=== PATIENT | female | born 1955 | race Caucasian/White ===

== ENCOUNTER 2016-10-02 10:56 | Inpatient (IN) | payer OTHER ==
[2016-10-02] VITALS (11 sets, daily range): BP systolic 113–137; BP diastolic 56–78; PULSE 88–113; RESP 15–30; O2SAT 92–98
[~2016-10-02] VITALS: Ht 171.4 cm; Wt 48.9 kg
[~2016-10-02 10:56] MED LIST: ALBU8.5H4 IH; BETA1TAB19 PO; BUPR75TA5 PO; FLUT12AE8 IH; METH750T3 PO; MULT-621 PO; TIOT18CA3 IH; [UNRECOGNIZED DRUG - CODE] PO
--- NOTE | 2016-10-02 11:02 | ED.REPORT ---
HPI-Dyspnea / Wheezing Date of Service Oct 02, 2016 ED Provider: Dr. Akshat Webb D.O. A 61 year old female with a history of COPD presents to the ED via EMS with shortness of breath onset 0100 this morning. She is on her fourth day of 60mg Prednisone with no improvement and has been using her rescue inhaler and albuterol nebulizer today with no relief. EMS found the patient with a BP of 134 /79 and O2 sats of 81% on room air. She was given DuoNeb treatment en route and her O2 sats mercedes to 98%. The patient denies chest pain, hematemesis, or hemoptysis. She has no history of PE or other blood clot. The patient denies recent medication change. Nursing Notes Stated Complaint: COPD ASTHMA EXACERBATION Chief Complaint: Respiratory Distress Nursing Notes Reviewed: Yes Allergies: Coded Allergies: Penicillins (Verified Allergy, Intermediate, HIVES, 10/02/16) codeine (Verified Adverse Reaction, Intermediate, NAUSEA, 10/02/16) Scheduled Fluticasone Propionate (Flovent HFA 110 mcg) 12 Gm Aer.w.adap 2 PUFFS IH BID Formoterol Fumarate (Perforomist) 20 Mcg/2 Ml Vial.neb 20 MCG IH BID Multivitamin (Once Daily) 1 Each Tablet 1 EACH PO DAILY Pantoprazole (Pantoprazole DR) 40 Mg Tablet.dr 40 MG PO DAILY Prednisone (PredniSONE) 20 Mg Tablet 60 MG PO daily then taper Tiotropium [place] (Spiriva) 18 Mcg Cap.w.dev 18 MCG IH DAILY Vit A/Vit C/Vit E/Zinc/Copper (Preservision Areds Tablet) 1 Each Tablet 1 EACH PO BID Scheduled PRN Albuterol Neb Soln (Albuterol Neb Soln) 2.5 Mg/3 Ml Vial.neb 2.5 MG INHALATION QID PRN PRN For Shortness of Breath Albuterol Sulfate (Ventolin HFA Inhaler) 200 Puff/18 Gm Inhaler 2 PUFFS INH q4- 6 hours PRN PRN For Shortness of Breath Methocarbamol (Methocarbamol) 750 Mg Tablet 750 MG PO HS PRN PRN For Spasm Tramadol (Tramadol) 50 Mg Tablet 50 MG PO q6 hours PRN PRN For Pain Trazodone (Trazodone) 50 Mg Tablet 50-100 MG PO HS PRN PRN For Sleep General Time Seen by MD: 11:02 Chief Complaint Shortness of breath Hx Obtained From: Patient Arrived By: Ambulance Onset Occurred: Just prior to arrival Symptom Duration: Since onset Location: : None Severity: Current: No pain currently Severity: Maximum: No pain Associated with: Denies: Chest pain, Fever Context Related History: Reports: COPD, Denies: Pulmonary embolism Recent Healthcare: No recent doctor visit Similar Sx Previous: Yes Past Medical History Past Medical History COPD Past Surgical History Colonoscopy Smoking History Former Smoker Ambulatory Status Independent Review of Systems Constitutional: Denies: Fever Respiratory: Reports: Shortness of breath, Denies: Hemoptysis Cardiovascular: Denies: Chest pain Complete sys rev & neg: except as marked. GI: Denies: Hematemesis, Vomiting Physical Exam Initial Vital Signs Vital Signs (First) Date Time Temp Pulse Resp B/P Pulse Ox O2 Delivery O2 Flow Rate FiO2 10/02/16 11:02 36.8 99 15 119/57 98 Nasal Cannula 2 Initial VS: Reviewed Head / Eyes: Atraumatic, Normocephalic ENT: Conjunctiva normal, No scleral icterus Extremities: Vascular intact, Neuro intact, No swelling Skin: Warm, Dry, No cyanosis Neurologic: Alert, Oriented, Nonfocal Psychiatric: Mood/affect normal, Behavior normal, Normal thought content General/Constitutional: Awake, Alert Distress / Hydration: Positive: Distress moderate Neck: Supple, Full range of motion Respiratory / Chest: Breath sounds = bilat Resp Distress / Stridor: Positive: Resp distress moderate Diminished Breath Sounds: Positive: Decreased bilateral Pursed lip breathing Cardiovascular: Heart rate NL, Regular rhythm, Heart sounds NL Interpretation & Diagnostics Lab Results Interpretation Result Diagram: 10/02/16 1100 10/02/16 1100 Test 10/02/16 11:00 10/02/16 12:05 White Blood Count 13.1th/mm3 (3.8-10.1) Red Blood Count 4.85mil/mm3 (3.90-5.20) Hemoglobin 14.8g/dL (12.0-15.6) Hematocrit 44.5% (35.0-46.0) Mean Corpuscular Volume 91.8fL (81-100) Mean Corpuscular Hemoglobin 30.5pg (27.0-35.0) Mean Corpuscular Hemoglobin Concent 33.3% (32.0-37.0) Red Cell Distribution Width 13.5% (12.3-15.4) Platelet Count 227bil/L (150-400) Neutrophils (%) (Auto) 82.8% (40-74) Lymphocytes (%) (Auto) 9.3% (14-46) Monocytes (%) (Auto) 2.8% (4-12) Eosinophils (%) (Auto) 4.4% (0-5) Basophils (%) (Auto) 0.5% (0-3) Prothrombin Time 10.0sec (8.1-12.5) Prothromb Time International Ratio 0.94ratio D-Dimer < 0.5mg/L (<0.50) Sodium Level 142mEq/L (134-144) Potassium Level 3.4mEq/L (3.5-5.2) Chloride Level 100mEq/L (97-108) Carbon Dioxide Level 28mmol/L (18-29) Blood Urea Nitrogen 20mg/dL (8-27) Creatinine 0.59mg/dL (0.57-1.00) Estimat Glomerular Filtration Rate 147mL/min (>59) Glucose Level 137mg/dL (60-99) Calcium Level 9.0mg/dL (8.5-10.1) Magnesium Level 2.0mg/dL (1.6-2.6) Total Bilirubin 0.6mg/dL (0.0-1.2) Aspartate Amino Transf (AST/SGOT) 19U/L (0-50) Alanine Aminotransferase (ALT/SGPT) 25U/L (0-32) Alkaline Phosphatase 105U/L (25-165) Troponin T < 0.010ug/L (0.0-0.011) Pro-B-Type Natriuretic Peptide 72.21pg/mL (0-287) Total Protein 6.9g/dL (6.4-8.4) Albumin 4.4g/dL (3.4-5.0) Procalcitonin 0.04ng/mL (0.00-0.08) Hold Glass Top Tube Received (Received) ECG Interpretation ECG Interpretation: Sinus rhythm rate [address] segments Time: 11:42 Interpreted by: ED physician X-Ray Chest Interpretation Chest Xray Interpretation: IMPRESSION: No acute cardiopulmonary abnormality. Dictated by: Jake Youngblood M.D. on 10/02/2016 at 12:24 View: Portable, 1 view Interpretation / Wet Read by: Interpret - Radiologist Re-Eval/Medical Decision Re-Evaluation/Progress #1: Time of Eval: 12:36 Patient Status: Condition improved Re-Evaluation/Progress Note: Patient is moving air better. She is grossly anxious. Her O2 sats are 89-91% on room air. Discussed with patient x-ray and lab results, diagnosis, and plan for admit. Patient agrees with plan for care and all questions were addressed. Re-Evaluation/Progress #2: Time of Eval: 15:02 Patient Status: Condition improved Re-Evaluation/Progress Note: Patient rechecked. 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 I, Dr. Webb, personally performed the history, physical exam, and medical decision-making; I reviewed and confirmed the accuracy of the information in the transcribed note. Signed by: Nyla Sherman, 10/02/2016, 16:20 copies to: Mason Velasco MD, Todd P DO Oct 02, 2016 11:02 LUZ MARINA LU Oct 02, 2016 11:08
[2016-10-02] MEDS ORDERED: 0.9% Sodium Chloride 1,000 ML IV ONE (11:04)
[2016-10-02] MEDS ORDERED: cefTRIAXone Inj 2,000 MG in Dextrose 5% Minibag Plus 50 ML IV ONE (11:10)
[2016-10-02] MEDS ORDERED: Albuterol 2.5 mg/3 mL Inhalation Solution NEB ONE ×2 (11:10→15:00)
[2016-10-02] MEDS ORDERED: MethylprednisoLONE Sodium Succinate 62.5 mg/mL 2 mL Inj IVPUSH ONE (11:10)
[2016-10-02] MEDS ORDERED: Albuterol-Ipratropium 3 mL Inhalation Solution NEB ONE ×2 (11:10→20:30)
[2016-10-02 11:27] LABS: BASOPHILS % (AUTO) 0.5 % (0-3); EOSINOPHILS % (AUTO) 4.4 % (0-5); MONOCYTES % (AUTO) 2.8 % (4-12); Mean Corpuscular Hemoglobin 30.5 pg (27.0-35.0); Mean Corpuscular Volume 91.8 fL (81-100); NEUTROPHILS % (AUTO) 82.8 % (40-74); Platelet Count 227 bil/L (150-400)
[2016-10-02 11:41] LABS: INR 0.94 ratio
[2016-10-02] MEDS ORDERED: TRAZ-118 PO (11:50)
[2016-10-02] MEDS ORDERED: PRE20 PO (11:50)
[2016-10-02] MEDS ORDERED: TRAM50TA2 PO (11:50)
[2016-10-02] MEDS ORDERED: MULT-666 PO ×2 (11:50→14:26)
[2016-10-02] MEDS ORDERED: ALBU2.5V4 INHALATION (11:50)
[2016-10-02 12:15] LABS: TROPONIN T < 0.010 ug/L (0.0-0.011)
--- NOTE | 2016-10-02 12:27 | DRSVH ---
PROCEDURE: X-RAY CHEST ONE VIEW, PORTABLE ([id number]) INDICATIONS: dyspnea TECHNIQUE: One view of the chest was acquired. COMPARISON: 08/27/2016 FINDINGS: Surgical changes and devices: None. Lungs and pleura: No pleural effusions or pneumothorax. Lungs are clear. Density over the right low er lung field laterally on last exam is not seen. Mediastinum: Mediastinal contours appear normal. Heart size is normal. Bones and chest wall: No suspicious bony lesions. Overlying soft tissues appear unremarkable. IMPRESSION: No acute cardiopulmonary abnormality. Dictated by: Jake Youngblood M.D. on 10/02/2016 at 12:24 Approved by: Jake Youngblood M.D. on 10/02/2016 at 12:25
[2016-10-02] MEDS ORDERED: FORM20VI2 IH (14:24)
[2016-10-02] MEDS ORDERED: PANT40TA3 PO (14:24)
[2016-10-02] MEDS ORDERED: ALBU18HF INH (14:24)
[2016-10-02] MEDS ORDERED: TRAZ-115 PO (14:24)
[2016-10-02] MEDS ORDERED: Azithromycin Inj 500 MG in Dextrose 5% w/Vial Mate 250 ML IV ONE (15:00)
[2016-10-02] MEDS ORDERED: Alum-Mag Hydrox-Simeth 30 mL Suspension PO PRN (15:05)
[2016-10-02] MEDS ORDERED: Ondansetron 2 mg/mL 2 mL Inj IVPUSH PRN (15:05)
[2016-10-02] MEDS: Azithromycin Inj 500 MG in Dextrose 5% w/Vial Mate 250 ML IV SCH (16:01)
[2016-10-02] MEDS ORDERED: 0.9% Sodium Chloride 1,000 ML ONE (16:23)
[2016-10-02] MEDS ORDERED: Albuterol 2.5 mg/3 mL Inhalation Solution NEB PRN (16:30)
[2016-10-02 16:52] LABS: APPEARANCE,URINE CLEAR (CLEAR,HAZY); COLOR,URINE STRAW (YELLOW)
[2016-10-02 16:53] LABS: OCCULT BLOOD,URINE TRACE (NEGATIVE); UROBILINOGEN,URINE NORMAL (NORMAL)
--- NOTE | 2016-10-02 17:09 | NUR ---
Arrival to [facility] Pt arrived to room 2030 from ED around 1620. Visibly dyspneic, w/ RR 30. Vitals stable on 2L oxygen. Admission questions completed without difficulty. Viral and MRSA nasal swabs sent to lab, as well as urine sample. Plan of care discussed w/ pt, who is agreeable. Care ongoing.
--- NOTE | 2016-10-02 17:35 | PCM.HPMED ---
Subjective Date of Service Oct 02, 2016 Primary Provider: Admitting Physician: Harpreet Rivas MD Primary Care Physician: Mason Velasco MD Attending Physician: Harpreet Rivas MD Admit Status: From the Emergency Department, Admit to Yellow Team Chief Complaint: Shortness of breath History of Present Illness: Ms. Lily Astudillo is a pleasant 61 year old woman with history of COPD with centrilobular emphysema and asthma on chronic oxygen therapy, that presented to [facility] with shortness of breath. She was admitted for evaluation and treatment of acute on chronic respiratory failure due to suspected COPD exacerbation. Patient shares that she has been feeling extremely short of breath over the course greater than one year, notable decompensation January 2016. She states current symptoms have been persisting for recent weeks, but she could not breathe at all day of admission, and that is what prompted her visit to the ED. She also endorses recent fever, decreased appetite, fatigue, chills. Currently ongoing. She shares that she was looking forward to meeting with a science specialist to discuss her symptoms, as she is extremely fatigued and worried about her respiratory health. She states she is compliant with her medication regimen, and compliant with outpatient follow up. Quit smoking July 2016, and has remained smoke-free. Denies any other substance use or EtOH intake. Wears oxygen around the clock, with 1L at rest, 2L with activity. No recent travel; resided in [place] x35 years, reports negative testing for Valley Fever while living in [facility] for 5 years. The patient reports residing in locations with black mold and asbestos for estimated 1.5-2 years approx 20 years ago. 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 Currently receiving prednisone 60mg, on fourth day of dosing of a 5 day schedule with taper of 60mg x5d, 40mg x5d, 20mg x5d, then 10mg x5d. Recently seen by PCP 09/19/2016 with complaints of low grade fever, increased cough with increased production, increased dyspnea, and increased wheeze, that have been present at that time for over a week. She received prednisone burst with taper in August, and levofloxacin 750mg daily x5 days from 09/12 - 09/16. In the ED, found to have sats 81% on room air. Provided multiple DuoNeb treatments, ceftriaxone 2g IV, azithromycin 500mg IV, 1L NS. CXR did not reveal any acute abnormality, but was suspicious for hyperinflated lungs. Labs yielded : D-dimer < 0.05, PCT 0.04, WBC 13.1. She was transferred to [facility] in stable condition, with O2 sats > 95% on 2L in room at rest. Review of Systems: General: Patient is feels wiped out and is very very tired. Patient has lost approximately 20 pounds over the last year. And she is always been thin to begin with HEENT: Patient has no headache, patient has no diplopia, patient has no changes in vision. Patient has no problems with their ears, nose or throat. Patient has no known dental problems. Patient has no pharyngitis or history of thrush. Neck: Patient has no stiffness in the neck. She does complain of chronic neck pain. Patient has no lymphadenopathy. Patient has no other problems with their neck. Pulmonary: Patient has had shortness of breath for a year at a minimum and it continues to worsen. She feels better on steroids and then feels horrible off of steroids. Increasing shortness of breath. Patient has no pleurisy. Patient has had a slight feeling of pressure or chest pain in the left side of her chest today. Patient has a history of severe COPD. she used to smoke [employer] lights for years(45 pack years) and quit July 26 when she was admitted to the [facility]. Cardiovascular: Patient has some mild chest pain which she describes as a dull pain in the left side of her chest. Patient has no history of heart murmur. Patient has no palpitations. Patient has no history of myocardial infarction. Patient has no history of coronary artery disease. Vision has never had a stress treadmill test or any cardiac workup. Gastrointestinal: Patient has no history of hepatitis A, B or C. Patient has no history of peptic ulcer disease. Patient has a history of gastroesophageal reflux disease. Patient has no history of nausea, vomiting, or diarrhea. Patient has no history of hematemesis, hematochezia, or melena. Patient has no history of colitis. Renal: Patient has a history of kidney stones. Genitourinary: Patient has no history of dysuria, frequency, or incontinence. Patient has no previous history of genitourinary problems. Musculoskeletal: Patient has no history of muscular skeletal problems. Neurologic: Patient has no history of stroke, no history of seizure, no history of TIA. Psychiatric: Patient has no history of psychiatric problems. The remainder of the entire review of systems was reviewed with patient and is as mentioned above otherwise negative. Allergies Coded Allergies: Penicillins (Verified Allergy, Intermediate, HIVES, 10/02/16) codeine (Verified Adverse Reaction, Intermediate, NAUSEA, 10/02/16) Home Medications Per [facility] PCP note dated as below: Lily Astudillo [id number] 1955 09/19/2016 03:20 PM 08/24 Medications (Added or Continued this visit) Start Date Medication Directions Stop Date 08/06/2016 albuterol sulfate 2.5 mg/3 mL (0.083 %) solution for nebulization inhale 3 milliliter by nebulization route 4 times every day 08/05/2017 06/15/2016 Flovent HFA 110 mcg/actuation aerosol inhaler inhale 2 puff by inhalation route 2 times every day 06/18/2016 methocarbamol 750 mg tablet take 1 tablet in pm as needed 10/13/2014 multivitamin tablet take 1 tablet by oral route every day with food 08/06/2016 pantoprazole 40 mg tablet,delayed release take 1 tablet by oral route every day 08/05/2017 09/12/2016 Perforomist 20 mcg/2 mL solution for nebulization inhale 2 milliliter by inhalation route 2 times every day via nebulizer in the morning and evening 09/11/2017 08/27/2016 prednisone 20 mg tablet take 3 tabs in AM w food every day for 5 days , then 2 for 5 days, then 1 for 5 days 02/22/2017 PreserVision AREDS 1 daily 09/12/2016 Spiriva with HandiHaler 18 mcg and inhalation capsules inhale 1 capsule by inhalation route every day 10/31/2016 09/01/2016 tramadol 50 mg tablet take 1 tablet (50MG) by oral route every 6 hours as needed 09/12/2016 trazodone 50 mg tablet take 1-2 tablet by oral route at bedtime as needed 09/11/2017 06/18/2016 VENTOLIN HFA 90 MCG INHALER inhale 2 puffs by mouth every 4 to 6 hours if needed PMH COPD with centrilobular emphysema and asthma Seasonal allergies Endometriosis Nephrolithiasis Right rotator cuff tear Cervical spondylosis Chronic cervical and low back pain GERD Insomnia Left renal cyst Adenomatous colonic polyps Surgical History Colonoscopy PAULINE/BSO Family History Father: CAD; at age 49y Mother: Colon CA and Alzheimer's Sister: DM2 Brother: EtOH use disorder with encephalopathy Brother from alcohol use A second brother in the [facility] A third brother is healthy living in [place], [place] Social History Hx Alcohol Use: No Hx Substance Use: Yes (patient smokes marijuana and is given her an appetite since she was hospitalized July 26) Smoking Status: Former Smoker (patient quit 07/26/2016.) Living Arrangement: with Family Additional Information Patient lived in [facility] for 5 years and at that time was thought to have had valley fever and was tested for it but the serologic test was negative. Patient lived in [place] for her over 15 years. Patient is lived in [place], [place] for the last 11 years. Patient used to teach preschool and special education. Exam Vital Signs Vital Sign - Last Date Time Temp Pulse Resp B/P Pulse Ox O2 Delivery O2 Flow Rate FiO2 10/02/16 15:24 110 18 137/70 95 Nasal Cannula 2 10/02/16 11:02 36.8 Exam General: Moderate distress noted with anxiety; thin; pleasant and cooperative, AAOx3 HEENT: Atraumatic, external ears without defect; sclera anicteric; mucus membranes moist; NC in place Cardiac: Faint tones secondary to overlying wheeze; no audible murmur Respiratory: Diffuse wheeze bilateral all vasquez; mild coarse sounds appreciated bilateral bases Abdomen: Soft, nontender, nondistended Extremities: No edema MSK: 4/4 extremities 5/5 strength; able to transition without assistance Skin: Warm and dry Pulses: Radial equal and bilateral; dorsalis pedis equal and bilateral Neuro: CNII-XII grossly intact; speech without slur, facial expressions symmetric Psych: Appropriate mood, affect, and responses to questioning; good insight and judgment Lab and Diagnostics Result Diagram: 10/02/16 1100 10/02/16 1100 Assessment & Plan Ms. Lily Astudillo is a pleasant 61 year old woman with history of COPD with centrilobular emphysema and asthma on chronic oxygen therapy, that presented to [facility] with shortness of breath. She was admitted for evaluation and treatment of acute on chronic respiratory failure due to suspected COPD exacerbation. - Hospital day 1 Acute on chronic respiratory failure, present on admission. Ongoing - Home O2 reported as 1-2L, continuous - Suspected to be secondary to URI, or COPD exacerbation - Treat underlying cause(s) - Blood cultures - Abx: Rocephin + azithromycin, start date 10/02 + probiotics - Echo on order - Resp viral PCR - MRSA screen - Quantiferon, coccidio studies - Sputum culture x3: AFB + DNA amp - Trend troponin - Initial PCT 0.04 - CXR in am Acute exacerbation COPD with centrilobular emphysema, present on admission. Ongoing - Outpatient pulomnology: Dr. Kirby, OV scheduled 10/29/2016 - PFTs completed 08/27/2016: - Pre-bronchodilators FVC actual 2.88, pred 3.60; FEV1 actual 1.31, pred 2.77 ; FEV1/FVC % actual 45, pred 77 - Post-bronchodilators FVC actual 3.08 85% pred; FEV1 1.26 45% pred; FEV/FVC actual 41, 53% pred - CT chest wo contrast 08/2016: Severe centrilobular emphysema; nodules seen on XR 08/27/2016, not visualized; bilateral apical scarring - On outpatient steroids: Prednisone 60mg daily, day 4 of regimen - Consideration of pulmonary consult if no improvement within next 24 hours - Duonebs q4h - Accunebs q2h prn - Increase in steroids: Methylprednisone 60mg IV q8h Leukocytosis, likely acute, present on admission. Ongoing - Likely secondary to recent steroid use as outpatient and continued use inpatient - Continue to monitor Anxiety, acute, present on admission. Under therapy - Secondary to inability to breathe - Ativan 0.5mg IV q4h prn for anxiety Chronic pain. Presumed stable - Due to cervical spondylosis and chronic neck pain - Methocarbamol 750mg po qhs prn pain - Tramadol 50mg po q6h prn pain Insomnia, chronic. Presumed stable - Home Rx; Trazodone 50-100mg hs prn insomnia - Continued home Rx GERD, chronic. Presumed stable - Pantoprazole 40mg daily before meals - Continued - DVT: Lovenox 40mg SQ daily - GI: PPI - Diet: Heart healthy - PRN bowel/fever/pain/antiemetic - Code: FULL CODE - Time spent: Approximately 60 minutes spent on patient case; greater than 50% spent on coordination of care and counseling Patient status: Due to severity of symptoms, risk of adverse events, and likelihood of disease course, anticipated LOS > 2 midnights; admitted as inpatient status. Anticipated needs will evolve as we gather more information on her case. RT will play integral role in the improvement Pain Evaluation: Adequate Pain Control GI Prophylaxis: Proton Pump Inhibitor VTE Prophylaxis: Sub-Q Enoxaparin Resuscitation Status: CPR: Attempt Resuscitation Attending Statement Patient seen and examined. Chart reviewed and case discussed at length with Dr. Lilliana Gilbert. I agree with the above note. Ally Gilbert DO Oct 02, 2016 16:30 Harpreet Rivas MD Oct 02, 2016 19:02
[2016-10-02] MEDS ORDERED: Albuterol-Ipratropium 3 mL Inhalation Solution NEB SCH (21:00)
[2016-10-02] MEDS: MethylprednisoLONE Sodium Succinate 62.5 mg/mL 2 mL Inj IVPUSH SCH (21:06)
[2016-10-03] VITALS (12 sets, daily range): BP systolic 90–124; BP diastolic 58–73; PULSE 85–104; RESP 20–22; O2SAT 91–98
[2016-10-03] MEDS: Albuterol-Ipratropium 3 mL Inhalation Solution NEB SCH ×7 (00:30→23:56)
[2016-10-03 03:49] LABS: BASOPHILS % (AUTO) 0 % (0-3); EOSINOPHILS % (AUTO) 0 % (0-5); MONOCYTES % (AUTO) 1.7 % (4-12); Mean Corpuscular Hemoglobin 29.8 pg (27.0-35.0); Mean Corpuscular Volume 91.3 fL (81-100); Platelet Count 204 bil/L (150-400)
[2016-10-03] MEDS: MethylprednisoLONE Sodium Succinate 62.5 mg/mL 2 mL Inj IVPUSH SCH ×3 (04:22→21:20)
[2016-10-03 04:30] LABS: Magnesium 2.2 mg/dL (1.6-2.6); Phosphorus 3.6 mg/dL (2.5-4.9)
--- NOTE | 2016-10-03 05:36 | NUR ---
Respiratory: Sp02 monitored via [employer] overnight, Sp02 remains 90s on 1-2 L NC. Pt does become extremely PÉREZ, pursed lip breathing and accessory muscle use noted with even minimal activity. Rest encouraged. Pt continues to have harsh, dry barking cough with minimal sputum production. Post neb tx pt had long coughing fit where she appeared very uncomfortable and was havening extreme air hunger. Scheduled Solumedrol given at this time in addition to PRN IV ativian. Pt currently resting comfortably- care ongoing.
[2016-10-03] MEDS: Pantoprazole 40 mg ER24 Tablet PO SCH (06:36)
[2016-10-03] MEDS: cefTRIAXone Inj 2,000 MG in Dextrose 5% Minibag Plus 50 ML IV SCH (09:10)
[2016-10-03] MEDS ORDERED: 0.9% Sodium Chloride 250 ML ONE (09:13)
--- NOTE | 2016-10-03 10:46 | DRSVH ---
PROCEDURE: X-RAY CHEST, TWO VIEWS ([id number]) INDICATIONS: Hypoxia TECHNIQUE: 2 views of the chest were acquired. COMPARISON: [facility], CR, XR CHEST 2VW, 08/27/2016, 10:31. [facility], CR, XR CHEST 1VW (PORTABLE), 10/02/2016, 12:00. [facility], CT, CT CHEST WO CON, 09/03/2016, 15:20. FINDINGS: Surgical changes and devices: None. Lungs and pleura: No pleural effusions or pneumothorax. Lungs are clear. Lung volumes are increase d with flattening of the hemidiaphragms consistent with COPD. Mediastinum: Mediastinal contours are normal. Heart size is normal. Bones and chest wall: No suspicious bony abnormalities. Soft tissues appear unremarkable. IMPRESSION: No acute cardiopulmonary disease. COPD. Dictated by: Stan Camarena A Interpreted: Frida Asif MD on 10/03/2016 at 10:44 Transcribed by: DIAN on 10/03/2016 at 10:45 Approved by: Frida Asif M.D. on 10/03/2016 at 12:40
[2016-10-03] MEDS ORDERED: FLUCONAZOLE IV SCH (11:45)
[2016-10-03] MEDS: Fluconazole Inj 400 MG in IV Premix 1 EACH IV SCH (13:40)
--- NOTE | 2016-10-03 16:26 | DRSVH ---
[facility] [address] [place] [address] Echocardiogram Report Name: SHANNON ROBERSON JStudy Date: 10/03/2016 Height: 67 in Hospital Exam Location: [facility] Weight: 116 lb Gender: Female BSA: 1.6 m2 : 1955 Age: 61 yrs BP: 90/58 mmHg Reason For Study: HYPOXIA Ordering Physician: HOSPITALIST WOOHPerformed By: Avery Judd Referring Physician: Dayo RODRIGUEZ Interpretation Summary 1. Normal left ventricular size, wall thickness and systolic function with an estimated EF of 60-65% 2. Grossly normal right ventricular size with normal systolic function. 3. No evidence for valvular pathology Procedure: A two-dimensional transthoracic echocardiogram with color flow and Doppler was performed. The study quality was technically adequate. There is no prior echocardiogram noted for this patient. The patient was in normal sinus rhythm during the exam. Left Ventricle: The left ventricle is normal in size. There is normal left ventricular wall thickness. The ejection fraction is estimated to be 60-65%. There are no focal wall motion abnormalities. Right Ventricle: Grossly normal size. The right ventricular systolic function is normal. Atria: Both atria are normal in size. No color doppler evidence for an ASD. Mitral Valve: The mitral valve is normal in structure and function. There is no mitral regurgitation noted. Aortic Valve: The aortic valve is trileaflet. The aortic valve opens well. No aortic regurgitation is present. Tricuspid Valve: The tricuspid valve is normal in structure and function. No tricuspid regurgitation. Pulmonary artery pressures cannot be estimated because of the lack of a measurable TR jet velocity. Pulmonic Valve: The pulmonic valve is not well visualized. Great Vessels: The aortic root is normal size. The dimensions of the ascending aorta are normal. The pulmonary artery is normal size. The IVC is of normal diameter and collapses greater than 50% with a sniff. This suggests a low right atrial pressure of 3 mm Hg. Pericardium/ Pleura There is no pericardial effusion. There is no pleural effusion. MMode/2D Measurements & Calculations LVIDd: 4.3 cm RA long axis Ao root diam LVIDs: 2.7 cm LA A2 area: 17.3 cm FS: 36.9 % LA A4 area: 15.4 cm RA area asc Aorta EPSS: 0.00 cm LA length (vol): 5.4 cm Diam: 2.8 cm IVSd: 0.62 cm LA vol: 41.9 ml : 13.3 cm LVPWd: 0.80 cm LA vol index RA vol: 31.3 ml RA : 19.5 mm2 IVC diam: 1.9 cm LV blanco. diameter/BSA LV sys. diameter/BSA (cm/m^2): 2.7 (cm/m^2): 1.7 Doppler Measurements & Calculations Ao V2 max MV E max chele MV E/A: 0.86 PA V2 max: 91.4 cm/sec : 134.4 cm/sec : 74.9 cm/sec Med Peak E' Chele PA mean P.1 mmHg Ao max PG MV A max chele PA Accel Time: 0.11 sec : 7.2 mmHg : 87.2 cm/sec E/E' med: 9.8 Ao mean PG Lat Peak E' Chele : 4.1 mmHg E/E' lat: 6.8 E/e' average: 8.3 Pulm A Revs Dur MV A dur: 0.12 sec MV dec time Ao V2 mean PA V2 mean Pulm A Revs Dur - MV A : 0.18 sec : 96.8 cm/sec : 70.3 cm/sec Dur: -0.02 msec Ao V2 VTI PA pr(Accel) : 26.3 cm : 31.6 mmHg Reading Physician:04:26 PM
[2016-10-03] MEDS: Azithromycin Inj 500 MG in Dextrose 5% w/Vial Mate 250 ML IV SCH (17:57)
--- NOTE | 2016-10-03 18:40 | PCM.PNMED ---
Subjective Date of Service Oct 03, 2016 Subjective Overnight: Reports of continued anxiety and SOB Today: Anxiety and SOB continued. Reports continued, frequent coughing with sputum production. Coughing fit witnessed during Dr. Gilbert's examination and my independent examination. Patient admits to, and appears, anxious. She attributes her anxiety to her inability to breathe. She continues to express that she just wants to feel better, and wants to be able to breathe comfortably. Denied any overnight fevers. Tolerating po intake well. Had not worked with PT at time of initial evaluation. Exam Vital Signs Vital Sign - Last Date Time Temp Pulse Resp B/P Pulse Ox O2 Delivery O2 Flow Rate FiO2 10/03/16 13:12 104 22 91 Nasal Cannula 2.00 10/03/16 12:34 36.9 103/71 Intake and Output 10/02/16 10/02/16 10/03/16 Cumulative From/Thru 15:00 23:00 07:00 10/02/16 11:02 - 10/03/16 04:11 Intake Total 1000 ml 100 ml 200 ml 1300 ml Output Total 200 ml 600 ml 800 ml Balance 1000 ml -100 ml -400 ml 500 ml Intake Oral 100 ml 200 ml 300 ml IV Total 1000 ml 1000 ml Output Urine Total 200 ml 600 ml 800 ml Exam General: Moderate distress noted with anxiety, coughing spell, and associated SOB; thin; pleasant and cooperative, AAOx3 HEENT: Atraumatic, external ears without defect; sclera anicteric; mucus membranes moist; NC in place Cardiac: Tachycardic at time of examination, rate approx 90; Faint tones secondary to overlying wheeze; no audible murmur Respiratory: Diffuse wheeze bilateral all vasquez; mild coarse sounds appreciated bilateral bases; air movement appreciated bilaterally all vasquez Abdomen: Soft, nontender, nondistended Extremities: No edema MSK: 4/4 extremities 5/5 strength; able to transition without assistance Skin: Warm and dry Neuro: CNII-XII grossly intact; speech without slur, facial expressions symmetric Psych: Appropriate mood, affect, and responses to questioning; good insight and judgment; moderately anxious at time of examination secondary to breathing difficulties Lab and Diagnostics Result Diagram: 10/03/16 0230 10/03/16 0230 Microbiology Blood cultures are negative so far The respiratory viral PCR DNA panel is negative Cardiac Echo Impressions Interpretation Summary 1. Normal left ventricular size, wall thickness and systolic function with an estimated EF of 60-65% 2. Grossly normal right ventricular size with normal systolic function. 3. No evidence for valvular pathology Assessment & Plan Ms. Lily Astudillo is a pleasant 61 year old woman with history of COPD with centrilobular emphysema and asthma on chronic oxygen therapy, that presented to [facility] with shortness of breath. She was admitted for evaluation and treatment of acute on chronic respiratory failure due to suspected COPD exacerbation. - Hospital day 2 Acute on chronic respiratory failure, present on admission. Ongoing - Home O2 reported as 1-2L, continuous - Suspected to be secondary to URI, or COPD exacerbation - Treat underlying cause(s) - Blood cultures: No growth to date - Echo 10/03: EF 60-65, normal LV thickness, size, and function; no evidence valvular pathology; normal RV size and function - Resp viral PCR: Negative - MRSA screen: Pending - Troponin: negative x3 - Initial PCT 0.04; repeat 0.04: Negative - CXR in am - Abx: Rocephin + azithromycin, start date 10/02 + probiotics - Quantiferon, coccidio studies: Pending - Sputum culture x3: AFB + DNA amp: Sent Acute exacerbation COPD with centrilobular emphysema, present on admission. Ongoing - Outpatient pulomnology: ALLY Roa scheduled 10/29/2016 - PFTs completed 08/27/2016: - Pre-bronchodilators FVC actual 2.88, pred 3.60; FEV1 actual 1.31, pred 2.77 ; FEV1/FVC % actual 45, pred 77 - Post-bronchodilators FVC actual 3.08 85% pred; FEV1 1.26 45% pred; FEV/FVC actual 41, 53% pred - CT chest wo contrast 08/2016: Severe centrilobular emphysema; nodules seen on XR 08/27/2016, not visualized; bilateral apical scarring - On outpatient steroids: Prednisone 60mg daily, day 4 of regimen - Consideration of pulmonary consult if no improvement within next 24 hours, and pending lab results - Duonebs q4h - Accunebs q2h prn - Increase in steroids: Methylprednisone 60mg IV q8h, day 2 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 Under therapy and evaluation - History of [place] residence, [place] - Symptoms often alleviate with steroids, return quickly when steroid courses completed - Coccidio antibodies pending; often falsely negative - Will empirically treat: Fluconazole therapy initiated 10/03 - 200mg IV qhs + 400mg IV qam for now (we will likely change to 600 mg IV daily) Leukocytosis, likely acute, present on admission. Ongoing - Likely secondary to recent steroid use as outpatient and continued use inpatient - Continue to monitor Anxiety, acute, present on admission. Under therapy - Secondary to inability to breathe; further exacerbates SOB - Ativan 0.5mg IV q4h prn for anxiety Chronic pain. Presumed stable - Due to cervical spondylosis and chronic neck pain - Methocarbamol 750mg po qhs prn pain - Tramadol 50mg po q6h prn pain Insomnia, chronic. Presumed stable - Home Rx; Trazodone 50-100mg hs prn insomnia - Continued home Rx GERD, chronic. Presumed stable - Pantoprazole 40mg daily before meals - Continued - DVT: Lovenox 40mg SQ daily - GI: PPI - Diet: Heart healthy - PRN bowel/fever/pain/antiemetic - Code: FULL CODE - Time spent: Approximately 45 minutes spent on patient case; greater than 50% spent on coordination of care and counseling Dispo: Likely to remain > 2 days at this time. Will need continued work up and treatment for significant SOB. PT to evaluate O2 sats with mobility, and assess her stability. Will determine needs as hospitalization progresses. Pain Evaluation: Adequate Pain Control GI Prophylaxis: Proton Pump Inhibitor VTE Prophylaxis: Sub-Q Enoxaparin Resuscitation Status: CPR: Attempt Resuscitation Attending Statement Patient seen and examined. Case discussed with patient and her sister Kristen at length at bedside case discussed with Dr. Lilliana Gilbert at length. Chart reviewed. I agree with the above note. Ally Gilbert DO Oct 03, 2016 16:09 Harpreet Rivas MD Oct 03, 2016 20:11
--- NOTE | 2016-10-03 19:24 | NUR ---
Respiratory: Pt c/o SOB. Non productive persistent cough, worse in morning. Pt extremely dyspnic with any activity. Continues to have unproductive harsh dry cough. Pt uses pursed lip breathing and has accessory muscle use. SPO2 dips to mid 80s during coughing fit and patient becomes very uncomfortable. States that she has had this cough for the last year and half and has developed 4 abdominal hernias due to her coughing episodes. PRN ativan given for anxiety and seems to provide some relief from coughing episodes. Diet Pt had significant weight lose over past year from her COPD. She has recently been able to gain some weight back through a high protein/high caloric diet. She is very conscientious about maintaining her weight and tries to eat as much of her meals as she is able.
[2016-10-03] MEDS ORDERED: Fluconazole Inj 200 MG in IV Premix 1 EACH IV SCH (20:30)
[2016-10-04] VITALS (12 sets, daily range): BP systolic 122–156; BP diastolic 68–80; PULSE 81–111; RESP 18–26; O2SAT 91–99
[2016-10-04] MEDS: Albuterol-Ipratropium 3 mL Inhalation Solution NEB SCH ×5 (04:00→21:23)
[2016-10-04] MEDS: MethylprednisoLONE Sodium Succinate 62.5 mg/mL 2 mL Inj IVPUSH SCH ×3 (05:19→20:44)
[2016-10-04 05:32] LABS: BASOPHILS % (AUTO) 0 % (0-3); EOSINOPHILS % (AUTO) 0 % (0-5); MONOCYTES % (AUTO) 1.3 % (4-12); Mean Corpuscular Hemoglobin 30.5 pg (27.0-35.0); Mean Corpuscular Volume 91.7 fL (81-100); NEUTROPHILS % (AUTO) 93.5 % (40-74); Platelet Count 183 bil/L (150-400)
[2016-10-04 05:54] LABS: Magnesium 2.2 mg/dL (1.6-2.6); Phosphorus 3.9 mg/dL (2.5-4.9)
--- NOTE | 2016-10-04 06:43 | NUR ---
Anxiety/Cough/ \Anxiety requiring ativan IV .5 Mg x2 , NS @ TKO, O2 per NC @ 2 L . Using call light appropriately. Tele A-Fib 80's
[2016-10-04] MEDS: Pantoprazole 40 mg ER24 Tablet PO SCH (07:25)
[2016-10-04] MEDS: cefTRIAXone Inj 2,000 MG in Dextrose 5% Minibag Plus 50 ML IV SCH (10:35)
[2016-10-04] MEDS: Fluconazole Inj 400 MG in IV Premix 1 EACH IV SCH (10:35)
--- NOTE | 2016-10-04 10:44 | NUR ---
Evaluation completed. Please go to "Notes" then click on "Assessments and Notes" (bottom left corner of screen). Then select appropriate discipline tab on top of screen.
[2016-10-04] MEDS ORDERED: Fluconazole Inj 200 MG in IV Premix 1 EACH IV ONE (13:45)
--- NOTE | 2016-10-04 13:54 | PCM.PNMED ---
Subjective Date of Service Oct 04, 2016 Subjective Overnight: Reports of anxiety and continued SOB. Today: States she does not feel improved- continues to have SOB, anxiety, non- productive cough, inability to take full/deep breaths, and c/o headache. Tolerating po intake well, but reports decreased appetite. Patient also states that she feels weaker than yesterday. Exam Vital Signs Vital Sign - Last Date Time Temp Pulse Resp B/P Pulse Ox O2 Delivery O2 Flow Rate FiO2 10/04/16 12:44 111 24 94 Nasal Cannula 3.00 10/04/16 12:15 36.9 127/68 Intake and Output 10/03/16 10/03/16 10/04/16 Cumulative From/Thru 15:00 23:00 07:00 10/02/16 11:02 - 10/04/16 06:38 Intake Total 332 ml 763 ml 200 ml 2595 ml Output Total 400 ml 1200 ml Balance 332 ml 363 ml 200 ml 1395 ml Intake Oral 640 ml 200 ml 1140 ml IV Total 332 ml 123 ml 1455 ml Output Urine Total 400 ml 1200 ml # Voids 3 3 Exam General: Moderate distress noted with anxiety, coughing spell witnessed, and associated SOB; thin; pleasant and cooperative, AAOx3 HEENT: Atraumatic, external ears without defect; sclera anicteric; mucus membranes moist; NC in place Cardiac: Tachycardic at time of examination, rate approx 90; Faint tones secondary to overlying wheeze; no audible murmur Respiratory: Diffuse wheeze bilateral all vasquez improved today slightly over yesterday; mild coarse sounds appreciated bilateral bases; air movement appreciated bilaterally all vasquez, R > L Abdomen: Soft, nontender, nondistended Extremities: No edema MSK: 4/4 extremities 5/5 strength; able to transition without assistance Skin: Warm and dry Neuro: CNII-XII grossly intact; speech without slur, facial expressions symmetric Psych: Appropriate mood, affect, and responses to questioning; good insight and judgment; moderately anxious at time of examination secondary to breathing difficulties and coughing episode Lab and Diagnostics Result Diagram: 10/04/1651910/04/16519 Microbiology Blood cultures are negative so far The respiratory viral PCR DNA panel is negative X-Rays, CTs and MRIs PROCEDURE: X-RAY CHEST, TWO VIEWS ([id number]) INDICATIONS: Hypoxia TECHNIQUE: 2 views of the chest were acquired. COMPARISON: [facility], CR, XR CHEST 2VW, 08/27/2016, 10:31. [facility], CR, XR CHEST 1VW (PORTABLE), 10/02/2016, 12:00. [facility], CT, CT CHEST WO CON, 09/03/2016, 15:20. FINDINGS: Surgical changes and devices: None. Lungs and pleura: No pleural effusions or pneumothorax. Lungs are clear. Lung volumes are increased with flattening of the hemidiaphragms consistent with COPD. Mediastinum: Mediastinal contours are normal. Heart size is normal. Bones and chest wall: No suspicious bony abnormalities. Soft tissues appear unremarkable. IMPRESSION: No acute cardiopulmonary disease. COPD. Dictated by: Stan Camarena RRA Interpreted: Frida Asif MD on 10/03/2016 at 10:44 Transcribed by: DIAN on 10/03/2016 at 10:45 Approved by: Frida Asif M.D. on 10/03/2016 at 12:40 Cardiac Echo Impressions Interpretation Summary 1. Normal left ventricular size, wall thickness and systolic function with an estimated EF of 60-65% 2. Grossly normal right ventricular size with normal systolic function. 3. No evidence for valvular pathology Assessment & Plan Ms. Lily Astudillo is a pleasant 61 year old woman with history of COPD with centrilobular emphysema and asthma on chronic oxygen therapy, that presented to [facility] with shortness of breath. She was admitted for evaluation and treatment of acute on chronic respiratory failure due to suspected COPD exacerbation. - Hospital day 3 Acute on chronic respiratory failure, present on admission. Ongoing - Home O2 reported as 1-2L, continuous - Suspected to be secondary to URI, or COPD exacerbation - Treat underlying cause(s) - Blood cultures: No growth to date - Echo 10/03: EF 60-65, normal LV thickness, size, and function; no evidence valvular pathology; normal RV size and function - Resp viral PCR: Negative - MRSA screen: Negative - Troponin: negative x3 - Initial PCT 0.04; repeat 0.04: Negative - CXR in am - Abx: Rocephin + azithromycin, start date 10/02 + probiotics - Quantiferon, coccidio studies: Pending - Sputum culture x3: AFB + DNA amp: Sent Acute exacerbation COPD with centrilobular emphysema, present on admission. Ongoing - Outpatient pulomnology: Dr. Kirby, OV scheduled 10/29/2016 - PFTs completed 08/27/2016: - Pre-bronchodilators FVC actual 2.88, pred 3.60; FEV1 actual 1.31, pred 2.77 ; FEV1/FVC % actual 45, pred 77 - Post-bronchodilators FVC actual 3.08 85% pred; FEV1 1.26 45% pred; FEV/FVC actual 41, 53% pred - CT chest wo contrast 08/2016: Severe centrilobular emphysema; nodules seen on XR 08/27/2016, not visualized; bilateral apical scarring - On outpatient steroids: Prednisone 60mg daily, day 4 of regimen day of admission - Consideration of pulmonary consult if no improvement within next 24 hours, and pending lab results - Duonebs q4h - Accunebs q2h prn - Increase in steroids: Methylprednisone 60mg IV q8h, day 3 - Initiate taper 10/05: Solu-Medrol 60mg every 12 hours 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 However, it is suspected that patient required coccidiomycosis and [place], [place] when she lived there for 5 years prior to moving to [place] 11 years ago. Under therapy and evaluation - History of [place] residence, [place] and [place], [place] - Symptoms often alleviate with steroids, return quickly when steroid courses completed - Coccidio antibodies pending; often falsely negative - Will empirically treat: Fluconazole therapy initiated 10/03 - 600mg IV daily - Consider ID consultation 10/05 Leukocytosis, likely acute, present on admission. Ongoing - Likely secondary to recent steroid use as outpatient and continued use inpatient - Continue to monitor Anxiety, acute, present on admission. Under therapy - Secondary to inability to breathe; further exacerbates SOB - Ativan 0.5mg IV q4h prn for anxiety Chronic pain. Presumed stable - Due to cervical spondylosis and chronic neck pain - Methocarbamol 750mg po qhs prn pain - Tramadol 50mg po q6h prn pain Insomnia, chronic. Presumed stable - Home Rx; Trazodone 50-100mg hs prn insomnia - Continued home Rx GERD, chronic. Presumed stable - Pantoprazole 40mg daily before meals - Continued - DVT: Lovenox 40mg SQ daily - GI: PPI - Diet: Heart healthy - PRN bowel/fever/pain/antiemetic - Code: FULL CODE - Time spent: Approximately 45 minutes spent on patient case; greater than 50% spent on coordination of care and counseling Dispo: Likely to remain > 2 days at this time. Will need continued work up and treatment for significant SOB. PT to evaluate O2 sats with mobility, and assess her stability. Will determine needs as hospitalization progresses. Pain Evaluation: Adequate Pain Control GI Prophylaxis: Proton Pump Inhibitor VTE Prophylaxis: Sub-Q Enoxaparin Resuscitation Status: CPR: Attempt Resuscitation Attending Statement Patient seen and examined. Chart reviewed and case discussed with Dr. Lilliana Gilbert at length. I agree with the above note. Ally Gilbert DO Oct 04, 2016 13:54 Harpreet Rivas MD Oct 04, 2016 19:27
[2016-10-04] MEDS ORDERED: 0.9% Sodium Chloride 250 ML ONE (17:55)
[2016-10-04] MEDS: Azithromycin Inj 500 MG in Dextrose 5% w/Vial Mate 250 ML IV SCH (18:00)
--- NOTE | 2016-10-04 19:16 | NUR ---
Oxygenation/Fatigue Patient alert and oriented x3 throughout shift, reported intermittent KAPADIA/neck pain, administered 0.5mg Ativan x2, Tylenol x1 and Ultram x1, patient reported relief. Continuous SPO2 on and shows 96-98% on 3LNC. Patient up to the BR SBA/1PA (patient reports dizziness and RN notes unsteady gait when first standing) -- SPO2 drops to 90% and RR increase from 20 at baseline to 26-28. Patient fatigues very easily, stating multiple times throughout shift "I just feel so exhausted". No reports of n/v/d/c or abdominal pain, decreased PO intake, all other vital signs within normal limits.
[2016-10-05] VITALS (12 sets, daily range): BP systolic 128–158; BP diastolic 63–88; PULSE 70–107; RESP 18–28; O2SAT 92–98
[2016-10-05] MEDS: Albuterol-Ipratropium 3 mL Inhalation Solution NEB SCH ×6 (00:18→20:05)
--- NOTE | 2016-10-05 04:05 | NUR ---
Patient requested that if she is sleeping not to be woken up for a neb treatment
[2016-10-05 04:33] LABS: BASOPHILS % (AUTO) 0 % (0-3); EOSINOPHILS % (AUTO) 0 % (0-5); MONOCYTES % (AUTO) 1.4 % (4-12); Mean Corpuscular Hemoglobin 29.8 pg (27.0-35.0); Mean Corpuscular Volume 91.5 fL (81-100); NEUTROPHILS % (AUTO) 94.4 % (40-74); Platelet Count 214 bil/L (150-400)
[2016-10-05 05:01] LABS: Magnesium 2.2 mg/dL (1.6-2.6)
[2016-10-05] MEDS: Pantoprazole 40 mg ER24 Tablet PO SCH (06:00)
[2016-10-05] MEDS: MethylprednisoLONE Sodium Succinate 62.5 mg/mL 2 mL Inj IVPUSH SCH ×3 (06:00→20:50)
--- NOTE | 2016-10-05 07:09 | NUR ---
Anxiety At 0430 this am, pt c/o sudden increase in SOB, coughing, and breathing "tight" as well as anxiety. Medicated with PRN anxiety and Tessalon. Neb administered per RT. pt anxiety much reduced, continues to rest in bed.
[2016-10-05] MEDS ORDERED: 0.9% Sodium Chloride 250 ML ONE (09:36)
[2016-10-05] MEDS: cefTRIAXone Inj 2,000 MG in Dextrose 5% Minibag Plus 50 ML IV SCH (09:48)
[2016-10-05] MEDS: Fluconazole Inj 400 MG in IV Premix 1 EACH IV SCH (09:51)
--- NOTE | 2016-10-05 10:22 | NUR ---
Social Work: Screen D: Per EMR review, pt is a 61 year old female admitted for respiratory distress to acute exac. of COPD. Pt is [employer] insurance with no supplement. PCP is Mason Velasco MD. NOK is Kristen Knapp. Advanced directives not completed but information provided. Readmit score is moderate, 3/8. Pt lives in [place] with family. Pt has been working with PT and is anticipated to be able to discharge home. Pt has been CGA with ambulation; pt ambulated 15 with [facility]. HOME ORGANIZER spoke with Mejia with [facility] for RN and PT. Access provided. A: Pt who is from home with family. P: Anticipate pt discharge home via POV with [facility] for RN, PT, once medically stable. ELINOR Romo
[2016-10-05] MEDS ORDERED: Fluconazole Inj 200 MG in IV Premix 1 EACH IV SCH (10:30)
[2016-10-05] MEDS: Azithromycin Inj 500 MG in Dextrose 5% w/Vial Mate 250 ML IV SCH (18:22)
--- NOTE | 2016-10-05 19:25 | NUR ---
Anxiety/Respiratory Patient alert and oriented x3, pleasant and cooperative. No reports of n/v/d/c or abdominal pain, no chest pain/pressure/discomfort. Tele SR/Tach 90s-low 100s. Patient had one episode with RT where RR increased significantly from baseline, patient became very anxious. Neb treatment and 0.5mg IV Ativan administered, patient reported "I feel much more comfortable now". Patient continuous to spend majority of time in tripod position with labored breathing, SPO2 on 3L NC ranges from low-high 90s depending on coughing/ambulation to BR.
--- NOTE | 2016-10-05 20:54 | PCM.PNMED ---
Subjective Date of Service Oct 05, 2016 Subjective Overnight: Reports of SOB, coughing, anxiety. Today: Appears improved, but states that she does not feel improved. Continues to state SOB, anxiety, chest tightness, and difficulty breathing. Family present at bedside. All questions, and concerns, addressed. Exam Vital Signs Vital Sign - Last Date Time Temp Pulse Resp B/P Pulse Ox O2 Delivery O2 Flow Rate FiO2 10/05/16 12:02 36.8 97 18 148/80 94 Nasal Cannula 3.00 Intake and Output 10/04/16 10/04/16 10/05/16 Cumulative From/Thru 14:59 22:59 06:59 10/02/16 11:02 - 10/05/16 06:56 Intake Total 427 ml 1232 ml 1200 ml 5454 ml Output Total 1000 ml 125 ml 2325 ml Balance 427 ml 232 ml 1075 ml 3129 ml Intake Oral 880 ml 725 ml 2745 ml IV Total 427 ml 352 ml 475 ml 2709 ml Output Urine Total 1000 ml 125 ml 2325 ml # Voids 2 5 # Bowel Movements 2 2 Exam General: Moderate distress noted with anxiety, coughing spell witnessed, and associated SOB; thin; pleasant and cooperative, AAOx3; anxious appearing HEENT: Atraumatic, external ears without defect; sclera anicteric; mucus membranes moist; NC in place; > 96% sats on 2L Cardiac: Tachycardic at time of examination, rate approx 90-100; no murmur appreciated Respiratory: Diffuse wheeze bilateral all vasquez improved today slightly over yesterday with air movement noted all vasquez; mild coarse sounds appreciated bilateral bases Abdomen: Soft, nontender, nondistended Extremities: No edema MSK: 4/4 extremities 5/5 strength; able to transition without assistance Skin: Warm and dry Neuro: CNII-XII grossly intact; speech without slur, facial expressions symmetric Psych: Appropriate mood, affect, and responses to questioning; good insight and judgment; moderately anxious at time of examination secondary to breathing difficulties and coughing episode Lab and Diagnostics Result Diagram: 10/05/1642610/05/16426 Microbiology Blood cultures are negative so far The respiratory viral PCR DNA panel is negative X-Rays, CTs and MRIs PROCEDURE: X-RAY CHEST, TWO VIEWS ([id number]) INDICATIONS: Hypoxia TECHNIQUE: 2 views of the chest were acquired. COMPARISON: [facility], CR, XR CHEST 2VW, 08/27/2016, 10:31. [facility], CR, XR CHEST 1VW (PORTABLE), 10/02/2016, 12:00. [facility], CT, CT CHEST WO CON, 09/03/2016, 15:20. FINDINGS: Surgical changes and devices: None. Lungs and pleura: No pleural effusions or pneumothorax. Lungs are clear. Lung volumes are increased with flattening of the hemidiaphragms consistent with COPD. Mediastinum: Mediastinal contours are normal. Heart size is normal. Bones and chest wall: No suspicious bony abnormalities. Soft tissues appear unremarkable. IMPRESSION: No acute cardiopulmonary disease. COPD. Dictated by: Stan ZARATE Interpreted: Frida Asif MD on 10/03/2016 at 10:44 Transcribed by: DIAN on 10/03/2016 at 10:45 Approved by: Frida Asif M.D. on 10/03/2016 at 12:40 Cardiac Echo Impressions Interpretation Summary 1. Normal left ventricular size, wall thickness and systolic function with an estimated EF of 60-65% 2. Grossly normal right ventricular size with normal systolic function. 3. No evidence for valvular pathology Assessment & Plan Ms. Lily Astudillo is a pleasant 61 year old woman with history of COPD with centrilobular emphysema and asthma on chronic oxygen therapy, that presented to [facility] with shortness of breath. She was admitted for evaluation and treatment of acute on chronic respiratory failure due to suspected COPD exacerbation. - Hospital day 4 Acute on chronic respiratory failure, present on admission. Ongoing - Home O2 reported as 1-2L, continuous - Suspected to be secondary to URI, or COPD exacerbation, or ongoing undiagnosed [place] Fever - Treat underlying cause(s) - Blood cultures: No growth to date - Echo 10/03: EF 60-65, normal LV thickness, size, and function; no evidence valvular pathology; normal RV size and function - Resp viral PCR: Negative - MRSA screen: Negative - Troponin: negative x3 - Initial PCT 0.04; repeat 0.04: Negative - Abx: Rocephin + azithromycin, start date 10/02 + probiotics - Quantiferon, coccidio studies: Pending - Sputum culture x3: AFB + DNA amp: Sent Acute exacerbation COPD with centrilobular emphysema, present on admission. Ongoing - Outpatient pulmonology: Dr. Kirby, [place] scheduled 10/29/2016 - PFTs completed 08/27/2016: - Pre-bronchodilators FVC actual 2.88, pred 3.60; FEV1 actual 1.31, pred 2.77 ; FEV1/FVC % actual 45, pred 77 - Post-bronchodilators FVC actual 3.08 85% pred; FEV1 1.26 45% pred; FEV/FVC actual 41, 53% pred - CT chest wo contrast 08/2016: Severe centrilobular emphysema; nodules seen on XR 08/27/2016, not visualized; bilateral apical scarring - On outpatient steroids: Prednisone 60mg daily, day 4 of regimen day of admission - Pulmonology consult placed 10/05 - Duonebs q4h - Accunebs q2h prn - Increase in steroids: Methylprednisone 60mg IV q8h, day 4 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 However, it is suspected that [facility] [place], [place] when she lived there for 5 years prior to moving to [place] 11 years ago. Under therapy and evaluation - History of [place] residence, [place] and [place], [place] - Symptoms often alleviate with steroids, return quickly when steroid courses completed - Coccidio antibodies pending; often falsely negative - Will empirically treat: Fluconazole therapy initiated 10/03 - 600mg IV daily; transition to po when appropriate - ID consultation 10/05. Spoke with Dr. Greenfield he likely will see patient this weekend. Leukocytosis, likely acute, present on admission. Ongoing - Likely secondary to recent steroid use as outpatient and continued use inpatient - Continue to monitor Anxiety, acute, present on admission. Under therapy - Secondary to inability to breathe; further exacerbates SOB - Ativan 0.5mg IV q4h prn for anxiety Chronic pain. Presumed stable - Due to cervical spondylosis and chronic neck pain - Methocarbamol 750mg po qhs prn pain - Tramadol 50mg po q6h prn pain Insomnia, chronic. Presumed stable - Home Rx; Trazodone 50-100mg hs prn insomnia - Continued home Rx GERD, chronic. Presumed stable - Pantoprazole 40mg daily before meals - Continued - DVT: Lovenox 40mg SQ daily - GI: PPI - Diet: Heart healthy - PRN bowel/fever/pain/antiemetic - Code: FULL CODE - Time spent: Approximately 60 minutes spent on patient case; greater than 50% spent on coordination of care and counseling Dispo: Likely to remain > 2 days at this time. Will need continued work up and treatment for significant SOB. PT to evaluate O2 sats with mobility, and assess her stability. Will determine needs as hospitalization progresses, including antibiotic/antimicrobial needs for DC. Pain Evaluation: Adequate Pain Control GI Prophylaxis: Proton Pump Inhibitor VTE Prophylaxis: Sub-Q Enoxaparin Resuscitation Status: CPR: Attempt Resuscitation Attending Statement Patient seen and examined with Dr. Lilliana Gilbert. Chart reviewed and case discussed at length with Dr. Lilliana Gilbert. I agree with the above note. Ally Gilbert DO Oct 05, 2016 16:48 Harpreet Rivas MD Oct 05, 2016 20:54
[2016-10-06] VITALS (15 sets, daily range): BP systolic 117–141; BP diastolic 70–90; PULSE 70–95; RESP 14–22; O2SAT 94–99
[2016-10-06] MEDS: Albuterol-Ipratropium 3 mL Inhalation Solution NEB SCH ×7 (00:57→21:50)
[2016-10-06 04:05] LABS: BASOPHILS % (AUTO) 0.1 % (0-3); EOSINOPHILS % (AUTO) 0 % (0-5); MONOCYTES % (AUTO) 2.4 % (4-12); Mean Corpuscular Hemoglobin 30.2 pg (27.0-35.0); NEUTROPHILS % (AUTO) 91.4 % (40-74); Platelet Count 173 bil/L (150-400)
[2016-10-06 04:39] LABS: Magnesium 2.2 mg/dL (1.6-2.6)
[2016-10-06] MEDS: MethylprednisoLONE Sodium Succinate 62.5 mg/mL 2 mL Inj IVPUSH SCH ×3 (05:19→21:39)
[2016-10-06] MEDS: Benzocaine-Menthol Lozenge 2/Pkg PO PRN ×2 (05:39→21:39)
--- NOTE | 2016-10-06 05:56 | NUR ---
Anxiety/Respiratory Patient anxious at beginning of shift; frequent putting on of call light to report feeling short of breath. Patient denies chest pain, but states that she has significant shortness of breath. SpO2 97% on 2L by nasal cannula, pulse rate in the 80s. Administered PRN ativan per orders with noticeable improvement in the patient's condition. Continue to monitor.
[2016-10-06] MEDS: cefTRIAXone Inj 2,000 MG in Dextrose 5% Minibag Plus 50 ML IV SCH (09:53)
[2016-10-06] MEDS: Fluconazole Inj 400 MG in IV Premix 1 EACH IV SCH (09:54)
[2016-10-06] MEDS: Pantoprazole 40 mg ER24 Tablet PO SCH (09:54)
[2016-10-06] MEDS ORDERED: 0.9% Sodium Chloride 250 ML ONE (11:08)
--- NOTE | 2016-10-06 11:58 | PCM.PNMED ---
Subjective Date of Service Oct 06, 2016 Subjective - Pt seen and examined this morning. States that she is doing much better. c/o mild shortness of breath and cough - No acute events over night. Exam Vital Signs Vital Sign - Last Date Time Temp Pulse Resp B/P Pulse Ox O2 Delivery O2 Flow Rate FiO2 10/06/16 10:16 93 22 97 Nasal Cannula 3.00 10/06/16 10:12 36.5 134/81 Intake and Output 10/05/16 10/05/16 10/06/16 Cumulative From/Thru 15:00 23:00 07:00 10/02/16 11:02 - 10/06/16 06:23 Intake Total 318 ml 860 ml 6632 ml Output Total 1200 ml 1875 ml 5400 ml Balance -882 ml -1015 ml 1232 ml Intake Oral 318 ml 600 ml 3663 ml IV Total 260 ml 2969 ml Output Urine Total 1200 ml 1875 ml 5400 ml # Voids 5 10 # Bowel Movements 1 3 Exam General: Moderate distress noted with anxiety, coughing spell witnessed, and associated SOB; thin; pleasant and cooperative, AAOx3; anxious appearing HEENT: Atraumatic, external ears without defect; sclera anicteric; mucus membranes moist; NC in place; > 96% sats on 2L Cardiac: Tachycardic at time of examination, rate approx 90-100; no murmur appreciated Respiratory: Diffuse wheeze bilateral all vasquez improved today slightly over yesterday with air movement noted all vasquez; mild coarse sounds appreciated bilateral bases Abdomen: Soft, nontender, nondistended Extremities: No edema MSK: 4/4 extremities 5/5 strength; able to transition without assistance Skin: Warm and dry Neuro: CNII-XII grossly intact; speech without slur, facial expressions symmetric Psych: Appropriate mood, affect, and responses to questioning; good insight and judgment; moderately anxious at time of examination secondary to breathing difficulties and coughing episode IVs and Medications Medications Reviewed: Medications were reviewed in detail Lab and Diagnostics Result Diagram: 10/06/16 0350 10/06/16 0350 Microbiology Blood cultures are negative so far The respiratory viral PCR DNA panel is negative X-Rays, CTs and MRIs PROCEDURE: X-RAY CHEST, TWO VIEWS ([id number]) INDICATIONS: Hypoxia TECHNIQUE: 2 views of the chest were acquired. COMPARISON: [facility], CR, XR CHEST 2VW, 08/27/2016, 10:31. [facility], CR, XR CHEST 1VW (PORTABLE), 10/02/2016, 12:00. [facility], CT, CT CHEST WO CON, 09/03/2016, 15:20. FINDINGS: Surgical changes and devices: None. Lungs and pleura: No pleural effusions or pneumothorax. Lungs are clear. Lung volumes are increased with flattening of the hemidiaphragms consistent with COPD. Mediastinum: Mediastinal contours are normal. Heart size is normal. Bones and chest wall: No suspicious bony abnormalities. Soft tissues appear unremarkable. IMPRESSION: No acute cardiopulmonary disease. COPD. Dictated by: Stan Camarena RRA Interpreted: Frida Asif MD on 10/03/2016 at 10:44 Transcribed by: DIAN on 10/03/2016 at 10:45 Approved by: Frida Asif M.D. on 10/03/2016 at 12:40 Cardiac Echo Impressions Interpretation Summary 1. Normal left ventricular size, wall thickness and systolic function with an estimated EF of 60-65% 2. Grossly normal right ventricular size with normal systolic function. 3. No evidence for valvular pathology Assessment & Plan 61 year old woman with history of COPD with centrilobular emphysema and asthma on chronic oxygen therapy, that presented to ED with shortness of breath. She was admitted for evaluation and treatment of acute on chronic respiratory failure due to suspected COPD exacerbation. - Hospital day 4 Acute on chronic respiratory failure, present on admission. Ongoing - Home O2 reported as 1-2L, continuous - Suspected to be secondary to URI, or COPD exacerbation, or ongoing undiagnosed [place] Fever - Treat underlying cause(s) - Blood cultures: No growth to date - Echo 10/03: EF 60-65, normal LV thickness, size, and function; no evidence valvular pathology; normal RV size and function - Resp viral PCR: Negative - MRSA screen: Negative - Troponin: negative x3 - Initial PCT 0.04; repeat 0.04: Negative - Abx: Rocephin + azithromycin, start date 10/02 + probiotics - Quantiferon, coccidio studies: Pending - AFB pending Acute exacerbation COPD with centrilobular emphysema, present on admission. Ongoing - Outpatient pulmonology: Dr. Parimi, OV scheduled 10/29/2016 - PFTs completed 08/27/2016: - Pre-bronchodilators FVC actual 2.88, pred 3.60; FEV1 actual 1.31, pred 2.77; FEV1/FVC % actual 45, pred 77 - Post-bronchodilators FVC actual 3.08 85% pred; FEV1 1.26 45% pred; FEV/FVC actual 41, 53% pred - CT chest wo contrast 08/2016: Severe centrilobular emphysema; nodules seen on XR 08/27/2016, not visualized; bilateral apical scarring - On outpatient steroids: Prednisone 60mg daily, day 4 of regimen day of admission - Pulmonology consult placed 10/05 - Duonebs q4h - Accunebs q2h prn - Increase in steroids: Methylprednisone 60mg IV q8h, day 4 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 However, it is suspected that patient required coccidiomycosis when she lived in [place], [place] for 5 years prior to moving to [place] 11 years ago. Under therapy and evaluation - History of [place] residence, [place] and [place], [place] - Symptoms often alleviate with steroids, return quickly when steroid courses completed - Coccidio antibodies pending; often falsely negative - on empiric antifugal treatment: Fluconazole therapy initiated 10/03 - 600mg IV daily; transition to po when appropriate - ID consulted 10/05. Dr Greenfield will see patient today Leukocytosis, likely acute, present on admission. Ongoing -- WBC trending down 11.1 <-- 16.4 - Likely secondary to recent steroid use as outpatient and continued use inpatient - Continue to monitor Anxiety, acute, present on admission. Under therapy - Secondary to inability to breathe; further exacerbates SOB - Ativan 0.5mg IV q4h prn for anxiety Chronic pain. Presumed stable - Due to cervical spondylosis and chronic neck pain - Methocarbamol 750mg po qhs prn pain - Tramadol 50mg po q6h prn pain Insomnia, chronic. Presumed stable - Home Rx; Trazodone 50-100mg hs prn insomnia - Continued home Rx GERD, chronic. Presumed stable - Pantoprazole 40mg daily before meals - Continued - DVT: Lovenox 40mg SQ daily - GI: PPI - Diet: Heart healthy - PRN bowel/fever/pain/antiemetic - Code: FULL CODE Dispo: Likely to remain > 2 days at this time. Will need continued work up and treatment for significant SOB. PT to evaluate O2 sats with mobility, and assess her stability. Will determine needs as hospitalization progresses, including antibiotic/antimicrobial needs for DC. GI Prophylaxis: Proton Pump Inhibitor VTE Prophylaxis: Sub-Q Enoxaparin Resuscitation Status: CPR: Attempt Resuscitation Fran Pemberton MD Oct 06, 2016 11:58
--- NOTE | 2016-10-06 13:28 | CONS ---
[address] [address] CONSULTATION REPORT PATIENT: SHANNON ROBERSON : 1955 MR#: [id number] ADMIT: 10/02/2016 JOB ID: [id number] DATE OF SERVICE: 10/06/2016 INFECTIOUS DISEASE CONSULTATION: I thank Dr. Rivas for this timely consult. REASON FOR CONSULTATION: Severe COPD with possible underlying mycobacterial or fungal infection. HISTORY OF PRESENT ILLNESS: The patient is a 61-year-old woman who reports that she was diagnosed with COPD about two years ago. She stopped smoking just in July 2016. Her respiratory status has steadily worsened over the last couple of years and she reports that in July she was admitted briefly to the hospital in [place] and started on continual home oxygen which she has been using since that time. Despite having aggressive care including steroids, empiric antibiotics, and the home oxygen, her symptoms have been getting worse and worse. She states that even a few months ago she could go to a grocery store or other large department store and walk around fairly well and get her chores done. 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 She reports that the up until recently she was having a cough which was usually productive, but in recent days it has become nonproductive. She has also had a few episodes of fevers scattered over the past 12 months or so, but not consistent fevers, and no sweats or chills. She notes that she has been losing weight quite steadily in association with her increasing shortness of breath. She also notes that the prednisone she has been receiving with frequency over the past year for her COPD worsening has been associated with the development of headaches, but she did not have them prior. The patient states she has had no unusual exposures recently. She lived in [facility] for many years and moved up here about 11 years ago. She has been back to the [facility] in the [place] area since then to visit kids and grandkids but she has not been back to [place] or the [place] for over a decade. She has not traveled outside the [place] significantly, though in the past she has lived in the [facility] area as well as the [place] in [place]. At the time she was admitted to this facility with increasing shortness of breath on October 02 she was on a prednisone taper and had also recently just completed a course of levofloxacin which had been started in late August based on a history of a fever spike. When she presented here on the , she was found to be desaturating down to 81% on room air and she was started on azithromycin and ceftriaxone. Since her admission she has been comprehensively evaluated by my colleague, Dr. Rivas, who is a hospitalist and also an Infectious Disease board certified physician. He was concerned that this may be some late manifestation of chronic coccidioidomycosis or that she could have underlying mycobacterial disease and he has embarked on an evaluation and presumptive treatment for coccidioidomycosis. I am asked to step in as Dr. Rivas has now left and to provide an Infectious Disease specialty opinion. PAST MEDICAL HISTORY: 1. COPD. 2. Nephrolithiasis. 3. Chronic neck and back pain. 4. GERD. 5. Status post PAULINE/BSO. 6. History of endometritis. SOCIAL HISTORY: The patient is a nonsmoker of tobacco. She does occasionally smoke marijuana to try and improve her appetite and weight. She did quit smoking on July 26, 2016, after lifelong smoking prior to that. She does not drink alcohol or use opiates. FAMILY HISTORY: She lives with her mother, who has Alzheimer's in it. She has a sibling with diabetes and a strong family history of alcoholism. One of her brothers from alcohol abuse. One another brother was killed in the [employer] massacre in [facility] 20 years or so ago. There is no family history of TB and that includes parents and siblings. REVIEW OF SYSTEMS: Was done. The patient notes she has headaches and these correlate strongly with prednisone use. She notes diminished vision and she has been told she has both macular degeneration and cataracts. She can still read. No sore throat or trouble swallowing. No swollen lymph nodes in the neck, groin, or anywhere else. She is always short of breath as mentioned in the history of present illness and that is the reason for admission basically. Her cough was productive off and on over the past year, but the last 10 days has been dry. She has occasional bilateral pleuritic chest pain with deep inspiration. She has had issues with nausea, and rarely with vomiting, and these seem to be related sometimes at least to medications. Not currently an issue. No diarrhea. No urgency, frequency, or dysuria. She has noticed weight loss and decreased muscle strength diffusely as part of this illness over the past year or more with the worsening COPD. She denies any complaints of neuropathy. Denies swollen joints and has no skin rash. She explicitly states "I do not have edema." Remainder review of systems negative. PHYSICAL EXAMINATION: Reveals an afebrile woman temperature 36.5, pulse 90, respiratory rate 22, blood pressure 134/81. She is saturating well but on 3 L nasal prongs. She is alert, oriented, conversant and very pleasant, but appropriately concerned about her declining respiratory situation. Head: Without trauma. She does have a bit of temporal wasting, and note that her BMI is only 17.5, so she is dangerously thin. Eyes: Without conjunctivitis or scleral icterus. Nose normal. Oral cavity: No thrush or hairy leukoplakia. No pharyngitis. Her neck is supple. No cervical adenopathy, no supraclavicular adenopathy, but wasting can clearly be seen in her supraclavicular fossae bilaterally. Lungs notable for really poor breath sounds bilaterally. There is hardly any air moving and what is heard is largely wheezes. I do not hear any crackles. Cardiac tones a bit distant, regular rate and rhythm, without murmur. The patient's abdomen is thin, soft, and nontender, without organomegaly. No suprapubic fullness. No Rivera catheter. No swelling of any joints. No inguinal adenopathy is noted. Her legs are somewhat wasted, but she has excellent 5/5 strength. She has surprisingly normal pulses in her feet and normal capillary refill. There is no evidence for peripheral neuropathy. She is neurologically intact, but with surprisingly good motor tone despite her wasting. No skin rash. LABORATORIES: Include white count which has bounced between 11,000 and 16,000 and is currently 11,000. There is a persistent neutrophil predominance consistent with her steroid use. When she first came in she had 4% eosinophils; that has declined to zero with steroids as expected. Her creatinine is 0.54. LFTs are normal. A procalcitonin was done twice and it was less than 0.5. D-dimer negative. Urinalysis: No white cells. QuantiFERON Gold and coccidioidomycosis antibodies are pending. A sputum AFB is pending. A regular routine sputum culture is negative, MRSA screen negative, respiratory viral PCR panel negative, and blood cultures negative. IMAGING: Includes chest x-ray showing no acute abnormality. These x-rays do show flattened diaphragms consistent with COPD. IMPRESSION: This is an unfortunate case of a very pleasant and still young 61-year-old woman with what sounds to be rapidly progressive chronic obstructive pulmonary disease. She reports a tremendous deterioration over the last 1-2 years and this worsening respiratory situation is continuing unabated. She was finally able to quit smoking about two months ago and this has so far, of course, not led to any major improvements. Whether or not she has any infection is unclear to me. At this point we have a woman who is consistently afebrile and whose laboratory work and radiographs do not suggest infection. I agree with Dr. Rivas that there is a chance she could still have coccidioidomycosis, though I think it is unlikely after 10 years out of the area, but occasionally coccidioidomycosis can present late in a very immunosuppressed host. It is also possible that she has some underlying mycobacterial disease, though I would find TB very unlikely. Mycobacterium avium or some similar pathogen could perhaps cause some of her deterioration. Routine ordinary bacterial pathogens would seem to be almost ruled out in this case. We have negative procalcitonins, she just completed negative chest x-rays, and she just completed a course of antibiotics prior to admission. Dr. Rivas has placed the patient on fluconazole 600 mg a day with the intention of giving her a therapeutic trial of fluconazole while we await her coccidioidomycosis antibody titers. This seems reasonable though I think if we do not see much improvement in a couple weeks, and especially if her titers come back negative, I would conclude that she almost certainly does not have coccidioidomycosis. RECOMMENDATIONS: 1. The azithromycin and ceftriaxone continue through the weekend, but I would definitely stop them on the , as I do not think there is any real chance that she has a bacterial process. We may wish to continue the azithromycin on a thrice weekly basis in terms of helping with chronic obstructive pulmonary disease issues, but not primarily for antibacterial properties. 2. The trial of fluconazole can continue to use should continue at this point, and 600 mg a day is a reasonable dose for a short-term trial. This could be switched to oral at any time as fluconazole is very well absorbed. 3. We await the results of the sputum sent for AFB. It will be helpful if two additional samples could be obtained and I will order those. 1. We await the QuantiFERON Gold, which I think will be of great help in ruling out tuberculosis and in getting the patient out of isolation. 2. Pulmonary consult would probably be useful in this case. 3. CT scan of the chest without contrast might actually also be of value in this case to help to exclude subtle pulmonary infiltrate and get a better look at the interstitium of the lungs. Thank you very much for involving me in this complex and unfortunate case.
--- NOTE | 2016-10-06 16:46 | DRSVH ---
PROCEDURE: CT CHEST WITHOUT CONTRAST ([id number]) INDICATIONS: worsening sob TECHNIQUE: Noncontrast 5 mm thick sections acquired from the pulmonary apices to the posterior costophrenic angl es. 7 mm thick coronal and sagittal MIP reformats were then acquired. For radiation dose reduction, the following was used: automated exposure control, adjustment of mA and/or kV according to patient size. COMPARISON: [facility], CT, CT CHEST WO CON, 09/03/2016, 15:20. FINDINGS: Image quality: Excellent. Lungs and pleura: No acute air space opacities. No pleural effusions or pneumothorax. Central and peripheral airways are patent and normal in caliber. There is a persistent appearance of scarring wi thin the apices bilaterally, right. On left. Minimal early changes of COPD/emphysematous change are n oted. Mediastinum: Heart size is normal. No pericardial effusion. No mediastinal adenopathy by size crit eria. Thoracic aorta and central pulmonary arteries are normal in size. Esophagus is normal in nayeli johny. No hiatal hernia. Bones and chest wall: No suspicious bony lesions. No vertebral body compression fractures. No axil julieta or supraclavicular adenopathy by size criteria. Thyroid gland is unremarkable. Abdomen: Renal calcifications are present. Visualized upper abdominal solid organs and bowel loops a ppear normal in the absence of contrast. IMPRESSION: 1. No acute pulmonary changes. No effusions or consolidations. 2. Minimal early COPD/emphysematous changes. Dictated by: Sharon Almanza M.D. on 10/06/2016 at 16:35 Approved by: Sharon Almanza M.D. on 10/06/2016 at 16:38
--- NOTE | 2016-10-06 17:34 | ABG ---
DateTimeAnalyzed 17:28:00 -_ pH ____7.428 - 7.350 7.450 pCO2 ___51.7__ -mmHg 35.0 45.0 pO2 260 -mmHg 69.0 116 HCO3- ___33.5__ -mmol/L 22.0 26.0 ABE ____8.0__ -mmol/L -2.0 2.0 tHb ___13.4__ -g/dL O2Hb ___97.9__ -% COHb ____0.6__ -% MetHb ____1.1__ -% sO2 ___99.6__ -% FIO2 ___21.0__ -% Drawn By BTL - Date/Time Notified____ 17:34:00 -_ Liter_Flow ____3.0__ -L/min Oxygen Device 1 __CANNULA - Notified By AS - Notified Whom ___Dr. Osei Kendregan -_ B 742 -mmHg tO2 ___19.0__ -Vol% Ap test N/A -
[2016-10-06] MEDS: Azithromycin Inj 500 MG in Dextrose 5% w/Vial Mate 250 ML IV SCH (18:17)
--- NOTE | 2016-10-06 18:43 | NUR ---
Anxiety pt c/o SOB with Anxiety, SpO2 high 90s, requesting Ativan. 0.5mg Ativan given twice today. Pt stating feeling better with reassessment.
--- NOTE | 2016-10-06 19:03 | CONS ---
[address] [address] CONSULTATION REPORT PATIENT: SHANNON ROBERSON : 1955 MR#: [id number] ADMIT: 10/02/2016 JOB ID: [id number] DATE OF SERVICE: 10/06/2016 REASON FOR CONSULTATION: COPD. REQUESTING PHYSICIAN: Harpreet Rivas MD HISTORY OF PRESENT ILLNESS: The patient is a 61-year-old female who suffers from rather severe COPD/asthma. She states that she had no particular pulmonary problems as a child. [place] there was not a problem with the hay when she fed the horses. However, in her 20s she did live in a house with black mold in half and some difficulty at that time. Intermittent problems until one year and nine months ago when she developed increasing shortness of breath. Ultimately diagnosed as having a lung infection; that was treated, but never really resolved. Since then she has had about five or six episodes of pneumonia, none of which required hospitalization or intubation. During the last year and a half she noted episodes of slowly increasing shortness of breath. I believe she was hospitalized once during that time. Took various medications including albuterol nebulizer, Flovent 44 two puffs twice a day. Has been on a number of courses of prednisone, once prior to July 26, but then four or five since July 26. She recalls July 26, 2016, specifically, as she had increasing shortness of breath and was hospitalized from July 26 to July 28. Since that time she basically has been at bed rest. Was discharged but told to rest in bed. She has had four episodes or five episodes of steroids and then, because of increasing shortness of breath, was hospitalized four days ago. The patient has severe shortness of breath. Can maybe walk 15 feet on a reasonable day. On a good day can walk maybe 25-30 feet, but never further than that. No cough or sputum production. She does say from July 26 through about the next four to six weeks she dropped her weight from 126 to about 101. In the last few weeks she has started to gain weight back to about 116. She states that she lost weight because of the loss of appetite. Denies dyspnea with eating. FAMILY HISTORY: Patient states she has a sister who suffers from COPD. She is a nonsmoker. EXPOSURE HISTORY: No known exposure to TB. ANIMALS: Two cats. No birds. TRAVEL HISTORY: No recent travel. GEOGRAPHIC HISTORY: The patient was raised, I cannot recall but think it was in [place], and moved to the [facility] off [address]. Subsequently moved to [place], [place], where she lived for about 16 years. About 13 years ago she moved to the [facility], where she has remained since. 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 SOCIAL HISTORY: The patient does not engage in any hobbies which expose her to dust, fumes, or solvents. 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 SMOKING HISTORY: The patient smoked 1-1/2 packs a day from age 14 to age 60, a span of 46 years. REVIEW OF SYSTEMS: Some headache. No particular difficulty swallowing. Does have heartburn and in fact is on anti-reflux medications. No known cardiac problems. Up until recently her appetite has been good and weight was stable. Had the 25-pound weight loss with recovery of about 15 pounds in the last few weeks, with the entire weight loss/weight gain episode beginning about 10 months ago. No known GI or problems. No swelling. No palpable lymph nodes. No red nodules on her shins. PHYSICAL EXAMINATION: Temperature 36.6. Pulse 93. Respiratory rate 18 to 22. Blood pressure 141/86, O2 sat on 3 L is 96%. General appearance: Well-developed thin female sitting upright in bed wearing supplemental oxygen using pursed lip breathing technique. Eyes: Conjunctivae are pink and moist. Nose and throat could not be well visualized. Chest: Somewhat hyper-resonant to percussion. Moderately decreased breath sounds. There were bilateral pulmonary adventitial sounds scattered throughout both lung vasquez. Wheeze-like quality but no true wheezes. A few inspiratory crackles. No use of accessory muscles at rest. Heart: Regular rhythm. Heart tones normal. Abdomen: Soft. Nondistended. Nontender. Liver and spleen not palpable. No masses palpable. Bowel tones present. Extremities: No clubbing or cyanosis. No pretibial edema. Skin: No rashes. IMAGING: Chest x-ray shows lungs are clear. Lung volumes are increased, with flattening of the hemidiaphragms. Echocardiogram shows good left ventricular size and function, with ejection fraction of 60% to 65%. Grossly normal right ventricular size and function. LABORATORY DATA: Shows a white count of 11,100 with 91 polymorphonuclears, 5 lymphocytes, 2 monocytes. Hemoglobin 13. Platelet count 173,000, slight decrease. Sodium 140, potassium 4.2, chloride 99, CO2 is 35, BUN 18, creatinine 0.54. Calcium 9 with albumin of 3. Total protein 5.4. Magnesium normal at 2.2. Total bilirubin, alkaline phosphatase, and transaminases are normal. Troponin-T is undetectable. Sputum for AFB smear pending. ASSESSMENT: 1. Chronic obstructive pulmonary disease. The patient states she had recent PFTs maybe a month or so ago. In addition has had CT scans in the past. We will retrieve those. Will need arterial blood gases to see not only does she have hypoxemia but whether she has hypercarbia. The echocardiogram does not suggest pulmonary hypertension. Weight loss is somewhat disconcerting. She is a smoker, in the age group that cancer starts raising its ugly head. Currently using a nebulizer. Also on methylprednisolone 60 mg three times a day. Hopefully we can decrease that to some extent. Would like the blood gases to help us with our decision making. She states she was on some inhaler that sounds like it took the place of Spiriva but had two ingredients. Not quite sure what inhaler she is talking about given the plethora of pulmonary inhalers that have hit the market of recent vintage. Will see what we might figure out. Unfortunately insurance would not pay for same but I think it would be best to try and one of the long-acting muscarinics and then add to the regimen from there, trying to keep steroids at a minimum. 2. TB being ruled out. 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 Will need to keep a close eye on infectious complications. I do agree with ID consultation down the road. Thrice weekly azithromycin may help decrease the number of exacerbations. 3. Weakness. The patient has been at bed rest for the past two and half months. Whether she was indeed told to go on bed rest, or whether that is what she heard, is unclear. However, we now have a patient with severe COPD with severe deconditioning for which it would be difficult to reestablish muscle strength and endurance. May need to employ the pulmonary rehab program with assistance there. PLAN: 1. Obtain old CT scan and pulmonary function tests. 2. Arterial blood gases on current oxygen supply. 3. Review medications, trying to optimize her medication delivery. 4. Seek to minimize the steroids. Thank you so much, Dr. Rivas, for asking me to see this most delightful and engaging, though unfortunate, individual.
[2016-10-07] VITALS (14 sets, daily range): BP systolic 121–149; BP diastolic 55–92; PULSE 76–100; RESP 14–20; O2SAT 92–98
[2016-10-07] MEDS ORDERED: 0.9% Sodium Chloride 250 ML ONE (01:03)
[2016-10-07] MEDS: Albuterol-Ipratropium 3 mL Inhalation Solution NEB SCH ×5 (01:25→21:34)
[2016-10-07 05:37] LABS: BASOPHILS % (AUTO) 0.2 % (0-3); EOSINOPHILS % (AUTO) 0 % (0-5); MONOCYTES % (AUTO) 3.9 % (4-12); Mean Corpuscular Volume 89.9 fL (81-100); NEUTROPHILS % (AUTO) 88.7 % (40-74); Platelet Count 194 bil/L (150-400)
[2016-10-07] MEDS: Pantoprazole 40 mg ER24 Tablet PO SCH (05:45)
[2016-10-07] MEDS: MethylprednisoLONE Sodium Succinate 62.5 mg/mL 2 mL Inj IVPUSH SCH ×3 (05:45→21:14)
--- NOTE | 2016-10-07 05:53 | NUR ---
Anxiety/Respiratory Patient reports anxiety related to her difficulty of breathing, worse after her steroid dosing. PRN ativan given with good effect. Patient continues to maintain an SpO2 of 95-99% on 3L by nasal cannula. Continue to monitor.
[2016-10-07 06:04] LABS: Magnesium 2.4 mg/dL (1.6-2.6)
[2016-10-07] MEDS: cefTRIAXone Inj 2,000 MG in Dextrose 5% Minibag Plus 50 ML IV SCH (07:27)
--- NOTE | 2016-10-07 11:14 | PCM.PNMED ---
Subjective Date of Service Oct 07, 2016 Subjective - Pt seen and examined this morning. In mild respiratory distress. c/o shortness of breath. - Denies chest pain - No acute events over night. Exam Vital Signs Vital Sign - Last Date Time Temp Pulse Resp B/P Pulse Ox O2 Delivery O2 Flow Rate FiO2 10/07/16 10:06 93 10/07/16 09:39 18 98 Nasal Cannula 3.00 10/07/16 07:33 36.8 149/92 Intake and Output 10/06/16 10/06/16 10/07/16 Cumulative From/Thru 15:00 23:00 07:00 10/02/16 11:02 - 10/07/16 06:09 Intake Total 242 ml 556 ml 471 ml 7901 ml Output Total 900 ml 1150 ml 7450 ml Balance 242 ml -344 ml -679 ml 451 ml Intake Oral 556 ml 100 ml 4319 ml IV Total 242 ml 371 ml 3582 ml Output Urine Total 900 ml 1150 ml 7450 ml # Voids 10 # Bowel Movements 3 Exam General: Moderate distress noted with anxiety, coughing spell witnessed, and associated SOB; thin; pleasant and cooperative, AAOx3; anxious appearing HEENT: Atraumatic, external ears without defect; sclera anicteric; mucus membranes moist; NC in place; > 96% sats on 2L Cardiac: Tachycardic at time of examination, rate approx 90-100; no murmur appreciated Respiratory: Diffuse wheeze bilateral all vasquez improved today slightly over yesterday with air movement noted all vasquez; mild coarse sounds appreciated bilateral bases Abdomen: Soft, nontender, nondistended Extremities: No edema MSK: 4/4 extremities 5/5 strength; able to transition without assistance Skin: Warm and dry Neuro: CNII-XII grossly intact; speech without slur, facial expressions symmetric Psych: Appropriate mood, affect, and responses to questioning; good insight and judgment; moderately anxious at time of examination secondary to breathing difficulties and coughing episode Lab and Diagnostics Result Diagram: 10/07/1652410/07/16524 Microbiology Blood cultures are negative so far The respiratory viral PCR DNA panel is negative X-Rays, CTs and MRIs PROCEDURE: X-RAY CHEST, TWO VIEWS ([id number]) INDICATIONS: Hypoxia TECHNIQUE: 2 views of the chest were acquired. COMPARISON: [facility], CR, XR CHEST 2VW, 08/27/2016, 10:31. [facility], CR, XR CHEST 1VW (PORTABLE), 10/02/2016, 12:00. [facility], CT, CT CHEST WO CON, 09/03/2016, 15:20. FINDINGS: Surgical changes and devices: None. Lungs and pleura: No pleural effusions or pneumothorax. Lungs are clear. Lung volumes are increased with flattening of the hemidiaphragms consistent with COPD. Mediastinum: Mediastinal contours are normal. Heart size is normal. Bones and chest wall: No suspicious bony abnormalities. Soft tissues appear unremarkable. IMPRESSION: No acute cardiopulmonary disease. COPD. Dictated by: Stan Camarena RRA Interpreted: Frida Asif MD on 10/03/2016 at 10:44 Transcribed by: DIAN on 10/03/2016 at 10:45 Approved by: Frida Asif M.D. on 10/03/2016 at 12:40 Cardiac Echo Impressions Interpretation Summary 1. Normal left ventricular size, wall thickness and systolic function with an estimated EF of 60-65% 2. Grossly normal right ventricular size with normal systolic function. 3. No evidence for valvular pathology Assessment & Plan 61 year old woman with history of COPD with centrilobular emphysema and asthma on chronic oxygen therapy, that presented to ED with shortness of breath. She was admitted for evaluation and treatment of acute on chronic respiratory failure due to suspected COPD exacerbation. - Hospital day 4 Acute on chronic respiratory failure, present on admission. Ongoing - Home O2 reported as 1-2L, continuous - Suspected to be secondary to URI, or COPD exacerbation, or ongoing undiagnosed Valley Fever - Blood cultures: No growth to date - Echo 10/03: EF 60-65, normal LV thickness, size, and function; no evidence valvular pathology; normal RV size and function - Resp viral PCR: Negative - MRSA screen: Negative - Troponin: negative x3 - Initial PCT 0.04; repeat 0.04: Negative - Abx: Rocephin + azithromycin, start date 10/02 + probiotics. Continue to 10/08 - Quantiferon, coccidio studies: Pending - Acute exacerbation COPD with centrilobular emphysema, present on admission. Ongoing - Outpatient pulmonology: Dr. Kirby, OV scheduled 10/29/2016 - PFTs completed 08/27/2016: - Pre-bronchodilators FVC actual 2.88, pred 3.60; FEV1 actual 1.31, pred 2.77; FEV1/FVC % actual 45, pred 77 - Post-bronchodilators FVC actual 3.08 85% pred; FEV1 1.26 45% pred; FEV/FVC actual 41, 53% pred - CT chest 10/06: 1. No acute pulmonary changes. No effusions or consolidations. Minimal early COPD/emphysematous changes. - Pulmonology consult apprecaited. - Duonebs q4h - Accunebs q2h prn - Increase in steroids: Methylprednisone 60mg IV q8h, day 5. Will consider changing to oral from tomorrow. 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 However, it is suspected that patient required coccidiomycosis when she lived in [place], [place] for 5 years prior to moving to [place] 11 years ago. Under therapy and evaluation - History of [place] residence, [place] and [place], [place] - Symptoms often alleviate with steroids, return quickly when steroid courses completed - Coccidio antibodies pending; often falsely negative - on empiric antifugal treatment: Fluconazole therapy initiated 10/03 - on PO fluconazole 600 mg daily changed from IV - ID consult appreciate. Leukocytosis, likely acute, present on admission. Ongoing - WBC slightly up today. Likely due to IV steroids. - Likely secondary to recent steroid use as outpatient and continued use inpatient - Continue to monitor Anxiety, acute, present on admission. Under therapy - Secondary to inability to breathe; further exacerbates SOB - Ativan 0.5mg IV q4h prn for anxiety Chronic pain. Presumed stable - Due to cervical spondylosis and chronic neck pain - Methocarbamol 750mg po qhs prn pain - Tramadol 50mg po q6h prn pain Insomnia, chronic. Presumed stable - Home Rx; Trazodone 50-100mg hs prn insomnia - Continued home Rx GERD, chronic. Presumed stable - Pantoprazole 40mg daily before meals - Continued - DVT: Lovenox 40mg SQ daily - GI: PPI - Diet: Heart healthy - PRN bowel/fever/pain/antiemetic - Code: FULL CODE Dispo: Likely to remain > 2 days at this time. GI Prophylaxis: Proton Pump Inhibitor VTE Prophylaxis: Sub-Q Enoxaparin Resuscitation Status: CPR: Attempt Resuscitation Fran Pemberton MD Oct 07, 2016 11:14
[2016-10-07] MEDS: Azithromycin Inj 500 MG in Dextrose 5% w/Vial Mate 250 ML IV SCH (16:51)
--- NOTE | 2016-10-07 18:17 | NUR ---
Anxiety/Sputum pt asking to have Ativan before neb treatment. Will report to oncoming RN to coordinate with RT. Pt asked if able to cough up sputum for lab specimen. However pt stating not able to cough anything up. 2 cups left on pt bed side table, pt made aware. Pt stating "will do if anything comes up". Ongoing care.
--- NOTE | 2016-10-07 20:44 | PROG NOTE ---
[address] [address] PROGRESS NOTE PATIENT: SHANNON ROBERSON : 1955 MR#: [id number] ADMIT: 10/02/2016 JOB ID: [id number] DATE: 10/07/2016 PROBLEM: Dyspnea, COPD. SUBJECTIVE: Breathing is not much better. She indicates that the lorazepam is the only thing that particularly helps. Nebulizer may help a little bit. Steroids as usual are helping a little, but not significantly so. Just get her out of severe dyspnea, mitigating her dyspnea, but not significantly resolving it. Minimal cough. Essentially no phlegm. OBJECTIVE: Temperature 36.6. Pulse 80 to mid 90s. Respiratory rate 16 to 20. Blood pressure 144/90. O2 sat on 3 L is 92%. I and O shows 1.6 L liters in, 2.7 L out. General appearance: Sitting upright in bed using nebulizer. Feeling maybe a little bit better, but also just received lorazepam. Overall respiratory status is probably the same. Chest: Moderately diminished breath sounds. Diffuse wheezes throughout both lung vasquez, maybe a little worse on the left than on the right. A few scattered crackles. No use of accessory muscles at rest. Heart: Regular rhythm. Heart tones normal. Abdomen is soft. Extremities: No pretibial edema. LABORATORY DATA: Shows a white count of 12,000 with 88 polymorphonuclears, 5 lymphs, 3 monocytes. Hemoglobin stable at 13.9. Platelet count 194,000. Sodium 142, potassium 4.5, chloride 97, CO2 is 35, increasing from 28 three days previously, BUN stable at 19, creatinine stable at 0.52, calcium 9.5 and albumin of 3.9. Magnesium 2.4. Total bilirubin 0.2. Transaminases are normal, as is the alkaline phosphatase. Alpha-1 antitrypsin, IgE and Aspergillus antibodies are all pending. Was able to access her out prior CT scans and pulmonary function tests, but having difficulty with the computer, can no longer find them. I am sure it is my fault. By my recollection she has moderate emphysematous changes on CT scan. Pulmonary function tests show moderate airways obstruction without evidence for immediate response to inhaled bronchodilators. Mild to moderate degree of air trapping present. Severely reduced diffusing capacity. She seems to do better on steroids. She has been off on steroids six times in the last month and a half. I think what we should do is give her high-dose steroids and seek objective evidence of response. She may merely be having euphoria effect from the steroids and using lorazepam as well. Concern would be about side effects, but I think if we restrict these to 3-5 days we should have some idea whether she response to steroids while we are looking for alternative diagnoses. Her blood gases are quite good with ABGs yesterday on 3 L showing a pO2 of 260, pCO2 of 51, and a pH of 7.42. Bicarb was 33. Carboxyhemoglobin was only 0.6. Hemoglobin 1.1. Will evaluate the pulmonary response to oxygen as it seems somewhat inordinate implying a very high FiO2 supplied by 3 L of oxygen and maybe beyond what one might conceive. Awaiting studies for ABPA or maybe some of the allergic bronchopulmonary fungoses. Donya is reported to do this. I would wonder about coccidioidomycosis since the Infectious Disease Department is aggressively entertaining this idea. It may be that treatment of fungi may be more important than steroids at this point. PLAN: 1. Solu-Medrol IV push 125 mg q.6 h. 2. Change nebulizer to q.4 h. while awake and p.r.n. at night. 3. Will need to discuss with ID the end game with regard to isolation and collection of sputum. Nurses tell me they are having a difficult time collecting sputum.
[2016-10-08] VITALS (12 sets, daily range): BP systolic 122–147; BP diastolic 77–89; PULSE 64–100; RESP 16–22; O2SAT 88–100
[2016-10-08 03:33] LABS: BASOPHILS % (AUTO) 0.1 % (0-3); EOSINOPHILS % (AUTO) 0 % (0-5); MONOCYTES % (AUTO) 2.4 % (4-12); Mean Corpuscular Hemoglobin 29.8 pg (27.0-35.0); Mean Corpuscular Volume 90.2 fL (81-100); NEUTROPHILS % (AUTO) 90.3 % (40-74); Platelet Count 185 bil/L (150-400)
[2016-10-08] MEDS: MethylprednisoLONE Sodium Succinate 62.5 mg/mL 2 mL Inj IVPUSH SCH (03:42)
--- NOTE | 2016-10-08 05:33 | NUR ---
Anxiety/Respiratory/Sputum Sample Patient continues to have anxiety associated with her nebulizer treatments and steroid doses. Ativan dosing coordinated with RT and steroid doses to minimize patient discomfort. Patient's SpO2 consistently 96-99% on 3L O2 via nasal cannula. Patient appears to be asleep for most of the shift. Sputum sample collected and sent to lab. Continue to monitor.
[2016-10-08] MEDS: Pantoprazole 40 mg ER24 Tablet PO SCH (06:14)
[2016-10-08] MEDS: Albuterol-Ipratropium 3 mL Inhalation Solution NEB SCH ×4 (07:49→20:30)
[2016-10-08] MEDS ORDERED: MethylprednisoLONE Sodium Succinate 62.5 mg/mL 2 mL Inj IVPUSH SCH ×2 (08:30→17:30)
[2016-10-08] MEDS: cefTRIAXone Inj 2,000 MG in Dextrose 5% Minibag Plus 50 ML IV SCH (09:29)
--- NOTE | 2016-10-08 11:30 | NUR ---
Pt off isolation Per Dr Greenfield order, pt's negative for TB and to take pt off isolation.
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
--- NOTE | 2016-10-08 18:59 | PCM.PNMED ---
Subjective Date of Service Oct 08, 2016 Subjective 61-year-old woman with history of home oxygen dependent COPD presents with acute on chronic respiratory failure. Functional status is improving. Dyspnea is improving. She remains very weak limited exertional tolerance. Exam Vital Signs Vital Sign - Last Date Time Temp Pulse Resp B/P Pulse Ox O2 Delivery O2 Flow Rate FiO2 10/08/16 16:24 36.3 84 122/84 98 Nasal Cannula 2.00 10/08/16 16:22 16 Intake and Output 10/07/16 10/07/16 10/08/16 Cumulative From/Thru 15:00 23:00 07:00 10/02/16 11:02 - 10/08/16 06:31 Intake Total 1115 ml 250 ml 9266 ml Output Total 950 ml 600 ml 9000 ml Balance 165 ml -350 ml 266 ml Intake Oral 720 ml 200 ml 5239 ml IV Total 395 ml 50 ml 4027 ml Output Urine Total 950 ml 600 ml 9000 ml # Voids 2 12 # Bowel Movements 3 Exam General: Chronically ill-appearing no acute distress HEENT: sclerae anicteric, oral mucosa moist Neck: no JVD Chest: Mild wheeze, no focal rales or dullness. Cardiac: S1S2, no murmur Abdomen: BS normal, non-tender Extremities: No edema Neuro: A&O, cranial nerves symmetric, motor strength 4/5, coordination normal IVs and Medications Medications Reviewed: Medications were reviewed in detail Lab and Diagnostics Result Diagram: 10/08/16 0320 10/08/16 0320 Microbiology Blood cultures are negative so far The respiratory viral PCR DNA panel is negative X-Rays, CTs and MRIs PROCEDURE: X-RAY CHEST, TWO VIEWS ([id number]) INDICATIONS: Hypoxia TECHNIQUE: 2 views of the chest were acquired. COMPARISON: [facility], CR, XR CHEST 2VW, 08/27/2016, 10:31. [facility], CR, XR CHEST 1VW (PORTABLE), 10/02/2016, 12:00. [facility], CT, CT CHEST WO CON, 09/03/2016, 15:20. FINDINGS: Surgical changes and devices: None. Lungs and pleura: No pleural effusions or pneumothorax. Lungs are clear. Lung volumes are increased with flattening of the hemidiaphragms consistent with COPD. Mediastinum: Mediastinal contours are normal. Heart size is normal. Bones and chest wall: No suspicious bony abnormalities. Soft tissues appear unremarkable. IMPRESSION: No acute cardiopulmonary disease. COPD. Dictated by: Satn Camarena RRA Interpreted: Frida Asif MD on 10/03/2016 at 10:44 Transcribed by: DIAN on 10/03/2016 at 10:45 Approved by: Frida Asif M.D. on 10/03/2016 at 12:40 Cardiac Echo Impressions Interpretation Summary 1. Normal left ventricular size, wall thickness and systolic function with an estimated EF of 60-65% 2. Grossly normal right ventricular size with normal systolic function. 3. No evidence for valvular pathology Assessment & Plan 61 year old woman with history of COPD with centrilobular emphysema and asthma on chronic oxygen therapy, that presented to ED with shortness of breath. She was admitted for evaluation and treatment of acute on chronic respiratory failure due to suspected COPD exacerbation, with concerns for chronic atypical infection either fungal or atypical mycobacteria. # Acute on chronic respiratory failure, present on admission. Ongoing. Home O2 reported as 1-2L, continuous. Echo 10/03: EF 60-65, normal LV thickness, size, and function; no evidence valvular pathology; normal RV size and function. Troponin: negative x3. Suspected to be secondary to URI, or COPD exacerbation, or ongoing undiagnosed MAC or Valley Fever - Blood cultures: No growth to date - Resp viral PCR: Negative - MRSA screen: Negative - Initial PCT 0.04; repeat 0.04: Negative - Abx: Rocephin + azithromycin, start date 10/02 + probiotics. Continue to 10/08 - Quantiferon essentially negative, - coccidio antibody studies: Pending # Acute exacerbation COPD with centrilobular emphysema, present on admission. Ongoing - Outpatient pulmonology: Dr. Kirby, ALLY scheduled 10/29/2016 - PFTs completed 08/27/2016: - Pre-bronchodilators FVC actual 2.88, pred 3.60; FEV1 actual 1.31, pred 2.77; FEV1/FVC % actual 45, pred 77 - Post-bronchodilators FVC actual 3.08 85% pred; FEV1 1.26 45% pred; FEV/FVC actual 41, 53% pred - CT chest 10/06: 1. No acute pulmonary changes. No effusions or consolidations. Minimal early COPD/emphysematous changes. - Pulmonology consult apprecaited. - Duonebs q4h - Accunebs q2h prn - Discontinue methylprednisone 60mg IV q8h, completed six-day course. 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 However, it is suspected that patient required coccidiomycosis when she lived in [place], [place] for 5 years prior to moving to [place] 11 years ago. Under therapy and evaluation - on empiric antifugal treatment: Fluconazole therapy initiated 10/03 - on PO fluconazole 600 mg daily changed from IV - ID consult to advise. # Anxiety, acute, present on admission. Under therapy - Secondary to inability to breathe; further exacerbates SOB - Ativan 0.5mg IV q4h prn for anxiety # Chronic pain. Presumed stable - Due to cervical spondylosis and chronic neck pain - Methocarbamol 750mg po qhs prn pain - Tramadol 50mg po q6h prn pain # Insomnia, chronic. Presumed stable - Home Rx; Trazodone 50-100mg hs prn insomnia - Continued home Rx # GERD, chronic. Presumed stable - Pantoprazole 40mg daily before meals - Continued - DVT: Lovenox 40mg SQ daily - GI: PPI - Diet: Heart healthy - PRN bowel/fever/pain/antiemetic - Code: FULL CODE Dispo: Likely to remain > 2 days at this time. GI Prophylaxis: Proton Pump Inhibitor VTE Prophylaxis: Sub-Q Enoxaparin Resuscitation Status: CPR: Attempt Resuscitation Time spent 30 minutes Дмитрий Funk MD Oct 08, 2016 18:59
[2016-10-08] MEDS ORDERED: Ipratropium 0.02% 0.5 mg/2.5 mL Inhalation Solution NEB ONE (20:16)
--- NOTE | 2016-10-08 21:12 | PROG NOTE ---
[address] [address] PROGRESS NOTE PATIENT: SHANNON ROBERSON : 1955 MR#: [id number] ADMIT: 10/02/2016 JOB ID: [id number] DATE: 10/08/2016 PROBLEM: 1. Dyspnea. 2. COPD. SUBJECTIVE: The patient felt better with the high-dose steroids. States her breathing improves somewhat though she still did require Ativan. However, she slept fairly well last night and woke up rather refreshed. Continues to cough up some thick phlegm. Acapella does seem to help somewhat. Appetite continues to be poor. Today, she does admit that she gets a bit short of breath eating and curtails her oral intake because of the shortness of breath, as well as the loss of appetite. OBJECTIVE: Temperature 36.4. Pulse 89-100, respiratory rate 16-20, blood pressure 147/89. O2 sat on 2 L is 92%. I and O shows 1.5 L in, 2.1 L out. General appearance: Thin, chronically ill-appearing, mildly dyspneic female sitting in a chair at the bedside. Eyes: Conjunctivae are pink. Chest: Markedly decreased breath sounds. There are diffuse inspiratory and expiratory wheezes throughout both lung vasquez, more in the bases and maybe more on the left than the right. Maybe slight use of the accessory muscles. Using pursed lip breathing. Heart: Regular rhythm. Heart tones normal. Abdomen: Soft. Extremities: No pretibial edema. LABORATORY DATA: Shows a white count of 11,500, with 90 polymorphonuclears, 5 lymphocytes, 2 monocytes. Hemoglobin stable at 13.4. Platelet count stable at 185,000. Sodium 142, potassium 4, chloride 98, CO2 35, BUN stable at 19, creatinine stable at 0.57. Calcium 8.9. ASSESSMENT: Chronic obstructive pulmonary disease/dyspnea. Clinically did better with the higher dose of steroids. Will continue the high-dose steroids after discussing the situation with our infectious disease colleagues. She is in the midst of a workup for possible underlying infection, be it Coccidioides, mycobacteria of the atypical variety, or tubercular mycobacteria. Studies are pending. She has finally got a third sample in, and samples #2 and 3 are pending at this time. I think she will do better with the steroids rather than increasing inhalers. Not quite sure what we are dealing with, but I am not convinced this is pure emphysema. Still awaiting for serologies to come back. Other possibilities would include end-stage sarcoid, vanishing lung syndrome, bronchiolitis. PLAN: 1. Await serology. 2. Continue Solu-Medrol 125 mg IV push q.6 h. 3. Spirometry, possibly even complete pulmonary function tests in the next few days to ascertain objective response to inhaled steroids.
[2016-10-09] VITALS (12 sets, daily range): BP systolic 127–161; BP diastolic 73–89; PULSE 64–110; RESP 16–20; O2SAT 92–100
--- NOTE | 2016-10-09 04:33 | NUR ---
anxiety/sats Pt c/o feeling anxious. Given 0.5 mg Ativan IV, turned on fan in room, and was able to sleep much of the night after that. States it was effective. Sats have been in mid-90's on 2 liters nasal cannula. Currently, pt is on room air with sats at 93%. Tele has been sinus rhythm/sinus tach with rate around 100-110's. Rate decreased to 70's while asleep.
[2016-10-09] MEDS: Albuterol-Ipratropium 3 mL Inhalation Solution NEB SCH ×5 (05:54→19:45)
[2016-10-09 06:10] LABS: Alpha-1-Antitrypsin, Serum 128 mg/dL (90-200)
[2016-10-09] MEDS: Pantoprazole 40 mg ER24 Tablet PO SCH (06:17)
[2016-10-09] MEDS ORDERED: predniSONE 20 mg Tablet PO SCH (08:30)
--- NOTE | 2016-10-09 10:21 | PROG NOTE ---
[address] [address] PROGRESS NOTE PATIENT: SHANNON ROBERSON : 1955 MR#: [id number] ADMIT: 10/02/2016 JOB ID: [id number] DATE: 10/09/2016 INFECTIOUS DISEASE FOLLOW UP NOTE: REASON FOR FOLLOWUP: Progressive shortness of breath with possibility of coccidioidomycosis or mycobacterial infection. INTERVAL HISTORY: The patient states her breathing seems to be slightly better overnight but she still becomes extremely short of breath just getting out of bed and using a bedside commode or trying to speak in full sentences. She reports she has had low-grade temperatures though these are not reflected in the chart at all. She denies any chills or sweats. She still has a cough which is almost nonproductive though she has been producing scant amounts of whitish sputum for her AFB stains, cultures and nucleic acid implication test. She has no GI symptoms. No skin rash. PHYSICAL EXAMINATION: Reveals a woman who is consistently afebrile. Temperature 36.4, pulse 91, respiratory rate 18, blood pressure 127/73. She saturates well on 2 L but is obviously short of breath even attempting to speak. Examination of the mental status reveals her to be clear. Lungs with decreased breath sounds and scattered rhonchi throughout both lung vasquez though perhaps slightly better than yesterday. Cardiac tones regular rate and rhythm without murmur. Abdomen benign. No skin rash. LABORATORIES: Include a white count 11,500, 90% segs but she is on steroids, creatinine 0.57. LFTs are normal. Alpha 1 antitrypsin has come back at 128 which is right in the middle of normal. IgE is 57 which is also in the middle of normal. Boston C antibody still pending. Aspergillus antibodies pending. QuantiFERON Gold indeterminate. Our first sputum for AFB is back and AFB smear is negative and the TB PCR negative. A second sample is pending. Prior sputum cultures have yielded normal geovanna. MRSA screen is negative and a blood culture is negative. The chest CT was previously discussed. IMPRESSION: This is a patient whose CT and history would suggest relatively mild COPD but he was completely incapacitated over the past several months with a rapidly progressive shortness of breath which is dramatically worse with dyspnea. Dr. Rivas has been concerned about the possibility of an occult coccidioidomycosis process and we are waiting the serology for Boston C even as we treat her with relatively high-dose oral fluconazole. There has also been concern about mycobacterial infection. TB would seem to be extraordinarily unlikely and we now have back the nucleic acid amplification for TB which is negative. 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 RECOMMENDATIONS: 1. I agree with continuing the steroids. 2. Will continue with the high-dose fluconazole while we await the Boston C antibody. 3. The third sputum AFB has been sent this morning and we await that result as well as the other AFB cultures. 4. Will continue with azithromycin Saturday, Saturday, Saturday as part of her COPD therapy. 5. I wonder if the patient does not improve if she should undergo a lung biopsy. I will see this patient again on , October 11.
--- NOTE | 2016-10-09 12:00 | NUR ---
PT UNABLE TO DO PFT TO HAD SOB WITH ANXIETY Addendum: 10/09/16 at 1910 by URSZULA SUN RCP PT UNABLE TO DO PFT DUE TO SOB AND ANXIETY INSTRUCTED PT TO PURSE LIP BREATH PATIENT GIVEN ATIVAN
--- NOTE | 2016-10-09 13:29 | PCM.PNMED ---
Subjective Date of Service Oct 09, 2016 Subjective 61-year-old woman with history of home oxygen dependent COPD presents with acute on chronic respiratory failure. Functional status is improving. Dyspnea is improving. She remains very weak limited exertional tolerance. Exam Vital Signs Vital Sign - Last Date Time Temp Pulse Resp B/P Pulse Ox O2 Delivery O2 Flow Rate FiO2 10/09/16 12:30 64 10/09/16 11:54 37.2 18 131/81 96 Nasal Cannula 2.00 Intake and Output 10/08/16 10/08/16 10/09/16 Cumulative From/Thru 15:00 23:00 07:00 10/02/16 11:02 - 10/09/16 05:50 Intake Total 1400 ml 200 ml 92253 ml Output Total 1700 ml 800 ml 25241 ml Balance -300 ml -600 ml -634 ml Intake Oral 1400 ml 200 ml 6839 ml IV Total 4027 ml Output Urine Total 1700 ml 800 ml 39219 ml # Voids 12 # Bowel Movements 3 Exam General: Thin woman, tachypnea and coughing occasionally HEENT: sclerae anicteric, oral mucosa moist Neck: no JVD Chest: Mild diffuse wheeze, markedly reduced breath sounds, no focal rales or dullness. Cardiac: S1S2, no murmur Abdomen: BS normal, scaphoid, non-tender Extremities: No edema Neuro: A&O, moderate emotional distress, cranial nerves symmetric, motor strength 4/5, coordination normal IVs and Medications Medications Reviewed: Medications were reviewed in detail Lab and Diagnostics IgE normal 57 on 10/07 Antitrypsin normal 128 Result Diagram: 10/08/16 0320 10/08/16 0320 Microbiology Blood cultures are negative The respiratory viral PCR DNA panel is negative Aspergillus and Coccidioides serology pending from 10/02, 10/07 X-Rays, CTs and MRIs PROCEDURE: X-RAY CHEST, TWO VIEWS ([id number]) INDICATIONS: Hypoxia TECHNIQUE: 2 views of the chest were acquired. COMPARISON: [facility], CR, XR CHEST 2VW, 08/27/2016, 10:31. [facility], CR, XR CHEST 1VW (PORTABLE), 10/02/2016, 12:00. [facility], CT, CT CHEST WO CON, 09/03/2016, 15:20. FINDINGS: Surgical changes and devices: None. Lungs and pleura: No pleural effusions or pneumothorax. Lungs are clear. Lung volumes are increased with flattening of the hemidiaphragms consistent with COPD. Mediastinum: Mediastinal contours are normal. Heart size is normal. Bones and chest wall: No suspicious bony abnormalities. Soft tissues appear unremarkable. IMPRESSION: No acute cardiopulmonary disease. COPD. Dictated by: Stan Camarena RRA Interpreted: Frida Asif MD on 10/03/2016 at 10:44 Transcribed by: DIAN on 10/03/2016 at 10:45 Approved by: Frida Asif M.D. on 10/03/2016 at 12:40 Cardiac Echo Impressions Interpretation Summary 1. Normal left ventricular size, wall thickness and systolic function with an estimated EF of 60-65% 2. Grossly normal right ventricular size with normal systolic function. 3. No evidence for valvular pathology Assessment & Plan 61 year old woman with history of COPD with centrilobular emphysema and asthma on chronic oxygen therapy, that presented to ED with shortness of breath. She was admitted for evaluation and treatment of acute on chronic respiratory failure due to suspected COPD exacerbation, with concerns for chronic atypical infection either fungal or atypical mycobacteria. # Acute on chronic respiratory failure, present on admission. Ongoing. Home O2 reported as 1-2L, continuous. Echo 10/03: EF 60-65, normal LV thickness, size, and function; no evidence valvular pathology; normal RV size and function. Troponin: negative x3. Suspected to be secondary to URI, or COPD exacerbation, or ongoing undiagnosed MAC or Valley Fever. Blood cultures for viral PCR negative - Initial PCT 0.04; repeat 0.04: Negative - Abx: Rocephin + azithromycin, start date 10/02 + probiotics. Discontinued on 10/08 - Quantiferon essentially negative, - coccidio, Aspergillus antibody studies: Pending # Acute exacerbation COPD with centrilobular emphysema, present on admission. Ongoing. Numerous prednisone courses over the past year. Current episode is more prednisone refractory than previous. Outpatient pulmonology: ALLY Roa scheduled 10/29/2016. PFTs completed 08/27/2016: Pre-bronchodilators FVC actual 2.88, pred 3.60; FEV1 actual 1.31, pred 2.77; FEV1/FVC % actual 45, pred 77. Post-bronchodilators FVC actual 3.08 85% pred; FEV1 1.26 45% pred; FEV/FVC actual 41, 53% pred. CT chest 10/06: 1. No acute pulmonary changes. No effusions or consolidations. Minimal early COPD/emphysematous changes. - Pulmonology consult following - Duonebs q4h - Accunebs q2h prn -Continue methylprednisone 60mg IV q8h, initiated on 10/02, increased to 125 mg every 6 on 10/07. 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 However, it is suspected that patient required coccidiomycosis when she lived in [place], [place] for 5 years prior to moving to [place] 11 years ago. Under therapy and evaluation - on empiric antifugal treatment: Fluconazole therapy initiated 10/03 - on PO fluconazole 600 mg daily changed from IV - ID consult to advise. # Anxiety, acute, present on admission. 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 Patient reports significantly worse over the past few days. - Physical therapy, encourage activity, sitting in chair is better than bad # Chronic pain. Presumed stable - Due to cervical spondylosis and chronic neck pain - Methocarbamol 750mg po qhs prn pain - Tramadol 50mg po q6h prn pain # Insomnia, chronic. Presumed stable - Home Rx; Trazodone 50-100mg hs prn insomnia - Continued home Rx # GERD, chronic. Presumed stable - Pantoprazole 40mg daily before meals - Continued - DVT: Lovenox 40mg SQ daily - GI: PPI - Diet: Heart healthy - PRN bowel/fever/pain/antiemetic - Code: FULL CODE Dispo: Likely to remain > 2 days at this time. GI Prophylaxis: Proton Pump Inhibitor VTE Prophylaxis: Sub-Q Enoxaparin Resuscitation Status: CPR: Attempt Resuscitation Time spent 35 minutes Дмитрий Funk MD Oct 09, 2016 13:29
[2016-10-09] MEDS: LORazepam 1 mg Tablet PO PRN ×2 (13:41→20:27)
--- NOTE | 2016-10-09 14:39 | NUR ---
took over patient care at 2pm
[2016-10-09] MEDS: MethylprednisoLONE Sodium Succinate 62.5 mg/mL 2 mL Inj IVPUSH SCH ×2 (16:30→20:37)
--- NOTE | 2016-10-09 16:44 | NUR ---
Social Work Note: Readiness for Discharge Data& Assessment: Per MD pt is getting closer to being medically ready for discharge. SW met with pt at bedside to confirm discharge plan and assess for any unmet needs. Pt confirmed plan to discharge home with hannah CURIEL PT and RN when medically ready via POV. Pt denies any other needs at this time. SW to continue to follow if any needs arise. Plan: Anticipated discharge home via POV with hannah CURIEL PT and RN. Pt denies any other needs at this time. SW to continue to follow if any needs arise. ELINOR Musa
--- NOTE | 2016-10-09 20:40 | NUR ---
Solu-Medrol: P: Pt refused dose of Solu-Medrol at 1630 secondary to not being able to take a dose of Ativan at that time. I: Earlier dose skipped. Solu-Medrol dose given at this time. Pt does not wish to be awoken during the middle of the night for next dose. Will resume next dose as scheduled at 0830. E: Pt stable. Will cont. to monitor.
--- NOTE | 2016-10-09 20:45 | NUR ---
Ned Mendes post Discharge This AM got report that pt right arm was jerking uncontrollably and happen again around 0730 AM. MD made aware, new orders for labs. Pt potassium 3.1, replaced per Potassium Replacement Protocol. In afternoon Orders to discharge pt. Discharge instructions given to pt and pt's daughter. Both verbalized understanding. Tele and PICC discontinued previously. Went out of room to get wheelchair to wheel pt out, when pt's daughter called stating "my mom's arm is twitching again. Asked TARGET WORKER to check vitals and made aware, new orders for STAT Potassium, Calcium and Magnesium. While putting in the order pt pushed call light stating "it's happening again". Pt's right arm jerking uncontrollably, Pt made aware that will put order in to check Electrolytes. Pt verbalized understanding. Went out of room to order labs, daughter ran out of the room and called for help stating help, my mom is having a stroke. When checked on pt, pt's arms where contracted to her chest and eyes were rolled back. paint process engineer made aware and MD contacted by Jayjay ULLOA. Pt still had a pulse when checked however stopped breathing. Ned mendes called, 2 IV's started, pt intubated due to respiratory distress, PT hypertensive, BG 120. Pt transferred to CCU. Report given to oncoming CCU ARTEMIO. Addendum: 10/09/16 at 2047 by KAYLIN PETERSON RN wrong pt
[2016-10-10] VITALS (10 sets, daily range): BP systolic 127–157; BP diastolic 74–83; PULSE 64–94; RESP 14–16; O2SAT 92–96
--- NOTE | 2016-10-10 04:57 | NUR ---
Temperature: P: CHILD AND YOUTH PROGRAM ASSISTANT obtained a temperature of 38.4 I: Pt denied feeling feverish. Temperature repeated a couple of times. Temperature of 36.5 degree celsius noted. E: Will cont. to monitor. Addendum: 10/10/16 at 0506 by MALAIKA ENGLAND RN Amended: Links added.
[2016-10-10] MEDS: Pantoprazole 40 mg ER24 Tablet PO SCH (06:31)
[2016-10-10] MEDS: MethylprednisoLONE Sodium Succinate 62.5 mg/mL 2 mL Inj IVPUSH SCH ×2 (08:46→16:34)
[2016-10-10] MEDS: LORazepam 1 mg Tablet PO PRN ×3 (08:46→23:17)
[2016-10-10] MEDS: Albuterol-Ipratropium 3 mL Inhalation Solution NEB SCH ×4 (09:47→20:03)
[2016-10-10] MEDS: Polyethylene Glycol (PEG) 17 Gm Powder PO PRN (14:14)
--- NOTE | 2016-10-10 16:18 | PCM.PNMED ---
Subjective Date of Service Oct 10, 2016 Subjective 61-year-old woman with history of home oxygen dependent COPD presents with acute on chronic respiratory failure. She reports mild-moderate improvement in breathing. She is ambulating in the room with assistance. She remains very weak limited exertional tolerance. Exam Vital Signs Vital Sign - Last Date Time Temp Pulse Resp B/P Pulse Ox O2 Delivery O2 Flow Rate FiO2 10/10/16 16:03 37.2 77 16 152/83 95 Nasal Cannula 1.00 Intake and Output 10/09/16 10/09/16 10/10/16 Cumulative From/Thru 15:00 23:00 07:00 10/02/16 11:02 - 10/10/16 05:50 Intake Total 600 ml 50 ml 86050 ml Output Total 1250 ml 500 ml 35320 ml Balance -650 ml -450 ml -1734 ml Intake Oral 600 ml 50 ml 7489 ml IV Total 4027 ml Output Urine Total 1250 ml 500 ml 40319 ml # Voids 12 # Bowel Movements 3 Exam General: Thin woman, tachypnea and coughing occasionally HEENT: sclerae anicteric, oral mucosa moist Neck: no JVD Chest: Mild diffuse wheeze, mildly reduced breath sounds, good air movement, no focal rales or dullness. Cardiac: S1S2, no murmur Abdomen: BS normal, scaphoid, non-tender Extremities: No edema Neuro: A&O, cranial nerves symmetric, motor strength 4/5, coordination normal IVs and Medications Medications Reviewed: Medications were reviewed in detail Lab and Diagnostics Result Diagram: 10/08/16 0320 10/08/16 0320 Microbiology Blood cultures are negative The respiratory viral PCR DNA panel is negative Aspergillus and Coccidioides serology pending from 10/02, 10/07 X-Rays, CTs and MRIs PROCEDURE: X-RAY CHEST, TWO VIEWS ([id number]) INDICATIONS: Hypoxia TECHNIQUE: 2 views of the chest were acquired. COMPARISON: [facility], CR, XR CHEST 2VW, 08/27/2016, 10:31. [facility], CR, XR CHEST 1VW (PORTABLE), 10/02/2016, 12:00. [facility], CT, CT CHEST WO CON, 09/03/2016, 15:20. FINDINGS: Surgical changes and devices: None. Lungs and pleura: No pleural effusions or pneumothorax. Lungs are clear. Lung volumes are increased with flattening of the hemidiaphragms consistent with COPD. Mediastinum: Mediastinal contours are normal. Heart size is normal. Bones and chest wall: No suspicious bony abnormalities. Soft tissues appear unremarkable. IMPRESSION: No acute cardiopulmonary disease. COPD. Dictated by: Stan Camarena RRA Interpreted: Frida Asif MD on 10/03/2016 at 10:44 Transcribed by: DIAN on 10/03/2016 at 10:45 Approved by: Frida Asif M.D. on 10/03/2016 at 12:40 Cardiac Echo Impressions Interpretation Summary 1. Normal left ventricular size, wall thickness and systolic function with an estimated EF of 60-65% 2. Grossly normal right ventricular size with normal systolic function. 3. No evidence for valvular pathology Assessment & Plan 61 year old woman with history of COPD with centrilobular emphysema and asthma on chronic oxygen therapy, that presented to ED with shortness of breath. She was admitted for evaluation and treatment of acute on chronic respiratory failure due to suspected COPD exacerbation, with concerns for chronic atypical infection either fungal or atypical mycobacteria. # Acute on chronic respiratory failure, present on admission. Ongoing. Home O2 reported as 1-2L, continuous. Echo 10/03: EF 60-65, normal LV thickness, size, and function; no evidence valvular pathology; normal RV size and function. Troponin: negative x3. Suspected to be secondary to URI, or COPD exacerbation, or ongoing undiagnosed MAC or Valley Fever. Blood cultures for viral PCR negative. Initial PCT 0.04; repeat 0.04. Rocephin + azithromycin, start date + probiotics. Discontinued on 10/08. Quantiferon essentially negative, - coccidio, Aspergillus antibody studies: Pending # Acute exacerbation COPD with centrilobular emphysema, present on admission. Ongoing. Numerous prednisone courses over the past year. Current episode is more prednisone refractory than previous. Outpatient pulmonology: ALLY Roa scheduled 10/29/2016. PFTs completed 08/27/2016: Pre-bronchodilators FVC actual 2.88, pred 3.60; FEV1 actual 1.31, pred 2.77; FEV1/FVC % actual 45, pred 77. Post-bronchodilators FVC actual 3.08 85% pred; FEV1 1.26 45% pred; FEV/FVC actual 41, 53% pred. CT chest 10/06: 1. No acute pulmonary changes. No effusions or consolidations. Minimal early COPD/emphysematous changes. - Pulmonology consult following - Duonebs q4h - Accunebs q2h prn -Continue methylprednisone 60mg IV q8h, initiated on 10/02, increased to 125 mg every 6 on 10/07. 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 However, it is suspected that patient required coccidiomycosis when she lived in [place], [place] for 5 years prior to moving to [place] 11 years ago. Under therapy and evaluation. - on empiric antifugal treatment: Fluconazole therapy initiated 10/03; awaiting fungal serology. - on PO fluconazole 600 mg daily changed from IV - ID consult to advise on duration. # Anxiety, acute, present on admission. 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 Patient reports significantly worse over the past few days. - Physical therapy, encourage activity, sitting in chair is better than bad # Chronic pain. Presumed stable - Due to cervical spondylosis and chronic neck pain - Methocarbamol 750mg po qhs prn pain - Tramadol 50mg po q6h prn pain # Insomnia, chronic. Presumed stable - Home Rx; Trazodone 50-100mg hs prn insomnia - Continued home Rx # GERD, chronic. Presumed stable - Pantoprazole 40mg daily before meals - Continued - DVT: Lovenox 40mg SQ daily - GI: PPI - Diet: Heart healthy - PRN bowel/fever/pain/antiemetic - Code: FULL CODE Dispo: Likely to remain > 2 days at this time. Pain Evaluation: Adequate Pain Control GI Prophylaxis: Proton Pump Inhibitor VTE Prophylaxis: Sub-Q Enoxaparin Resuscitation Status: CPR: Attempt Resuscitation Time spent 35 minutes Дмитрий Funk MD Oct 10, 2016 16:18
--- NOTE | 2016-10-10 19:22 | NUR ---
Respiration/Bowel Movement Pt. is on 2L NC humidified oxygen, Pt. needs oxygen increased to 3L NC if she is to ambulate in the room, Pt. states feeling fatigued quicker than usual. Pt. states feeling "jittery" when taking methylprednisolone IV and req. to be given ativan at the same time to help with the "jitteriness". MD in the room stated to give ativan PRN 1hr prior to giving methylprednisolone. Pt. has been on BR except for when PT came and worked with her, see PT notes. Pt. states not having a BM since 10/03/16. NOC shift gave stool softener and I gave mirlax powder at ~1415 and PT. still has had no BM on shift.
[2016-10-11] MEDS: MethylprednisoLONE Sodium Succinate 62.5 mg/mL 2 mL Inj IVPUSH SCH ×3 (00:45→16:26)
[2016-10-11 04:20] LABS: BASOPHILS % (AUTO) 0.1 % (0-3); EOSINOPHILS % (AUTO) 0 % (0-5); MONOCYTES % (AUTO) 2.2 % (4-12); Mean Corpuscular Hemoglobin 29.9 pg (27.0-35.0); Mean Corpuscular Volume 89.1 fL (81-100); NEUTROPHILS % (AUTO) 91.5 % (40-74); Platelet Count 215 bil/L (150-400)
--- NOTE | 2016-10-11 04:50 | NUR ---
Tele/Anxiety/ Not on Telemetry, 1 L O2 per NC , resting peacefully after ativan, . relates that steroids cause her to feel uneasy , atu Addendum: 10/11/16 at 0520 by ADELA SHAW RN Previous entry truncated due to errant branch-stroke. Ativan relieves discomfort caused by Solumedrol . Pt sleeping most of the night
[2016-10-11 05:04] LABS: Magnesium 2.4 mg/dL (1.6-2.6); Phosphorus 4.2 mg/dL (2.5-4.9)
[2016-10-11] MEDS: Pantoprazole 40 mg ER24 Tablet PO SCH (06:19)
[2016-10-11 08:30] VITALS: PULSE 82; RESP 18; O2SAT 94
[2016-10-11] MEDS: Arformoterol 15 mCg/2 mL Inhalation Solution NEB SCH ×3 (08:30→21:34)
[2016-10-11] MEDS: Albuterol-Ipratropium 3 mL Inhalation Solution NEB SCH ×4 (08:38→21:34)
[2016-10-11 08:40] VITALS: BP 150/89; PULSE 76; PULSE 82; RESP 16; RESP 18; O2SAT 94; O2SAT 98
[2016-10-11] MEDS: LORazepam 1 mg Tablet PO PRN ×3 (08:48→21:57)
--- NOTE | 2016-10-11 09:00 | PROG NOTE ---
[address] [address] PROGRESS NOTE PATIENT: SHANNON ROBERSON : 1955 MR#: [id number] ADMIT: 10/02/2016 JOB ID: [id number] DATE: 10/11/2016 DATE: 10/11/2016 INFECTIOUS DISEASE FOLLOW UP NOTE: REASON FOR FOLLOWUP: Possible coccidioidomycosis in a patient with severe COPD. INTERVAL HISTORY: Overnight, the patient tells me she has been improving considerably. She is getting around the room more and more with less and less shortness of breath. She has no productive cough whatsoever. Also no fevers, chills, sweats, nausea, vomiting or diarrhea. PHYSICAL EXAMINATION: Reveals an afebrile, comfortable woman sitting up in bed with nasal oxygen flowing. She appears less short of breath than she has on prior days. Temperature is 36.3, she has been afebrile throughout this week long hospital stay. Pulse 69, respiratory rate 16, blood pressure 139/74. She is saturating 94% on 1 L. Examination of the mental status reveals it to be clear. Oral cavity without thrush. Lungs clear to auscultation with poor air flow diffusely but no rales or rhonchi are heard. Cardiac tones without murmur. Abdomen benign. No skin rash. LABORATORIES: Include a white count of 18,000 with 90% segs but she has been on quite high dose steroids for several days. Creatinine stable 0.58. LFTs normal except for a slight bump in the ALT to 38. Two procalcitonin levels were basically 0. ANCA studies are pending as are Aspergillus antibodies. QuantiFERON gold was indeterminate. Three sputum AFBs are negative and a single sputum for nucleic acid amplification for TB is negative. The MRSA screen was negative. Boston C antibodies are still pending and I spoke to the head of the micro lab about this. The Boston C antibodies were drawn nine days ago and he says there is a nationwide shortage of reagents. Therefore, we have no idea when that test will be available. IMAGING: Was done today. I have reviewed the x-ray and compared it to prior films and I see no focal infiltrates but continued changes consistent with emphysema. IMPRESSION: This patient has severe COPD on the basis of decades of smoking, which ended in July when her COPD really became evident. Her course has been one of a fairly rapidly downhill progression and this has led to concerns about a superinfection with mycobacteria or fungi. The patient has been placed on fluconazole. She comes from the [facility] which is a hot bed of coccidiomycosis, but she has not been there in over a decade. So this is an unlikely diagnosis. Mycobacterial infections are also unlikely but we do have three sputums pending. I suspect that what is going on here is just a worsening COPD rather than an infection, but this will take some time to prove. RECOMMENDATIONS: 1. I agree with continuing steroids as they seem to be making the patient better. 2. I would continue with fluconazole 400-600 mg a day orally until such time as the coccidiomycosis antibody comes back. If that antibody test is negative, I would stop the fluconazole. 3. We await the three sputum AFB cultures which will not take a total of six weeks to complete. 4. I would continue with azithromycin Saturday, Saturday and Saturday just as part of her COPD therapy. 5. I will be out of town the next 10 days. I can be reached by E-mail if needed, though there may be some delay in my responding due to different time zones and the of international E-mail communication. 6. ID will go ahead and sign off at this time as I am going to be gone for the next 10 days or so.
--- NOTE | 2016-10-11 09:13 | DRSVH ---
PROCEDURE: X-RAY CHEST ONE VIEW, PORTABLE ([id number]) INDICATIONS: dyspnea, COPD TECHNIQUE: One view of the chest was acquired. COMPARISON: [facility], CR, XR CHEST 2VW, 10/03/2016, 8:21. [facility], CT, CT CHEST WO CON, 10/06/2016, 16:21. [facility], CR, XR CHEST 1VW (PORTABLE), 10/02/2016, 1 2:00. FINDINGS: Surgical changes and devices: None. Lungs and pleura: No pleural effusions or pneumothorax. Lungs are clear. Lung volumes are increase d with flattening of the hemidiaphragms suggesting COPD. Mediastinum: Mediastinal contours appear normal. Heart size is normal. Bones and chest wall: No suspicious bony lesions. Overlying soft tissues appear unremarkable. IMPRESSION: Lung volumes are increased suggesting COPD, correlate with pulmonary functions test. No acute cardiopulmonary process identified. Dictated by: Stan ZARATE Interpreted: Sharon Almanza MD on 10/11/2016 at 9:12 Transcribed by: JUSTINE on 10/11/2016 at 9:13 Approved by: Sharon Almanza M.D. on 10/11/2016 at 16:54
[2016-10-11] MEDS: Polyethylene Glycol (PEG) 17 Gm Powder PO PRN (09:55)
[2016-10-11 12:35] VITALS: PULSE 94; RESP 18; O2SAT 96
[2016-10-11] MEDS ORDERED: Glucose 40% Oral Gel 15 Gm Tube PO PRN (12:50)
--- NOTE | 2016-10-11 14:30 | PCM.PNMED ---
Subjective Date of Service Oct 11, 2016 Subjective 61-year-old woman with history of home oxygen dependent COPD, and concern for undiagnosed chronic interstitial lung disease, presents with acute on chronic respiratory failure. She reports moderate improvement in breathing. She is conversing more comfortably at greater length. She is ambulating in the room with assistance. She fell over from the commode reaching for her cell phone today. Neck is stiff but no evidence of fracture. She remains very weak. Exam Vital Signs Vital Sign - Last Date Time Temp Pulse Resp B/P Pulse Ox O2 Delivery O2 Flow Rate FiO2 10/11/16 12:35 94 18 96 Nasal Cannula 1.00 10/11/16 08:40 36.9 150/89 Intake and Output 10/10/16 10/10/16 10/11/16 Cumulative From/Thru 14:59 22:59 06:59 10/02/16 11:02 - 10/11/16 06:17 Intake Total 600 ml 200 ml 89270 ml Output Total 1200 ml 300 ml 43565 ml Balance -600 ml -100 ml -2434 ml Intake Oral 600 ml 200 ml 8289 ml IV Total 4027 ml Output Urine Total 1200 ml 300 ml 41293 ml # Voids 12 # Bowel Movements 3 Exam General: Thin woman, tachypnea and coughing occasionally HEENT: sclerae anicteric, oral mucosa moist Neck: no JVD, limited mainly range of motion to the right, no focal palpation tenderness of C-spine Chest: Minimal wheeze, reduced breath sounds, good air movement, no focal rales or dullness. Cardiac: S1S2, no murmur Abdomen: BS normal, scaphoid, non-tender Extremities: No edema Neuro: A&O, cranial nerves symmetric, motor strength 4/5, coordination normal IVs and Medications Medications Reviewed: Medications were reviewed in detail Lab and Diagnostics Result Diagram: 10/11/16 0410 10/11/16 041 Microbiology Blood cultures are negative The respiratory viral PCR DNA panel is negative Aspergillus and Coccidioides serology pending from 10/02, 10/07 X-Rays, CTs and MRIs PROCEDURE: X-RAY CHEST, TWO VIEWS ([id number]) INDICATIONS: Hypoxia TECHNIQUE: 2 views of the chest were acquired. COMPARISON: [facility], CR, XR CHEST 2VW, 08/27/2016, 10:31. [facility], CR, XR CHEST 1VW (PORTABLE), 10/02/2016, 12:00. [facility], CT, CT CHEST WO CON, 09/03/2016, 15:20. FINDINGS: Surgical changes and devices: None. Lungs and pleura: No pleural effusions or pneumothorax. Lungs are clear. Lung volumes are increased with flattening of the hemidiaphragms consistent with COPD. Mediastinum: Mediastinal contours are normal. Heart size is normal. Bones and chest wall: No suspicious bony abnormalities. Soft tissues appear unremarkable. IMPRESSION: No acute cardiopulmonary disease. COPD. Dictated by: Stan Camarena RRA Interpreted: Frida Asif MD on 10/03/2016 at 10:44 Transcribed by: DIAN on 10/03/2016 at 10:45 Approved by: Frida Asif M.D. on 10/03/2016 at 12:40 Cardiac Echo Impressions Interpretation Summary 1. Normal left ventricular size, wall thickness and systolic function with an estimated EF of 60-65% 2. Grossly normal right ventricular size with normal systolic function. 3. No evidence for valvular pathology Assessment & Plan 61 year old woman with history of COPD with centrilobular emphysema and asthma on chronic oxygen therapy, that presented to ED with shortness of breath. She was admitted for evaluation and treatment of acute on chronic respiratory failure due to suspected COPD exacerbation, with concerns for chronic atypical infection either fungal or atypical mycobacteria. # Acute on chronic respiratory failure, present on admission. Ongoing. Home O2 reported as 1-2L, continuous. Echo 10/03: EF 60-65, normal LV thickness, size, and function; no evidence valvular pathology; normal RV size and function. Troponin: negative x3. Suspected to be secondary to URI, or COPD exacerbation, or ongoing undiagnosed MAC or Valley Fever. Blood cultures for viral PCR negative. Initial PCT 0.04; repeat 0.04. Rocephin + azithromycin, start date + probiotics. Discontinued on 10/08. Quantiferon essentially negative, positive controls nonreactive. Sputum smears are pending. Resolved hypoxemia, Continued severe exertional dyspnea - Supportive oxygen as needed # Acute exacerbation COPD with centrilobular emphysema, present on admission. Ongoing. Numerous prednisone courses over the past year. Current episode is more prednisone refractory than previous. Outpatient pulmonology: Dr. Kirby, OV scheduled 10/29/2016. PFTs completed 08/27/2016: Pre-bronchodilators FVC actual 2.88, pred 3.60; FEV1 actual 1.31, pred 2.77; FEV1/FVC % actual 45, pred 77. Post-bronchodilators FVC actual 3.08 85% pred; FEV1 1.26 45% pred; FEV/FVC actual 41, 53% pred. CT chest 10/06: 1. No acute pulmonary changes. No effusions or consolidations. Minimal early COPD/emphysematous changes. - Duonebs q4h - Accunebs q2h prn - Continue methylprednisone 60mg IV q8h, initiated on 10/02. 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 However, it is suspected that patient required coccidiomycosis when she lived in [place], [place] for 5 years prior to moving to [place] 11 years ago. Under therapy and evaluation. - coccidio, Aspergillus antibody studies: Pending - Plan to discontinue fluconazole if fungal antibody serology is negative # Anxiety, acute, present on admission. 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 Patient reports significantly worse over the past few days. - Physical therapy, encourage activity, sitting in chair is better than bed # Chronic pain. Presumed stable - Due to cervical spondylosis and chronic neck pain - Methocarbamol 750mg po qhs prn pain - Tramadol 50mg po q6h prn pain # Insomnia, chronic. Presumed stable - Home Rx; Trazodone 50-100mg hs prn insomnia - Continued home Rx # GERD, chronic. Presumed stable - Pantoprazole 40mg daily before meals - Continued - DVT: Lovenox 40mg SQ daily - GI: PPI - Diet: Heart healthy - PRN bowel/fever/pain/antiemetic - Code: FULL CODE Dispo: Likely to discharge home in 1-2 days pending further interventions by pulmonary strategic consultant. Likely to be very weak at time of discharge. Currently living temporarily in a trailer home. May benefit from social work assessment of housing options and home health care assistance. GI Prophylaxis: Proton Pump Inhibitor VTE Prophylaxis: Sub-Q Enoxaparin VTE Mechanical Devices: Intermittant Pneumatic CD Resuscitation Status: CPR: Attempt Resuscitation Time spent 30 minutes Дмитрий Funk MD Oct 11, 2016 14:30
--- NOTE | 2016-10-11 15:23 | NUR ---
NUTRITION ASSESSMENT Assess: Pt is a 61 yo female admitted w/ acute on chronic respiratory failure. Per notes, pt reports moderate increase in breathing ability but is still weak. Pt continues on supplemental O2, and requires O2 at baseline for COPD. Per notes from pulmonology, pt reports decreased appetite d/t shortness of breath while eating. Pt stated experiencing recent wt loss, and has been trying to gain wt. Her goal is to weigh 125-130 lbs. She is eating five meals a day at home, and drinking three Ensure drinks. Pt requested vanilla Ensure on all trays, and was willing to try Magic Cups to try to increase calorie and protein intake while in the hospital. PMHx: COPD w/ centrilobular emphysema and asthma, seasonal allergies, endometriosis, nephrolithiasis, right rotator cuff tear, cervical spondylosis, chronic cervical and low back pain, GERD, insomnia, adenomatous colonic polyps, colonoscopy LABS: CO2 32, Gluc 228, ALT 38, TSH 0.347 MEDICATIONS: Ativan, Senna, Miralax DIET: Heart Healthy PO 50-100% GI symptoms/stool: Last BM recorded 10/06. Pt receiving Miralax and stool softener. SKIN: Ming 22 - no other skin issues noted. ANTHROPOMETRICS: Current Wt: 48.8 kg BMI: 16.6 kg/m2 Admit Wt: 52.5 kg (BMI 17.9 kg/m2) IBW: 62.5 kg Recent Admit Wt per pt (Jul 2016): 45.9 kg Recent wt changes: Wt gain of approximately 7 kg since prior admission ESTIMATED NEEDS: COPD Calories: 1193-7637 kcal/day (30-35 kcal/kg Admit Wt) Protein: 65-80 g/day (1.2-1.5 g/kg Admit Wt) NUTRITION DIAGNOSIS: 1) Increased nutrient needs related to difficulty breathing as evidenced by COPD diagnosis and desire to gain weight. INTERVENTION: 1) Will add vanilla Ensure and Magic Cups TID per pt request. MONITOR/EVALUATE: PO intake, GI, wt, labs, medications, nutrition status, POC. Will continue to monitor per low nutritional risk guidelines. Addendum: 10/11/16 at [address] Student documentation reviewed and I agree with the above assessment. Arleth Fair, MS, ANTHONYN, CD Addendum: 10/12/16 at [address] Pt with new DM diagnosis. Supplement of Ensure changed to Glucerna to help control pt's BG levels. Pt agreeable to supplement change.
--- NOTE | 2016-10-11 16:04 | PROG NOTE ---
[address] [address] PROGRESS NOTE PATIENT: SHANNON ROBERSON : 1955 MR#: [id number] ADMIT: 10/02/2016 JOB ID: [id number] DATE: 10/11/2016 PULMONARY FOLLOW UP NOTE: PROBLEMS: 1. COPD. 2. Severe dyspnea. SUBJECTIVE: Maybe doing a little better. Still with some cough. The phlegm is relatively clear. Tolerating the steroids a little bit better. Thinks her breathing is better and she was able to walk four times around her room resting between two sessions of four a piece. Did sort of slide off her commode retrieving her phone which was on the floor. Apparently reached over while she was on the commode to grab the phone on the floor and had to get off the commode, then getting back on the commode seemed to slip. OBJECTIVE: Temperature 36.9, pulse 76, respiratory rate 16, blood pressure 150/89, O2 sat on 1 L is 96%. General appearance: Appears a bit more comfortable. Somewhat more animated. Sitting upright in bed eating lunch. Chest has fair breath sounds. Somewhat of a bronchial quality to them. No wheeze. No pulmonary adventitial sounds. No use of accessory muscles. Heart: Regular rhythm. Heart tones normal. Abdomen is soft. Bowel tones present. ASSESSMENT: Chronic obstructive pulmonary disease not particularly severe by spirometric studies, but clinically quite severe. Will continue the high-dose steroids attaining spirometry in the morning and see where we are, whether we made a subjective improvement or whether we made an objective improvement in her ventilatory status. Tolerating meds fairly well. Says they may seem to help. PLAN: 1. Continue current regimen of medications. 2. Spirometry in a.m.
[2016-10-11 16:30] VITALS: BP 143/77; PULSE 92; RESP 16; O2SAT 96
[2016-10-11 16:40] VITALS: PULSE 95; RESP 18; O2SAT 96
[2016-10-11] MEDS: Insulin LISPRO 300 Unit/3 mL Inj SUBQ SCH ×2 (18:15→20:18)
[2016-10-11 19:51] VITALS: BP 141/83; PULSE 95; RESP 22; O2SAT 95
--- NOTE | 2016-10-11 20:17 | NUR ---
Fall Pt. had a fall at about 1030 this morning. Pt. states she got on all fours because she saw her cell phone under her bed and decided to grab it. Pt. states when she had her phone she was backing up on all fours trying to stand up and was using the bed for leverage as well as the right hand side of the commode. Pt. states that is when the commode fell over and she landed on her bottom. Pt. states no pain or soreness as well as denying hitting her head. was made aware as well as charge nurse. Pt. through out shift denied any pain and was encouraged to use call light when needing to use the bathroom, Pt. stated she understood and would comply.
[2016-10-11] MEDS ORDERED: Insulin GLARgine 100 Unit/mL Syringe SUBQ SCH (21:00)
--- NOTE | 2016-10-11 22:19 | NUR ---
Anxiety Pt anxious dyspnic. Pt encouraged to take deep breaths through his nose. Pt given PRN 1mg Ativan PO. Continue to monitor, pt states she has no other concerns.
[2016-10-12] VITALS (9 sets, daily range): BP systolic 130–160; BP diastolic 76–86; PULSE 64–96; RESP 12–18; O2SAT 96–99
[2016-10-12] MEDS: MethylprednisoLONE Sodium Succinate 62.5 mg/mL 2 mL Inj IVPUSH SCH ×3 (01:18→17:03)
[2016-10-12 03:56] LABS: BASOPHILS % (AUTO) 0.1 % (0-3); EOSINOPHILS % (AUTO) 0 % (0-5); MONOCYTES % (AUTO) 1.9 % (4-12); Mean Corpuscular Volume 89.9 fL (81-100); NEUTROPHILS % (AUTO) 94.1 % (40-74); Platelet Count 192 bil/L (150-400)
[2016-10-12] MEDS: Pantoprazole 40 mg ER24 Tablet PO SCH (06:39)
[2016-10-12] MEDS: LORazepam 1 mg Tablet PO PRN ×2 (07:36→17:03)
[2016-10-12] MEDS: Albuterol-Ipratropium 3 mL Inhalation Solution NEB SCH ×4 (07:46→21:06)
[2016-10-12] MEDS: Insulin LISPRO 300 Unit/3 mL Inj SUBQ SCH ×4 (08:47→22:01)
[2016-10-12] MEDS: Arformoterol 15 mCg/2 mL Inhalation Solution NEB SCH ×2 (11:57→21:06)
--- NOTE | 2016-10-12 15:53 | PCM.PNMED ---
Subjective Date of Service Oct 12, 2016 Subjective 61-year-old woman with history of home oxygen dependent COPD, and concern for undiagnosed chronic interstitial lung disease, presents with acute on chronic respiratory failure. After several days of reported improvement, she states she is no better today. She feels increasingly weak. She is ambulating in her room without assistance. She is moderately distressed by her disability. Neck ache from her fall yesterday is now largely resolved. Exam Vital Signs Vital Sign - Last Date Time Temp Pulse Resp B/P Pulse Ox O2 Delivery O2 Flow Rate FiO2 10/12/16 13:30 Nasal Cannula 2.00 10/12/16 12:00 96 18 10/12/16 07:48 96 10/12/16 07:30 36.6 142/86 Intake and Output 10/11/16 10/11/16 10/12/16 Cumulative From/Thru 15:00 23:00 07:00 10/02/16 11:02 - 10/12/16 06:15 Intake Total 1150 ml 300 ml 44904 ml Output Total 1300 ml 450 ml 34504 ml Balance -150 ml -150 ml -2734 ml Intake Oral 1150 ml 300 ml 9739 ml IV Total 4027 ml Output Urine Total 1300 ml 450 ml 99852 ml # Voids 2 14 # Bowel Movements 1 4 Exam General: Thin woman, coughing frequently HEENT: sclerae anicteric, oral mucosa moist Neck: no JVD, supple, slightly reduced range of motion to the right Chest: No wheeze, mildly labored breathing, reduced breath sounds, reasonably good air movement, no focal rales or dullness. Cardiac: S1S2, no murmur Abdomen: BS normal, scaphoid, non-tender Extremities: No edema Neuro: A&O, cranial nerves symmetric, motor strength 4/5, coordination normal IVs and Medications Medications Reviewed: Medications were reviewed in detail Lab and Diagnostics Result Diagram: 10/12/16 03310/12/16 033 Microbiology Blood cultures are negative The respiratory viral PCR DNA panel is negative Aspergillus and Coccidioides serology pending from 10/02, 10/07 X-Rays, CTs and MRIs PROCEDURE: X-RAY CHEST, TWO VIEWS ([id number]) INDICATIONS: Hypoxia TECHNIQUE: 2 views of the chest were acquired. COMPARISON: [facility], CR, XR CHEST 2VW, 08/27/2016, 10:31. [facility], CR, XR CHEST 1VW (PORTABLE), 10/02/2016, 12:00. [facility], CT, CT CHEST WO CON, 09/03/2016, 15:20. FINDINGS: Surgical changes and devices: None. Lungs and pleura: No pleural effusions or pneumothorax. Lungs are clear. Lung volumes are increased with flattening of the hemidiaphragms consistent with COPD. Mediastinum: Mediastinal contours are normal. Heart size is normal. Bones and chest wall: No suspicious bony abnormalities. Soft tissues appear unremarkable. IMPRESSION: No acute cardiopulmonary disease. COPD. Dictated by: Stan Camarena RRA Interpreted: Frida Asif MD on 10/03/2016 at 10:44 Transcribed by: DIAN on 10/03/2016 at 10:45 Approved by: Frida Asif M.D. on 10/03/2016 at 12:40 Cardiac Echo Impressions Interpretation Summary 1. Normal left ventricular size, wall thickness and systolic function with an estimated EF of 60-65% 2. Grossly normal right ventricular size with normal systolic function. 3. No evidence for valvular pathology Assessment & Plan 61 year old woman with history of COPD with centrilobular emphysema and asthma on chronic oxygen therapy, that presented to ED with shortness of breath. She was admitted for evaluation and treatment of acute on chronic respiratory failure due to suspected COPD exacerbation, with concerns for chronic atypical infection either fungal or atypical mycobacteria. # Acute on chronic respiratory failure, present on admission. Ongoing. Home O2 reported as 1-2L, continuous. Echo 10/03: EF 60-65, normal LV thickness, size, and function; no evidence valvular pathology; normal RV size and function. Troponin: negative x3. Suspected to be secondary to URI, or COPD exacerbation, or ongoing undiagnosed MAC or Valley Fever. Blood cultures for viral PCR negative. Initial PCT 0.04; repeat 0.04. Rocephin + azithromycin, start date , Discontinued on 10/08. Quantiferon essentially negative, positive controls nonreactive. Sputum smears are pending. Resolved hypoxemia, Continued severe exertional dyspnea - Supportive oxygen as needed # Acute exacerbation COPD with centrilobular emphysema, present on admission. Ongoing. Numerous prednisone courses over the past year. Current episode is more prednisone refractory than previous. Outpatient pulmonology: PFTs completed 08/27/2016: Pre-bronchodilators FVC actual 2.88, pred 3.60; FEV1 actual 1.31, pred 2.77; FEV1/FVC % actual 45, pred 77. Post-bronchodilators FVC actual 3.08 85% pred; FEV1 1.26 45% pred; FEV/FVC actual 41, 53% pred. CT chest 10/06: 1. No acute pulmonary changes. No effusions or consolidations. Current bedside spirometry suggests FEV1 closer to 19%. - Duonebs q4h - Accunebs q2h prn - Continue methylprednisone 125mg IV q8h, initiated on 10/02. 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 However, it is suspected that patient required coccidiomycosis when she lived in [place], [place] for 5 years prior to moving to [place] 11 years ago. Under therapy and evaluation. - coccidio, Aspergillus antibody studies: Pending - Plan to discontinue fluconazole if fungal antibody serology is negative # Anxiety, acute, present on admission. Ongoing. 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 Patient reports significantly worse over the past few days. 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 Persistent uncontrolled hyperglycemia, initially thought to be related to Solu-Medrol. Hemoglobin A1c however is elevated indicating chronic hyperglycemia prior to admission. This is a new diagnosis of diabetes, which I explained to the patient. - 4 times a day capillary blood glucose - Glucose control goals: Random less than 180, fasting less than 140, none less than 70 - Insulin as needed, divided 50-50 long-acting and nutritional/correctional - Diabetes education Chronic, stable and/or resolving problems: # Chronic pain. Presumed stable - Due to cervical spondylosis and chronic neck pain - Methocarbamol 750mg po qhs prn pain - Tramadol 50mg po q6h prn pain # Insomnia, chronic. Presumed stable - Home Rx; Trazodone 50-100mg hs prn insomnia - Continued home Rx # GERD, chronic. Presumed stable - Pantoprazole 40mg daily before meals - Continued - DVT: Lovenox 40mg SQ daily - GI: PPI - Diet: Heart healthy - PRN bowel/fever/pain/antiemetic - Code: FULL CODE Dispo: Likely to discharge home in 1-2 days pending further interventions by pulmonary hematology oncology consultant. Likely to be very weak at time of discharge. Currently living temporarily in a trailer home. May benefit from social work assessment of housing options and home health care assistance. GI Prophylaxis: Proton Pump Inhibitor VTE Prophylaxis: Sub-Q Enoxaparin VTE Mechanical Devices: Intermittant Pneumatic CD Resuscitation Status: CPR: Attempt Resuscitation Time spent 35 minutes, including review of data with hematology oncology consultant and counseling patient regarding diagnosis. Дмитрий Funk MD Oct 12, 2016 15:53
--- NOTE | 2016-10-12 16:49 | PROG NOTE ---
[address] [address] PROGRESS NOTE PATIENT: SHANNON ROBERSON : 1955 MR#: [id number] ADMIT: 10/02/2016 JOB ID: [id number] DATE: 10/12/2016 PULMONARY PROGRESS NOTE: The patient is a 61-year-old woman with almost 50 pack-year smoking history, here for acute on chronic hypoxic respiratory failure and COPD exacerbation. INTERVAL HISTORY: She says she feels better on the steroids but is concerned about side effects from the steroids including high blood sugars. She has cough, with some sputum production, wheezing, shortness of breath but denies fevers, chills, chest pain. REVIEW OF SYSTEMS: As above. PHYSICAL EXAMINATION: Vital signs reviewed. Temperature 36.9, pulse 89. BP 139/80. Sats 99% on 1 L nasal cannula. Respiratory rate of 18. General: Thin woman sitting up in bed, appears slightly anxious. Chest clear but poor air movement bilaterally. I do not hear any wheezing or crackles. LABORATORIES: Reviewed. WBC is up to 24 from 18 previously and otherwise chemistries are normal except for serum bicarb of 32. Her arterial blood gas, last checked on October 06, shows pH of 7.42, pCO2 of 51, pO2 of 216, bicarb of 33. Chest x-ray from October 11 reviewed and shows increased lung volumes suggesting hyperinflation. Chest CT from October 06 reviewed and shows emphysema but no other abnormalities. ASSESSMENT AND RECOMMENDATIONS: 1. Acute on chronic hypoxic respiratory failure. 2. Chronic obstructive pulmonary disease exacerbation. 3. Recent 50 pack-year tobacco use. This is a 61-year-old woman with a 50 pack-year smoking history. Just quit smoking in July 2016. She presented to the hospital with respiratory symptoms at that time and was started on a nebulizer, inhalers, and home oxygen, but despite that has been doing poorly. She is currently on very high-dose corticosteroids and I think we can certainly cut down to half or less of the current dose of 125 q.8. I actually think we can go down to 60 q.12 or even 40 q.12 at this point and then go to prednisone 60 mg p.o. daily and plan on tapering her off in about 7-10 days. I would also recommend a course of azithromycin if she has not already had that--starting with 500 mg p.o. daily and then 250 mg daily. For outpatient inhaler therapy, I would recommend a long-acting beta agonist, inhaled corticosteroid, and long-acting anticholinergic combination. Please make sure that if she has a long-acting anticholinergic that she only uses albuterol nebulizer and not ipratropium as well. The patient has chronic respiratory failure and hypercapnia due to chronic obstructive pulmonary disease. Her pulmonary function tests were done on August 27, 2016, and show FVC 80% and FEV 1 47%, without significant change in bronchodilator. Her residual volume is 146% consistent with air trapping. Total lung capacity 119% and diffusing capacity 34% which is severe reduction. I am going to prescribe a Trilogy ventilator for nocturnal as well as daytime p.r.n. use. BiPAP would be insufficient due to the severity of her condition. She has chronic respiratory failure due to chronic obstructive pulmonary disease as described above. Please contact me for any additional questions or concerns regarding this patient. She needs outpatient follow up in Pulmonology.
--- NOTE | 2016-10-12 17:24 | NUR ---
Social Work: Continued Discharge Planning D: Pt discussed in am rounds. Pt is not medically stable for discharge at this time. Pt continues to work with PT with recommendations for home with HH. [facility]. PT notes suggest pt is a high fall risk and they are not recommending pt discharge home alone. VULCAN CREWMEMBER met with pt at bedside to review discharge plan. Pt states that she lives at home with her mother who has advanced stage Alzheimers. The pt is the caregiver for her mother and assists her with meal prep, medications, chores, dressing and bathing. Pt's mother is being cared for by pt's sister, Kristen, at this time. Pt expresses anxiety about discharge home to resume her caregiving role. VULCAN CREWMEMBER inquired if she or her mother had the ability to pay privately for caregivers. They do not have this ability. VULCAN CREWMEMBER inquired if the pt's sister can stay with her for a period of time while she transitions back home and is less of a fall risk. She is unsure if her sister would be able to do this but provided verbal consent for VULCAN CREWMEMBER to speak with her to discuss discharge plan and safety concerns further. Pt states she has a walker available for personal use at home. Pt is agreeable to adding a bath aid and VULCAN CREWMEMBER to her HH services. t/c to pt's sister, Kristen Knapp, . VULCAN CREWMEMBER left message requesting return phone call. A: Pt who previously lived at home with her mother. P: Anticipate pt to discharge home with [facility] for RN, PT, OT, SHOWER ATTENDANT and VULCAN CREWMEMBER. VULCAN CREWMEMBER to continue to follow and assist with safe discharge planning. ELINOR Romo
--- NOTE | 2016-10-12 17:33 | NUR ---
Newly Diagnoses Diabetes Pt. today was told by that she is a diabetic. At this time Pt. states the solu medrol was the "one that caused my diabetes". Pt. does not show any type of emotion towards this new news. Pt. at this time does not c/o any pain or CP. Pt. states feeling SOB with exertion but at rest not so much.
[2016-10-12] MEDS: Insulin GLARgine 100 Unit/mL Syringe SUBQ SCH (21:59)
[2016-10-13] VITALS (7 sets, daily range): BP systolic 131–145; BP diastolic 78–86; PULSE 74–88; RESP 16–20; O2SAT 95–99
[2016-10-13] MEDS: MethylprednisoLONE Sodium Succinate 62.5 mg/mL 2 mL Inj IVPUSH SCH (00:51)
--- NOTE | 2016-10-13 07:18 | NUR ---
Activity/Insulin Pt was steady on feet when getting OOB to [facility]. Pt used call light appropriately when needing to get OOB and pt does have a estelita underneath her and is aware of this. Pt had HS BG of 276 and was given 2 Units of Lispro and 20 Units of Lantus. Pt was given verbal education on each type of insulin and how it mimics the pancreas. Pt informed me that she has a hard time with needles and has passed out in the past from giving a dog a shot at the vet's office. Pt was asked if there is someone at home that could give the insulin to her and she said that she lived at home. Pt may request information on alternative medications to help her control her BGs.
[2016-10-13] MEDS: Arformoterol 15 mCg/2 mL Inhalation Solution NEB SCH ×2 (08:28→20:27)
[2016-10-13] MEDS: Albuterol-Ipratropium 3 mL Inhalation Solution NEB SCH ×4 (08:28→20:24)
[2016-10-13] MEDS: Pantoprazole 40 mg ER24 Tablet PO SCH (08:48)
[2016-10-13] MEDS: Insulin LISPRO 300 Unit/3 mL Inj SUBQ SCH ×4 (09:01→20:43)
[2016-10-13] MEDS: predniSONE 20 mg Tablet PO SCH ×2 (10:42→20:41)
[2016-10-13 15:07] LABS: Angiotensin-Converting Enzyme 24 U/L (14-82)
--- NOTE | 2016-10-13 16:41 | NUR ---
Social Work: Readiness for Discharge D: Pt discussed in am rounds. Pt is not medically stable at this time. Pt expected to be here through the weekend. Pt continues to work with PT with recommendation for home with and additional support. WEAVER HAND met with pt and pt's sister at bedside today to discuss plan for pt at discharge. Pt expresses anxiety about discharge home and family is curious about SNF. WEAVER HAND reviewed medical criteria for SNF stay and informed them that she does not qualify. They state they understand pt's needs are more retirement. Pt states she has a friend who is willing to have her stay with her to provide additional help and supervision. While it is not her ideal situation she understands the barriers to SNF. Pt states she does not have financial ability to pay for caregivers in the home. Pt and sister provided with [employer] information. WEAVER HAND spoke with Boris Up at [facility] to notify that pt would like to add a bath aid and WEAVER HAND to pt's services. WEAVER HAND received t/c from Alize at [facility] requesting Pulmonology note from 10/12 be faxed to [facility]. WEAVER HAND faxed document to [phone]. A: Pt who will benefit from home health for continued strengthening. P: Anticipate pt to discharge home with [facility] for RN, PT, RING SORTER, WEAVER HAND and trilogy through [facility]; WEAVER HAND to continue to follow. Carmen Shaw MSW
--- NOTE | 2016-10-13 18:04 | NUR ---
Dizziness with Blurred vision at 1600hrs today patient noted a headache described as sharp behind right eye, shortly after it started patient had a sudden onset of blurry vision in the right eye. denies N/V. no other neuro deficits noted. A&Ox3, answering all questions appropriately. patient just finished with a stressful conversation with social work, finding out she didn't qualify for SNF at discharge. patient stated that she's had similar headaches in past, but hasn't had the blurred vision with it. Dr Funk notified. He will come and assess patient. continue to monitor.
--- NOTE | 2016-10-13 18:31 | PCM.PNMED ---
Subjective Date of Service Oct 13, 2016 Subjective 61-year-old woman with history of home oxygen dependent COPD, and concern for undiagnosed chronic interstitial lung disease, presents with acute on chronic respiratory failure. Breathing better today. He is to feel extremely weak. She is ambulating in her room without assistance. She is moderately distressed by her disability, hopelessness issues. Her headache this afternoon. Right-sided head pain associated with right visual blurring. She gives a history of intermittent similar episodes in the past. Usually responsive to tramadol plus methocarbamol. Exam Vital Signs Vital Sign - Last Date Time Temp Pulse Resp B/P Pulse Ox O2 Delivery O2 Flow Rate FiO2 10/13/16 16:18 87 18 145/78 96 Nasal Cannula 3.00 10/13/16 11:36 36.7 Intake and Output 10/12/16 10/12/16 10/13/16 Cumulative From/Thru 15:00 23:00 07:00 10/02/16 11:02 - 10/13/16 05:12 Intake Total 840 ml 200 ml 22707 ml Output Total 450 ml 90479 ml Balance 840 ml -250 ml -2144 ml Intake Oral 840 ml 200 ml 54238 ml IV Total 4027 ml Output Urine Total 450 ml 16209 ml # Voids 3 1 18 # Bowel Movements 2 0 6 Exam General: Thin woman, coughing frequently HEENT: Slightly increased right side conjunctival tearing, sclerae anicteric, oral mucosa moist Neck: no JVD, supple, slightly reduced range of motion to the right Chest: No wheeze, mildly labored breathing, reduced breath sounds, reasonably good air movement, no focal rales or dullness. Cardiac: S1S2, no murmur Abdomen: BS normal, scaphoid, non-tender Extremities: No edema Neuro: A&O, cranial nerves symmetric, visual vasquez intact to confrontation, funduscopic normal Reflexes 3+ bilaterally upper and lower motor strength 4+/5, coordination normal IVs and Medications Medications Reviewed: Medications were reviewed in detail Lab and Diagnostics Result Diagram: 10/12/1633010/12/16330 Microbiology Blood cultures are negative The respiratory viral PCR DNA panel is negative Aspergillus and Coccidioides serology pending from 10/02, 10/07 X-Rays, CTs and MRIs PROCEDURE: X-RAY CHEST, TWO VIEWS ([id number]) INDICATIONS: Hypoxia TECHNIQUE: 2 views of the chest were acquired. COMPARISON: [facility], CR, XR CHEST 2VW, 08/27/2016, 10:31. [facility], CR, XR CHEST 1VW (PORTABLE), 10/02/2016, 12:00. [facility], CT, CT CHEST WO CON, 09/03/2016, 15:20. FINDINGS: Surgical changes and devices: None. Lungs and pleura: No pleural effusions or pneumothorax. Lungs are clear. Lung volumes are increased with flattening of the hemidiaphragms consistent with COPD. Mediastinum: Mediastinal contours are normal. Heart size is normal. Bones and chest wall: No suspicious bony abnormalities. Soft tissues appear unremarkable. IMPRESSION: No acute cardiopulmonary disease. COPD. Dictated by: Stna Camarena RRA Interpreted: Frida Asif MD on 10/03/2016 at 10:44 Transcribed by: DIAN on 10/03/2016 at 10:45 Approved by: Frida Asif M.D. on 10/03/2016 at 12:40 Cardiac Echo Impressions Interpretation Summary 1. Normal left ventricular size, wall thickness and systolic function with an estimated EF of 60-65% 2. Grossly normal right ventricular size with normal systolic function. 3. No evidence for valvular pathology Assessment & Plan 61 year old woman with history of COPD with centrilobular emphysema and asthma on chronic oxygen therapy, that presented to ED with shortness of breath. She was admitted for evaluation and treatment of acute on chronic respiratory failure due to suspected COPD exacerbation, with concerns for chronic atypical infection either fungal or atypical mycobacteria. # Acute on chronic respiratory failure, present on admission. Ongoing. Home O2 reported as 1-2L, continuous. Echo 10/03: EF 60-65, normal LV thickness, size, and function; no evidence valvular pathology; normal RV size and function. Troponin: negative x3. Suspected to be secondary to URI, or COPD exacerbation, or ongoing undiagnosed MAC or Valley Fever. Blood cultures for viral PCR negative. Initial PCT 0.04; repeat 0.04. Rocephin + azithromycin, start date , Discontinued on 10/08. Quantiferon essentially negative, positive controls nonreactive. Sputum smears are pending. Resolved hypoxemia, Continued severe exertional dyspnea - Supportive oxygen as needed # Acute exacerbation COPD with centrilobular emphysema, present on admission. Ongoing. Numerous prednisone courses over the past year. Current episode is more prednisone refractory than previous. Outpatient pulmonology: PFTs completed 08/27/2016: Pre-bronchodilators FVC actual 2.88, pred 3.60; FEV1 actual 1.31, pred 2.77; FEV1/FVC % actual 45, pred 77. Post-bronchodilators FVC actual 3.08 85% pred; FEV1 1.26 45% pred; FEV/FVC actual 41, 53% pred. CT chest 10/06: 1. No acute pulmonary changes. No effusions or consolidations. Current bedside spirometry suggests FEV1 closer to 19%. - Duonebs q4h - Accunebs q2h prn - Discontinued methylprednisone 125mg IV q8h, initiated on 10/02. - Prednisone 40 twice a day; will reduce to daily dosing - And discharge on 10 day taper # Headache with right visual symptoms. Neurologic exam normal. 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 However, it is suspected that patient required coccidiomycosis when she lived in [place], [place] for 5 years prior to moving to [place] 11 years ago. Under therapy and evaluation. - coccidio, Aspergillus antibody studies: Pending - Discontinue fluconazole if fungal antibody serology is negative # Anxiety, acute, present on admission. Ongoing. 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 Patient reports significantly worse over the past few days. 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 Persistent uncontrolled hyperglycemia, initially thought to be related to Solu-Medrol. Hemoglobin A1c however is elevated indicating chronic hyperglycemia prior to admission. This is a new diagnosis of diabetes, which I explained to the patient. - 4 times a day capillary blood glucose - Glucose control goals: Random less than 180, fasting less than 140, none less than 70 - Insulin as needed - Diabetes education Chronic, stable and/or resolving problems: # Chronic pain. Presumed stable - Due to cervical spondylosis and chronic neck pain - Methocarbamol 750mg po qhs prn pain - Tramadol 50mg po q6h prn pain # Insomnia, chronic. Presumed stable - Home Rx; Trazodone 50-100mg hs prn insomnia - Continued home Rx # GERD, chronic. Presumed stable - Pantoprazole 40mg daily before meals - Continued - DVT: Lovenox 40mg SQ daily - GI: PPI - Diet: Heart healthy - PRN bowel/fever/pain/antiemetic - Code: FULL CODE Dispo: Likely to discharge home in 1-2 days pending further interventions by pulmonary child welfare consultant. Likely to be very weak at time of discharge. Currently living temporarily in a trailer home. May benefit from social work assessment of housing options and home health care assistance. GI Prophylaxis: Proton Pump Inhibitor VTE Prophylaxis: Sub-Q Enoxaparin VTE Mechanical Devices: Intermittant Pneumatic CD Resuscitation Status: CPR: Attempt Resuscitation Time spent 35 minutes Дмитрий Funk MD Oct 13, 2016 18:31
[2016-10-13] MEDS: Insulin GLARgine 100 Unit/mL Syringe SUBQ SCH (20:42)
[2016-10-14] VITALS (7 sets, daily range): BP systolic 122–145; BP diastolic 71–80; PULSE 67–91; RESP 15–20; O2SAT 98–100
--- NOTE | 2016-10-14 06:04 | NUR ---
Pain Pt did continue to have head pain 03/28. Pt has a previous medical history of migraines. Pt was given 50mg Ultram and 10mg Flexeril with HS medications and that seemed to help pt with pain and get to sleep.
[2016-10-14] MEDS: Arformoterol 15 mCg/2 mL Inhalation Solution NEB SCH ×2 (08:15→21:07)
[2016-10-14] MEDS: Albuterol-Ipratropium 3 mL Inhalation Solution NEB SCH ×4 (08:15→21:00)
[2016-10-14] MEDS: Pantoprazole 40 mg ER24 Tablet PO SCH (09:05)
[2016-10-14] MEDS: Insulin LISPRO 300 Unit/3 mL Inj SUBQ SCH ×4 (09:06→22:00)
[2016-10-14] MEDS: predniSONE 20 mg Tablet PO SCH (09:07)
--- NOTE | 2016-10-14 17:31 | NUR ---
Fatigue Patient c/o feeling "worn out" today. She has refused to walk with nursing staff, despite multiple offers and education on the importance of building up her strength. Will continue to offer walks and reinforce teaching.
--- NOTE | 2016-10-14 17:57 | PCM.PNMED ---
Subjective Date of Service Oct 14, 2016 Subjective 61-year-old woman with history of home oxygen dependent COPD presents with acute on chronic respiratory failure. Breathing better today. Still feels weak but is ambulating in her room without assistance. She is moderately distressed by her new diagnosis of diabetes, general weakness, homelessness issues. He recognizes that she is improved a lot and is probably ready to go home soon. Exam Vital Signs Vital Sign - Last Date Time Temp Pulse Resp B/P Pulse Ox O2 Delivery O2 Flow Rate FiO2 10/14/16 15:50 36.9 91 15 122/71 100 Nasal Cannula 3.00 Intake and Output 10/13/16 10/13/16 10/14/16 Cumulative From/Thru 15:00 23:00 07:00 10/02/16 11:02 - 10/14/16 05:51 Intake Total 1520 ml 400 ml 99599 ml Output Total 1300 ml 14218 ml Balance 220 ml 400 ml -1524 ml Intake Oral 1520 ml 400 ml 60829 ml IV Total 4027 ml Output Urine Total 1300 ml 49659 ml # Voids 1 19 # Bowel Movements 1 7 Exam General: Thin woman, coughing only occasionally HEENT: sclerae anicteric, oral mucosa moist Neck: no JVD, supple, Chest: No wheeze, mildly labored breathing, reduced breath sounds, reasonably good air movement, no focal rales or dullness. Cardiac: S1S2, no murmur Abdomen: BS normal, scaphoid, non-tender Extremities: No edema Neuro: Alert and oriented, cranial nerves intact, motor and coordination normal IVs and Medications Medications Reviewed: Medications were reviewed in detail Lab and Diagnostics Result Diagram: 10/12/16 03310/12/16 033 Microbiology Blood cultures are negative The respiratory viral PCR DNA panel is negative Aspergillus and Coccidioides serology pending from 10/02, 10/07 X-Rays, CTs and MRIs PROCEDURE: X-RAY CHEST, TWO VIEWS ([id number]) INDICATIONS: Hypoxia TECHNIQUE: 2 views of the chest were acquired. COMPARISON: [facility], CR, XR CHEST 2VW, 08/27/2016, 10:31. [facility], CR, XR CHEST 1VW (PORTABLE), 10/02/2016, 12:00. [facility], CT, CT CHEST WO CON, 09/03/2016, 15:20. FINDINGS: Surgical changes and devices: None. Lungs and pleura: No pleural effusions or pneumothorax. Lungs are clear. Lung volumes are increased with flattening of the hemidiaphragms consistent with COPD. Mediastinum: Mediastinal contours are normal. Heart size is normal. Bones and chest wall: No suspicious bony abnormalities. Soft tissues appear unremarkable. IMPRESSION: No acute cardiopulmonary disease. COPD. Dictated by: Stan Camarena RRA Interpreted: Frida Asif MD on 10/03/2016 at 10:44 Transcribed by: DIAN on 10/03/2016 at 10:45 Approved by: Frida Asif M.D. on 10/03/2016 at 12:40 Cardiac Echo Impressions Interpretation Summary 1. Normal left ventricular size, wall thickness and systolic function with an estimated EF of 60-65% 2. Grossly normal right ventricular size with normal systolic function. 3. No evidence for valvular pathology Assessment & Plan 61 year old woman with history of COPD with centrilobular emphysema and asthma on chronic oxygen therapy, that presented to ED with shortness of breath. She was admitted for evaluation and treatment of acute on chronic respiratory failure due to suspected COPD exacerbation, with concerns for chronic atypical infection either fungal or atypical mycobacteria. Acute and/or high-risk problems: # Acute on chronic respiratory failure, present on admission. Ongoing. Home O2 reported as 1-2L, continuous. Echo 10/03: EF 60-65, normal LV thickness, size, and function; no evidence valvular pathology; normal RV size and function. Troponin: negative x3. Suspected to be secondary to URI, or COPD exacerbation, or less likely undiagnosed MAC or Valley Fever. Blood cultures for viral PCR negative. Initial PCT 0.04; repeat 0.04. Rocephin + azithromycin, start date , Discontinued on 10/08. Quantiferon essentially negative, positive controls nonreactive. Sputum smears are pending. Continued severe exertional dyspnea - Plan to continue home O2 - Dr. Kirby has ordered Trilogy unit; and will follow patient after discharge # Acute exacerbation COPD with centrilobular emphysema, present on admission. Ongoing. Numerous prednisone courses over the past year. Current episode is more prednisone refractory than previous. Outpatient pulmonology: PFTs completed 08/27/2016: Pre-bronchodilators FVC actual 2.88, pred 3.60; FEV1 actual 1.31, pred 2.77; FEV1/FVC % actual 45, pred 77. Post-bronchodilators FVC actual 3.08 85% pred; FEV1 1.26 45% pred; FEV/FVC actual 41, 53% pred. CT chest 10/06: 1. No acute pulmonary changes. No effusions or consolidations. Current bedside spirometry suggests FEV1 closer to 19%. - Duonebs q4h - Accunebs q2h prn - Discontinued methylprednisone 125mg IV q8h, initiated on 10/02. - Reduced from prednisone 60 mg twice a day to 60 mg daily on 10/15; plan further 10 day taper after discharge # Type II diabetes mellitus, acute. New diagnosis based on hemoglobin A1c 6.6% . Subsequently worsened by her current corticoid therapy. Currently on basal bolus multidose insulin therapy as inpatient. - Diabetes education; the patient is cachectic and needs robust caloric intake, but preferably not high glycemic index - Suggest to discharge on metformin 500 mg twice a day 1 week then increase by 500 mg every week until target dose of 1000 mg twice a day - Suggest to discharge on glimepiride 2 mg every morning, which will provide acute glucose control during metformin titration and glucocorticoid pulse, possibly to be discontinued later - I advised patient to check blood sugar twice a day before meals every day, and at bedtime when possible. - She does not seem ready for insulin therapy, and this should not be needed at this point of new diagnosis with very mild hemoglobin A1c elevation - Recommend follow-up with her PCP Dr. Rod duran for diabetic management Chronic, stable and/or resolving problems: # Headache with right visual symptoms. Neurologic exam normal. 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 However, it is suspected that patient required coccidiomycosis when she lived in [place], [place] for 5 years prior to moving to [place] 11 years ago. Under therapy and evaluation. - coccidio, Aspergillus antibody studies: Pending - Discontinue fluconazole if fungal antibody serology is negative # Anxiety, acute, present on admission. Ongoing. 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 Patient reports significantly worse over the past few days. - Physical therapy, encourage activity, sitting in chair is better than bed Chronic, stable and/or resolving problems: # Chronic pain. Presumed stable - Due to cervical spondylosis and chronic neck pain - Methocarbamol 750mg po qhs prn pain - Tramadol 50mg po q6h prn pain # Insomnia, chronic. Presumed stable - Home Rx; Trazodone 50-100mg hs prn insomnia - Continued home Rx # GERD, chronic. Presumed stable - Pantoprazole 40mg daily before meals - Continued - DVT: Lovenox 40mg SQ daily - GI: PPI - Diet: Heart healthy - PRN bowel/fever/pain/antiemetic - Code: FULL CODE Dispo: Likely to discharge home in 1-2 days pending further interventions by pulmonary family consultant. GI Prophylaxis: Proton Pump Inhibitor VTE Prophylaxis: Sub-Q Enoxaparin VTE Mechanical Devices: Intermittant Pneumatic CD Resuscitation Status: CPR: Attempt Resuscitation Time spent 35 minutes Дмитрий Funk MD Oct 14, 2016 17:57
[2016-10-14] MEDS ORDERED: PRED-508 PO (18:07)
[2016-10-14] MEDS ORDERED: METF500T PO (18:07)
[2016-10-14] MEDS ORDERED: GLIM2TAB PO (18:07)
[2016-10-14] MEDS: Insulin GLARgine 100 Unit/mL Syringe SUBQ SCH (20:39)
[2016-10-15] VITALS (10 sets, daily range): BP systolic 106–124; BP diastolic 64–79; PULSE 73–87; RESP 12–20; O2SAT 93–98
--- NOTE | 2016-10-15 06:50 | NUR ---
Respiratory Talked to pt about baseline home O2 usage and pt said that she uses 1L at rest and 2L with activity. Pt has currently been on 3L NC while here at the hospital with SpO2 100%. Pt was titrated down throughout the night to her baseline home O2 setting while at rest of 1L NC. Pt SpO2 is now 96-99% on 1L NC while sleeping.
[2016-10-15] MEDS: Insulin LISPRO 300 Unit/3 mL Inj SUBQ SCH ×4 (08:00→22:00)
[2016-10-15] MEDS: Pantoprazole 40 mg ER24 Tablet PO SCH (08:46)
[2016-10-15] MEDS: predniSONE 20 mg Tablet PO SCH (08:47)
[2016-10-15] MEDS: Albuterol-Ipratropium 3 mL Inhalation Solution NEB SCH ×4 (09:28→21:44)
[2016-10-15] MEDS: Arformoterol 15 mCg/2 mL Inhalation Solution NEB SCH ×2 (09:29→21:44)
[2016-10-15 09:38] LABS: BASOPHILS % (AUTO) 0.2 % (0-3); EOSINOPHILS % (AUTO) 0.6 % (0-5); Mean Corpuscular Volume 90.7 fL (81-100); Platelet Count 181 bil/L (150-400)
--- NOTE | 2016-10-15 11:49 | PCM.DIMED ---
Discharge Instructions Date of Service Oct 15, 2016 Dates of Hospitalization Oct 02, 2016 at 15:30 Discharge Diagnosis Discharge Diagnosis Acute on chronic respiratory failure 2/2 Acute exacerbation COPD with centrilobular emphysema Type II diabetes mellitus, acute anxiety chronic pain insomnia gerd Medication Instructions You have been prescribed diabetic medications: Metformin to be taken twice daily, with goal of uptitration of your dose after f/u wiht your primary care doctor. Also, you are now taking glimepiride 2mg every morning to control your blood sugars. Please make sure to check your blood sugars, keep a log and bring to your PCP Dr. Velasco Please continue on your steroid regimen - taper of prednisone. Take this in the morning with food. You will have a 10 day prednisone taper at discharge, 60mg x 5d, 40mg x 5 d, 20mg x 5 d, 10mg x 5d - always have food in stomach and take in AM. This steroid regimen can elevated your blood sugars temporarily while taking it Diet Heart Healthy, Diabetic Activity Home Health Phyical Therapy Call your provider Fever or Chills, Shortness of breath, Chest pain, Weakness (unilateral) Patient Instructions please follow up with your PCP Dr. Velasco within one week as well as with your new Pulmnology doctor - Dr. Kirby who will be making recommendations regarding your trilogy unit Follow-up Provider: Mason Velasco MD Follow-up with PCP in: 1 week Provider: Barbara Kirby MD Follow-up in: 1 week Ignacio Smith DO Oct 15, 2016 11:44
[2016-10-15] MEDS ORDERED: DIF100A PO (11:56)
--- NOTE | 2016-10-15 12:01 | PCM.DC.MED ---
Discharge Summary Date of Service Oct 15, 2016 Dates of Hospitalization Date of Hospital Admission Oct 02, 2016 at 15:30 Date of Discharge: Oct 15, 2016 Providers: Admitting Physician: Harpreet Rivas MD Primary Care Physician: Mason Velasco MD Attending Physician: Harpreet Rivas MD Diagnosis at Time of Discharge Diagnosis at Time of Discharge Acute on chronic respiratory failure 2/2 Acute exacerbation COPD with centrilobular emphysema Possible coccidiomycosis infection, chronicity unknown Type II diabetes mellitus, acute - new dx anxiety chronic pain insomnia gerd Consultations Dr. Kirby of Pulmonology Dr. Greenfield of Infectious Disease Procedures XRay, CTs & MRIs PROCEDURE: X-RAY CHEST, TWO VIEWS ([id number]) INDICATIONS: Hypoxia TECHNIQUE: 2 views of the chest were acquired. COMPARISON: [facility], CR, XR CHEST 2VW, 08/27/2016, 10:31. [facility], CR, XR CHEST 1VW (PORTABLE), 10/02/2016, 12:00. [facility], CT, CT CHEST WO CON, 09/03/2016, 15:20. FINDINGS: Surgical changes and devices: None. Lungs and pleura: No pleural effusions or pneumothorax. Lungs are clear. Lung volumes are increased with flattening of the hemidiaphragms consistent with COPD. Mediastinum: Mediastinal contours are normal. Heart size is normal. Bones and chest wall: No suspicious bony abnormalities. Soft tissues appear unremarkable. IMPRESSION: No acute cardiopulmonary disease. COPD. Dictated by: Stan Camarena RRA Interpreted: Frida Asif MD on 10/03/2016 at 10:44 Transcribed by: DIAN on 10/03/2016 at 10:45 Approved by: Frida Asif M.D. on 10/03/2016 at 12:40 Cardiac Echo Impression Interpretation Summary 1. Normal left ventricular size, wall thickness and systolic function with an estimated EF of 60-65% 2. Grossly normal right ventricular size with normal systolic function. 3. No evidence for valvular pathology Brief History Ms. Lily Astudillo is a pleasant 61 year old woman with history of COPD with centrilobular emphysema and asthma on chronic oxygen therapy, that presented to [facility] with shortness of breath. She was admitted for evaluation and treatment of acute on chronic respiratory failure due to suspected COPD exacerbation. Patient shares that she has been feeling extremely short of breath over the course greater than one year, notable decompensation January 2016. She states current symptoms have been persisting for recent weeks, but she could not breathe at all day of admission, and that is what prompted her visit to the ED. She also endorses recent fever, decreased appetite, fatigue, chills. Currently ongoing. She shares that she was looking forward to meeting with a mechanical technical service specialist to discuss her symptoms, as she is extremely fatigued and worried about her respiratory health. She states she is compliant with her medication regimen, and compliant with outpatient follow up. Quit smoking July 2016, and has remained smoke-free. Denies any other substance use or EtOH intake. Wears oxygen around the clock, with 1L at rest, 2L with activity. No recent travel; resided in [place] x35 years, reports negative testing for Valley Fever while living in [facility] for 5 years. The patient reports residing in locations with black mold and asbestos for estimated 1.5-2 years approx 20 years ago. No shipyard exposure, no travel to [place] or [facility], no known TB exposures. Currently receiving prednisone 60mg, on fourth day of dosing of a 5 day schedule with taper of 60mg x5d, 40mg x5d, 20mg x5d, then 10mg x5d. Recently seen by PCP 09/19/2016 with complaints of low grade fever, increased cough with increased production, increased dyspnea, and increased wheeze, that have been present at that time for over a week. She received prednisone burst with taper in August, and levofloxacin 750mg daily x5 days from 09/12 - 09/16. In the ED, found to have sats 81% on room air. Provided multiple DuoNeb treatments, ceftriaxone 2g IV, azithromycin 500mg IV, 1L NS. CXR did not reveal any acute abnormality, but was suspicious for hyperinflated lungs. Labs yielded : D-dimer < 0.05, PCT 0.04, WBC 13.1. She was transferred to [facility] in stable condition, with O2 sats > 95% on 2L in room at rest. Hospital Course 61 year old woman with history of COPD with centrilobular emphysema and asthma on chronic oxygen therapy, that presented to ED with shortness of breath. She was admitted for evaluation and treatment of acute on chronic respiratory failure due to suspected COPD exacerbation, with concerns for chronic atypical infection either fungal or atypical mycobacteria - now discharged to continue fluconazole in addition - until full coccidiomycosis/fungal panel negative Acute and/or high-risk problems: # Acute on chronic respiratory failure, present on admission. Ongoing. Home O2 reported as 1-2L, continuous. Echo 10/03: EF 60-65, normal LV thickness, size, and function; no evidence valvular pathology; normal RV size and function. Troponin: negative x3. Suspected to be secondary to URI, or COPD exacerbation, or less likely undiagnosed MAC or Valley Fever. Blood cultures for viral PCR negative. Initial PCT 0.04; repeat 0.04. Rocephin + azithromycin, start date , Discontinued on 10/08. Quantiferon essentially negative, positive controls nonreactive. Sputum smears are pending. - Plan to continue home O2, discharged with fluconazole as noted below - Dr. Kirby has ordered Trilogy unit; and will follow patient after discharge # Acute exacerbation COPD with centrilobular emphysema, present on admission. Ongoing. Numerous prednisone courses over the past year. Current episode is more prednisone refractory than previous. Outpatient pulmonology: PFTs completed 08/27/2016: Pre-bronchodilators FVC actual 2.88, pred 3.60; FEV1 actual 1.31, pred 2.77; FEV1/FVC % actual 45, pred 77. Post-bronchodilators FVC actual 3.08 85% pred; FEV1 1.26 45% pred; FEV/FVC actual 41, 53% pred. CT chest 10/06: 1. No acute pulmonary changes. No effusions or consolidations. Current bedside spirometry suggests FEV1 closer to 19%. - Duonebs q4h - Accunebs q2h prn - Discontinued methylprednisone 125mg IV q8h, initiated on 10/02. - Reduced from prednisone 60 mg twice a day to 60 mg daily on 10/15; plan further 10 day taper after discharge today # Type II diabetes mellitus, acute. New diagnosis based on hemoglobin A1c 6.6% . Subsequently worsened by her current corticoid therapy. Currently on basal bolus multidose insulin therapy as inpatient. - Diabetes education; the patient is cachectic and needs robust caloric intake, but preferably not high glycemic index - discharge on metformin 500 mg twice a day 1 week then increase by 500 mg every week until target dose of 1000 mg twice a day - discharge on glimepiride 2 mg every morning, which will provide acute glucose control during metformin titration and glucocorticoid pulse, possibly to be discontinued later - I advised patient to check blood sugar twice a day before meals every day, and at bedtime when possible. - She does not seem ready for insulin therapy, and this should not be needed at this point of new diagnosis with very mild hemoglobin A1c elevation - Recommend follow-up with her PCP Dr. Velasco soon for diabetic management within 1 wk Chronic, stable and/or resolving problems: # Headache with right visual symptoms. Neurologic exam normal. 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 However, it is suspected that patient required coccidiomycosis when she lived in [place], [place] for 5 years prior to moving to [place] 11 years ago. Under therapy and evaluation. - coccidio, Aspergillus antibody studies: Pending - Discontinue fluconazole if fungal antibody serology is negative - cont upon DC on 10/15 - f/u by PCP # Anxiety, acute, present on admission. Ongoing. 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 Patient reports significantly worse over the past few days. - Physical therapy, encourage activity, sitting in chair is better than bed Chronic, stable and/or resolving problems: # Chronic pain. Presumed stable - Due to cervical spondylosis and chronic neck pain - Methocarbamol 750mg po qhs prn pain - Tramadol 50mg po q6h prn pain # Insomnia, chronic. Presumed stable - Home Rx; Trazodone 50-100mg hs prn insomnia - Continued home Rx # GERD, chronic. Presumed stable - Pantoprazole 40mg daily before meals - Continued - DVT: Lovenox 40mg SQ daily - GI: PPI - Diet: Heart healthy - PRN bowel/fever/pain/antiemetic - Code: FULL CODE Dispo: Likely to discharge home today with Trilogy unit, steroids, new DM meds and fluconazole Exam Vital Signs (Last) Date Time Temp Pulse Resp B/P Pulse Ox O2 Delivery O2 Flow Rate FiO2 10/15/16 09:34 73 18 98 Nasal Cannula 1.00 10/15/16 08:30 36.4 117/75 Exam General: Thin woman, nad on NC 1L HEENT: sclerae anicteric, oral mucosa moist Neck: no JVD, supple, Chest: No wheeze, mildly labored breathing, reduced breath sounds, reasonably good air movement, no focal rales or dullness. Cardiac: S1S2, no murmur Abdomen: BS normal, scaphoid, non-tender Extremities: No edema Neuro: Alert and oriented, cranial nerves intact, motor and coordination normal Test 10/02/16 11:00 10/02/16 12:05 10/02/16 16:30 10/02/16 18:00 Prothrombin Time 10.0sec (8.1-12.5) Prothromb Time International Ratio 0.94ratio D-Dimer < 0.5mg/L (<0.50) Pro-B-Type Natriuretic Peptide 72.21pg/mL (0-287) Hold Glass Top Tube Received (Received) Urine Color Straw (YELLOW) Urine Appearance Clear (CLEAR,HAZY) Urine pH 5.0 (5.0-8.0) Urine Specific [place] 1.025 (1.003-1.035) Urine Protein Negativemg/dL (NEG,TRACE) Urine Glucose (UA) 1000mg/dL (NEGATIVE) Urine Ketones Negativemg/dL (NEGATIVE) Urine Occult Blood Trace (NEGATIVE) Urine Nitrite Negative (NEGATIVE) Urine Bilirubin Negative (NEGATIVE) Urine Urobilinogen Normalmg/dL (NORMAL) Urine Leukocyte Esterase Negative (NEGATIVE) Urine RBC 0-2/hpf (0-2) Urine WBC 0-5/hpf (0-5) Urine Epithelial Cells None/hpf (NONE-MOD) Urine Crystals None seen (NONE SEEN) Urine Bacteria Few/hpf (NONE-FEW) Urine Hyaline Casts None/lpf (NONE) Urine Granular Casts None seen (NONE SEEN) Urine Waxy Casts None seen (NONE SEEN) Urine Red Blood Cell Casts None seen (NONE SEEN) Urine White Blood Cell Casts None seen (NONE SEEN) Urine Mucus None seen (None Seen) Urine Trichomonas None seen (NONE SEEN) Urine Yeast None (NONE SEEN) Urinalysis Comment None Urine Culture Reflexed Not indicated TB Test (QFT) Gold In Tube Indeterminate (Negative) TB Test (QFT) Incubation Comment (.) TB Test (QFT) Mitogen 0.06IU/mL (.) TB Test (QFT) Antigen 0.02IU/mL (.) TB Test (QFT) Antigen Minus Nil 0.00IU/mL (.) TB Test (QFT) TB - Nil 0.02IU/mL (.) TB Test (QFT) Positive Criteria Comment (.) TB Test (QFT) Interpretation Comment (.) Test 10/03/16 08:40 10/07/16 05:25 10/11/16 04:10 10/13/16 04:48 Troponin T < 0.010ug/L (0.0-0.011) Ptegp-7-[id number] 128mg/dL (90-200) Immunoglobulin E 57IU/mL (0-100) Aspergillus fumigatus Antibody Negative (Neg:<1:1) Hemoglobin A1c 6.6% (4.8-5.6) Phosphorus Level 4.2mg/dL (2.5-4.9) Magnesium Level 2.4mg/dL (1.6-2.6) Total Bilirubin 0.3mg/dL (0.0-1.2) Aspartate Amino Transf (AST/SGOT) 15U/L (0-50) Alanine Aminotransferase (ALT/SGPT) 38U/L (0-32) Alkaline Phosphatase 95U/L (25-165) Total Protein 5.3g/dL (6.4-8.4) Albumin 3.6g/dL (3.4-5.0) Angiotensin Converting Enzyme 24U/L (14-82) Thyroid Stimulating Hormone (TSH) 0.347uIU/mL (0.450-4.500) Rheumatoid Factor 8.3IU/mL (0.0-13.9) Procalcitonin 0.04ng/mL (0.00-0.08) Test 10/15/16 09:34 White Blood Count 19.2th/mm3 (3.8-10.1) Red Blood Count 4.97mil/mm3 (3.90-5.20) Hemoglobin 14.9g/dL (12.0-15.6) Hematocrit 45.1% (35.0-46.0) Mean Corpuscular Volume 90.7fL (81-100) Mean Corpuscular Hemoglobin 30.0pg (27.0-35.0) Mean Corpuscular Hemoglobin Concent 33.0% (32.0-37.0) Red Cell Distribution Width 13.4% (12.3-15.4) Platelet Count 181bil/L (150-400) Neutrophils (%) (Auto) 80.0% (40-74) Lymphocytes (%) (Auto) 12.6% (14-46) Monocytes (%) (Auto) 4.0% (4-12) Eosinophils (%) (Auto) 0.6% (0-5) Basophils (%) (Auto) 0.2% (0-3) Sodium Level 137mEq/L (134-144) Potassium Level 4.3mEq/L (3.5-5.2) Chloride Level 99mEq/L (97-108) Carbon Dioxide Level 27mmol/L (18-29) Blood Urea Nitrogen 20mg/dL (8-27) Creatinine 0.49mg/dL (0.57-1.00) Estimat Glomerular Filtration Rate 183mL/min (>59) Glucose Level 128mg/dL (60-99) Calcium Level 8.7mg/dL (8.5-10.1) Microbiology Results Blood cultures are negative The respiratory viral PCR DNA panel is negative Aspergillus and Coccidioides serology pending from 10/02, 10/07 Discharge Medications Discharge Medications Fluticasone Propionate (Flovent HFA 110 mcg) 12 Gm Aer.w.adap 2 PUFFS IH BID ( Reported) Formoterol Fumarate (Perforomist) 20 Mcg/2 Ml Vial.neb 20 MCG IH BID (Reported) Glimepiride (Amaryl) 2 Mg Tablet 2 MG PO DAILYAC Prescribed by: JOHN PRABHAKAR MD Metformin (Glucophage) 500 Mg Tablet 500 MG PO BIDWM Increase by one pill every 5-7 days until target dose of 2 pills twice per day with meals. Prescribed by: JONH PRABHAKAR MD Multivitamin (Once Daily) 1 Each Tablet 1 EACH PO DAILY (Reported) Pantoprazole DR (Pantoprazole DR) 40 Mg Tablet.dr 40 MG PO DAILY (Reported) Prednisone (Deltasone) 20 Mg Tablet 60 MG PO DAILY 3 pills per day 3 days, then 2 pills per day 3 days, then 1 pill per day 4 days, then stop Prescribed by: JOHN PRABHAKAR MD Tiotropium [place] (Spiriva) 18 Mcg Cap.w.dev 18 MCG IH DAILY (Reported) Vit A/Vit C/Vit E/Zinc/Copper (Preservision Areds Tablet) 1 Each Tablet 1 EACH PO BID (Reported) As needed Albuterol Neb Soln (Albuterol Neb Soln) 2.5 Mg/3 Ml Vial.neb 2.5 MG INHALATION QID PRN PRN For Shortness of Breath (Reported) Albuterol Sulfate (Ventolin HFA Inhaler) 200 Puff/18 Gm Inhaler 2 PUFFS INH q4- 6 hours PRN PRN For Shortness of Breath (Reported) Methocarbamol (Methocarbamol) 750 Mg Tablet 750 MG PO HS PRN PRN For Spasm ( Reported) Tramadol (Tramadol) 50 Mg Tablet 50 MG PO q6 hours PRN PRN For Pain (Reported) Trazodone (Trazodone) 50 Mg Tablet 50-100 MG PO HS PRN PRN For Sleep (Reported) Additional med instructions You have been prescribed diabetic medications: Metformin to be taken twice daily, with goal of uptitration of your dose after f/u wiht your primary care doctor. Also, you are now taking glimepiride 2mg every morning to control your blood sugars. Please make sure to check your blood sugars, keep a log and bring to your PCP Dr. Velasco Please continue on your steroid regimen - taper of prednisone. Take this in the morning with food. You will have a 10 day prednisone taper at discharge, 60mg x 5d, 40mg x 5 d, 20mg x 5 d, 10mg x 5d - always have food in stomach and take in AM. This steroid regimen can elevated your blood sugars temporarily while taking it Followup Plan Discharge Diet: Heart Healthy, Diabetic Discharge Activity: Home Health Phyical Therapy Patient Instructions please follow up with your PCP Dr. Velasco within one week as well as with your new Pulmnology doctor - Dr. Kirby who will be making recommendations regarding your trilogy unit Follow-up Provider: Mason Velasco MD Follow-up with PCP in: 1 week Provider: Barbara Kirby MD Follow-up in: 1 week Time spent 45 minutes spent with eval and mgmt including counseling and education - >50% spent face to face copies to: Mason Velasco MD; Barbara Kirby MD, David DO Oct 15, 2016 12:01
[2016-10-15 15:07] LABS: Antiproteinase 3 (PR-3) Abs <3.5 U/mL (0.0-3.5); Perinuclear (P-ANCA) <1:20 titer (Neg:<1:20)
--- NOTE | 2016-10-15 15:28 | NUR ---
Social Work Note: Readiness for Discharge Data& Assessment: Per pt is getting closer to being medically ready for discharge. SW confirmed with [facility] that they have sent an expedited request for authorization to pt's insurance for Trilogy Machine. Pt discharge plan remains home with hannah CURIEL PT, RN, DIRECTOR OF SCIENCE and SW. No other discharge needs identified at this time. SW to continue to follow if any needs arise. Plan: Per pt is getting closer to being medically ready for discharge home with hannah CURIEL RN, PT, DIRECTOR OF SCIENCE and SW. Pt will be discharging with Trilogy machine through [facility] pending insurance authorization. No other discharge needs identified at this time. SW to continue to follow if any needs arise. ELINOR Musa
--- NOTE | 2016-10-15 18:28 | NUR ---
Anxiety/Teaching Pt anxious about pending discharge r/t new diabetes diagnosis and new trilogy machine that is awaiting authorization. Pt given teaching on checking one's blood sugar throughout shift and Pt able to give return demonstration with lancet prior to dinner. visual educator entering Pt's room prior to shift change and made aware of Pt's continued need for education. Pt reported feeling slightly less anxious about discharge after brief education sessions.
[2016-10-15] MEDS: Insulin GLARgine 100 Unit/mL Syringe SUBQ SCH (21:00)
--- NOTE | 2016-10-15 22:00 | NUR ---
HYPOGLYCEMIA/DIABETIC TEACHING Pt bedside BG was 74. Pt indicated she was feeling slightly clammy but wasn't sure if it was because she had several blankets on her. Pt also indicated she was not sure what the signs/symptoms of low blood sugar were. Advised pt she may feel shaky or clammy. Pt was given orange juice to increase BG. Bed low/locked, call light within reach. Addendum: 10/15/16 at 2309 by MIKAEL ELLER 2230 Repeat BG after orange juice was 102. Pt requested peanut butter and jelly sandwich. Primary RN was initially notified of low BG (74). Per primary RN, insulin held due to hypoglycemia. Advised pt to use call light for needs. Bed low/locked, call light within reach.
[2016-10-16 04:52] VITALS: BP 127/80; PULSE 77; RESP 16; O2SAT 99
[2016-10-16] MEDS: Insulin LISPRO 300 Unit/3 mL Inj SUBQ SCH ×2 (08:00→11:44)
[2016-10-16 08:15] VITALS: BP 105/65; PULSE 69; RESP 16; O2SAT 96
[2016-10-16] MEDS: predniSONE 20 mg Tablet PO SCH (08:26)
[2016-10-16] MEDS: Pantoprazole 40 mg ER24 Tablet PO SCH (08:26)
[2016-10-16] MEDS: Albuterol-Ipratropium 3 mL Inhalation Solution NEB SCH ×2 (09:24→12:30)
[2016-10-16] MEDS: Arformoterol 15 mCg/2 mL Inhalation Solution NEB SCH (09:24)
[2016-10-16 09:25] VITALS: PULSE 75; RESP 20; O2SAT 98
[2016-10-16 12:41] VITALS: BP 101/67; PULSE 86; RESP 18; O2SAT 93
[2016-10-16] MEDS ORDERED: FLUC200T5 PO (15:23)
--- NOTE | 2016-10-16 16:05 | NUR ---
Hypoglycemia/Discharge Pt's blood sugar 77 this am prior to breakfast, MD notified, PO diabetic medications withheld, subsequent blood sugars 179 and then 139 prior to lunch. Pt ordered to discharge after [facility] met with Pt at bedside and verbalized that they would be meeting Pt at home after discharge today to set her up with her trilogy machine. Pt gave two successful demonstrations of checking her own blood sugar with her new glucometer today, Pt given additional discharge information on checking blood sugars. Pt given discharge educational materials on new prescriptions. Pt's IV access D/C'd and intact. Pt instructed to continue with prednisone taper, instructions listed on prescription and in discharge instructions. Pt not discharging on PO diabetic medications per MD, Pt instructed to continue to check blood sugars Qam and keep a log for f/u appointment with PCP. Pt instructed to f/u with PCP and new staff appraiser, appointments made with Dr. Kirby 10/29/16 at [address] Velasco 10/22/16 at 1010, phone numbers supplied. Pt and family at bedside verbalized understanding of all discharge instructions. All belongings accompanied Pt at time of discharge. Addendum: 10/16/16 at 1624 by SUSHILA JOLLEY RN Pt discharged at ~1610.
--- NOTE | 2016-10-16 16:22 | NUR ---
Social Work Note: Discharge Data& Assessment: Per pt is medically improved and ready to discharge home via POV with hannah CURIEL PT and RN for blood sugar checks and vitals. GONZÁLEZ met with pt at bedside to confirm discharge plan and assess for any unmet needs. Pt confirmed plan to return home with hannah CURIEL. SW confirmed with [facility] that authorization for her trilogy machine has been obtained and they will meet pt at home tonight to set the equipment up. GONZÁLEZ spoke with Mejia with [facility] who was notified of pt discharge. Pt denies any other needs. No other discharge needs identified. Plan: Per pt is medically improved and ready to discharge home via POV with hannah CURIEL PT and RN for blood sugar checks and vitals. [facility] for Trilogy and [facility] notified of pt discharge. Pt denies any other needs. No other discharge needs identified. ELINOR Musa
[2016-10-17 07:11] LABS: Thermoactinomyces candidus Ab Negative (Negative)
== END 2016-10-16 16:20 | disposition home health service (06) | DRG 189 ==
LOC: SED 10:56 → PCC 15:30
PROVIDERS: ADMIT Internal Medicine Infectious Disease; ATTEND Internal Medicine Infectious Disease
PROC: 4A033R1 Measurement of Arterial Saturation, Peripheral, Percutaneous Approach (ICD-10-PCS; principal; 2016-10-06)
DX: J96.21 Acute and chronic respiratory failure with hypoxia (principal); G72.0 Drug-induced myopathy; Z99.81 Dependence on supplemental oxygen; J44.1 Chronic obstructive pulmonary disease with (acute) exacerbation; B38.2 Pulmonary coccidioidomycosis, unspecified; E11.65 Type 2 diabetes mellitus with hyperglycemia; J45.909 Unspecified asthma, uncomplicated; J43.2 Centrilobular emphysema; D72.829 Elevated white blood cell count, unspecified; F41.9 Anxiety disorder, unspecified; G89.29 Other chronic pain; F51.04 Psychophysiologic insomnia; K21.9 Gastro-esophageal reflux disease without esophagitis; Z87.891 Personal history of nicotine dependence; T38.0X5A Adverse effect of glucocorticoids and synthetic analogues, initial encounter; J96.12 Chronic respiratory failure with hypercapnia

== ENCOUNTER 2017-04-18 19:35 | Inpatient (IN) | payer OTHER ==
[~2017-04-18] VITALS: Ht 167.6 cm; Wt 47.0 kg
[2017-04-18] VITALS (9 sets, daily range): BP systolic 78–113; BP diastolic 53–76; PULSE 80–91; RESP 14–20; O2SAT 92–100
[~2017-04-18 19:35] MED LIST changes: +ALBU18HF INH; +ALBU2.5V4 INHALATION; -ALBU8.5H4 IH; +Albuterol 2.5 mg/3 mL Inhalation Solution NEB ONE; +Albuterol-Ipratropium 3 mL Inhalation Solution NEB ONE; -BUPR75TA5 PO; +FLUC200T5 PO; +FORM20VI2 IH; -MULT-621 PO; +MULT-666 PO; +PANT40TA3 PO; +PRED-508 PO; +TRAM50TA2 PO; +TRAZ-115 PO; -[UNRECOGNIZED DRUG - CODE] PO
[2017-04-18] MEDS ORDERED: fentaNYL-PF 50 mCg/mL 2 mL Inj IVPUSH ONE ×3 (19:40→20:45)
[2017-04-18] MEDS ORDERED: Propofol 10,000 mCg/mL 100 mL Inj ONE (19:41)
[2017-04-18] MEDS ORDERED: fentaNYL-PF 50 mCg/mL 2 mL Inj ONE (19:45)
--- NOTE | 2017-04-18 19:54 | ABG ---
DateTimeAnalyzed 19:48:00 -_ pH ____7.247 - 7.350 7.450 pCO2 ___55.3__ -mmHg 35.0 45.0 pO2 ___63.9__ -mmHg 69.0 116 HCO3- ___23.2__ -mmol/L 22.0 26.0 ABE ___-4.2__ -mmol/L -2.0 2.0 tHb ___13.2__ -g/dL 12.0 18.0 O2Hb ___85.4__ -% COHb ____1.7__ -% 0.0 1.5 MetHb ____0.9__ -% 0.4 1.5 sO2 ___87.7__ -% FIO2 __100.0__ -% PEEP ____8.0__ -cmH2O Set_RR ___15.0__ -b/min Vt __450.0__ -L Drawn By MK - Date/Time Notified____ 19:54:00 -_ Oxygen Device 1 VENTILATOR - Notified By MD - Notified Whom DR ANDELIN - B 761 -mmHg tO2 ___15.9__ -Vol% Ap test N/A -
[2017-04-18 19:57] LABS: BASOPHILS % (AUTO) 0.4 % (0-3); EOSINOPHILS % (AUTO) 0.5 % (0-5); Mean Corpuscular Hemoglobin 29.6 pg (27.0-35.0); Mean Corpuscular Volume 90.1 fL (81-100); NEUTROPHILS % (AUTO) 74.1 % (40-74); Platelet Count 261 bil/L (150-400)
[2017-04-18] MEDS ORDERED: 0.9% Sodium Chloride 1,000 ML IV ONE ×2 (20:03→21:39)
--- NOTE | 2017-04-18 20:03 | ED.REPORT ---
HPI-Dyspnea / Wheezing Date of Service Apr 18, 2017 ED Provider: Dr. Martinez The pt is a 61 y/o female with a hx of COPD with centrilobular emphysema and asthma on chronic oxygen therapy who presents to the ED via EMS due to sudden onset of shortness of breath, just prior to arrival. As per the EMS, the pt was initially alert and oriented. She kept repeating that she was going to pass out. The pt then became unresponsive and had to be intubated en route. The EMS could not appreciate lung sounds on the left side. Her BP was 130 en route. The pt was admitted to the hospital 6 months ago for severe COPD exacerbation. Her chest X-ray during the admission did not reveal any acute abnormality, but was suspicious for hyperinflated lungs. However, during the hospitalization, her course had been concerning due to a fairly rapidly downhill progression. She was also treated for valley fever. She was discharged 2 weeks later with Trilogy ventilatory prn use due to chronic respiratory failure. She was discharged 2 weeks later She had been feeling okay until today's episode. Nursing Notes Stated Complaint: RESPIRATORY FAILURE Nursing Notes Reviewed: Yes Allergies: Coded Allergies: Penicillins (Verified Allergy, Intermediate, HIVES, 10/02/16) codeine (Verified Adverse Reaction, Intermediate, NAUSEA, 10/02/16) Scheduled Biotin (Biotin) 5 Mg Tablet 5 MG PO QAM Calcium Carbonate/Vitamin D3 (Calcium 600 + Vit D3 400 Tab) 600 Mg-400 Tablet 1 EACH PO QAM Fexofenadine (Fexofenadine) 180 Mg Tablet 180 MG PO QAM Formoterol Fumarate (Perforomist) 20 Mcg/2 Ml Vial.neb 20 MCG IH BID Metformin (Glucophage) 1,000 Mg Tablet 1,000 MG PO BIDWM Montelukast (Montelukast) 10 Mg Tablet 10 MG ORAL HS Multivitamin (Once Daily) 1 Each Tablet 1 EACH PO DAILY Pantoprazole DR (Pantoprazole DR) 40 Mg Tablet.dr 40 MG PO QAM Tiotropium Ericson (Spiriva) 18 Mcg Cap.w.dev 18 MCG IH DAILY Venlafaxine (Venlafaxine) 75 Mg Tablet 75 MG PO TIDWM Vit C/Hellen AC/Lut/Copper/Znox (Preservision Lutein Softgel) 1 Each Capsule 1 CAPSULE PO DAILY Scheduled PRN Albuterol Neb Soln (Albuterol Neb Soln) 2.5 Mg/3 Ml Vial.neb 2.5 MG INHALATION Q6H PRN PRN For Shortness of Breath Albuterol Sulfate (Ventolin HFA Inhaler) 200 Puff/18 Gm Inhaler 2 PUFFS INH Q4H PRN PRN For Shortness of Breath Levalbuterol Tartrate (Levalbuterol Tartrate Hfa) 45 Mcg/Actuation Hfa.aer.ad 2 PUFFS INHALATION Q4H PRN PRN For Shortness of Breath Methocarbamol (Methocarbamol) 750 Mg Tablet 750 MG PO HS PRN PRN For Spasm Tramadol (Tramadol) 50 Mg Tablet 50 MG PO q6 hours PRN PRN For Pain Trazodone (Trazodone) 50 Mg Tablet 50-100 MG PO HS PRN PRN For Sleep Miscellaneous Medications Methylprednisolone (MethylprednisoLONE Dose Luke) 4 Mg Tab.ds.pk TAKE TID X 1 DAY, THEN BID X 1 DAY, THEN ONCE DAILY X 1 DAY General Time Seen by MD: 19:30 Chief Complaint Shortness of breath Hx Obtained From: EMS Arrived By: Ambulance Sudden in Onset?: Yes Onset Occurred: Just prior to arrival Symptom Duration: Since onset Recent Healthcare: Recent doctor visit, Recent hospitalization Similar Sx Previous: Yes Past Medical History Past Medical History Hiatal hernia Endometriosis Reports: COPD Reports: Depression Past Surgical History Reports: Hysterectomy Smoking History Former Smoker (50 pack/year) Social History Other Social History: Good social support Ambulatory Status Independent Review of Systems Unable to Obtain ROS Intubated Respiratory: Reports: Shortness of breath Complete sys rev & neg: except as marked. Physical Exam Initial Vital Signs Vital Signs (First) Date Time Temp Pulse Resp B/P Pulse Ox O2 Delivery O2 Flow Rate FiO2 04/18/17 19:51 99 04/18/17 20:10 90 16 82/58 Mechanical Ventilator Initial VS: Reviewed Head / Eyes: Atraumatic, Normocephalic Abdomen / GI: Soft, No distention Extremities: Vascular intact, Neuro intact, No swelling Skin: Warm, Dry, No cyanosis General/Constitutional: Intubated Neck: Atraumatic, No swelling Respiratory / Chest: Atraumatic Diminished Breath Sounds: Positive: Absent L Cardiovascular: Heart rate NL, Regular rhythm, Heart sounds NL, No gallop, No murmurs, No rubs Abdomen: Atraumatic, Soft, No guarding, No distention, No hernia, No palpable mass Interpretation & Diagnostics Lab Results Interpretation Result Diagram: 04/20/17 0330 04/20/17 0330 Test 04/18/17 19:50 Activated Partial Thromboplast Time 21.9sec (22.8-33.0) D-Dimer 0.60mg/L FEU (<0.50) Pro-B-Type Natriuretic Peptide 153.2pg/mL (0-287) Blood Gas at 19:54 pH 7.247 pCO2 55.3 pO2 63.9 HCO3- 23.2 HAYLEE -4.2 Blood Gas at 21:20 pH 7.247 pCO2 42 pO2 537.0 HCO3- 17.6 HAYLEE -8.8 Laboratory Tests 72 Hours Test 04/18/17 19:50 White Blood Count 10.5th/mm3 (3.8-10.1) Red Blood Count 4.46mil/mm3 (3.90-5.20) Hemoglobin 13.2g/dL (12.0-15.6) Hematocrit 40.2% (35.0-46.0) Mean Corpuscular Volume 90.1fL (81-100) Mean Corpuscular Hemoglobin 29.6pg (27.0-35.0) Mean Corpuscular Hemoglobin Concent 32.8% (32.0-37.0) Red Cell Distribution Width 13.5% (12.3-15.4) Platelet Count 261bil/L (150-400) Neutrophils (%) (Auto) 74.1% (40-74) Lymphocytes (%) (Auto) 17.3% (14-46) Monocytes (%) (Auto) 7.0% (4-12) Eosinophils (%) (Auto) 0.5% (0-5) Basophils (%) (Auto) 0.4% (0-3) Prothrombin Time 10.5sec (8.1-12.5) Prothromb Time International Ratio 0.98ratio Activated Partial Thromboplast Time 21.9sec (22.8-33.0) D-Dimer 0.60mg/L FEU (<0.50) Sodium Level 137mEq/L (134-144) Potassium Level 4.7mEq/L (3.5-5.2) Chloride Level 100mEq/L (97-108) Carbon Dioxide Level 19mmol/L (18-29) Blood Urea Nitrogen 15mg/dL (8-27) Creatinine 0.76mg/dL (0.57-1.00) Estimat Glomerular Filtration Rate 110mL/min (>59) Glucose Level 286mg/dL (60-99) Lactic Acid Level 3.9mmol/L (0.4-2.0) Calcium Level 8.0mg/dL (8.5-10.1) Magnesium Level 2.3mg/dL (1.6-2.6) Total Bilirubin 0.5mg/dL (0.0-1.2) Aspartate Amino Transf (AST/SGOT) 433U/L (0-50) Alanine Aminotransferase (ALT/SGPT) 381U/L (0-32) Alkaline Phosphatase 249U/L (25-165) Troponin T 0.041ug/L (0.0-0.011) Pro-B-Type Natriuretic Peptide 153.2pg/mL (0-287) Total Protein 6.1g/dL (6.4-8.4) Albumin 3.5g/dL (3.4-5.0) Procalcitonin 0.03ng/mL (0.00-0.08) ECG Interpretation ECG Interpretation: Sinus rhythm. Rate 90. Right atrial enlargement Non-specific T abnormalities, lateral leads Prolonged QT interval Time: 20:17 Interpreted by: ED physician X-Ray Chest Interpretation Chest Xray Interpretation: IMPRESSION: Status post placement of left chest tube. Small residual left apical pneumothorax. Dictated by: Rasta Malik M.D. on 04/18/2017 at 20:27 Approved by: Rasta Malik M.D. on 04/18/2017 at 20:33 View: Portable, 1 view Interpretation / Wet Read by: Interpret - Radiologist Chest Xray Interpretation: IMPRESSION: Status post placement of left chest tube with residual small left apical pneumothorax. Status post placement of right central venous catheter. No pneumothorax. Dictated by: Rasta Malik M.D. on 04/18/2017 at 21:12 Approved by: Rasta Malik M.D. on 04/18/2017 at 21:16 View: Portable, 1 view Interpretation / Wet Read by: Interpret - Radiologist CT Chest Interpretation Impression: Advanced emphysema. Bronchilitis and/or atypical pneumonia pattern. Left sided small pneumothorax with pleural chest tube in place. No acute occlusive PE. Atherosclerotic disease. Signed by Dr. Ondina Salgado 04/18/17 23:14 Study type: CT pulm angiogram Interpretation / Wet Read by: Interpret - Radiologist CT Abd / Pelvis Interpretation Impression: Morphology of the liver seen in the setting of hepatitis or other hepatocellular process. Nonobstructive right neophrolithiasis. Signed by Dr. Ondina Salgado 04/18/17 23:20 Procedures Central Line Placement Time: 20:21 Procedure Performed by: ED physician Consent / Setup / Site Prep: No consent - emergent, Time-out performed, Needle aspirate performed, Oxygen administered, Pulse oximeter applied, case monitor applied, Hand hygiene observed, Standard surgical scrub, Max barrier precaution, Sterile drapes applied, Position supine, Position Trendelenburg Skin Preparation Agent: Hibiclens - Chlorhexidine Procedural Sedation/Analgesia: Sedation: Versed, Analgesia: Fentanyl Side / Location / Ultrasound: Internal jugular right Catheter / Lumen / Technique: Triple lumen, Seldinger technique, Good blood return, Secured w catheter device Central Line Tip Location: Cath tip good position in the SVC Post-Procedure / Complications: Antibiotic oint applied, Dressing placed, Tolerated procedure well, Patient stable Tube Thoracostomy Time: 19:45 Tube Thoracostomy by: ED physician Indication: Pneumothorax Consent / Timeout / Setup: No consent - emergent, Time-out performed, Oxygen administered, Pulse oximeter applied, case monitor applied, Hand hygiene observed, Stand sterile technique, Position supine Tube Insertion Location Right: Anterior axillary line, 4th intercostal space Tube Size: 20 Procedural Sedation/Analgesia: Sedation: Versed, Analgesia: Fentanyl Tube Insertion: Incision 3-5 cm, Tunnel over superior rib, Tissue spread with Lary, Tube inserted over rib, Pleura penetrated, No pleural adhesions, Attached to water seal, X-ray tube confirmation, Tube in good position, Secured with nylon suture, Secured with silk suture Post-Procedure / Complications: Antibiotic oint applied, Occlusive dressing , No complications, Pneumothorax resolved, Condition improved, Tolerated procedure well, Patient stable Re-Eval/Medical Decision Med Decision/Clinical Course 61-year-old female with a history of recent hospitalization for lung infection presents via EMS complaining of shortness of breath and experienced respiratory failure while in route, requiring intubation. EMS noted on arrival that she had decreased right-sided lung sounds, and they withdrew the tube a few centimeters but the diminished sounds on the right persisted. On my exam she had absent breath sounds on the left side and a chest x-ray done shortly thereafter confirmed a large left-sided pneumothorax which was promptly treated with a chest tube. Repeat chest x-ray revealed lung to be reexpanded. Patient was also hypotensive and initially I attributed this to the tension pneumothorax , blood pressure did not improve after reexpansion of the lung. A large amount of purulent fluid was suctioned from her chest and believe that she has another lung infection. She does meet criteria for sepsis. Norepinephrine was started in a peripheral IV after 2 L of fluids were ineffective in raising her pressures. A central line was placed in norepinephrine was again started in the central circulation and titrated to a maximum dose where we achieved a map of 65 for a period of time later the pressures dropped again. Repeat chest x- ray shows good placement of IJ. All the while she was receiving more IV fluids to a total of 4 L. We added vasopressin to than norepinephrine. In order to prevent hypotension we used Versed and fentanyl for sedation and pain control. I discussed her care with her sister Kristen. Patient was sent to the CT scanner on the way up to the ICU for rule out of pulmonary embolus which could also lead to hypotension and respiratory failure. CT abdomen and pelvis was also ordered as her LFTs were elevated. Patient had significantly elevated lactate as well as her initial ABG showed a respiratory acidosis. Then settings were adjusted and a repeat ABG was checked showing ongoing acidosis that appears more metabolic than respiratory. She was treated with vancomycin, Levaquin, and meropenem empirically in the ER after blood cultures were obtained. It is also noted that her troponin returned elevated which could be from heart strain secondary to pneumothorax versus acute coronary syndrome. Initial EKG did not show criteria for STEMI. This will need further evaluation in the ICU. This critical patient required over 120 minutes of my complete attention Source of Hx: Old records Re-Evaluation/Progress #1: Time of Eval: 21:05 Re-Evaluation/Progress Note: Talked to the pt's family about the pt's condition and plan to admit. They understand and agree with the plan. All questions answered. Re-Evaluation/Progress #2: Time of Eval: 21:15 Re-Evaluation/Progress Note: Rechecked pt. Her MAP is 73. Re-Evaluation/Progress #3: Time of Eval: 21:49 Re-Evaluation/Progress Note: Rechecked pt. MAP of 78. Consultation #1: Call Returned at: 20:22 Note: Consulted the pharmacist who recommends Norepi, Vanco and 2L of fluids. Consultation #2: Referral / Consult Name: Bassem Vieira MD Consulted With: Hospitalist Call Returned at: 21:17 Cafeteria Manager: Will see patient, Agrees with eval, Agrees with plan, Accepts admit Counseled Regarding: Diagnosis, Lab results, Need for admission Discharge & Departure Impression: Primary Impression: Pneumothorax on left Additional Impressions: Respiratory failure Chronicity: acute on chronic Respiratory failure complication: unspecified whether with hypoxia or hypercapnia Qualified Code: J96.20 - Acute and chronic respiratory failure, unspecified whether with hypoxia or hypercapnia Sepsis Sepsis type: sepsis due to unspecified organism Qualified Code: A41.9 - Sepsis, unspecified organism HTN (hypertension) Hypertension type: unspecified secondary hypertension Qualified Code: I15.9 - Secondary hypertension, unspecified Transaminitis Respiratory acidosis Metabolic acidosis Elevated troponin Disposition: ADMITTED TO HOSPITAL Crit Care Except Billable Proc Time Spent: 105-134 minutes Services Performed: Patient management by me, Time spent at bedside, Reviewing test results, Reviewing imaging, Discussing patient care, Documentation in record, Time with fam/surrogate Critical Care Notes: Central line placed and Thoracostomy done. Scribe Attestation Portions of this note were transcribed by Ernesto Colbert. I,, personally performed the history,physical exam and medical decision-making;I reviewed and confirmed the accuracy of the information in the transcribed note. Signed by Nyla Freitas. 04/18/17 Mason Martinez DO Apr 18, 2017 20:03 Ernesto Colbert Apr 18, 2017 20:10
[2017-04-18] MEDS ORDERED: levoFLOXacin Inj 750 MG in IV Premix 1 EACH IV ONE ×2 (20:05→23:45)
[2017-04-18] MEDS ORDERED: Vancomycin Dose per Pharmacist XX ONE (20:05)
[2017-04-18] MEDS ORDERED: Vancomycin Inj 1,250 MG in 0.9% Sodium Chloride 250 ML IV ONE ×2 (20:10→23:45)
[2017-04-18] MEDS: fentaNYL 2,500 mCg/250 mL 2,500 MCG in IV Premix 1 EACH IV SCH ×2 (20:10→21:15)
[2017-04-18] MEDS ORDERED: Midazolam 5 mg/mL 10 mL Inj IV ONE (20:10)
[2017-04-18] MEDS ORDERED: Midazolam 100 mg/100 mL Premix IV PRN (20:15)
[2017-04-18] MEDS ORDERED: Norepinephrine 8,000 mCg/250 mL NS Premix IV ONE (20:17)
[2017-04-18 20:18] LABS: D-Dimer 0.6 mg/L FEU (<0.50); INR 0.98 ratio
[2017-04-18] MEDS ORDERED: Meropenem Inj 2,000 MG in 0.9% Sodium Chloride 100 ML IV ONE ×2 (20:25→23:45)
--- NOTE | 2017-04-18 20:35 | DRSVH ---
PROCEDURE: X-RAY CHEST ONE VIEW ([id number]) INDICATIONS: chest tube placement TECHNIQUE: One view of the chest was acquired. COMPARISON: [facility], CR, XR CHEST 1VW (PORTABLE), 10/11/2016, 4:52. FINDINGS: Surgical changes and devices: Status post placement of left chest tube. Endotracheal tube is seen wit h the tip approximately 8 cm above the brien Lungs and pleura: Small residual left apical pneumothorax. No pleural effusion. No acute consolidatio n. Mediastinum: Mediastinal contours appear normal. Heart size is normal. Bones and chest wall: No suspicious bony lesions. Overlying soft tissues appear unremarkable. IMPRESSION: Status post placement of left chest tube. Small residual left apical pneumothorax. Dictated by: Rasta Malik M.D. on 04/18/2017 at 20:27 Approved by: Rasta Malik M.D. on 04/18/2017 at 20:33
[2017-04-18 20:41] LABS: Magnesium 2.3 mg/dL (1.6-2.6)
[2017-04-18 20:45] LABS: TROPONIN T 0.041 ug/L (0.0-0.011)
--- NOTE | 2017-04-18 21:18 | DRSVH ---
PROCEDURE: X-RAY CHEST ONE VIEW, PORTABLE ([id number]) INDICATIONS: CENTRAL LINE PLACEMENT TECHNIQUE: One view of the chest was acquired. COMPARISON: None. FINDINGS: Surgical changes and devices: Endotracheal tube with the tip 8-9 cm above the brien. There is a righ t central venous catheter with the tip projecting in the lower SVC. Status post placement of left misti st tube. Lungs and pleura: No pleural effusions. Small left apical pneumothorax. No acute consolidation. Diff use scarring/atelectasis.. Mediastinum: Mediastinal contours appear normal. Heart size is normal. Bones and chest wall: No suspicious bony lesions. Overlying soft tissues appear unremarkable. IMPRESSION: Status post placement of left chest tube with residual small left apical pneumothorax. Status post placement of right central venous catheter. No pneumothorax. Dictated by: Rasta Malik M.D. on 04/18/2017 at 21:12 Approved by: Rasta Malik M.D. on 04/18/2017 at 21:16
[2017-04-18] MEDS ORDERED: Vasopressin 20 Units/100 mL NS IV PRN ×2 (21:30)
[2017-04-18] MEDS ORDERED: Lactated Ringer's 1,000 ML IV PRN (21:39)
[2017-04-18] MEDS ORDERED: Norepineph 8,000 mCg/250 mL NS 8,000 MCG in IV Premix 1 EACH IV PRN (21:39)
[2017-04-18] MEDS ORDERED: Lactated Ringer's 1,000 ML IV SCH (21:39)
[2017-04-18] MEDS ORDERED: Ondansetron 2 mg/mL 2 mL Inj IVPUSH PRN (21:40)
--- NOTE | 2017-04-18 22:06 | PCM.HPMED ---
Subjective Date of Service Apr 18, 2017 Primary Provider: Admitting Physician: Bassem Vieira MD Primary Care Physician: Mason Velasco MD Attending Physician: Bassem Vieira MD Chief Complaint: Shortness of breath History of Present Illness: Lily Astudillo is a 61-year-old female with past medical history significant for COPD with centrilobular emphysema and asthma on chronic oxygen therapy who presents to the ED via EMS after intubation for acute hypoxic respiratory failure. Patient's sister was at the bedside and history was obtained from her. She states that the patient began feeling increasingly short of breath on Saturday , 04/15/2017, after attending a concert with her boyfriend. The sister states that she was not coughing or complaining of fever, chills, night sweats. Her boyfriend at this time was sick with an upper respiratory cold. She called her PCP, Dr. Velasco, who started her on a prednisone taper for presumed COPD exacerbation. The patient continued to feel significantly short of breath even with steroids and began using her Trilogy machine around the clock versus just at night. On the afternoon of 04/18/2017 her shortness of breath worsened and when her friend arrived at her house she immediately called EMS. When EMS arrived on-site patient was alert and oriented but kept repeating that she was going to pass out. Patient then became unresponsive and was intubated en route to the ED. After ETT placement EMS could not appreciate lung sounds on the left side. On arrival to the ED chest x-ray revealed a left-sided tension pneumothorax and a chest tube was placed. Patient became hypotensive and aggressive fluid resuscitation was started along with the central line placement and initiation of norepinephrine and eventually vasopressin as well. Of note patient was recently hospitalized from 10/02/2016 to 10/16/2016 for acute respiratory failure secondary to COPD exacerbation. At this time there was initial suspicion for possible valley fever in the extremely thorough workup was completed and patient was treated although no serologic evidence of valley fever was present. She was discharged on Trilogy, prednisone taper, along with physical therapy. Outpatient pulmonology: PFTs completed 08/27/2016: Pre-bronchodilators FVC actual 2.88, pred 3.60; FEV1 actual 1.31, pred 2.77; FEV1/FVC % actual 45, pred 77. Post-bronchodilators FVC actual 3.08 85% pred; FEV1 1.26 45% pred; FEV/FVC actual 41, 53% pred. Initial labs revealed a white blood cell count of 10.5 with a neutrophilic predominance, lactic acid of 3.9, elevated liver enzymes and a hepatocellular pattern, troponin 0.041, d-dimer 0.60, and procalcitonin 0.03. CTA of chest revealed advanced emphysema, bronchiolitis and/or atypical pneumonia, and remained left-sided small pneumothorax with pleural chest tube in place but no PE. CT of abdomen and pelvis showed morphology of the liver consistent with hepatitis or other hepatocellular process and nonobstructive right nephrolithiasis. Patient was transferred to the CCU intubated and sedated at which time vitals were temperature 36.7, pulse 80, blood pressure 113/76, saturating 94% on 60% FiO2. Review of Systems: Review of systems unable to be obtained due to patient current status. Allergies Coded Allergies: Penicillins (Verified Allergy, Intermediate, HIVES, 10/02/16) codeine (Verified Adverse Reaction, Intermediate, NAUSEA, 10/02/16) Home Medications Lily Astudillo [id number] 1955 03/04/2017 11:40 AM 08/2512/09/2016 alendronate 70 mg tablet take 1 tablet by oral route every week in the morning, at least 30 min before first food, beverage, or medication of day 12/08/2017 01/17/2017 Durable Medical Equipment oxygen concentrator for oxygen 2LPM via nc during exercise 01/07/2017 fexofenadine 180 mg tablet take 1 tablet by oral route every day 06/15/2016 Flovent HFA 110 mcg/actuation aerosol inhaler inhale 2 puff by inhalation route 2 times every day 11/19/2016 levalbuterol 1.25 mg/3 mL solution for nebulization inhale 3 milliliter by nebulization route 4 times every day 11/18/2017 03/04/2017 Medrol (Luke) 4 mg tablets in a dose pack as directed 03/09/2017 06/18/2016 methocarbamol 750 mg tablet take 1 tablet in pm as needed 01/07/2017 montelukast 10 mg tablet take 1 tablet by oral route every day in the evening 01/06/2018 10/13/2014 multivitamin tablet take 1 tablet by oral route every day with food 08/06/2016 pantoprazole 40 mg tablet,delayed release take 1 tablet by oral route every day 08/05/2017 10/22/2016 Perforomist 20 mcg/2 mL solution for nebulization inhale 2 milliliter by inhalation route 2 times every day via nebulizer in the morning and evening 10/21/2017 PreserVision AREDS 1 daily 12/23/2016 Spiriva with HandiHaler 18 mcg & inhalation capsules inhale 1 capsule by inhalation route every day 01/17/2017 tramadol 50 mg tablet take 1 tablet (50MG) by oral route every 6 hours as needed 07/15/2017 09/12/2016 trazodone 50 mg tablet take 1-2 tablet by oral route at bedtime as needed 09/11/2017 10/18/2016 True Metrix Glucose Meter test qd 10/25/2016 True Metrix Glucose Test Strip test 5x/day 10/24/2017 PMH COPD with centrilobular emphysema and asthma Seasonal allergies Endometriosis Nephrolithiasis Right rotator cuff tear Cervical spondylosis Chronic cervical and low back pain GERD Insomnia Left renal cyst Adenomatous colonic polyps Surgical History Colonoscopy PAULINE/BSO Family History Father: CAD; at age 49y Mother: Colon CA and Alzheimer's Sister: DM2 Brother: EtOH use disorder with encephalopathy Brother from alcohol use A second brother in the [facility] A third brother is healthy living in [place], [place] Social History Hx Alcohol Use: No Hx Substance Use: Yes (patient smokes marijuana) Hx Tobacco Use: Yes Smoking Status: Former Smoker (50 pack/year - quit 07/26/2016) Living Arrangement: with Family Additional Information Patient lived in [facility] for 5 years and at that time was thought to have had valley fever and was tested for it but the serologic test was negative. Patient lived in [place] for her over 15 years. Patient is lived in [place], [place] for the last 11 years. Patient used to teach preschool and special education. Exam Vital Signs Vital Sign - Last Date Time Temp Pulse Resp B/P Pulse Ox O2 Delivery O2 Flow Rate FiO2 04/18/17 19:51 99 Exam General: Patient intubated and sedated. HEENT: ET tube in place. Normocephalic, atraumatic. Pinpoint pupils equal, round, and minimally reactive to light and accommodation. Anicteric sclerae, moist conjunctivae, and no lid lag. Neck: Supple with full range of motion. Right IJ present. Cardiovascular: Regular rate and rhythm with no murmurs, rubs, or gallops appreciated. Pulmonary: Bilateral crackles and wheezes. Breath sounds heard in all lung vasquez. Abdomen: Bowel tones present. Soft, nontender, nondistended. Extremities: Radial, posterior tibialis, and dorsal pedis pulses 2 out of 4 bilaterally. Skin: Cool, minimal mottling of the skin, no rashes or ulcers. Neurological: Sedated but responds to physical stimuli. Psychiatric: Patient intubated and sedated Lines: Right IJ Left chest tube 2 right peripheral IVs ET and OG tube Rivera catheter Lab and Diagnostics Result Diagram: 04/18/17194904/18/171949 X-Rays, CTs and MRIs CT ANGIOGRAM CHEST Impression: Advanced emphysema. Bronchiolitis and/or atypical pneumonia pattern. Left-sided small pneumothorax with pleural chest tube in place. Other findings above. No acute occlusive PE. Atherosclerotic disease. Read by shiftman radiology: Ondina Drew M.D. CT ABDOMEN AND PELVIS W IV CONTRAST Impression: Morphology of the liver seen in the setting of hepatitis or other hepatocellular process. Nonobstructive right nephrolithiasis. Other findings as above. Read by shiftman radiology: Ondina Drew M.D. X-RAY CHEST ONE VIEW, PORTABLE ([id number]) IMPRESSION: Status post placement of left chest tube with residual small left apical pneumothorax. Status post placement of right central venous catheter. No pneumothorax. Dictated by: Rasta Malik M.D. on 04/18/2017 at 21:12 Approved by: Rasta Malik M.D. on 04/18/2017 at 21:16 Cardiac Echo Impressions Echocardiogram Report Interpretation Summary 1. Normal left ventricular size, wall thickness and systolic function with an estimated EF of 60-65% 2. Grossly normal right ventricular size with normal systolic function. 3. No evidence for valvular pathology Reading Physician:04:26 PM Assessment & Plan Lily Astudillo is a 61-year-old female with past medical history significant for COPD with centrilobular emphysema and asthma on chronic oxygen therapy who presents to the ED via EMS after intubation for acute hypoxic respiratory failure. Acute hypoxic respiratory failure in the setting of severe COPD, present on admission, active. Patient intubated in the field prior to presentation to the ED. Chest x-ray obtained on arrival revealed left pneumothorax. Chest tube was placed emergently. - Etiology likely multifactorial including possible aspiration pneumonia or viral infection and pneumothorax in the setting of severe COPD. Patient had recently started a prednisone taper on 04/16/2017. Patient uses Trilogy unit at baseline. - CT angiogram showed no PE. - Initial ABG on arrival to the ED was 7.25/55.3/63.9/23.2 - Respiratory viral PCR panel ordered and pending. - Ipratropium every 4 hours scheduled. - Arformeterol twice a day. - Albuterol Q2H PRN. - Methylprednisolone 80 mg every 8 hours. - Pulmonology/CCU consulted. Appreciate time and recommendations. Sepsis, present on admission, active. - Criteria met include: Heart rate 90 and respiratory rate prior to intubation greater than 20. Possible respiratory source. - Fluid resuscitation initiated. Norepinephrine and vasopressin added in the ED. Patient currently on norepinephrine 0.1 and vasopressin 0.03. - Empiric antibiotics started including meropenem, levofloxacin, and vancomycin. - Blood, sputum, and urine cultures obtained and results pending. One set of blood cultures the central line was obtained prior to initiation of antibiotics. A second set was obtained after antibiotic initiation. - Close hemodynamic monitoring. - Vent management per pulmonary team. Tension pneumothorax, present on admission, active. Patient with left pneumothorax on arrival to the ED. ED physician placed a left chest tube. - X-ray shows chest tube in somewhat of a curious position but at this time appears to be functioning. This patient is currently stable will not readjust at this time. Possible aspiration pneumonia, present on admission, active. Patient was thick yellow secretions suctioned from ET tube. Concern for aspiration when patient became unresponsive and was emergently intubated in the field. Patient does not appear infectious in do not have a preceding fever, cough, or chills and initial labs were unremarkable including a negative procalcitonin. Chemical pneumonitis secondary to aspiration may be more likely. - CT angiogram chest showed a possible atypical pneumonia pattern. - Empiric antibiotics as above. - Blood and sputum cultures obtained and results pending. - Respiratory PCR panel, strep pneumonia, and legionella ordered and pending. - Repeat chest x-ray, CBC, and procalcitonin in the morning. Elevated troponin may possibly represent an NSTEMI, present on admission, active. Initial troponin was 0.014 some T-wave abnormalities in the lateral leads. Initially this was attributed to patient's hypotension. Second troponin was significantly elevated and repeat EKG was obtained. Some changes were noted and due to this treatment for NSTEMI was initiated. Patient never complained of chest pain per EMS and when she arrived she was already intubated and sedated. Risk factors include significant smoking history, family history of premature heart disease, and current critical condition. - Initial troponin 0.041. Second troponin 0.322. Trending troponins. - Lipid panel pending. - Supplemental oxygen as needed. - Aspirin 81 mg initially received and continued daily. - Beta oziel, AMOS inhibitor, and clopidogrel unable to be given due to intubated and hypotensive patient. - Heparin drip initiated. Elevated liver enzymes in a hepatocellular pattern, present on admission, active. Possibly secondary to hypotension. Although other etiology such as viral, autoimmune, and drugs cannot be excluded. - CT abdomen and pelvis revealed findings suggestive of hepatitis or other hepatocellular process. - Tylenol level was negative. - Hepatitis panel ordered and pending. - Repeat CMP in the morning. QTC prolongation, present on admission, active. - Initial EKG on presentation to the ED showed a QTC of 542. Repeat EKG now reveals a QTC of 691. - Close monitoring on telemetry. - Avoid QT prolonging medications. Diabetes mellitus type II non-insulin using, present on admission, chronic. - Hemoglobin A1c 6.6 on 10/11/16. Repeat hemoglobin A1c pending. - Metformin held. - Low-dose correctional scale with NPH. GERD, present on admission, chronic. - Pantoprazole 40 mg IV twice a day. PRN Medications - Acetaminophen as needed for mild pain/fever/headache - Bowel regimen as needed - Antiemetic as needed CODE STATUS is full code confirmed with patient's sister. Sister states that patient has not wanted to complete a POLST form in the past but has verbally stated she would want everything done. Patient is admitted under inpatient status with expected length of stay greater than 2 midnights due to severity of presenting symptoms, risk of adverse event, and complexity of treatment plan. Pain Evaluation: Adequate Pain Control GI Prophylaxis: Proton Pump Inhibitor VTE Prophylaxis: Sub-Q Heparin (Unfractionated) Resuscitation Status: CPR: Attempt Resuscitation Time spent 1 hour critical care time spend Attending Statement The patient was seen and examined together with Dr. Gaines on 04/18 and I agree with the history, exam and plan as outlined in the note above. JESSICA GAINES DO Apr 18, 2017 22:06 Bassem Vieira MD Apr 19, 2017 00:31 Bassem Vieira MD Apr 19, 2017 00:31
[2017-04-18] MEDS ORDERED: ALEN70TA46 (22:11)
[2017-04-18] MEDS ORDERED: MONT10TA23 ORAL (22:11)
[2017-04-18] MEDS ORDERED: PERFOROMIST (22:11)
[2017-04-18] MEDS ORDERED: METH4TAB11 (22:11)
[2017-04-18] MEDS ORDERED: LEVA15HF6 INHALATION (22:11)
[2017-04-18] MEDS ORDERED: VENL75TA3 PO (22:24)
[2017-04-18] MEDS ORDERED: METF1000 PO (22:29)
[2017-04-18] MEDS ORDERED: CITA40TA13 PO (22:31)
[2017-04-18] MEDS: Vasopressin Inj 20 UNIT in 0.9% Sodium Chloride 100 ML IV SCH (22:38)
[2017-04-18] MEDS ORDERED: VIT1CAPS27 PO (22:39)
[2017-04-18] MEDS ORDERED: CALC-1034 PO (22:49)
[2017-04-18] MEDS ORDERED: FEXO-106 PO (22:49)
[2017-04-18] MEDS ORDERED: BIOT5TAB PO (22:49)
[2017-04-18] MEDS ORDERED: MethylprednisoLONE Sodium Succinate 62.5 mg/mL 2 mL Inj IVPUSH SCH (23:00)
--- NOTE | 2017-04-18 23:12 | ABG ---
DateTimeAnalyzed 23:06:00 -_ pH ____7.270 - 7.350 7.450 pCO2 ___40.9__ -mmHg 35.0 45.0 pO2 289 -mmHg 69.0 116 HCO3- ___18.2__ -mmol/L 22.0 26.0 ABE ___-7.8__ -mmol/L -2.0 2.0 tHb ___11.5__ -g/dL 12.0 18.0 O2Hb ___97.7__ -% COHb ____0.6__ -% 0.0 1.5 MetHb ____0.9__ -% 0.4 1.5 sO2 ___99.2__ -% FIO2 ___60.0__ -% PEEP ____5.0__ -cmH2O Set_RR ___18.0__ -b/min Vt __450.0__ -L Drawn By MD - Date/Time Notified____ 23:12:00 -_ Spontaneous_RR ___18.0__ -b/min Oxygen Device 1 VENTILATOR - Notified By MD - Notified Whom RN A.[email or web address] - B 761 -mmHg tO2 ___16.5__ -Vol% Ap test N/A -
[2017-04-18] MEDS: 0.9% Sodium Chloride 1,000 ML IV SCH (23:53)
[2017-04-19] VITALS (14 sets, daily range): BP systolic 87–107; BP diastolic 58–71; PULSE 66–84; RESP 13–19; O2SAT 94–100
[2017-04-19] LABS: BASOPHILS % (AUTO) 0.3 % (0-3); EOSINOPHILS % (AUTO) 0.1 % (0-5); MONOCYTES % (AUTO) 8.2 % (4-12); Mean Corpuscular Hemoglobin 29.6 pg (27.0-35.0); Mean Corpuscular Volume 90.3 fL (81-100); NEUTROPHILS % (AUTO) 81.5 % (40-74); Platelet Count 236 bil/L (150-400)
--- NOTE | 2017-04-19 | NUR ---
Admit note Admitted patient from ED @ 2245 for respiratory failure and sepsis. Arrived intubated to vent, hypotensive, sbp 80s, on vasopressin and levophed gtt, finishing 3rd liter NS bolus, RASS -3, fentanyl and versed gtt infusing, Map> 65 Sister Zhanna came in and updated with patients status. MRSA nasal screen done and UA sent.
[2017-04-19] MEDS ORDERED: Albuterol 2.5 mg/3 mL Inhalation Solution NEB PRN (00:25)
[2017-04-19] MEDS ORDERED: Ipratropium 0.02% 0.5 mg/2.5 mL Inhalation Solution NEB SCH (00:25)
[2017-04-19] MEDS ORDERED: MethylprednisoLONE Sodium Succinate 62.5 mg/mL 2 mL Inj IVPUSH SCH (00:30)
[2017-04-19 00:38] LABS: APPEARANCE,URINE CLEAR (CLEAR,HAZY); COLOR,URINE YELLOW (YELLOW); OCCULT BLOOD,URINE SMALL (NEGATIVE)
[2017-04-19] MEDS: 0.9% Sodium Chloride 1,000 ML IV SCH ×4 (00:39→07:59)
[2017-04-19 00:43] LABS: Phosphorus 2.6 mg/dL (2.5-4.9)
[2017-04-19] MEDS: Arformoterol 15 mCg/2 mL Inhalation Solution NEB SCH ×2 (00:57→07:20)
[2017-04-19] MEDS ORDERED: Calcium GLUCO 10% (Gm) Inj 1 GM in 0.9% Sodium Chloride 50 ML IV ONE (01:05)
[2017-04-19] MEDS ORDERED: Dextrose 10% 250 ML IV PRN (01:15)
--- NOTE | 2017-04-19 02:20 | PCM.CONPHA ---
Subjective Date of Service: Apr 19, 2017 Requesting Provider: JESSICA GAINES DO Shortness of breath Reason for Pharmacy Consult: Vancomycin Dosing Objective Vital Signs Date Time Temp Pulse Resp B/P Pulse Ox O2 Delivery O2 Flow Rate FiO2 04/19/17 00:58 77 92/66 100 60 04/19/17 00:15 36.7 77 18 87/69 94 Mechanical Ventilator 50 04/18/17 23:00 Ventilator 04/18/17 22:51 83 113/76 60 04/18/17 22:45 36.7 80 18 113/76 94 Mechanical Ventilator 60 04/18/17 22:23 91 14 84/57 96 Mechanical Ventilator 04/18/17 22:15 91 20 92/69 93 Mechanical Ventilator 04/18/17 22:05 84 18 88/67 92 Mechanical Ventilator 04/18/17 20:50 84 18 78/54 97 Mechanical Ventilator 04/18/17 20:35 85 17 78/53 100 Mechanical Ventilator 04/18/17 20:10 90 16 82/58 100 Mechanical Ventilator 04/18/17 19:51 99 Intake and Output 04/17/17 04/18/17 04/19/17 00:00 00:00 00:00 Intake Total 3000 ml Balance 3000 ml Weight (Kilograms): 53.500 Height (Feet): 5 Height (Inches): 6.00 Test 04/18/17 19:50 04/18/17 23:53 04/19/17 00:20 Prothrombin Time 10.5sec (8.1-12.5) Prothromb Time International Ratio 0.98ratio Activated Partial Thromboplast Time 21.9sec (22.8-33.0) D-Dimer 0.60mg/L FEU (<0.50) Magnesium Level 2.3mg/dL (1.6-2.6) Troponin T 0.041ug/L (0.0-0.011) Pro-B-Type Natriuretic Peptide 153.2pg/mL (0-287) Procalcitonin 0.03ng/mL (0.00-0.08) White Blood Count 14.7th/mm3 (3.8-10.1) Red Blood Count 3.92mil/mm3 (3.90-5.20) Hemoglobin 11.6g/dL (12.0-15.6) Hematocrit 35.4% (35.0-46.0) Mean Corpuscular Volume 90.3fL (81-100) Mean Corpuscular Hemoglobin 29.6pg (27.0-35.0) Mean Corpuscular Hemoglobin Concent 32.8% (32.0-37.0) Red Cell Distribution Width 13.5% (12.3-15.4) Platelet Count 236bil/L (150-400) Neutrophils (%) (Auto) 81.5% (40-74) Lymphocytes (%) (Auto) 9.6% (14-46) Monocytes (%) (Auto) 8.2% (4-12) Eosinophils (%) (Auto) 0.1% (0-5) Basophils (%) (Auto) 0.3% (0-3) Sodium Level 141mEq/L (134-144) Potassium Level 4.4mEq/L (3.5-5.2) Chloride Level 110mEq/L (97-108) Carbon Dioxide Level 18mmol/L (18-29) Blood Urea Nitrogen 14mg/dL (8-27) Creatinine 0.43mg/dL (0.57-1.00) Estimat Glomerular Filtration Rate 212mL/min (>59) Glucose Level 201mg/dL (60-99) Lactic Acid Level 1.3mmol/L (0.4-2.0) Calcium Level 6.7mg/dL (8.5-10.1) Phosphorus Level 2.6mg/dL (2.5-4.9) Total Bilirubin 1.1mg/dL (0.0-1.2) Aspartate Amino Transf (AST/SGOT) 481U/L (0-50) Alanine Aminotransferase (ALT/SGPT) 448U/L (0-32) Alkaline Phosphatase 231U/L (25-165) Total Protein 4.6g/dL (6.4-8.4) Albumin 3.1g/dL (3.4-5.0) Prealbumin 3.1mg/dL (20-40) Lipase 17U/L (13-60) Acetaminophen Level < 15.0ug/mL Rx (10-25) Hepatitis C Comment . Urine Color Yellow (YELLOW) Urine Appearance Clear (CLEAR,HAZY) Urine pH 6.0 (5.0-8.0) Urine Specific [place] 1.025 (1.003-1.035) Urine Protein 100mg/dL (NEG,TRACE) Urine Glucose (UA) 250mg/dL (NEGATIVE) Urine Ketones Negativemg/dL (NEGATIVE) Urine Occult Blood Small (NEGATIVE) Urine Nitrite Negative (NEGATIVE) Urine Bilirubin Negative (NEGATIVE) Urine Urobilinogen 1.0mg/dL (NORMAL) Urine Leukocyte Esterase Negative (NEGATIVE) Urine RBC 0-2/hpf (0-2) Urine WBC 0-5/hpf (0-5) Urine Epithelial Cells Few/hpf (NONE-MOD) Urine Crystals None seen (NONE SEEN) Urine Bacteria Moderate/hpf (NONE-FEW) Urine Hyaline Casts 5/20/lpf (NONE) Urine Granular Casts 5-20 (NONE SEEN) Urine Waxy Casts None seen (NONE SEEN) Urine Red Blood Cell Casts None seen (NONE SEEN) Urine White Blood Cell Casts None seen (NONE SEEN) Urine Mucus None seen (None Seen) Urine Trichomonas None seen (NONE SEEN) Urine Yeast None (NONE SEEN) Urinalysis Comment None Urine Culture Reflexed Indicated Assessment/Plan Assessment/Plan A: * Vancomycin dosing by pharmacy for 61 y/o woman * She is also being started on meropenem and Levaquin * Estimated CrCl for this patient is 64 mL/min (Cockcroft & Gault) * Estimated vancomycin half-life is 12 hours and estimated volume of distribution is 37 liters P: * Give a loading dose of vancomycin 1250 mg IV * Continue with vancomycin 750 mg IV every 12 hours after * Target a vancomycin trough range of 15 - 20 mcg/mL * Draw a trough level prior to the fourth dose Thank you. Pharmacy will continue to follow this patient. Lucina Luke Apr 19, 2017 02:20
[2017-04-19] MEDS ORDERED: Albuterol-Ipratropium 3 mL Inhalation Solution NEB SCH (02:30)
[2017-04-19] MEDS: Ipratropium 0.02% 0.5 mg/2.5 mL Inhalation Solution NEB SCH ×4 (02:51→20:26)
[2017-04-19] MEDS: Insulin Human REGular 300 Unit/3 mL Inj SUBQ SCH ×4 (02:56→20:30)
--- NOTE | 2017-04-19 03:26 | ABG ---
DateTimeAnalyzed 03:20:00 -_ pH ____7.268 - 7.350 7.450 pCO2 ___39.4__ -mmHg 35.0 45.0 pO2 204 -mmHg 69.0 116 HCO3- ___17.4__ -mmol/L 22.0 26.0 ABE ___-8.5__ -mmol/L -2.0 2.0 FIO2 ___50.0__ -% PEEP ____5.0__ -cmH2O Set_RR ___19.0__ -b/min Vt __450.0__ -L Drawn By MK - Oxygen Device 1 VENTILATOR - Notified Whom Dr Юлия - B 761 -mmHg tO2 ___16.2__ -Vol% Ap test _Positive -
--- NOTE | 2017-04-19 05:07 | ABG ---
DateTimeAnalyzed 05:01:00 -_ pH ____7.283 - 7.350 7.450 pCO2 ___39.2__ -mmHg 35.0 45.0 pO2 ___85.8__ -mmHg 69.0 116 HCO3- ___18.0__ -mmol/L 22.0 26.0 ABE ___-7.7__ -mmol/L -2.0 2.0 tHb ___11.8__ -g/dL 12.0 18.0 O2Hb ___94.1__ -% COHb ____0.7__ -% 0.0 1.5 MetHb ____0.8__ -% 0.4 1.5 sO2 ___95.5__ -% FIO2 ___30.0__ -% PEEP ____5.0__ -cmH2O Set_RR ___18.0__ -b/min Vt __450.0__ -L Drawn By MK - Spontaneous_RR ___18.0__ -b/min Oxygen Device 1 VENTILATOR - Notified Whom ___Mulder - B 761 -mmHg tO2 ___15.7__ -Vol% Ap test _Positive -
[2017-04-19] MEDS ORDERED: Heparin 5,000 Unit/mL Inj IVPUSH PRN (05:15)
[2017-04-19] MEDS ORDERED: Heparin 25K Unit/500mL 0.45 NS 25,000 UNIT in IV Premix 1 EACH IV SCH (05:15)
[2017-04-19 06:20] LABS: BASOPHILS % (AUTO) 0.1 % (0-3); EOSINOPHILS % (AUTO) 0 % (0-5); MONOCYTES % (AUTO) 4.7 % (4-12); Mean Corpuscular Hemoglobin 29.4 pg (27.0-35.0); Mean Corpuscular Volume 91.5 fL (81-100); Platelet Count 219 bil/L (150-400)
[2017-04-19 07:05] LABS: Magnesium 1.7 mg/dL (1.6-2.6); Phosphorus 2.3 mg/dL (2.5-4.9)
[2017-04-19 07:06] LABS: INR 1.04 ratio
[2017-04-19] MEDS ORDERED: Pantoprazole 4 mg/mL 10 mL Inj IVPUSH SCH (07:30)
--- NOTE | 2017-04-19 07:43 | DRSVH ---
PROCEDURE: CT ANGIO CHEST PULMONARY EMBOLISM ([id number]) INDICATIONS: 61 year-old with respiratory failure. TECHNIQUE: After the administration of intravenous contrast, 2 mm thick sections acquired from the pulmonary api tong to the posterior costophrenic angles. 3-dimensional maximum intensity projection (MIP) coronal a nd sagittal reformats were then acquired through the thorax. For radiation dose reduction, the follo wing was used: automated exposure control, adjustment of mA and/or kV according to patient size. COMPARISON: [facility], CR, XR CHEST 1VW (PORTABLE), 04/18/2017, 21:01. [facility], CR, XR CHEST 1VW (PORTABLE), 04/19/2017, 5:36. FINDINGS: Image quality: Excellent. Pulmonary arteries: Pulmonary arteries are normal in size, and demonstrate no intraluminal filling d efects to suggest central pulmonary embolism. Lungs and pleura: There is moderate to severe emphysema. Interlobular and intralobular septal thicken ing. Small nodules in the right upper lobe with "tree in bud" configuration. There is trace left apic al pneumothorax. Bibasilar atelectasis. No pleural effusions. Central and peripheral airways are pa tent. Mediastinum: Heart size is normal, without pericardial effusion. No mediastinal or hilar adenopathy . Thoracic aorta is normal in caliber and enhancement. Esophagus is normal in caliber, without hiat al hernia. Bones and chest wall: Intracranial intubation. A nasogastric tube is noted within the esophagus. A t horacostomy is noted on the left. There is subcutaneous emphysema in the left hemithorax. No suspicio us bony lesions. Ribs and thoracic spine appear intact throughout. Thyroid gland is normal. No axi llary or supraclavicular adenopathy. Abdomen: There is reflux of IV contrast into the IVC and hepatic vein. Visualized upper abdominal so lid organs appear normal in the early arterial phase of enhancement. There is a 2.3 cm diameter cyst in the left kidney. IMPRESSION: 1. No evidence for central pulmonary emboli. 2. Trace left apical pneumothorax. There is a chest tube on the left with associated subcutaneous air . 3. Moderate to severe emphysema. 4. Diffuse interstitial thickening and distended to pulmonary edema or interstitial pneumonia. Mild n odular infiltrates with "tree in bud" configuration could be secondary to atypical infection. 5. Bibasilar atelectasis. No significant discrepancy with the night shift manager radiology preliminary report. Dictated by: Frida Asif M.D. on 04/19/2017 at 7:30 Approved by: Frida Asif M.D. on 04/19/2017 at 7:41
--- NOTE | 2017-04-19 07:51 | DRSVH ---
PROCEDURE: CT ABDOMEN AND PELVIS WITH CONTRAST ([id number]) INDICATIONS: sepsis, elevated LFTs TECHNIQUE: After the administration of intravenous contrast, 5 mm thick sections acquired from the diaphragm to the symphysis. 5 mm coronal and sagittal reformats were acquired. For radiation dose reduction, the following was used: automated exposure control, adjustment of mA and/or kV according to patient siz e. COMPARISON: CT, CHEST/ABD/PELVIS W/CON (PN), 04/15/2008, 14:45. FINDINGS: Image quality: Excellent. ABDOMEN: Lung bases: Right basilar atelectasis. Centrilobular emphysema. Heart size is normal. Solid organs: There is hypodensity around the portal triads, consistent with periportal edema. Liver and spleen are normal in size and enhancement. Gallbladder is contracted. No gallstones. There is a small amount of pericholecystic fluid. Biliary system is non dilated. Pancreas enhances normally. No adrenal nodules. Kidneys demonstrate normal size and enhancement, without hydronephrosis. Small nonobstructive renal calculi in right kidney. Renal cortical scar noted in the superior pole the rig ht kidney. There is a 2.5 cm cyst in the left kidney. Peritoneum and bowel: Bowel loops demonstrate normal wall thickness and caliber. No free fluid or a ir. Nodes and vessels: No retroperitoneal or mesenteric adenopathy by size criteria. Aorta and inferior vena cava are normal in size. Moderate atherosclerotic calcification in distal aorta. Miscellaneous: No ventral hernias. PELVIS: Genitourinary: Bladder wall thickness is normal. Miscellaneous: No inguinal hernias or adenopathy. Bones: No suspicious bony lesions. No vertebral body compression fractures. IMPRESSION: 1. Periportal edema liver consistent with hepatitis. Recommend clinical correlation. 2. A small amount of pericholecystic fluid. No gallstones or gallbladder wall thickening. 3. Nephrolithiasis in right kidney. No evidence for renal obstruction. 4. Atherosclerosis. No significant discrepancy with the tube bending machine operator radiology preliminary report. Dictated by: Frida Asif M.D. on 04/19/2017 at 7:43 Approved by: Frida Asif M.D. on 04/19/2017 at 7:49
--- NOTE | 2017-04-19 07:52 | NUR ---
Hypotension/Labs SBP 80s, HR 70s SR, Hung 2L NS bolus (pt had 5L NS total), IVF maintenance @ 250 cc/hr, remain on levo and vasopressin gtts. Ca 6.7 (corrected 7.42), given calcium gluconate 1gm IV, started vanco, levaquin and meropenem after bld cxs done. Rivera drained with 350 cc. Lt chest tube to suction, drained 15 cc mixon fluid. Notified Dr. Redman of labs, troponin trending up, started insulin gtt per cardiac protocol and given asa 81mg via ogt.
[2017-04-19 07:58] LABS: TROPONIN T 0.224 ug/L (0.0-0.011)
[2017-04-19] MEDS: Vasopressin Inj 20 UNIT in 0.9% Sodium Chloride 100 ML IV SCH (08:23)
[2017-04-19] MEDS: Meropenem Inj 2,000 MG in 0.9% Sodium Chloride 100 ML IV SCH ×3 (08:23→23:56)
[2017-04-19] MEDS ORDERED: Heparin 5,000 Unit/mL Inj SUBQ SCH (08:30)
[2017-04-19] MEDS ORDERED: Vancomycin Dose per Pharmacist XX SCH (08:30)
[2017-04-19] MEDS ORDERED: Midazolam 100 mg/100 mL Premix IV PRN (08:50)
--- NOTE | 2017-04-19 09:14 | PCM.PNMED ---
Subjective Date of Service Apr 19, 2017 Subjective Pulmonary critical care progress note, consultation requested by Dr. Ramos Lily Astudillo is a 61 year old woman with a PMH of COPD with prior hospitalization in September and PFTs in August indicative of FEV1/FVC ratio is 0.45, DM2 on Metformin, and chronic pain on Tramadol who presents with 4 day history of worsening SOB with acute decompensation yesterday evening requiring intubation with associated pneumothorax s/p chest tube placement. Overnight the patient's procalcitonin increased from an initial negative value along with her white count post steroid administration. Follow up CXR revealed near resolution of her initially quite significant pneumothorax with questionably optimal placement tracking likely along the fissure towards the midline. This AM the patient appeared to be auto-peeping with RR of 18, which was reduced to 14 with improved respiratory parameters. Comprehensive ROS unable to be obtained in this intubated and sedated patient. Exam Vital Signs Vital Sign - Last Date Time Temp Pulse Resp B/P Pulse Ox O2 Delivery O2 Flow Rate FiO2 04/19/17 08:00 36.4 84 16 102/64 100 Mechanical Ventilator 30 Intake and Output 04/18/17 04/18/17 04/19/17 Cumulative From/Thru 15:00 23:00 07:00 04/18/17 20:00 - 04/19/17 06:24 Intake Total 3000 ml 4283 ml 7283 ml Output Total 515 ml 515 ml Balance 3000 ml 3768 ml 6768 ml Intake IV Total 3000 ml 4283 ml 7283 ml Output Urine Total 350 ml 350 ml Gastric Drainage Total 150 ml 150 ml Chest Tube Drainage Total 15 ml 15 ml # Bowel Movements 0 0 Exam Gen: Intubated and sedated well groomed woman with appropriate response to noxious stimuli but not following commands Neck: right IJ in place and appears patent, no JVD HEENT: Pupils Miotic at 3 mm with minimal response to light equal BL, does not track, no scleral icterus, no conjunctival pallor CV: RRR, no murmurs rub or gallops Resp: Mild diffuse expiratory wheezing, chest tube in place without visible bubbles, no rales or rhonchi Abd: Soft, patient does awake to deep palpation but no grimace or retraction, no rebound masses or guarding Extr: Well groomed and painted nails, no clubbing cyanosis or edema Neuro: DTRs intact, no focal neurologic deficit, does not follow commands, appropriate response to noxious stimuli IVs and Medications Medications Reviewed: Medications were reviewed in detail Medications High risk meds include IV Fentanyl Lab and Diagnostics Item Value Date Time Red Blood Count 3.88 mil/mm3 L 04/19/17604 Mean Corpuscular Volume 91.5 fL 04/19/17604 Mean Corpuscular Hemoglobin 29.4 pg 04/19/17604 Mean Corpuscular Hemoglobin Concent 32.1 % 04/19/17604 Red Cell Distribution Width 13.9 % 04/19/17 06 Neutrophils (%) (Auto) 90.0 % H 04/19/17 06 Monocytes (%) (Auto) 4.7 % 04/19/17604 Lymphocytes (%) (Auto) 4.4 % L 04/19/17604 Eosinophils (%) (Auto) 0 % 04/19/17604 Basophils (%) (Auto) 0.1 % 04/19/17604 Estimat Glomerular Filtration Rate 261 mL/min 04/19/17 06 Calcium Level 6.6 mg/dL *L 04/19/17 06 Phosphorus Level 2.3 mg/dL L 04/19/17 06 Magnesium Level 1.7 mg/dL 04/19/17 0605 Total Bilirubin 0.8 mg/dL 04/19/17 0605 Aspartate Amino Transf (AST/SGOT) 220 U/L H 04/19/17 06 Alanine Aminotransferase (ALT/SGPT) 346 U/L H 04/19/17 06 Alkaline Phosphatase 205 U/L H 04/19/17 0605 Troponin T 0.224 ug/L *H 04/19/17 0605 Total Protein 4.2 g/dL L 04/19/17 0605 Albumin 2.6 g/dL L 04/19/17 0605 Procalcitonin 0.82 ng/mL H 04/19/17 06 Result Diagram: 04/19/17 0604/19/17 06 Microbiology Blood cultures pending MRSA swab pending Sputum culture pending Resp PCR pending X-Rays, CTs and MRIs CT ANGIOGRAM CHEST Impression: Advanced emphysema. Bronchiolitis and/or atypical pneumonia pattern. Left-sided small pneumothorax with pleural chest tube in place. Other findings above. No acute occlusive PE. Atherosclerotic disease. Read by operations supervisor 2nd shift radiology: Ondina Drew M.D. CT ABDOMEN AND PELVIS W IV CONTRAST Impression: Morphology of the liver seen in the setting of hepatitis or other hepatocellular process. Nonobstructive right nephrolithiasis. Other findings as above. Read by operations supervisor 2nd shift radiology: Ondina Drew M.D. X-RAY CHEST ONE VIEW, PORTABLE ([id number]) IMPRESSION: Status post placement of left chest tube with residual small left apical pneumothorax. Status post placement of right central venous catheter. No pneumothorax. Dictated by: Rasta Malik M.D. on 04/18/2017 at 21:12 Approved by: Rasta Malik M.D. on 04/18/2017 at 21:16 Cardiac Echo Impressions Echocardiogram Report Interpretation Summary 1. Normal left ventricular size, wall thickness and systolic function with an estimated EF of 60-65% 2. Grossly normal right ventricular size with normal systolic function. 3. No evidence for valvular pathology Reading Physician:04:26 PM . Assessment & Plan Lily Astudillo is a 61-year-old female with past medical history significant for COPD with centrilobular emphysema and asthma on chronic oxygen therapy who presents to the ED via EMS after intubation for acute hypoxic respiratory failure. Subsequent imaging revealed a significant left sided pneumothorax which responded quickly to chest tube placement. Overall the course of this exacerbation is not entirely clear, whether it started with an exacerbation and cough which precipitated her pneumo, or began with a pneumo that progressively worsened with continuous use of Trilogy positive pressure ventilation and subsequent intubation cannot be determined without more thorough history which at the moment cannot be obtained in this intubated patient. The patient's sister Zhanna and [id number] Dolores are both nurses with a high degree of medical literacy, thus Zhanna should be the first point of contact for any acute changes or decision making, followed by Dolores who will relay information to the patient's son Som. Acute hypoxic respiratory failure in the setting of severe COPD, present on admission, active. Patient intubated in the field prior to presentation to the ED. Chest x-ray obtained on arrival revealed left pneumothorax. Chest tube was placed emergently. - Etiology likely multifactorial including possible aspiration pneumonia or viral infection and pneumothorax in the setting of severe COPD. Patient had recently started a prednisone taper on 04/16/2017. Patient uses Trilogy unit at baseline. Was using Trilogy continuously for the past several days - CT angiogram showed no PE. - Initial ABG on arrival to the ED was 7.25/55.3/63.9/23.2 - Respiratory viral PCR panel ordered and pending. - Ipratropium every 4 hours scheduled. - Arformeterol twice a day. - Albuterol Q2H PRN. - Methylprednisolone 125 mg every 8 hours. - Sedation with Fentanyl and Propofol - Will likely wean slowly off the vent given likely stress cardiomyopathy Sepsis, present on admission, active. - Criteria met include: Heart rate 90 and respiratory rate prior to intubation greater than 20. Possible respiratory source. - leukocytosis likely due to steroid administration, Procalc could be due to cardiovascular compromise - Fluid resuscitation initiated. Norepinephrine and vasopressin added in the ED. Vasopressin has since been DC'd - Empiric antibiotics started including meropenem, levofloxacin, and vancomycin. Levofloxacin since discontinued due to prolonged QT - Will likely DC Vanco once MRSA swab returns - Blood, sputum, and urine cultures obtained and results pending. One set of blood cultures the central line was obtained prior to initiation of antibiotics. A second set was obtained after antibiotic initiation. - Close hemodynamic monitoring. - Questionable whether that patient's qualifying parameters were due to infection or stress response at initial infectious indicators were weakly positive at best and have equally likely alternative explanation pneumothorax, present on admission, active. Patient with left pneumothorax on arrival to the ED. ED physician placed a left chest tube. - X-ray shows chest tube in somewhat of a curious position but at this time appears to be functioning. This patient is currently stable will not readjust at this time. Likely Stress induced cardiomyopathy, POA, acute. Active -Patient preliminary ECHO read reveals greatly compromised EF compared to prior study and apical ballooning consistent with stress cardiomyopathy -Will await official ECHO read -Will likely slowly wean this patient off the vent so as to reduce cardiac strain Non Ion gap metabolic and respiratory acidosis, POA. Improving -Upon arrival patient had an ABG consistent with non compensated respiratory acidosis -Repeat ABG showed improvement of the respiratory component of her acidosis but a decline in BiCarb resulting in a virtually unchanged pH since admission -Etiology uncertain at this time, could be consistent with Sepsis though active severe infection is questionable at this juncture -There is no report of active GI volume loss -Patient is not on a diuretic as an outpatient -Will continue Serial ABGs and track until resolution Possible aspiration pneumonia, present on admission, active. Patient was thick yellow secretions suctioned from ET tube. Concern for aspiration when patient became unresponsive and was emergently intubated in the field. Patient does not appear infectious in do not have a preceding fever, cough, or chills and initial labs were unremarkable including an initially negative procalcitonin. Chemical pneumonitis secondary to aspiration may be more likely. - CT angiogram chest showed a possible atypical pneumonia pattern. - Empiric antibiotics as above. - Blood and sputum cultures obtained and results pending. - Respiratory PCR panel, strep pneumonia, and legionella ordered and pending. Elevated troponin of uncertain significance, present on admission, active. Initial troponin was 0.014 some T-wave abnormalities in the lateral leads. Initially this was attributed to patient's hypotension. Second troponin was significantly elevated and repeat EKG was obtained. Some changes were noted and due to this treatment for NSTEMI was initiated. Patient never complained of chest pain per EMS and when she arrived she was already intubated and sedated. Risk factors include significant smoking history, family history of premature heart disease, and current critical condition. - Heparin drip transitioned to SubQ as this appears likely secondary to stress cardiomyopathy as above - Initial troponin 0.041. Second troponin 0.322. Troponin now trending down - Lipid panel pending. - Supplemental oxygen as needed. - Aspirin 81 mg initially received and continued daily. - Beta oziel, AMOS inhibitor, and clopidogrel unable to be given due to intubated and hypotensive patient. Elevated liver enzymes in a hepatocellular pattern, present on admission, active. Possibly secondary to hypotension. Although other etiology such as viral, autoimmune, and drugs cannot be excluded. - CT abdomen and pelvis revealed findings suggestive of hepatitis or other hepatocellular process. - Tylenol level was negative. - Hepatitis panel ordered and pending. QTC prolongation, present on admission, active. - Initial EKG on presentation to the ED showed a QTC of 542. Repeat EKG now reveals a QTC of 691. - Close monitoring on telemetry. - Avoid QT prolonging medications. Diabetes mellitus type II non-insulin using, present on admission, chronic. - Hemoglobin A1c 6.6 on 10/11/16. Repeat hemoglobin A1c pending. - Metformin held. - Low-dose correctional scale with NPH. GERD, present on admission, chronic. - Pantoprazole 40 mg IV twice a day, switched to Famotidine due to prolonged QT . I examined this patient along with Dr. Simeon and performed a limited bedside echo which appeared to suggest Takosubo's apical ballooning which has been confirmed by formal echo. We have discussed and I approve his assessment and plan. Her pneumothorax is completely reduced with her current chest tube and there is no ongoing air leak. Based on her examination, her COPD appears to be well compensated. Because of her acute cardiomyopathy I plan to be cautious with ventilator weaning and it may be several days before she is liberated. A total of 55 minutes critical care time exclusive of shared time and procedures. Pain Evaluation: Adequate Pain Control GI Prophylaxis: Proton Pump Inhibitor VTE Prophylaxis: Sub-Q Heparin (Unfractionated) VTE Mechanical Devices: Intermittant Pneumatic CD Resuscitation Status: CPR: Attempt Resuscitation Ignacio Simeon DO Apr 19, 2017 09:14 Alfredito Avalos MD Apr 19, 2017 18:03
[2017-04-19] MEDS: Famotidine Inj 20 MG in IV Premix 1 EACH IV SCH ×2 (09:26→20:37)
[2017-04-19] MEDS: MethylprednisoLONE Sodium Succinate 62.5 mg/mL 2 mL Inj IVPUSH SCH ×2 (09:27→17:50)
[2017-04-19] MEDS ORDERED: Magnesium Sulf 2 Gm/50mL Water 2 GM in IV Premix 1 EACH IV ONE (09:50)
--- NOTE | 2017-04-19 09:51 | NUR ---
Inpatient Wound Nurse Patient seen for Pressure Injury Prevention protocol. Heels and elbows are pink and warm, no bogginess, no erythema. Posterior is warm and pink, mild indentations noted from bedding that was wadded under her and these began to fade almost immediately with repositioning. Patient is very agitated and trying to get out of bed. Patient is ventilated and on appropriate surface, heels floated, CCU RN following PI Prevention protocol.
--- NOTE | 2017-04-19 11:04 | NUR ---
NUTRITION ASSESSMENT: ASSESS: 61 YO female admitted to CCU following acute hypoxic respiratory failure with intubation in the field. Chest x-ray obtained on arrival revealed left pneumothorax. Chest tube was placed emergently. Etiology likely multifactorial, including possible aspiration pneumonia or viral infection and pneumothorax in the setting of severe COPD. Patient had recently started a prednisone taper on 04/16/2017 and uses Trilogy unit at baseline. She is currently hypotensive, requiring norepi and dobutamine. ECHO pending today. PMHx: COPD with centrilobular emphysema and asthma, seasonal allergies, endometriosis, nephrolithiasis, cervical spondylosis, chronic cervical and low back pain, GERD, insomnia, left renal cyst, adenomatous colonic polyps DIET: NPO x 1 D. LABS: Reviewed. MEDICATIONS: Reviewed. Norepi, dobutamine, insulin, fentanyl, propofol. NUTRITION FOCUSED PHYSICAL ASSESSMENT: GI symptoms / stool: No BM reported.Ming: 10. Skin Integrity: Per Building Maintenance Mechanic, there are no pressure injuries at this time. ANTHROPOMETRICS: Current Wt: 53.5 kg BMI: 19.0 kg/m2. IBW: 59.1 kg (90.5% IBW). There has been no recent weight loss. ESTIMATED NEEDS (VENT, UNDERWEIGHT, ES COPD): Calories: 1605 - 1873 kcal (30 - 35 kcal / kg BW) Protein 80 - 96 g protein (1.5 - 1.8 g / kg BW) Fluid: Approx. 1873 mL (35 mL / kg BW) NUTRITION DIAGNOSIS: 1)Inadequate oral intake related to inability to consume sufficient energy, as evidenced by NPO / vent status. 2) Increased nutrient needs related to COPD with centrilobular emphysema and asthma, as evidenced by underweight status. INTERVENTION: 1) Enteral feeding recommendation follows. Recommend initiate Pulmocare at 10 mL/hr x 24 hr. Once tolerance established, recommend advance 10 mL every 6 hr. to goal rate 50 mL/hr. Enteral feeding at goal would provide 1650 kcal, 69 g protein, sufficient to meet approx. 100% kcal / 75% protein needs. 2)Once enteral feeding tolerance established, recommend adding 1 packet ProSource liquid protein twice per day to meet 100% protein needs (91 g). MONITOR/EVALUATE: NPO / vent status, orders for nutrition support, labs, weight, nutritional status. Follow up per high nutrition risk guidelines.
[2017-04-19] MEDS: Lactated Ringer's 1,000 ML IV SCH ×3 (11:11→16:14)
[2017-04-19] MEDS: Propofol Inj 1,000,000 MCG in IV Premix 1 EACH IV SCH (11:13)
--- NOTE | 2017-04-19 11:25 | DRSVH ---
[facility] [address] [place] [address] Echocardiogram Report Name: SHANNON ROBERSON JStudy Date: 04/19/2017 Height: 23.5 in Hospital Exam Location: [facility] Weight: 260 lb Gender: Female BSA: 1.1 m2 : 1955 Age: 61 yrs BP: 103/68 mmHg Reason For Study: COPD Ordering Physician: Performed By: Sasha Pedro Interpretation Summary The left ventricle is normal in size. Left ventricular systolic function is severely reduced. The ejection fraction is estimated to be 20-25%. LVEF has reduced significantly since prior study. Proximal LV is the only area of LV myocardium that has normal contractility. The mid LV segments are hypokinetic and distal LV segments are essentially akinetic. Findings are suspicious for stress induced cardiomyopathy but cannot exclude acute coronary syndrome. Clinical correlation is recommended. Assessment of diastolic parameters indicates a restrictive filling pattern of the left ventricle consistent with significantly elevated filling pressures. Borderline right ventricular enlargement. There are regional wall motion abnormalities. The right ventricular systolic pressure is estimated at 52 mmHg assuming a right atrial pressure of 15 mm Hg. The left atrial size is normal. Right atrial size is normal. There is no significant valvular heart disease. Procedure: A two-dimensional transthoracic echocardiogram with color flow and Doppler was performed. The study quality was technically adequate. Comparison is made with the echocardiogram of 10-03-16. The patient was in normal sinus rhythm during the exam. Left Ventricle: The left ventricle is normal in size. There is normal left ventricular wall thickness. Left ventricular systolic function is severely reduced. The ejection fraction is estimated to be 20-25%. Proximal LV is the only area of LV myocardium that has normal contractility. The mid LV segments are hypokinetic and distal LV segments are essentially akinetic. Findings are suspicious for stress induced cardiomyopathy but cannot exclude acute coronary syndrome. Clinical correlation is recommended. Assessment of diastolic parameters indicates a restrictive filling pattern of the left ventricle consistent with significantly elevated filling pressures. Right Ventricle: Borderline right ventricular enlargement. Right ventricular systolic function is mildly reduced. There are regional wall motion abnormalities. Atria: The left atrial size is normal. Right atrial size is normal. The interatrial septum is intact with no evidence for an atrial septal defect. Mitral Valve: The mitral valve leaflets appear mildly thickened, but open well. There is trace mitral regurgitation. Aortic Valve: The aortic valve opens well. No aortic regurgitation is present. Tricuspid Valve: The tricuspid valve leaflets are thin and pliable. There is mild tricuspid regurgitation. The right ventricular systolic pressure is estimated at 52 mmHg assuming a right atrial pressure of 15 mm Hg. Pulmonic Valve: The pulmonic valve is not well seen, but is grossly normal. There is no pulmonic valvular regurgitation. There is no significant valvular heart disease. Great Vessels: The aortic root is normal size. The IVC is dilated (diameter is greater than 2.1 cm) and it collapses less than 50% with a sniff. This suggests a high right atrial pressure of 15 mm Hg. Pericardium/ Pleura There is no pericardial effusion. There is no pleural effusion. MMode/2D Measurements & Calculations LVIDd: 4.2 cm LA dimension Ao root diam LV blanco. diameter/BSA LVIDs: 2.6 cm (cm/m^2): 4.0 FS: 39.6 % IVC diam IVSd: 0.64 cm : 2.6 cm LVPWd: 0.81 cm LV sys. diameter/BSA (cm/m^2): 2.4 Doppler Measurements & Calculations MV E max chele MV E/A: 2.3 TR max chele MV dec time : 75.8 cm/sec Med Peak E' Chele : 303.7 cm/sec : 0.18 sec MV A max chele TR max PG : 32.7 cm/sec E/E' med: 14.7 : 36.9 mmHg MV P1/2t: 54.6 msec Lat Peak E' Chele PA V2 max : 47.5 cm/sec E/E' lat: 19.3 PA mean PG E/e' average: 17.0 : 0.42 mmHg PA Accel Time MV P1/2t max chele PA V2 mean : 29.8 cm/sec MVA(P1/2t): 4.0 cm2 Reading Physician:CATIE
[2017-04-19] MEDS ORDERED: Vancomycin Inj 750 MG in 0.9% Sodium Chloride 250 ML IV SCH (11:30)
--- NOTE | 2017-04-19 11:39 | CONS ---
[address] [address] CONSULTATION REPORT PATIENT: SHANNON ROBERSON : 1955 MR#: [id number] ADMIT: 04/18/2017 JOB ID: [id number] DATE OF SERVICE: 04/19/2017 INFECTIOUS DISEASE CONSULTATION: I thank Dr. Simeon for this timely consult. REASON FOR CONSULTATION: Respiratory failure in a COPD patient with possible underlying pneumonia and/or bronchitis. HISTORY OF PRESENT ILLNESS: The patient is an unfortunate 61-year-old woman who is well known to me from a long admission this past September. Her main medical problem over the past few years has been progressive COPD. She was diagnosed with COPD about two years ago, and finally in July 2016. She quit smoking she reports that her respiratory status has been gradually decreasing over those past two years or so. She reported when I saw her in September the respiratory status have been decreasing for a couple of years and gotten much worse in the early part of 2016. During her admission here in September she was extremely short of breath and basically unable to get around much at all without developing profound shortness of breath. When she was here in September she told me that until summer 2015 she could walk around a large door without much problem and by September 2016 she was concerned that her life might be over because she really could no longer walk across a room. This was in spite of some oxygen supplementation, steroids, and inhalers. In any event, she was admitted with a cough and profound shortness of breath during her September admission. Because of concerns about possible coccidiomycosis due to long residence in [place], [place] ([facility] of coccidiomycosis) and possible MAC infection we performed an extensive ID workup during that admission and thereafter. This workup included multiple sputa that were collected for AFB cultures to look for MAC and/or TB, as well as coccidiomycosis antibodies and multiple other studies. None of these were positive and the patient was eventually discharged in somewhat improved respiratory condition. The current history of present illness begins a couple of days ago when she was out to a concert with her boyfriend and feeling reasonably well. He is said to have had a respiratory tract illness. Subsequently she was found down on the floor last night by a friend and emergency services were summoned. At that point she was having profound respiratory difficulty and she was intubated in the field because of shortness of breath. Upon arrival here it was noted on radiographs that she had a large left pneumothorax which required emergent placement of a chest tube and she was then cared for in the ICU, where she remains overnight. Overnight the patient has required large dose vasopressor agents and an echocardiogram has shown distal cardiac akinesis with relatively preserved proximal function consistent with Takotsubo stress cardiomyopathy. She has also been found to have an acidosis which remains unexplained and continues to be critically ill, intubated, with a chest tube, on pressors in the ICU. No additional history is available from the patient, who is currently intubated and sedated, and bucking the ventilator. PAST MEDICAL HISTORY: 1. Severe COPD. 2. Nephrolithiasis. 3. Chronic back pain. 4. GERD. 5. Status post total abdominal hysterectomy and bilateral salpingo-oophorectomy. 6. History of endometritis. SOCIAL HISTORY: The patient quit smoking in July after a long history of cigarette smoking. She does not drink alcohol or use any opiates. FAMILY HISTORY: She has a strong family history of alcoholism, as well as a sibling with diabetes. One of her brothers of alcohol abuse and another brother was killed in [facility]. There is no family history of TB and that includes first- and second-degree relatives. REVIEW OF SYSTEMS: Was not possible as the patient is intubated and sedated at this point. PHYSICAL EXAMINATION: Reveals a critically ill woman lying supine, intubated and restrained in the ICU. At this point she is actively fighting the ventilator and the nurses and there are problems restraining her. She is afebrile, as she has been during her very short hospital stay which is now less than 12 hours old. Current temp 36.4. Pulse in the 80s, sinus rhythm. Blood pressure 102/68, but that is requiring moderately high doses of norepinephrine as well as vasopressin. She is saturating well on 30% and 5 of PEEP. Examination of the head reveals no trauma. Eyes without conjunctivitis or scleral icterus. Oral endotracheal tube and orogastric tube are present. Neck without obvious stiffness but it is difficult to assess in this patient who is fighting on the ventilator. Lungs with decreased breath sounds bilaterally with tremendous expiratory wheezes bilaterally. Chest tube is present on the left, which was just placed last night. The cardiac tones are very difficult to hear with all the ventilator sounds and wheezing but she does have regular rate and rhythm and that is about all one can say. Her abdomen seems nontender. It is difficult to formally assess in this agitated patient. No hepatosplenomegaly, ascites, or obvious peritoneal signs. She does have a Rivera catheter. No suprapubic abnormalities are noted. No adenopathy is appreciated. There is no evidence for synovitis or cellulitis anywhere. There is no evidence of skin breakdown on the patient's backside. Peripheral pulses are actually excellent, somewhat surprisingly in a patient on pressors, and her extremities are well perfused despite being on pressors. Neurologic exam could not really be evaluated except she is moving everything quite vigorously. LABORATORIES: Include white count that was 10,000 when she hit the ED last night and jumped to 15,000 after steroids, 90% segs after the steroids, not surprisingly. Creatinine 0.36. AST is 220, ALT 346, and alk phos 205. These are all much higher than the values back in September, when they were all normal. Procalcitonin was zero when she came in, which is in keeping with all values during her September admission. It has now jumped to 0.8. Note that her bicarb is only 16 on the current measurements. During her prior admission her bicarb was in the 30s, as one would expect from a COPD patient. Urinalysis without white cells. ANCA is negative. Rheumatoid factor during her last admission also negative. During her September admission cocci antibodies were negative, QuantiFERON gold was indeterminate, and three sputums for AFB were negative at six weeks. Additionally we did Aspergillus antibodies as well as Aspergillus antigen and that was all negative during her September admission. During this admission we have negative urine, pneumococcal, and Legionella antigens, we have negative MRSA screen of the nares, and we have pending blood cultures. A sputum done yesterday in the ER shows moderate polys, many gram-negative rods interestingly which are not yet identified. A respiratory viral PCR has been ordered but has not yet been done. IMAGING: Carefully reviewed on the view screen. Compared to the September films there is more interstitial type change and some of this appears to represent fluid overload or pulmonary edema. We reviewed her films with a passing matching machine operator who was of the impression that her chest x-ray changes since September were consistent with CHF and/or fluid overload, which could go along with the presumptive diagnosis of Takotsubo cardiomyopathy. We also reviewed the echo with the vascular technologist sonographer, who confirmed that there was distal akinesis in the heart consistent with Takotsubo stress cardiomyopathy and an ejection fraction of only 20% to 25% now, even though was normal at 60% to 65% in September. IMPRESSION: This is a complicated case of a woman who was evaluated here quite comprehensively in September and we had no evidence for infection at that time with mycobacteria or fungus. She had very severe chronic obstructive pulmonary disease and was discharged home with a Trilogy machine and standard medical therapies for chronic obstructive pulmonary disease. It sounds as if she has been functioning fairly well the last few months, only to be found on the floor by a friend but last night with severe respiratory difficulties. She was found to have a large pneumothorax which has been alleviated with a chest tube but she remains in shock, requiring dual vasopressor agents. Her echocardiogram shows dramatic changes since last September with apparent stress-induced cardiomyopathy which is undoubtedly producing some or all of her shock, as well as her chest x-ray infiltrates which are bilateral and symmetrical and look like congestive heart failure. With respect to infection, it is unclear at this point if she has any infection at all. We have a negative MRSA screen, so I would not treat the patient with vancomycin, but I am impressed by the finding of the relatively frequent polys seen in her sputum as well as the gram negative rods and think appropriate gram-negative respiratory tract coverage is indicated at this time. Also unexplained is her low bicarbonate and I think for that reason also we must be concerned about the possibility of septic shock which would seem to be not a very parsimonious diagnosis when added to chronic obstructive pulmonary disease, pneumothorax, and stress cardiomyopathy, but it is certainly not out of the realm of possibility in this complex patient. RECOMMENDATIONS: 1. I would continue with meropenem until we have back identification of the organism in the sputum and clarity on her clinical course. 2. I will continue to follow white count and Procalcitonin on a serial basis. 3. I would withhold vancomycin at this time as there is no evidence for MRSA infection on this or the last admission, and we already have a Gram stain of the sputum which is showing gram-negative rods rather than Staph. aureus. 4. No additional mycobacterial or fungal serologies are indicated at this time as the prior ones were all negative. 5. This case was discussed in great detail during rounds as well as after rounds with Dr. Avalos and the rest of the ICU team. Thank you very much.
[2017-04-19] MEDS ORDERED: Sodium Chloride LOK Flush 10 mL Syringe IVFLUSH PRN ×2 (11:40)
[2017-04-19] MEDS ORDERED: Calcium GLUCO 10% (mEq) Inj 13.95 MEQ in Dextrose 5% 100 ML IV ONE (12:15)
--- NOTE | 2017-04-19 15:25 | PCM.PNMED ---
Subjective Date of Service Apr 19, 2017 Subjective Patient remains intubated and sedated, pro calcitonin and white count trending up. Pneumothorax has dramatically improved as evidenced by repeat chest x-rays. Exam Vital Signs Vital Sign - Last Date Time Temp Pulse Resp B/P Pulse Ox O2 Delivery O2 Flow Rate FiO2 04/19/17 12:00 Ventilator 04/19/17 12:00 36.6 74 19 94/60 99 30 Intake and Output 04/18/17 04/18/17 04/19/17 Cumulative From/Thru 15:00 23:00 07:00 04/18/17 20:00 - 04/19/17 06:24 Intake Total 3000 ml 4283 ml 7283 ml Output Total 515 ml 515 ml Balance 3000 ml 3768 ml 6768 ml Intake IV Total 3000 ml 4283 ml 7283 ml Output Urine Total 350 ml 350 ml Gastric Drainage Total 150 ml 150 ml Chest Tube Drainage Total 15 ml 15 ml # Bowel Movements 0 0 Exam General: Intubated and sedated, will developed. Responds to painful stimuli. Does not follow commands HEENT: Normocephalic, atraumatic. ET tube in place Neck: Right IJ in place but no JVD Cardiovascular: Regular rate and rhythm with no murmurs appreciated Pulmonary: Chest tube in place. Ventilated breath sounds Inspiratory Clear to auscultation bilaterally with no crackles, wheezes, or rhonchi. Normal respiratory effort with no use of accessory muscles. Abdomen: Bowel tones present. Soft, nontender, nondistended. No hepatosplenomegaly or masses appreciated. Extremities: No clubbing, cyanosis, edema Skin: Warm to palpation temperature, turgor, and texture Neurological: Intubated and sedated IVs and Medications Medications Reviewed: Medications were reviewed in detail Lab and Diagnostics Result Diagram: 04/19/17 0605 04/19/17 1118 Microbiology Blood cultures pending MRSA swab pending Sputum culture pending Resp PCR pending X-Rays, CTs and MRIs . X-RAY CHEST ONE VIEW IMPRESSION: Status post placement of left chest tube. Small residual left apical pneumothorax. Dictated by: Rasta Malik M.D. on 04/18/2017 X-RAY CHEST ONE VIEW, PORTABLE IMPRESSION: Status post placement of left chest tube with residual small left apical pneumothorax. Status post placement of right central venous catheter. No pneumothorax. Dictated by: Rasta Malik M.D. on 04/18/2017 CT ANGIO CHEST PULMONARY EMBOLISM IMPRESSION: 1. No evidence for central pulmonary emboli. 2. Trace left apical pneumothorax. There is a chest tube on the left with associated subcutaneous air. 3. Moderate to severe emphysema. 4. Diffuse interstitial thickening and distended to pulmonary edema or interstitial pneumonia. Mild nodular infiltrates with "tree in bud" configuration could be secondary to atypical infection. 5. Bibasilar atelectasis. Dictated by: Frida Asif M.D. on 04/19/2017 CT ABDOMEN AND PELVIS WITH CONTRAST ([id number]) INDICATIONS: sepsis, elevated LFTs TECHNIQUE: After the administration of intravenous contrast, 5 mm thick sections acquired from the diaphragm to the symphysis. 5 mm coronal and sagittal reformats were acquired. For radiation dose reduction, the following was used: automated exposure control, adjustment of mA and/or kV according to patient size. COMPARISON: CT, CHEST/ABD/PELVIS W/CON IMPRESSION: 1. Periportal edema liver consistent with hepatitis. Recommend clinical correlation. 2. A small amount of pericholecystic fluid. No gallstones or gallbladder wall thickening. 3. Nephrolithiasis in right kidney. No evidence for renal obstruction. 4. Atherosclerosis. Dictated by: Frida Asif M.D. on 04/19/2017 at 7:43 Cardiac Echo Impressions . Echocardiogram Report Interpretation Summary: The left ventricle is normal in size. Left ventricular systolic function is severely reduced. The ejection fraction is estimated to be 20-25%. LVEF has reduced significantly since prior study. Proximal LV is the only area of LV myocardium that has normal contractility. The mid LV segments are hypokinetic and distal LV segments are essentially akinetic. Findings are suspicious for stress induced cardiomyopathy but cannot exclude acute coronary syndrome. Clinical correlation is recommended. Assessment of diastolic parameters indicates a restrictive filling pattern of the left ventricle consistent with significantly elevated filling pressures. Borderline right ventricular enlargement. There are regional wall motion abnormalities. The right ventricular systolic pressure is estimated at 52 mmHg assuming a right atrial pressure of 15 mm Hg. The left atrial size is normal. Right atrial size is normal. There is no significant valvular heart disease. Assessment & Plan Ms. Astudillo is a 61-year-old female with PMH of COPD with centrilobular emphysema (on home O2), asthma who presents to the ED via EMS after intubation for acute hypoxic respiratory failure secondary to left-sided pneumothorax. Chest tube placed in ED with resolution. Admitted to CCU intubated and sedated Acute hypoxic respiratory failure in the setting of severe COPD, POA, active. ICU/pulmonary consult. Recommendations treatment guide greatly appreciated -Most likely secondary to left lung pneumothorax, possible underlying aspiration pneumonia/viral infection. underlying stress cardiomyopathy -Intubated and sedated on fentanyl propofol with chest tube in place -CT angiogram negative for PE -Appropriate cultures and serologies pending -Infectious disease consult, recommendations greatly appreciated -Antibiotics to include Ipratropium every 4 hours scheduled. -Arformeterol BID -Albuterol Q2H PRN. -Methylprednisolone 125 mg every 8 hours. Sepsis, POA, active. -On admit: HR 90, RR >20 with possible pneumonia source, leukocytosis, elevated pro-calcitonin (in the setting of cardiovascular compromise) -Continue IVF, continue norepinephrine -Antibiotics as above -Appropriate cultures and serologies pending -Continue to monitor Pneumothorax, present on admission, active. -CXR arrival showed left pneumothorax on arrival to the ED, chest tube placed -Repeat CXR shows resolution of pneumothorax -Continue to monitor Likely Stress induced cardiomyopathy, POA, acute. Active -Echo shows EF 20-25% significantly reduced since prior study, and in suspicious for stress-induced cardiomyopathy -Care for ventilatory management for minimal cardiac strain -Continue to monitor Non Ion gap metabolic and respiratory acidosis, POA. Improving -ABG shows respiratory acidosis on arrival, with minimal improvement with follow -up -Continue to monitor with serial ABGs -ICU team mechanical ventilation Possible aspiration pneumonia, present on admission, active. -Intubated in the field concern for aspiration. Thick yellow secretions reportedly suctioned from ET tube. -No overt signs of infection, no prodromal signs of infection, possibly secondary to chemical pneumonitis -CT angiogram chest as above -Antibiotics as above. -Appropriate cultures and serologies pending Elevated troponin of uncertain significance, present on admission, active. Initial troponin was 0.014 some T-wave abnormalities in the lateral leads. Initially this was attributed to patient's hypotension. Second troponin was significantly elevated and repeat EKG was obtained. Some changes were noted and due to this treatment for NSTEMI was initiated. Patient never complained of chest pain per EMS and when she arrived she was already intubated and sedated. Risk factors include significant smoking history, family history of premature heart disease, and current critical condition. - Heparin drip transitioned to SubQ as this appears likely secondary to stress cardiomyopathy as above - Initial troponin 0.041. Second troponin 0.322. Troponin now trending down - Lipid panel pending. - Supplemental oxygen as needed. - Aspirin 81 mg initially received and continued daily. - Consider initiation of Beta oziel, AMOS inhibitor, and clopidogrel Elevated liver enzymes in a hepatocellular pattern, present on admission, active. Possibly secondary to hypotension, though kidney function normal. Consider other etiology such as viral, autoimmune, and drugs - CT abdomen and pelvis revealed findings suggestive of hepatitis or other hepatocellular process. - Tylenol level was negative. - Hepatitis panel ordered and pending. QTC prolongation, present on admission, active. - Initial EKG on presentation to the ED showed a QTC of 542. Repeat EKG now reveals a QTC of 691. - Close monitoring on telemetry. - Avoid QT prolonging medications. Diabetes mellitus type II non-insulin using, present on admission, chronic. - Hemoglobin A1c 6.6 on 10/11/16. Repeat hemoglobin A1c pending. - Metformin held. - Low-dose correctional scale with NPH. GERD, present on admission, chronic. - Pantoprazole 40 mg IV twice a day, switched to Famotidine due to prolonged QT . Patient Status: Patient was admitted under inpatient status with expected length of stay greater than two midnights due to severity of presenting symptoms , risk of adverse event, and complexity of treatment plan. GI Prophylaxis: Proton Pump Inhibitor VTE Prophylaxis: Sub-Q Heparin (Unfractionated) VTE Mechanical Devices: Intermittant Pneumatic CD Resuscitation Status: CPR: Attempt Resuscitation Attending Statement The patient was seen and examined together with Dr. Ramos on April 19 and I agree with the history, exam findings, and plan as outlined in the note above. I did participate in all aspects of the services provided today, including documentation and the plan of care. We will continue to support her with mechanical ventilation for COPD exacerbation and acute respiratory failure with hypoxia. In addition we will continue her chest tube decompression for pneumothorax and follow her stress cardiomyopathy. SHITAL RAMOS DO Apr 19, 2017 15:25 Ap Roberts MD Apr 19, 2017 18:53 VTE Mechanical Devices: Intermittant Pneumatic CD Resuscitation Status: CPR: Attempt Resuscitation SHITAL RAMOS DO Apr 19, 2017 15:25 SHITAL RAMOS DO Apr 19, 2017 15:25 - Avoid QT prolonging medications. Diabetes mellitus type II non-insulin using, present on admission, chronic. - Hemoglobin A1c 6.6 on 10/11/16. Repeat hemoglobin A1c pending. - Metformin held. - Low-dose correctional scale with NPH. GERD, present on admission, chronic. - Pantoprazole 40 mg IV twice a day, switched to Famotidine due to prolonged QT . GI Prophylaxis: Proton Pump Inhibitor VTE Prophylaxis: Sub-Q Heparin (Unfractionated) VTE Mechanical Devices: Intermittant Pneumatic CD Resuscitation Status: CPR: Attempt Resuscitation SHITAL RAMOS DO Apr 19, 2017 15:25
--- NOTE | 2017-04-19 17:09 | DRSVH ---
PROCEDURE: X-RAY CHEST ONE VIEW, PORTABLE ([id number]) INDICATIONS: intubated TECHNIQUE: One view of the chest was acquired. COMPARISON: [facility], CT, CT ANGIO CHEST PE, 04/18/2017, 22:32. [facility] , CR, XR CHEST 1VW, 04/18/2017, 20:00. [facility], CR, XR CHEST 1VW (PORTABLE), 04/18/2017 , 21:01. FINDINGS: Surgical changes and devices: Stable positioning of ETT, right IJ CVL and left pleural drain. Nasoga stric tube is in place tip traversing the GE junction and side port positioned within the distal esop hagus. Lungs and pleura: There is diffuse interstitial opacities. Mediastinum: Diffuse interstitial opacities present likely related to mild edema or atypical pneumoni a. Lung volumes remain increased suggesting COPD. Bones and chest wall: No suspicious bony lesions. Overlying soft tissues appear unremarkable. IMPRESSION: 1. Placement of nasogastric tube otherwise no change in position of lines and tubes. 2. Diffuse interstitial opacities suggesting edema or atypical infection and underlying emphysematous changes redemonstrated. Dictated by: Stan Camarena A Interpreted: Anika Mishra MD on 04/19/2017 at 9:18 Approved by: Anika Mishra M.D. on 04/19/2017 at 17:08
[2017-04-19] MEDS: Heparin 5,000 Unit/mL Inj SUBQ SCH ×2 (17:58→23:56)
--- NOTE | 2017-04-19 18:17 | NUR ---
Ventilation.. Had some vent changes made (see flow sheet) and is son these changes well without desats or distress. Continues to have coughing episodes producing thick creamy secretions. Pt came back pos for Rhino virus. Dr Simeon notified and pt placed in droplet precautions. Had Versed gtt dc'd and switched to propofol and on low dose patient remains calm and has been opening eyes and nodding appropriately to questions asked. Chest tube remains intact, no air leak noted. Sisters have been at the bedside and have been updated by Dr Simeon with the status and plan for the pt.
[2017-04-19] MEDS: Albuterol 2.5 mg/3 mL Inhalation Solution NEB SCH (20:28)
[2017-04-19] MEDS: Chlorhexidine 0.12% 15 mL Oral Solution MT SCH ×2 (20:37→23:56)
[2017-04-19] MEDS ORDERED: levoFLOXacin Inj 750 MG in IV Premix 1 EACH IV SCH (23:00)
[2017-04-19] MEDS: MethylprednisoLONE Sodium Succinate 40 mg/mL Inj IVPUSH SCH (23:56)
[2017-04-20] VITALS (12 sets, daily range): BP systolic 80–111; BP diastolic 45–63; PULSE 71–87; RESP 11–15; O2SAT 96–100
[2017-04-20] MEDS: Albuterol 2.5 mg/3 mL Inhalation Solution NEB SCH ×4 (00:12→12:02)
[2017-04-20] MEDS: Ipratropium 0.02% 0.5 mg/2.5 mL Inhalation Solution NEB SCH ×2 (02:30→08:30)
[2017-04-20] MEDS: Insulin Human REGular 300 Unit/3 mL Inj SUBQ SCH ×4 (02:30→21:26)
[2017-04-20] MEDS: Propofol Inj 1,000,000 MCG in IV Premix 1 EACH IV SCH ×2 (03:42→11:11)
[2017-04-20] MEDS: fentaNYL 2,500 mCg/250 mL 2,500 MCG in IV Premix 1 EACH IV SCH (03:42)
[2017-04-20] MEDS: Chlorhexidine 0.12% 15 mL Oral Solution MT SCH ×6 (03:46→23:30)
[2017-04-20 03:48] LABS: BASOPHILS % (AUTO) 0.1 % (0-3); EOSINOPHILS % (AUTO) 0 % (0-5); MONOCYTES % (AUTO) 4.7 % (4-12); Mean Corpuscular Hemoglobin 29.9 pg (27.0-35.0); NEUTROPHILS % (AUTO) 88.3 % (40-74); Platelet Count 225 bil/L (150-400)
[2017-04-20 04:22] LABS: Phosphorus 1.6 mg/dL (2.5-4.9)
[2017-04-20 05:08] LABS: Hepatitis A Antibody IgM Negative (Negative); Hepatitis B Core Antibody IgM Negative (Negative)
--- NOTE | 2017-04-20 05:57 | ABG ---
DateTimeAnalyzed 05:49:00 -_ pH ____7.368 - 7.350 7.450 pCO2 ___36.7__ -mmHg 35.0 45.0 pO2 ___79.3__ -mmHg 69.0 116 HCO3- ___20.6__ -mmol/L 22.0 26.0 ABE ___-3.7__ -mmol/L -2.0 2.0 tHb ___13.4__ -g/dL 12.0 18.0 O2Hb ___93.9__ -% COHb ____0.6__ -% 0.0 1.5 MetHb ____1.1__ -% 0.4 1.5 sO2 ___95.5__ -% FIO2 ___30.0__ -% PEEP ____5.0__ -cmH2O Set_RR ___12.0__ -b/min Vt __500.0__ -L Drawn By TLA - Date/Time Notified____ 05:57:00 -_ Spontaneous_RR ___16.0__ -b/min Oxygen Device 1 VENTILATOR - Notified Whom Avani S.-RN - B 758 -mmHg tO2 ___17.7__ -Vol% Ap test _Positive -
--- NOTE | 2017-04-20 07:29 | NUR ---
Sedation Patient required propofol increased to 50mcgs/kg/min overnight. She remains able to write, mouth her needs, and nod yes or no while on this level of sedation. Patient continues to occasionally sit bolt upright when she is coughing. Reminded not to do this, restraints in place for safety. Patient has creamy secretions. Scheduled nebs. SpO2 upper [address] to suction with no air leak. Dressing c/d/i.
[2017-04-20] MEDS ORDERED: POTASSIUM PHOS IV ONE (07:50)
[2017-04-20] MEDS ORDERED: DEXTROSE 5% IV ONE (07:50)
[2017-04-20] MEDS: MethylprednisoLONE Sodium Succinate 40 mg/mL Inj IVPUSH SCH ×2 (08:01→19:41)
[2017-04-20] MEDS: Meropenem Inj 2,000 MG in 0.9% Sodium Chloride 100 ML IV SCH (08:01)
[2017-04-20] MEDS: Famotidine Inj 20 MG in IV Premix 1 EACH IV SCH ×2 (08:01→19:41)
[2017-04-20] MEDS: Heparin 5,000 Unit/mL Inj SUBQ SCH ×3 (08:02→23:30)
--- NOTE | 2017-04-20 08:06 | PCM.PNMED ---
Subjective Date of Service Apr 20, 2017 Subjective Patient is intubated and sedated. ROS and subjective are not objective. The patient is light on sedation. No other overnight events noted. Exam Vital Signs Vital Sign - Last Date Time Temp Pulse Resp B/P Pulse Ox O2 Delivery O2 Flow Rate FiO2 04/20/17 07:46 36.8 83 13 97/49 100 Mechanical Ventilator 30 Intake and Output 04/19/17 04/19/17 04/20/17 Cumulative From/Thru 15:00 23:00 07:00 04/18/17 20:00 - 04/20/17 06:33 Intake Total 3270 ml 1376 ml 43306 ml Output Total 765 ml 745 ml 2025 ml Balance 2505 ml 631 ml 9904 ml Intake IV Total 3270 ml 1376 ml 24858 ml Output Urine Total 550 ml 550 ml 1450 ml Gastric Drainage Total 100 ml 150 ml 400 ml Chest Tube Drainage Total 115 ml 45 ml 175 ml # Bowel Movements 0 0 Exam Intubated and sedated, but awake and looking around with intent. Anicteric sclera. Lungs are clear with normal rate and effort Heart is regular without murmur gallop or rub Abdomen soft nontender, flat Extremities are free of edema. Skin is free of rash or lesions. IVs and Medications Medications Reviewed: Medications were reviewed in detail Lab and Diagnostics Result Diagram: 04/20/1732904/20/17 033 Microbiology Blood cultures pending MRSA swab pending Sputum culture pending Resp PCR pending X-Rays, CTs and MRIs . X-RAY CHEST ONE VIEW IMPRESSION: Status post placement of left chest tube. Small residual left apical pneumothorax. Dictated by: Rasta Malik M.D. on 04/18/2017 X-RAY CHEST ONE VIEW, PORTABLE IMPRESSION: Status post placement of left chest tube with residual small left apical pneumothorax. Status post placement of right central venous catheter. No pneumothorax. Dictated by: Rasta Malik M.D. on 04/18/2017 CT ANGIO CHEST PULMONARY EMBOLISM IMPRESSION: 1. No evidence for central pulmonary emboli. 2. Trace left apical pneumothorax. There is a chest tube on the left with associated subcutaneous air. 3. Moderate to severe emphysema. 4. Diffuse interstitial thickening and distended to pulmonary edema or interstitial pneumonia. Mild nodular infiltrates with "tree in bud" configuration could be secondary to atypical infection. 5. Bibasilar atelectasis. Dictated by: Frida Asif M.D. on 04/19/2017 CT ABDOMEN AND PELVIS WITH CONTRAST ([id number]) INDICATIONS: sepsis, elevated LFTs TECHNIQUE: After the administration of intravenous contrast, 5 mm thick sections acquired from the diaphragm to the symphysis. 5 mm coronal and sagittal reformats were acquired. For radiation dose reduction, the following was used: automated exposure control, adjustment of mA and/or kV according to patient size. COMPARISON: CT, CHEST/ABD/PELVIS W/CON IMPRESSION: 1. Periportal edema liver consistent with hepatitis. Recommend clinical correlation. 2. A small amount of pericholecystic fluid. No gallstones or gallbladder wall thickening. 3. Nephrolithiasis in right kidney. No evidence for renal obstruction. 4. Atherosclerosis. Dictated by: Frida Asif M.D. on 04/19/2017 at 7:43 CXR 04/20: Improved pneumothorax, no obvious pneumothorax. Cardiac Echo Impressions . Echocardiogram Report Interpretation Summary: The left ventricle is normal in size. Left ventricular systolic function is severely reduced. The ejection fraction is estimated to be 20-25%. LVEF has reduced significantly since prior study. Proximal LV is the only area of LV myocardium that has normal contractility. The mid LV segments are hypokinetic and distal LV segments are essentially akinetic. Findings are suspicious for stress induced cardiomyopathy but cannot exclude acute coronary syndrome. Clinical correlation is recommended. Assessment of diastolic parameters indicates a restrictive filling pattern of the left ventricle consistent with significantly elevated filling pressures. Borderline right ventricular enlargement. There are regional wall motion abnormalities. The right ventricular systolic pressure is estimated at 52 mmHg assuming a right atrial pressure of 15 mm Hg. The left atrial size is normal. Right atrial size is normal. There is no significant valvular heart disease. Assessment & Plan Lily Astudillo is a 61-year-old female with past medical history significant for COPD with centrilobular emphysema and asthma on chronic oxygen therapy who presents to the ED via EMS after intubation for acute hypoxic respiratory failure. Subsequent imaging revealed a significant left sided pneumothorax which responded quickly to chest tube placement. Overall the course of this exacerbation is not entirely clear, whether it started with an exacerbation and cough which precipitated her pneumo, or began with a pneumo that progressively worsened with continuous use of Trilogy positive pressure ventilation and subsequent intubation cannot be determined without more thorough history which at the moment cannot be obtained in this intubated patient. The patient's sister Zhanna and [id number] Dolores are both nurses with a high degree of medical literacy, thus Zhanna should be the first point of contact for any acute changes or decision making, followed by Dolores who will relay information to the patient's son Som. Acute hypoxic respiratory failure in the setting of severe COPD, present on admission, active and improving. Patient intubated in the field prior to presentation to the ED. Chest x-ray obtained on arrival revealed left pneumothorax. Chest tube was placed emergently. - Etiology likely multifactorial including possible aspiration pneumonia or viral infection and pneumothorax in the setting of severe COPD. Patient had recently started a prednisone taper on 04/16/2017. Patient uses Trilogy unit at baseline. Was using Trilogy continuously for the past several days - CT angiogram showed no PE. - Initial ABG on arrival to the ED was 7.25/55.3/63.9/23.2 - Respiratory viral PCR panel ordered and pending. - Ipratropium every 4 hours scheduled. - Arformeterol twice a day. - Albuterol Q2H PRN. - Methylprednisolone 125 mg every 8 hours. - Sedation with Fentanyl and Propofol - timing of wean per faculty neuropsychologist. Will decrease the tidal volume a small amount today. Will restart versed at low dose drip. Sepsis, present on admission, active and improving. - Criteria met include: Heart rate 90 and respiratory rate prior to intubation greater than 20. Possible respiratory source. - leukocytosis likely due to steroid administration, Procalc could be due to cardiovascular compromise - Fluid resuscitation initiated. Norepinephrine and vasopressin added in the ED. Vasopressin has since been DC'd - Empiric antibiotics started including meropenem, levofloxacin, and vancomycin. Levofloxacin since discontinued due to prolonged QT - will wean the prossors as able. pneumothorax, present on admission, active and improving. Patient with left pneumothorax on arrival to the ED. ED physician placed a left chest tube. - Chest tube per surgery. Likely Stress induced cardiomyopathy, POA, acute. Active and stable. -Patient preliminary ECHO read reveals greatly compromised EF compared to prior study and apical ballooning consistent with stress cardiomyopathy -ECHO consistent with stress cardiomyopathy. -Will likely slowly wean this patient off the vent so as to reduce cardiac strain Non Ion gap metabolic and respiratory acidosis, POA. Improving -Upon arrival patient had an ABG consistent with non compensated respiratory acidosis -Repeat ABG showed improvement of the respiratory component of her acidosis but a decline in BiCarb resulting in a virtually unchanged pH since admission -Etiology uncertain at this time, could be consistent with Sepsis though active severe infection is questionable at this juncture -There is no report of active GI volume loss -Patient is not on a diuretic as an outpatient -Will continue Serial ABGs and track until resolution Possible aspiration pneumonia, present on admission, active and improving. Patient was thick yellow secretions suctioned from ET tube. Concern for aspiration when patient became unresponsive and was emergently intubated in the field. Patient does not appear infectious in do not have a preceding fever, cough, or chills and initial labs were unremarkable including an initially negative procalcitonin. Chemical pneumonitis secondary to aspiration may be more likely. - CT angiogram chest showed a possible atypical pneumonia pattern. - Empiric antibiotics as above. - Blood and sputum cultures obtained and results pending. - Respiratory PCR panel reveals rhinovirus. Elevated troponin return to stress cardiomyopathy, present on admission, active and stable. Initial troponin was 0.014 some T-wave abnormalities in the lateral leads. Initially this was attributed to patient's hypotension. Second troponin was significantly elevated and repeat EKG was obtained. Some changes were noted and due to this treatment for NSTEMI was initiated. Patient never complained of chest pain per EMS and when she arrived she was already intubated and sedated. Risk factors include significant smoking history, family history of premature heart disease, and current critical condition. - Heparin drip transitioned to SubQ as this appears likely secondary to stress cardiomyopathy as above - Initial troponin 0.041. Second troponin 0.322. Troponin now trending down - Lipid panel pending. - Supplemental oxygen as needed. - Aspirin 81 mg initially received and continued daily. - Beta oziel, AMOS inhibitor, and clopidogrel unable to be given due to intubated and hypotensive patient. Elevated liver enzymes, active and stable. Possibly secondary to hypotension. Although other etiology such as viral, autoimmune, and drugs cannot be excluded. - CT abdomen and pelvis revealed findings suggestive of hepatitis or other hepatocellular process. - Tylenol level was negative. - Hepatitis panel ordered and pending. This leads to stress cardiomyopathy as well. QTC prolongation, present on admission, active and improving. - Initial EKG on presentation to the ED showed a QTC of 542. Repeat EKG now reveals a QTC of 691. - Close monitoring on telemetry. - Avoid QT prolonging medications. Diabetes mellitus type II non-insulin using, present on admission, active and stable. - Hemoglobin A1c 6.6 on 10/11/16. Repeat hemoglobin A1c pending. - Metformin held. - Low-dose correctional scale with NPH. GERD, present on admission, chronic. - Pantoprazole 40 mg IV twice a day, switched to Famotidine due to prolonged QT . She is inpatient status, she is full resuscitation. GI Prophylaxis: Proton Pump Inhibitor VTE Prophylaxis: Sub-Q Heparin (Unfractionated) VTE Mechanical Devices: Intermittant Pneumatic CD Resuscitation Status: CPR: Attempt Resuscitation Ap Roberts MD Apr 20, 2017 08:06
[2017-04-20] MEDS: Midazolam Inj 100 MG in IV Premix 1 EACH IV PRN ×2 (08:12→22:45)
--- NOTE | 2017-04-20 09:32 | DRSVH ---
PROCEDURE: X-RAY CHEST ONE VIEW, PORTABLE ([id number]) INDICATIONS: follow-up on intubated patient TECHNIQUE: One view of the chest was acquired. COMPARISON: [facility], CR, XR CHEST 1VW (PORTABLE), 04/18/2017, 21:01. [facility], CR, XR CHEST 1VW (PORTABLE), 04/19/2017, 5:36. FINDINGS: Surgical changes and devices: The nasogastric tube, left chest tube and right central venous catheter are unchanged in position. Endotracheal tube is approximately 5 cm superior to the brien compared t o 4.2 cm on prior exam. Lungs and pleura: There is persistent appearance of interstitial opacities, slightly less prominent w hen compared to prior exam. Previously identified left pneumothorax is not as well-visualized. Mediastinum: Mediastinal contours appear normal. Heart size is normal. Bones and chest wall: No suspicious bony lesions. Overlying soft tissues appear unremarkable. IMPRESSION: Support lines as above with decreased visualization of pneumothorax compared to prior exa m. Small residual cannot be definitively excluded. Dictated by: Sharon Almanza M.D. on 04/20/2017 at 9:27 Approved by: Sharon Almanza M.D. on 04/20/2017 at 9:31
--- NOTE | 2017-04-20 10:05 | PCM.PNMED ---
Subjective Date of Service Apr 20, 2017 Subjective 61 yo smoker with moderately severe COPD by most recent PFTs but increasingly severe functional limitation over the preceding several months. She had acute worsening of SOB several days ago and eventually began using her noninvasive home ventilator continuously. A friend called 911 when the patient was difficult to arouse and she had a respiratory arrest shortly after first responders arrived. She was intubated on the scene. Upon arrival in the [facility] ED she was found to have a large Lt sided pneumothorax without evidence for mediastinal shift. A chest tube was placed and she was admitted to the ICU. Since admission, a limited bedside echo suggested and EF of 20-25% and Takotsubo 's syndrome which was confirmed by formal echo later on 04/19. Interval history Became restless over night, resisting care and sitting up in bed. Her sedation gtt was changed to Versed from Fentanyl and she appears more calm. The continues to be no air leak from the chest tube and she remains on norepi gtt at 0 Respiratory PCR positive for Rhinovirus and ET aspirate growing likely H. Flu. Day #2 meropenem.. Sedated on vent but becomes restless with minimal stimulation. No new critical events over night. Exam Vital Signs Vital Sign - Last Date Time Temp Pulse Resp B/P Pulse Ox O2 Delivery O2 Flow Rate FiO2 04/20/17 07:46 36.8 83 13 97/49 100 Mechanical Ventilator 30 Intake and Output 04/19/17 04/19/17 04/20/17 Cumulative From/Thru 15:00 23:00 07:00 04/18/17 20:00 - 04/20/17 06:33 Intake Total 3270 ml 1376 ml 79862 ml Output Total 765 ml 745 ml 2025 ml Balance 2505 ml 631 ml 9904 ml Intake IV Total 3270 ml 1376 ml 27236 ml Output Urine Total 550 ml 550 ml 1450 ml Gastric Drainage Total 100 ml 150 ml 400 ml Chest Tube Drainage Total 115 ml 45 ml 175 ml # Bowel Movements 0 0 Exam WDWN woman orally intubated and sedated on vent Lungs Slightly decreased breath sounds with rare end expiratory wheezes. Minimal rales. Very small area of chest wall crepitus. CV RRR, distant HTs, soft S1S2, no m/g/r Abd Soft, no HSM, + normal BT's Ext Firm Rt forearm, otherwise only trace edema Lines Rt IJ site with some oozing of blood. No air leak from Lt chest tube which has had minimal output. IVs and Medications Medications Reviewed: Medications were reviewed in detail Lab and Diagnostics Labs reviewed in detail Result Diagram: 04/20/1732904/20/17329 Microbiology Blood cultures pending MRSA swab pending Sputum culture pending Resp PCR pending X-Rays, CTs and MRIs . X-RAY CHEST ONE VIEW IMPRESSION: Status post placement of left chest tube. Small residual left apical pneumothorax. Dictated by: Rasta Malik M.D. on 04/18/2017 X-RAY CHEST ONE VIEW, PORTABLE IMPRESSION: Status post placement of left chest tube with residual small left apical pneumothorax. Status post placement of right central venous catheter. No pneumothorax. Dictated by: Rasta Malik M.D. on 04/18/2017 CT ANGIO CHEST PULMONARY EMBOLISM IMPRESSION: 1. No evidence for central pulmonary emboli. 2. Trace left apical pneumothorax. There is a chest tube on the left with associated subcutaneous air. 3. Moderate to severe emphysema. 4. Diffuse interstitial thickening and distended to pulmonary edema or interstitial pneumonia. Mild nodular infiltrates with "tree in bud" configuration could be secondary to atypical infection. 5. Bibasilar atelectasis. Dictated by: Frida Asif M.D. on 04/19/2017 CT ABDOMEN AND PELVIS WITH CONTRAST ([id number]) INDICATIONS: sepsis, elevated LFTs TECHNIQUE: After the administration of intravenous contrast, 5 mm thick sections acquired from the diaphragm to the symphysis. 5 mm coronal and sagittal reformats were acquired. For radiation dose reduction, the following was used: automated exposure control, adjustment of mA and/or kV according to patient size. COMPARISON: CT, CHEST/ABD/PELVIS W/CON IMPRESSION: 1. Periportal edema liver consistent with hepatitis. Recommend clinical correlation. 2. A small amount of pericholecystic fluid. No gallstones or gallbladder wall thickening. 3. Nephrolithiasis in right kidney. No evidence for renal obstruction. 4. Atherosclerosis. Dictated by: Frida Asif M.D. on 04/19/2017 at 7:43 CXR 04/20: Improved pneumothorax, no obvious pneumothorax. Cardiac Echo Impressions . Echocardiogram Report Interpretation Summary: The left ventricle is normal in size. Left ventricular systolic function is severely reduced. The ejection fraction is estimated to be 20-25%. LVEF has reduced significantly since prior study. Proximal LV is the only area of LV myocardium that has normal contractility. The mid LV segments are hypokinetic and distal LV segments are essentially akinetic. Findings are suspicious for stress induced cardiomyopathy but cannot exclude acute coronary syndrome. Clinical correlation is recommended. Assessment of diastolic parameters indicates a restrictive filling pattern of the left ventricle consistent with significantly elevated filling pressures. Borderline right ventricular enlargement. There are regional wall motion abnormalities. The right ventricular systolic pressure is estimated at 52 mmHg assuming a right atrial pressure of 15 mm Hg. The left atrial size is normal. Right atrial size is normal. There is no significant valvular heart disease. Assessment & Plan Lily Astudillo is a 61-year-old female with past medical history significant for COPD with centrilobular emphysema and asthma on chronic oxygen therapy who presents to the ED via EMS after intubation for acute hypoxic respiratory failure and was found to have a large Lt sided pneumothorax necessitating chest tube placement. The patient's sister Zhanna and [id number] Dolores are both nurses with a high degree of medical literacy, thus Zhanna should be the first point of contact for any acute changes or decision making, followed by Dolores who will relay information to the patient's son Som. IMP Acute on chronic hypoxemic respiratory failure. Likely due to an acute exacerbation of her COPD ultimately complicated by a spontaneous pneumothorax. Fortunately her air leak has stopped and she is easy to ventilate. With only rhinovirus and H. flu on her cultures I will de-escalate her abx to ceftriaxone. Acute systolic cardiomyopathy. Minimal elevation in her troponin and no acute infarct on her ECG. The appearance on echo is c/w Takotsubo's and family has confirmed that she has been under significant emotional and physical stress over the preceding months. Remains on norepi gtt. REC Change meropenem to ceftriaxone Steroids, bronchodilators Adjust vent, allowing pCO2 to rise closer to her baseline as we near the point where she can be extubated Begin enteral feedings today Maintain on vent, hoping to wean vasoactive gtt Repeat limited bedside echo tomorrow Serial labs Routine ICU prophylaxis Pain Evaluation: Adequate Pain Control GI Prophylaxis: Proton Pump Inhibitor VTE Prophylaxis: Sub-Q Heparin (Unfractionated) VTE Mechanical Devices: Intermittant Pneumatic CD Resuscitation Status: CPR: Attempt Resuscitation Time spent 40 minutes critical care exclusive of shared time and procedures Alfredito Avalos MD Apr 20, 2017 10:05 study and apical ballooning consistent with stress cardiomyopathy -ECHO consistent with stress cardiomyopathy. -Will likely slowly wean this patient off the vent so as to reduce cardiac strain Non Ion gap metabolic and respiratory acidosis, POA. Improving -Upon arrival patient had an ABG consistent with non compensated respiratory acidosis -Repeat ABG showed improvement of the respiratory component of her acidosis but a decline in BiCarb resulting in a virtually unchanged pH since admission -Etiology uncertain at this time, could be consistent with Sepsis though active severe infection is questionable at this juncture -There is no report of active GI volume loss -Patient is not on a diuretic as an outpatient -Will continue Serial ABGs and track until resolution Possible aspiration pneumonia, present on admission, active and improving. Patient was thick yellow secretions suctioned from ET tube. Concern for aspiration when patient became unresponsive and was emergently intubated in the field. Patient does not appear infectious in do not have a preceding fever, cough, or chills and initial labs were unremarkable including an initially negative procalcitonin. Chemical pneumonitis secondary to aspiration may be more likely. - CT angiogram chest showed a possible atypical pneumonia pattern. - Empiric antibiotics as above. - Blood and sputum cultures obtained and results pending. - Respiratory PCR panel reveals rhinovirus. Elevated troponin return to stress cardiomyopathy, present on admission, active and stable. Initial troponin was 0.014 some T-wave abnormalities in the lateral leads. Initially this was attributed to patient's hypotension. Second troponin was significantly elevated and repeat EKG was obtained. Some changes were noted and due to this treatment for NSTEMI was initiated. Patient never complained of chest pain per EMS and when she arrived she was already intubated and sedated. Risk factors include significant smoking history, family history of premature heart disease, and current critical condition. - Heparin drip transitioned to SubQ as this appears likely secondary to stress cardiomyopathy as above - Initial troponin 0.041. Second troponin 0.322. Troponin now trending down - Lipid panel pending. - Supplemental oxygen as needed. - Aspirin 81 mg initially received and continued daily. - Beta oziel, AMOS inhibitor, and clopidogrel unable to be given due to intubated and hypotensive patient. Elevated liver enzymes, active and stable. Possibly secondary to hypotension. Although other etiology such as viral, autoimmune, and drugs cannot be excluded. - CT abdomen and pelvis revealed findings suggestive of hepatitis or other hepatocellular process. - Tylenol level was negative. - Hepatitis panel ordered and pending. This leads to stress cardiomyopathy as well. QTC prolongation, present on admission, active and improving. - Initial EKG on presentation to the ED showed a QTC of 542. Repeat EKG now reveals a QTC of 691. - Close monitoring on telemetry. - Avoid QT prolonging medications. Diabetes mellitus type II non-insulin using, present on admission, active and stable. - Hemoglobin A1c 6.6 on 10/11/16. Repeat hemoglobin A1c pending. - Metformin held. - Low-dose correctional scale with NPH. GERD, present on admission, chronic. - Pantoprazole 40 mg IV twice a day, switched to Famotidine due to prolonged QT . She is inpatient status, she is full resuscitation. GI Prophylaxis: Proton Pump Inhibitor VTE Prophylaxis: Sub-Q Heparin (Unfractionated) VTE Mechanical Devices: Intermittant Pneumatic CD Resuscitation Status: CPR: Attempt Resuscitation Alfredito Avalos MD Apr 20, 2017 10:05
--- NOTE | 2017-04-20 10:11 | NUR ---
NUTRITION ASSESSMENT: ASSESS: 61 YO female admitted to CCU following acute hypoxic respiratory failure with intubation in the field. Chest x-ray obtained on arrival revealed left pneumothorax. Chest tube was placed emergently. Etiology likely multifactorial, including possible aspiration pneumonia or viral infection and pneumothorax in the setting of severe COPD. Patient had recently started a prednisone taper on 04/16/2017 and uses Trilogy unit at baseline. She is currently hypotensive, requiring norepi, with stress cardiomyopathy. Order received to initiate enteral feeding per RD recommendation. PMHx: COPD with centrilobular emphysema and asthma, seasonal allergies, endometriosis, nephrolithiasis, cervical spondylosis, chronic cervical and low back pain, GERD, insomnia, left renal cyst, adenomatous colonic polyps DIET: NPO x 2 D. LABS: Reviewed. Na 145, chloride 113, Cr 0.44, glu 177, A1c 6.2, Ca 7.8, Phos 1.6, AST 219, ALT 183, Alb 2.5, Procalc 0.61. MEDICATIONS: Reviewed. Norepi, insulin, versed, midazolam. Propofol rate currently 1.6 mL/hr, providing minimal lipid kcal. NUTRITION FOCUSED PHYSICAL ASSESSMENT: GI symptoms / stool: No BM reported.Ming: 11 today. Skin Integrity: Per Commercial Accountant, there are no pressure injuries at this time. ANTHROPOMETRICS: Current Wt: 58.6 kg, BMI 20.0 kg/n2. Admit weight: 53.5 kg, BMI: 19.0 kg/m2. IBW: 59.1 kg (90.5% IBW). There has been no recent weight loss. ESTIMATED NEEDS (VENT, UNDERWEIGHT, ES COPD): Calories: 1605 - 1873 kcal (30 - 35 kcal / kg BW) Protein 80 - 96 g protein (1.5 - 1.8 g / kg BW) Fluid: Approx. 1873 mL (35 mL / kg BW) NUTRITION DIAGNOSIS: 1)Inadequate oral intake related to inability to consume sufficient energy, as evidenced by NPO / vent status - PERSISTS. 2) Increased nutrient needs related to COPD with centrilobular emphysema and asthma, as evidenced by underweight status - PERSISTS. INTERVENTION: 1) Enteral feeding orders written as follows. Will initiate Pulmocare at 10 mL/hr x 24 hr. Once tolerance established, recommend advance 10 mL every 6 hr. to goal rate 50 mL/hr. Enteral feeding at goal would provide 1650 kcal, 69 g protein, sufficient to meet approx. 100% kcal / 75% protein needs. 2)Once enteral feeding tolerance established, recommend adding 1 packet ProSource liquid protein twice per day to meet 100% protein needs (91 g). MONITOR/EVALUATE: NPO / vent status, enteral feeding tolerance / advance, labs, weight, nutritional status. Follow up per high nutrition risk guidelines.
[2017-04-20] MEDS ORDERED: Vancomycin Serum Trough XX ONE (11:00)
[2017-04-20] MEDS: cefTRIAXone Inj 2,000 MG in Dextrose 5% Minibag Plus 50 ML IV SCH (11:10)
[2017-04-20] MEDS: Senna Leaf Extract 528 mg/15 mL Syrup PO PRN (16:07)
[2017-04-20] MEDS: Albuterol-Ipratropium 3 mL Inhalation Solution NEB SCH ×2 (16:38→20:48)
--- NOTE | 2017-04-20 16:55 | NUR ---
Cardiac/pulmonary/sedation SR per monitor tech. Levophed gtt continued for pressure support, currently infusing at 0.09mcg/kg/min. MAP 60-65. Afebrile. Continues on PRVC with 30% fi02 and peep of 5. Oxygen saturation maintained > 95% throughout shift. Lungs diminished/coarse. Small to moderate amount of thick white secretions with ET suction. Left chest tube secure to wall suction. Propofol, versed and fentanyl gtts continued for ventilator tolerance and pt comfort. Pulmocare tricking feeding initiated mid-shift, pt tolerating. Will continue to monitor.
[2017-04-21] VITALS (12 sets, daily range): BP systolic 92–142; BP diastolic 50–130; PULSE 73–99; RESP 11–15; O2SAT 97–100
[2017-04-21] MEDS: Albuterol-Ipratropium 3 mL Inhalation Solution NEB SCH ×6 (00:35→20:57)
[2017-04-21] MEDS: Insulin Human REGular 300 Unit/3 mL Inj SUBQ SCH ×4 (02:30→20:30)
[2017-04-21] MEDS: Chlorhexidine 0.12% 15 mL Oral Solution MT SCH ×5 (03:39→20:46)
[2017-04-21 03:47] LABS: BASOPHILS % (AUTO) 0.1 % (0-3); EOSINOPHILS % (AUTO) 0 % (0-5); MONOCYTES % (AUTO) 4.9 % (4-12); Mean Corpuscular Hemoglobin 29.5 pg (27.0-35.0); Mean Corpuscular Volume 88.4 fL (81-100); NEUTROPHILS % (AUTO) 88.6 % (40-74); Platelet Count 218 bil/L (150-400)
--- NOTE | 2017-04-21 06:19 | ABG ---
DateTimeAnalyzed 06:11:00 -_ pH ____7.434 - 7.350 7.450 pCO2 ___39.3__ -mmHg 35.0 45.0 pO2 ___71.1__ -mmHg 69.0 116 HCO3- ___25.9__ -mmol/L 22.0 26.0 ABE ____2.1__ -mmol/L -2.0 2.0 tHb ___11.5__ -g/dL 12.0 18.0 O2Hb ___93.1__ -% COHb ____0.8__ -% 0.0 1.5 MetHb ____1.1__ -% 0.4 1.5 sO2 ___94.9__ -% FIO2 ___30.0__ -% PEEP ____5.0__ -cmH2O Set_RR ___10.0__ -b/min Vt __500.0__ -L Drawn By LT - Date/Time Notified____ 06:18:00 -_ Notified By LT - Notified Whom JESSICA SWAN, RN - B 757 -mmHg tO2 ___15.2__ -Vol% Ap test _Positive -
--- NOTE | 2017-04-21 06:35 | NUR ---
GI / Sedation Trickle feed infusing, no residuals, bowel tones hypoactive. Propofol turned off and Versed increased to 5mg/hr, patient having coughing fits and attempting to sit up attempts to reach for tube when Versed is lower. No changes made to vent overnight, AM ABG stable. Patient has creamy secretions via ET tube. CT to suction, no air leak, 50ml of serous fluid out over gold cutter.
[2017-04-21] MEDS: Senna Leaf Extract 528 mg/15 mL Syrup PO PRN (07:23)
[2017-04-21] MEDS: MethylprednisoLONE Sodium Succinate 40 mg/mL Inj IVPUSH SCH ×2 (07:24→20:46)
[2017-04-21] MEDS: Heparin 5,000 Unit/mL Inj SUBQ SCH ×2 (07:24→16:22)
[2017-04-21] MEDS: Famotidine Inj 20 MG in IV Premix 1 EACH IV SCH ×2 (07:25→20:45)
--- NOTE | 2017-04-21 09:05 | NUR ---
Social Work- Initial Assessment Data: See Initial Assessment and Advance Directive Intervention for additional information. Pt's insurance is [employer]. Pt's PCP is Mason Velasco MD. Pt's readmit risk score is 3/8. Pt's NOK is sister Zhanna Knapp [phone]. Pt has no DPOA on file and no advance directives. Pt is currently in CCU, vented and sedated. Pt unable to complete assessment at this time. TRANSIT POLICE OFFICER contact pt's sister, Zhanna, regarding discharge planning, SW role explained. Pt's capacity for self-care assessed. Pt resides in [place] in a mobile home with 5 steps to enter with her friend Grayson and her SO Baljit. Pt's sister denied any concerns related to pt's capacity for self-care. Sister reports that pt has been independent with ADLs and self-care, no difficulties with stairs prior to admission. Sister reports that pt was no longer using DME but they would be able to obtain a walker or cane if needed. Pt drives. Pt has history with Juliann CURIEL RN PT [facility]UL[facility] [employer]ANSIT POLICE OFFICER but is no longer open with Juliann since she met her goals. Pt has no SNF history, no LTC or VA benefits. Pt has a Trilogy obtained through [employer] with additional O2 and supplies provided through [employer]. Pt has no DPOA or advance directives on file, though pt's sister has been trying to get pt to complete this. Pt is no longer a caregiver as her mother was living with Zhanna until two weeks ago when she was moved to memory care. SW explained D/C Planning checklist and DPOA paperwork and stated these will be left at bedside for Zhanna's reference. Also oriented Zhanna to the phone number placed on pt's whiteboard in her room. Zhanna appreciative. Discharge needs are unclear at this time, but Zhanna is agreeable and receptive to SW support. SW will continue to follow. Assessment: Pt who was previously independent with self-care and ADLs. Plan: Evolving; pt's sister is receptive to SW support and discharge planning when appropriate. SW continues to follow for needs at discharge. ELINOR Martinez Addendum: 04/21/17 at 0912 by AMY JUNG SS Amended: Links added.
[2017-04-21] MEDS: cefTRIAXone Inj 2,000 MG in Dextrose 5% Minibag Plus 50 ML IV SCH (09:14)
--- NOTE | 2017-04-21 09:17 | PCM.PNMED ---
Subjective Date of Service Apr 21, 2017 Subjective 61 yo smoker with moderately severe COPD by most recent PFTs but increasingly severe functional limitation over the preceding several months. She had acute worsening of SOB several days ago and eventually began using her noninvasive home ventilator continuously. A friend called 911 when the patient was difficult to arouse and she had a respiratory arrest shortly after first responders arrived. She was intubated on the scene. Upon arrival in the [facility] ED she was found to have a large Lt sided pneumothorax without evidence for mediastinal shift. A chest tube was placed and she was admitted to the ICU. Since admission, a limited bedside echo suggested an EF of 20-25% and Takotsubo' s syndrome which was confirmed by formal echo later on 04/19. Her previous echo had shown normal LVEF. Interval history Has done well over night, resting comfortably. TFs begun at 10 ml/hr SpO2 95% on 0.3 Opens eyes briefly to loud voice and light touch Exam Vital Signs Vital Sign - Last Date Time Temp Pulse Resp B/P Pulse Ox O2 Delivery O2 Flow Rate FiO2 04/21/17 08:17 Ventilator 04/21/17 07:37 78 104/55 100 30 04/21/17 07:21 36.6 15 Intake and Output 04/20/17 04/20/17 04/21/17 Cumulative From/Thru 15:00 23:00 07:00 04/18/17 20:00 - 04/21/17 06:27 Intake Total 1122 ml 818 ml 78137 ml Output Total 490 ml 575 ml 3090 ml Balance 632 ml 243 ml 81125 ml Intake IV Total 1057 ml 544 ml 64246 ml Tube Feeding 25 ml 154 ml 179 ml Tube Irrigant 40 ml 120 ml 160 ml Output Urine Total 475 ml 575 ml 2500 ml Gastric Drainage Total 400 ml Chest Tube Drainage Total 15 ml 190 ml # Bowel Movements 0 Exam WDWN woman orally intubated on vent Lungs Decreased breath sounds diffusely, purvis expiratory wheezes over Lt lung CV Distant HTs, no audible m/g/r Abd Soft, nontender, normal BTs, no HSM Ext Warm, firm induration Rt forearm, generalized 1-2+ edema both UE and LE's IVs and Medications Medications Reviewed: Medications were reviewed in detail Lab and Diagnostics reviewed in detail Result Diagram: 04/21/17 0330 04/21/17 0330 Microbiology Blood cultures pending MRSA swab pending Sputum culture pending Resp PCR pending X-Rays, CTs and MRIs . X-RAY CHEST ONE VIEW IMPRESSION: Status post placement of left chest tube. Small residual left apical pneumothorax. Dictated by: Rasta Malik M.D. on 04/18/2017 X-RAY CHEST ONE VIEW, PORTABLE IMPRESSION: Status post placement of left chest tube with residual small left apical pneumothorax. Status post placement of right central venous catheter. No pneumothorax. Dictated by: Rasta Malik M.D. on 04/18/2017 CT ANGIO CHEST PULMONARY EMBOLISM IMPRESSION: 1. No evidence for central pulmonary emboli. 2. Trace left apical pneumothorax. There is a chest tube on the left with associated subcutaneous air. 3. Moderate to severe emphysema. 4. Diffuse interstitial thickening and distended to pulmonary edema or interstitial pneumonia. Mild nodular infiltrates with "tree in bud" configuration could be secondary to atypical infection. 5. Bibasilar atelectasis. Dictated by: Frida Asif M.D. on 04/19/2017 CT ABDOMEN AND PELVIS WITH CONTRAST ([id number]) INDICATIONS: sepsis, elevated LFTs TECHNIQUE: After the administration of intravenous contrast, 5 mm thick sections acquired from the diaphragm to the symphysis. 5 mm coronal and sagittal reformats were acquired. For radiation dose reduction, the following was used: automated exposure control, adjustment of mA and/or kV according to patient size. COMPARISON: CT, CHEST/ABD/PELVIS W/CON IMPRESSION: 1. Periportal edema liver consistent with hepatitis. Recommend clinical correlation. 2. A small amount of pericholecystic fluid. No gallstones or gallbladder wall thickening. 3. Nephrolithiasis in right kidney. No evidence for renal obstruction. 4. Atherosclerosis. Dictated by: Frida Asif M.D. on 04/19/2017 at 7:43 CXR 04/20: Improved pneumothorax, no obvious pneumothorax. Cardiac Echo Impressions . Echocardiogram Report Interpretation Summary: The left ventricle is normal in size. Left ventricular systolic function is severely reduced. The ejection fraction is estimated to be 20-25%. LVEF has reduced significantly since prior study. Proximal LV is the only area of LV myocardium that has normal contractility. The mid LV segments are hypokinetic and distal LV segments are essentially akinetic. Findings are suspicious for stress induced cardiomyopathy but cannot exclude acute coronary syndrome. Clinical correlation is recommended. Assessment of diastolic parameters indicates a restrictive filling pattern of the left ventricle consistent with significantly elevated filling pressures. Borderline right ventricular enlargement. There are regional wall motion abnormalities. The right ventricular systolic pressure is estimated at 52 mmHg assuming a right atrial pressure of 15 mm Hg. The left atrial size is normal. Right atrial size is normal. There is no significant valvular heart disease. Assessment & Plan Lily Astudillo is a 61-year-old female with past medical history significant for COPD with centrilobular emphysema and asthma on chronic oxygen therapy who presents to the ED via EMS after intubation for acute hypoxic respiratory failure and was found to have a large Lt sided pneumothorax necessitating chest tube placement. The patient's sister Zhanna and [id number] Dolores are both nurses with a high degree of medical literacy, thus Zhanna should be the first point of contact for any acute changes or decision making, followed by Dolores who will relay information to the patient's son Som. IMP Acute on chronic hypoxemic respiratory failure. Likely due to an acute exacerbation of her COPD ultimately complicated by a spontaneous pneumothorax. Fortunately her air leak has stopped and she is easy to ventilate. With only rhinovirus and H. flu on her cultures I will de-escalate her abx to ceftriaxone. Acute systolic cardiomyopathy. Troponin elevation has increased but has no acute infarct on her ECG. The appearance on echo is c/w Takotsubo's and family has confirmed that she has been under significant emotional and physical stress over the preceding months. An ischemic event may have contributed. Remains on norepi gtt. REC Change meropenem to ceftriaxone Steroids, bronchodilators Adjust vent, allowing pCO2 to rise closer to her baseline as we near the point where she can be extubated SAT/SBT later today Advance enteral feedings today Serial labs Routine ICU prophylaxis Pain Evaluation: Adequate Pain Control GI Prophylaxis: Proton Pump Inhibitor VTE Prophylaxis: Sub-Q Heparin (Unfractionated) VTE Mechanical Devices: Intermittant Pneumatic CD Resuscitation Status: CPR: Attempt Resuscitation Time spent 35 minutes critical care exclusive of shared time and procedures Alfredito Avalos MD Apr 21, 2017 09:14
--- NOTE | 2017-04-21 09:38 | PCM.PNMED ---
Subjective Date of Service Apr 21, 2017 Subjective 61-year-old female ex-smoker with a severe centrilobular emphysema, COPD developed pneumothorax probably blood, received chest tube still in place since 04/18/2017, continue be intubated, suspicious for aspiration pneumonia. Uneventful night, eyes spontaneously open,awake, trying to withdraw ET tube. Levophed at 0.02. maintaining MAP >65. ABG today show pH of 7.3,'s PCO2 39.3, PO2 71.1, FiO2 of 30% on PEEP of 5 respiratory rate of 10 and tidal volume 500 cc, patient trigger breaths. I/O 800 mL N/575 out, +10 L overall, patient currently on trickle feed BMP, kidney function remained stable. Creatinine 0.39, no electrolyte abnormalities The with white count 19, neutrophil 88.6% in the setting of steroid use. Unable to conduct review of system due to patient intubated Exam Vital Signs Vital Sign - Last Date Time Temp Pulse Resp B/P Pulse Ox O2 Delivery O2 Flow Rate FiO2 04/21/17 07:37 78 104/55 100 30 04/21/17 07:21 36.6 15 Mechanical Ventilator Intake and Output 04/20/17 04/20/17 04/21/17 Cumulative From/Thru 15:00 23:00 07:00 04/18/17 20:00 - 04/21/17 06:27 Intake Total 1122 ml 818 ml 50330 ml Output Total 490 ml 575 ml 3090 ml Balance 632 ml 243 ml 72162 ml Intake IV Total 1057 ml 544 ml 82667 ml Tube Feeding 25 ml 154 ml 179 ml Tube Irrigant 40 ml 120 ml 160 ml Output Urine Total 475 ml 575 ml 2500 ml Gastric Drainage Total 400 ml Chest Tube Drainage Total 15 ml 190 ml # Bowel Movements 0 Exam General: Intubated, lightly sedated HEENT: Normocephalic, atraumatic. PERRLA, Neck: No JVD, No bruits. No lymphadenopathy or thyromegaly. Cardiovascular: Regular rate and rhythm with no murmurs, rubs, or gallops appreciated Pulmonary: Bilateral air sound, coarse breathing throughout, no wheezes noted Abdomen: +Bowel sound, Soft, nontender, nondistended. Extremities: No clubbing or cyanosis, no lymphedema, no b/l lower leg edema Skin: Normal temperature, turgor, and texture; no rash. No visualized skin ulcer. Neurological: CN II-VII grossly intact, awake, spontaneous eye opening, IVs and Medications Medications Ceftriaxone daily Famotidine every 12 Heparin subcutaneous Norepinephrine Propofol Solu-Medrol 60 mg every 12 hours midazolam drip Lab and Diagnostics Result Diagram: 04/21/1732904/21/17329 Microbiology Blood cultures pending MRSA swab pending Sputum culture pending Resp PCR pending X-Rays, CTs and MRIs . X-RAY CHEST ONE VIEW IMPRESSION: Status post placement of left chest tube. Small residual left apical pneumothorax. Dictated by: Rasta Malik M.D. on 04/18/2017 X-RAY CHEST ONE VIEW, PORTABLE IMPRESSION: Status post placement of left chest tube with residual small left apical pneumothorax. Status post placement of right central venous catheter. No pneumothorax. Dictated by: Rasta Malik M.D. on 04/18/2017 CT ANGIO CHEST PULMONARY EMBOLISM IMPRESSION: 1. No evidence for central pulmonary emboli. 2. Trace left apical pneumothorax. There is a chest tube on the left with associated subcutaneous air. 3. Moderate to severe emphysema. 4. Diffuse interstitial thickening and distended to pulmonary edema or interstitial pneumonia. Mild nodular infiltrates with "tree in bud" configuration could be secondary to atypical infection. 5. Bibasilar atelectasis. Dictated by: Frida Asif M.D. on 04/19/2017 CT ABDOMEN AND PELVIS WITH CONTRAST ([id number]) INDICATIONS: sepsis, elevated LFTs TECHNIQUE: After the administration of intravenous contrast, 5 mm thick sections acquired from the diaphragm to the symphysis. 5 mm coronal and sagittal reformats were acquired. For radiation dose reduction, the following was used: automated exposure control, adjustment of mA and/or kV according to patient size. COMPARISON: CT, CHEST/ABD/PELVIS W/CON IMPRESSION: 1. Periportal edema liver consistent with hepatitis. Recommend clinical correlation. 2. A small amount of pericholecystic fluid. No gallstones or gallbladder wall thickening. 3. Nephrolithiasis in right kidney. No evidence for renal obstruction. 4. Atherosclerosis. Dictated by: Frida Asif M.D. on 04/19/2017 at 7:43 CXR 04/20: Improved pneumothorax, no obvious pneumothorax. Cardiac Echo Impressions . Echocardiogram Report Interpretation Summary: The left ventricle is normal in size. Left ventricular systolic function is severely reduced. The ejection fraction is estimated to be 20-25%. LVEF has reduced significantly since prior study. Proximal LV is the only area of LV myocardium that has normal contractility. The mid LV segments are hypokinetic and distal LV segments are essentially akinetic. Findings are suspicious for stress induced cardiomyopathy but cannot exclude acute coronary syndrome. Clinical correlation is recommended. Assessment of diastolic parameters indicates a restrictive filling pattern of the left ventricle consistent with significantly elevated filling pressures. Borderline right ventricular enlargement. There are regional wall motion abnormalities. The right ventricular systolic pressure is estimated at 52 mmHg assuming a right atrial pressure of 15 mm Hg. The left atrial size is normal. Right atrial size is normal. There is no significant valvular heart disease. Assessment & Plan Lily Astudillo is a 61-year-old female with past medical history significant for COPD with centrilobular emphysema and asthma on chronic oxygen therapy who presents to the ED via EMS after intubation for acute hypoxic respiratory failure. Subsequent imaging revealed a significant left sided pneumothorax which responded quickly to chest tube placement. Overall the course of this exacerbation is not entirely clear, whether it started with an exacerbation and cough which precipitated her pneumo, or began with a pneumo that progressively worsened with continuous use of Trilogy positive pressure ventilation and subsequent intubation cannot be determined without more thorough history which at the moment cannot be obtained in this intubated patient. Acute hypoxic respiratory failure in the setting of severe COPD, present on admission, active and improving. - Etiology likely multifactorial: viral infection superimposing pneumonia, pneumothorax in the setting of severe COPD. Patient had recently started a prednisone taper on 04/16/2017. Patient uses Trilogy unit at baseline. Was using Trilogy continuously for the past several days - Patient intubated and sedated since 04/18/2017, Versed. - CT angiogram showed no PE. Redemonstrate left pneumothorax, chest tube in place - Initial ABG on arrival to the ED was 7.25/55.3/63.9/23.2 - Respiratory PCR showing rhinovirus - Ipratropium every 4 hours scheduled, Solu-Medrol 60 mg every 12 hours - Breathing trial, possible extubation today. Will restart versed at low dose drip. Sepsis, present on admission, active and improving. - Criteria met include: Heart rate 90 and respiratory rate prior to intubation greater than 20. Possible respiratory source. - leukocytosis likely due to steroid administration, Procalc could be due to cardiovascular compromise - Fluid resuscitation initiated. Norepinephrine and vasopressin added in the ED. Vasopressin has since been DC'd - Empiric antibiotics started including meropenem, levofloxacin, and vancomycin. Levofloxacin since discontinued due to prolonged QT - De-escalate antibiotics as able - likely be wean off of pressors today. pneumothorax, present on admission, active and improving. Patient with left pneumothorax on arrival to the ED. - Chest tube in place since 04/18/2017, to manage by surgery - Remains on on suction, no air leaks Likely Stress induced cardiomyopathy, POA, acute. Active and stable. -Patient preliminary ECHO read reveals greatly compromised EF compared to prior study and apical ballooning consistent with stress cardiomyopathy -ECHO consistent with stress cardiomyopathy. -Will likely slowly wean this patient off the vent so as to reduce cardiac strain Non Ion gap metabolic and respiratory acidosis, POA. Improving -Upon arrival patient had an ABG consistent with non compensated respiratory acidosis -Repeat ABG showed improvement of the respiratory component of her acidosis but a decline in BiCarb resulting in a virtually unchanged pH since admission -Etiology uncertain at this time, could be consistent with Sepsis though active severe infection is questionable at this juncture -There is no report of active GI volume loss -Patient is not on a diuretic as an outpatient -Will continue Serial ABGs and track until resolution Possible aspiration pneumonia, present on admission, active and improving. Patient was thick yellow secretions suctioned from ET tube. Concern for aspiration when patient became unresponsive and was emergently intubated in the field. Patient does not appear infectious in do not have a preceding fever, cough, or chills and initial labs were unremarkable including an initially negative procalcitonin. Chemical pneumonitis secondary to aspiration may be more likely. - CT angiogram chest showed a possible atypical pneumonia pattern. - Empiric antibiotics as above. - Blood and sputum cultures obtained and results pending. - Respiratory PCR panel reveals rhinovirus. Elevated troponin return to stress cardiomyopathy, present on admission, active and stable. Initial troponin was 0.014 some T-wave abnormalities in the lateral leads. Initially this was attributed to patient's hypotension. Second troponin was significantly elevated and repeat EKG was obtained. Some changes were noted and due to this treatment for NSTEMI was initiated. Patient never complained of chest pain per EMS and when she arrived she was already intubated and sedated. Risk factors include significant smoking history, family history of premature heart disease, and current critical condition. - Heparin drip transitioned to SubQ as this appears likely secondary to stress cardiomyopathy as above - Initial troponin 0.041. Second troponin 0.322. Troponin now trending down - Lipid panel pending. - Supplemental oxygen as needed. - Aspirin 81 mg initially received and continued daily. - Beta oziel, AMOS inhibitor, and clopidogrel unable to be given due to intubated and hypotensive patient. Elevated liver enzymes, active and stable. Possibly secondary to hypotension. Although other etiology such as viral, autoimmune, and drugs cannot be excluded. - CT abdomen and pelvis revealed findings suggestive of hepatitis or other hepatocellular process. - Tylenol level was negative. - Hepatitis panel negative QTC prolongation, present on admission, active and improving. - Initial EKG on presentation to the ED showed a QTC of 542. Repeat EKG now reveals a QTC of 691. - Close monitoring on telemetry. - Avoid QT prolonging medications. Diabetes mellitus type II non-insulin using, present on admission, active and stable. - Hemoglobin A1c 6.6 on 10/11/16. Repeat hemoglobin A1c pending. - Metformin held. - Low-dose correctional scale with NPH. GERD, present on admission, chronic. - Pantoprazole 40 mg IV twice a day, switched to Famotidine due to prolonged QT . She is inpatient status, she is full resuscitation. The patient's sister Zhanna and [id number] Dolores are both nurses with a high degree of medical literacy, thus Zhanna should be the first point of contact for any acute changes or decision making, followed by Dolores who will relay information to the patient's son Som. GI Prophylaxis: Proton Pump Inhibitor VTE Prophylaxis: Sub-Q Heparin (Unfractionated) VTE Mechanical Devices: Intermittant Pneumatic CD Resuscitation Status: CPR: Attempt Resuscitation Attending Statement The patient was seen and examined together with on April 21 and I agree with the history, exam findings, and plan as outlined in the note above. I did participate in all aspects of the services provided today, including documentation and the plan of care. [The patient will remain intubated. We will do a breathing trial. She continues to have a chest tube on the left side for her pneumothorax which appears to be fully expanded at this time. She is currently on corticosteroids as well. She has been weaned off norepinephrine. Antibiotics for possible pneumonia continue. Galen Trujillo DO Apr 21, 2017 07:58 Ap Roberts MD Apr 22, 2017 07:39
--- NOTE | 2017-04-21 10:50 | PROG NOTE ---
[address] [address] PROGRESS NOTE PATIENT: SHANNON ROBERSON : 1955 MR#: [id number] ADMIT: 04/18/2017 JOB ID: [id number] DATE: 04/21/2017 REASON FOR FOLLOWUP: Respiratory failure in a COPD patient with underlying viral and perhaps bacterial respiratory tract infection. INTERVAL HISTORY: Over the past 48 hours or so since I had last seen the patient she has been relatively stable, but remains on the ventilator. Her norepinephrine dose has been gradually weaned, but she remains on 0.02 mcg/kg minute of norepinephrine to support her blood pressure. Her ventilator settings are relatively minimal now at 30% and 5 of PEEP and plans are being made over the next day or two to begin pressure support trials and move towards extubation. She still has a left-sided chest tube. This morning with difficulty I was able to arouse the patient. Once her eyes were open she did seem to nod and shake her head appropriately, but really no history can be obtained from this intubated and sedated patient who arouses only with difficulty. This case was discussed with the bedside nurse. The patient has been afebrile. Her current temp 36.6, pulse 78, blood pressure 104/55. She is on 30% and 5 of PEEP as mentioned. PHYSICAL EXAMINATION: Examination of the head reveals no notable abnormalities. She does have some chemosis with respect to her eyes. Oral endotracheal tube and orogastric tube in good position. Neck without notable abnormalities. Lungs with decreased breath sounds diffusely, but particular in the left base. Left-sided chest tube is present. The patient's cardiac tones are distant. Abdomen is essentially benign. No skin rash. LABORATORIES: Include white count 19,000 mild left shift which may be attributable to steroids as she remains on methylprednisolone. Creatinine 0.39. BNP 1127. ALT is 172. Procalcitonin 0.61, 0.8 a couple days ago. Serologic studies include negative hepatitis C antibody and urine Legionella and pneumococcal antigens are negative. With respect to microbiology, sputum from admission had a Gram stain which looked like H. flu and actually did grow H. flu. This is a beta lactamase negative H. flu so ampicillin could be used for treatment here. Blood cultures are negative. A respiratory viral PCR was positive for rhino virus or enterovirus. IMAGING: Includes a chest x-ray from today, which I reviewed. It shows interstitial opacities and that left-sided chest tube. IMPRESSION: This woman with very significant chronic obstructive pulmonary disease who presented with a large pneumothorax and after admission and chest tube placement required vasopressor agents. It was unclear as to whether or not she had an infection when she was initially admitted though there were some suggestions that perhaps she did and it now appears relatively clear that she has at least a significant viral infection with the enterovirus/rhino virus PCR probe positive. H. flu in the sputum of a patient with chronic obstructive pulmonary disease is not surprising and could represent colonization, but there was a great deal of polys in her sputum and also a great many gram-negative rods seen on the Gram stain and this strongly suggests to me that the Haemophilus influenzae is actually a pathogen in this circumstance. RECOMMENDATIONS: 1. I agree with the switch to ceftriaxone from meropenem which we had initially started in this complex patient after admission. If we wanted to we could actually treat this patient with ampicillin alone. 2. The patient should be kept on droplet isolation and I discussed this with one of the residents yesterday. 3. Total course of antibiotics probably 5-7 days in this patient with viral pneumonia followed by what appears to be H. flu pneumonia causing COPD decompensation and is also in association of course with the pneumothorax.
--- NOTE | 2017-04-21 11:28 | DRSVH ---
PROCEDURE: X-RAY CHEST ONE VIEW, PORTABLE ([id number]) INDICATIONS: respiratory failure, history of left pneumothorax TECHNIQUE: One view of the chest was acquired. COMPARISON: [facility], CR, XR CHEST 1VW (PORTABLE), 04/20/2017, 5:22. FINDINGS: Surgical changes and devices: Left-sided chest tube is similar in position. Right internal jugular c atheter, endotracheal tube, and nasogastric tubes appear unchanged in position. The tip of the nasog astric tube is at the gastroesophageal junction with the side-port in the distal esophagus but Lungs and pleura: The right costophrenic angle is incompletely included on the current study limitin g evaluation. No definite residual pneumothorax identified. No definite pleural effusions. There i s persistent mild pulmonary edema. There is hyperinflation of the lungs with flattening of the hemid iaphragms compatible with COPD. Mediastinum: Mediastinal contours appear unchanged. Heart size is normal. Bones and chest wall: No suspicious bony lesions. Overlying soft tissues appear unremarkable. IMPRESSION: 1. No definite residual left pneumothorax identified. 2. Persistent mild pulmonary edema. 3. Nasogastric tube tip demonstrated at the gastroesophageal junction with side port in the distal e sophagus. Recommend further advancement into the stomach. Dictated by: Neymar Nixon M.D. on 04/21/2017 at 11:25 Approved by: Neymar Nixno M.D. on 04/21/2017 at 11:27
--- NOTE | 2017-04-21 16:46 | NUR ---
Pulmonary/cardiac/sedation Pressure support trial underway, plan to continue till 18:00 if pt tolerates. Sp02 >95%. Left chest tube to water seal/suction, with minimal serous output. Fentanyl gtt infusing at 25mcg/hr and versed at 3mg/hr. Pt opening eyes to voice and following some verbal commands. Anxiety and agitation calmed by staff presence, continuing to support. SR/ST per manager zone. Levophed gtt turned off at 14:00, MAP holding in mid 60s. Tolerating pulmocare tube feeding, residuals < 20cc. Bowel regiment medications administered. Rivera to DD with adequate output. Will continue to monitor.
[2017-04-21] MEDS: Midazolam Inj 100 MG in IV Premix 1 EACH IV PRN (17:14)
[2017-04-21] MEDS: fentaNYL 2,500 mCg/250 mL 2,500 MCG in IV Premix 1 EACH IV SCH (20:46)
[2017-04-21] MEDS ORDERED: Dexmedetomidine Inj 400 MCG in 0.9% Sodium Chloride 100 ML IV SCH (21:34)
[2017-04-21] MEDS: Dexmedetomidine 400 mCg/100 mL 400 MCG in IV Premix 1 EACH IV SCH (22:14)
[2017-04-22] VITALS (18 sets, daily range): BP systolic 113–139; BP diastolic 64–81; PULSE 74–106; RESP 11–18; O2SAT 90–100
[2017-04-22] MEDS: Albuterol-Ipratropium 3 mL Inhalation Solution NEB SCH ×8 (00:24→23:53)
[2017-04-22] MEDS: Chlorhexidine 0.12% 15 mL Oral Solution MT SCH ×5 (00:29→16:17)
[2017-04-22] MEDS: Heparin 5,000 Unit/mL Inj SUBQ SCH ×3 (00:29→16:38)
[2017-04-22] MEDS: Insulin Human REGular 300 Unit/3 mL Inj SUBQ SCH ×4 (03:29→20:30)
[2017-04-22 03:31] LABS: BASOPHILS % (AUTO) 0.2 % (0-3); EOSINOPHILS % (AUTO) 0 % (0-5); MONOCYTES % (AUTO) 4.1 % (4-12); Mean Corpuscular Hemoglobin 29.3 pg (27.0-35.0); Mean Corpuscular Volume 89.2 fL (81-100); NEUTROPHILS % (AUTO) 84.2 % (40-74); Platelet Count 192 bil/L (150-400)
[2017-04-22 03:55] LABS: Magnesium 2.4 mg/dL (1.6-2.6)
--- NOTE | 2017-04-22 06:01 | NUR ---
Sedation MD called, plan for sedation discussed. Orders received for Precedex which is started and titrated up to 0.5mcg/kg/hr. Versed titrated from 5mg/hr to 1 mg/hr. Fentanyl from 50mcgs/hr to 25mcgs/hr. Patient wakes easily, nods or shakes head to questions, is considerably less anxious and agitated following the addition of Precedex. Patient does still having coughing fits and tries to sit forward at times. Restraints in place for safety.
[2017-04-22] MEDS: Famotidine Inj 20 MG in IV Premix 1 EACH IV SCH ×2 (07:42→20:20)
[2017-04-22] MEDS: MethylprednisoLONE Sodium Succinate 40 mg/mL Inj IVPUSH SCH ×2 (07:42→20:20)
[2017-04-22] MEDS: Propofol Inj 1,000,000 MCG in IV Premix 1 EACH IV SCH (09:23)
[2017-04-22] MEDS: Dexmedetomidine 400 mCg/100 mL 400 MCG in IV Premix 1 EACH IV SCH (09:29)
[2017-04-22] MEDS: cefTRIAXone Inj 2,000 MG in Dextrose 5% Minibag Plus 50 ML IV SCH (09:56)
[2017-04-22] MEDS ORDERED: Furosemide 10 mg/mL 2 mL Inj IVPUSH STA (10:15)
--- NOTE | 2017-04-22 10:47 | PCM.PNMED ---
Subjective Date of Service Apr 22, 2017 Subjective 61 yo smoker with moderately severe COPD by most recent PFTs but increasingly severe functional limitation over the preceding several months. She had acute worsening of SOB several days ago and eventually began using her noninvasive home ventilator continuously. A friend called 911 when the patient was difficult to arouse and she had a respiratory arrest shortly after first responders arrived. She was intubated on the scene. Upon arrival in the [facility] ED she was found to have a large Lt sided pneumothorax without evidence for mediastinal shift. A chest tube was placed and she was admitted to the ICU. Since admission, a limited bedside echo suggested and EF of 20-25% and Takotsubo 's syndrome which was confirmed by formal echo later on 04/19. Interval history Became restless over night, dexmedetomidine gtt started and she is now comfortable and tolerating a SBT on 12/21 with FiO2 0.3, RR 12 with SpO2 100% Respiratory PCR positive for Rhinovirus and ET aspirate growing likely H. Flu. Day #2 ceftriaxone after 2 days meropenem Improved BP, off all pressors over night. Tube feeds at goal but now held in anticipation of extubation later today. No air leak from chest tube. No new critical events over night. Exam Vital Signs Vital Sign - Last Date Time Temp Pulse Resp B/P Pulse Ox O2 Delivery O2 Flow Rate FiO2 04/22/17 09:58 74 139/76 100 30 04/22/17 08:00 Ventilator 04/22/17 07:31 37.0 14 Intake and Output 04/21/17 04/21/17 04/22/17 Cumulative From/Thru 15:00 23:00 07:00 04/18/17 20:00 - 04/22/17 06:04 Intake Total 675 ml 1205 ml 68731 ml Output Total 450 ml 645 ml 4185 ml Balance 225 ml 560 ml 03268 ml Intake IV Total 421 ml 333 ml 19762 ml Tube Feeding 174 ml 427 ml 780 ml Tube Irrigant 80 ml 445 ml 685 ml Output Urine Total 450 ml 575 ml 3525 ml Gastric Drainage Total 400 ml Chest Tube Drainage Total 70 ml 260 ml # Bowel Movements 0 Exam WDWM orally intubated, resting comfortably on vent Lungs Decreased breath sounds with minimal crackles over Lt. lung, NO crepitus , NO wheezing CV Distant HT's, no m/g/r Abd Soft, normal BT's, no HSM Ext Warm, pulses 2+ x 4 radial and pedal. 2+ edema, most pronounced over Rt forearm IVs and Medications Medications Reviewed: Medications were reviewed in detail Lab and Diagnostics Reviewed in detail Result Diagram: 04/22/1730904/22/17309 Microbiology Blood cultures pending MRSA swab pending Sputum culture pending Resp PCR pending X-Rays, CTs and MRIs . X-RAY CHEST ONE VIEW IMPRESSION: Status post placement of left chest tube. Small residual left apical pneumothorax. Dictated by: Rasta Malik M.D. on 04/18/2017 X-RAY CHEST ONE VIEW, PORTABLE IMPRESSION: Status post placement of left chest tube with residual small left apical pneumothorax. Status post placement of right central venous catheter. No pneumothorax. Dictated by: Rasta Malik M.D. on 04/18/2017 CT ANGIO CHEST PULMONARY EMBOLISM IMPRESSION: 1. No evidence for central pulmonary emboli. 2. Trace left apical pneumothorax. There is a chest tube on the left with associated subcutaneous air. 3. Moderate to severe emphysema. 4. Diffuse interstitial thickening and distended to pulmonary edema or interstitial pneumonia. Mild nodular infiltrates with "tree in bud" configuration could be secondary to atypical infection. 5. Bibasilar atelectasis. Dictated by: Frida Asif M.D. on 04/19/2017 CT ABDOMEN AND PELVIS WITH CONTRAST ([id number]) INDICATIONS: sepsis, elevated LFTs TECHNIQUE: After the administration of intravenous contrast, 5 mm thick sections acquired from the diaphragm to the symphysis. 5 mm coronal and sagittal reformats were acquired. For radiation dose reduction, the following was used: automated exposure control, adjustment of mA and/or kV according to patient size. COMPARISON: CT, CHEST/ABD/PELVIS W/CON IMPRESSION: 1. Periportal edema liver consistent with hepatitis. Recommend clinical correlation. 2. A small amount of pericholecystic fluid. No gallstones or gallbladder wall thickening. 3. Nephrolithiasis in right kidney. No evidence for renal obstruction. 4. Atherosclerosis. Dictated by: Frida Asif M.D. on 04/19/2017 at 7:43 CXR 04/20: Improved pneumothorax, no obvious pneumothorax. Cardiac Echo Impressions . Echocardiogram Report Interpretation Summary: The left ventricle is normal in size. Left ventricular systolic function is severely reduced. The ejection fraction is estimated to be 20-25%. LVEF has reduced significantly since prior study. Proximal LV is the only area of LV myocardium that has normal contractility. The mid LV segments are hypokinetic and distal LV segments are essentially akinetic. Findings are suspicious for stress induced cardiomyopathy but cannot exclude acute coronary syndrome. Clinical correlation is recommended. Assessment of diastolic parameters indicates a restrictive filling pattern of the left ventricle consistent with significantly elevated filling pressures. Borderline right ventricular enlargement. There are regional wall motion abnormalities. The right ventricular systolic pressure is estimated at 52 mmHg assuming a right atrial pressure of 15 mm Hg. The left atrial size is normal. Right atrial size is normal. There is no significant valvular heart disease. Assessment & Plan Lily Astudillo is a 61-year-old female with past medical history significant for COPD / centrilobular emphysema and asthma on chronic oxygen therapy who presents to the ED after intubation by EMS for respiratory arrest / acute hypoxic respiratory failure. Upon arrival in the ED she was found to have a large Lt sided pneumothorax necessitating chest tube placement. She was hypotensive initially and a rapid limited echocardiogram demonstrated an EF of 20-25% with apical akinesis The patient's sister Zhanna and [id number] Dolores are both nurses with a high degree of medical literacy, thus Zhanna should be the first point of contact for any acute changes or decision making, followed by Dolores who will relay information to the patient's son Som. IMP Acute on chronic hypoxemic respiratory failure. Likely due to an acute exacerbation of her COPD ultimately complicated by a spontaneous pneumothorax. Fortunately her air leak has stopped and she is easy to ventilate. With only rhinovirus and H. flu on her cultures I will de-escalate her abx to ceftriaxone. She appears ready for liberation from ventilation this morning Acute systolic cardiomyopathy. Troponin peaked and she has remained in NSR. Pressors have been weaned and hemodynamics are stable. The appearance on echo is c/w Takotsubo's and family has confirmed that she has been under significant emotional and physical stress over the preceding months. An ischemic event may have contributed. She is significantly volume overloaded since admission REC Continue ceftriaxone x 7 days Steroids, bronchodilators Diurese Extubation trial Wean sedation as tolerates once extubated Chest tube to water seal x 24 hours after extubation, then DC if no recurrence of PTX or air leak. Hold enteral feedings today in anticipation of vent liberation Serial labs Routine ICU prophylaxis Pain Evaluation: Adequate Pain Control GI Prophylaxis: Proton Pump Inhibitor VTE Prophylaxis: Sub-Q Heparin (Unfractionated) VTE Mechanical Devices: Intermittant Pneumatic CD Resuscitation Status: CPR: Attempt Resuscitation Time spent 38 minutes critical care exclusive of shared time and procedures Alfredito Avalos MD Apr 22, 2017 10:22
--- NOTE | 2017-04-22 13:14 | PCM.PNMED ---
Subjective Date of Service Apr 22, 2017 Subjective Patient is a 61-year-old female ex-smoker with a severe centrilobular emphysema , and COPD presented with left lung pneumothorax and acute heart failure also have pneumonia, chest tube placement on 04/18/2017, extubated today. Overnight, patient was a bit agitated, thus Precedex was added with infiltration of Versed and fentanyl down. Today, patient alert and responding to command. On evaluation, she was on a pressure support breathing trial for approximately 2 hours, pulling and adequate volume, oxygenating at above 90% and 30% FiO2. Unable to complete review of systems unless patient intubated and sedated. Exam Vital Signs Vital Sign - Last Date Time Temp Pulse Resp B/P Pulse Ox O2 Delivery O2 Flow Rate FiO2 04/22/17 12:05 36.9 76 17 125/73 97 Nasal Cannula 3.00 04/22/17 10:40 30 Intake and Output 04/21/17 04/21/17 04/22/17 Cumulative From/Thru 15:00 23:00 07:00 04/18/17 20:00 - 04/22/17 06:04 Intake Total 675 ml 1205 ml 70845 ml Output Total 450 ml 645 ml 4185 ml Balance 225 ml 560 ml 46022 ml Intake IV Total 421 ml 333 ml 83669 ml Tube Feeding 174 ml 427 ml 780 ml Tube Irrigant 80 ml 445 ml 685 ml Output Urine Total 450 ml 575 ml 3525 ml Gastric Drainage Total 400 ml Chest Tube Drainage Total 70 ml 260 ml # Bowel Movements 0 Exam General: Intubated, lightly sedated HEENT: Normocephalic, atraumatic. PERRLA, Neck: No JVD, No bruits. No lymphadenopathy or thyromegaly. Cardiovascular: Regular rate and rhythm with no murmurs, rubs, or gallops appreciated Pulmonary: Bilateral air sound, coarse breathing throughout, no wheezes noted Abdomen: +Bowel sound, Soft, nontender, nondistended. Extremities: No clubbing or cyanosis, no lymphedema, no b/l lower leg edema Skin: Normal temperature, turgor, and texture; no rash. No visualized skin ulcer. Neurological: CN II-VII grossly intact, awake, spontaneous eye opening, IVs and Medications Medications Reviewed: Medications were reviewed in detail Lab and Diagnostics Result Diagram: 9/4/17 0310 9/4/17 0310 Microbiology Blood cultures pending MRSA swab pending Sputum culture pending Resp PCR pending X-Rays, CTs and MRIs . X-RAY CHEST ONE VIEW IMPRESSION: Status post placement of left chest tube. Small residual left apical pneumothorax. Dictated by: Rasta Malik M.D. on 04/18/2017 X-RAY CHEST ONE VIEW, PORTABLE IMPRESSION: Status post placement of left chest tube with residual small left apical pneumothorax. Status post placement of right central venous catheter. No pneumothorax. Dictated by: Rasta Malik M.D. on 04/18/2017 CT ANGIO CHEST PULMONARY EMBOLISM IMPRESSION: 1. No evidence for central pulmonary emboli. 2. Trace left apical pneumothorax. There is a chest tube on the left with associated subcutaneous air. 3. Moderate to severe emphysema. 4. Diffuse interstitial thickening and distended to pulmonary edema or interstitial pneumonia. Mild nodular infiltrates with "tree in bud" configuration could be secondary to atypical infection. 5. Bibasilar atelectasis. Dictated by: Frida Asif M.D. on 04/19/2017 CT ABDOMEN AND PELVIS WITH CONTRAST ([id number]) INDICATIONS: sepsis, elevated LFTs TECHNIQUE: After the administration of intravenous contrast, 5 mm thick sections acquired from the diaphragm to the symphysis. 5 mm coronal and sagittal reformats were acquired. For radiation dose reduction, the following was used: automated exposure control, adjustment of mA and/or kV according to patient size. COMPARISON: CT, CHEST/ABD/PELVIS W/CON IMPRESSION: 1. Periportal edema liver consistent with hepatitis. Recommend clinical correlation. 2. A small amount of pericholecystic fluid. No gallstones or gallbladder wall thickening. 3. Nephrolithiasis in right kidney. No evidence for renal obstruction. 4. Atherosclerosis. Dictated by: Frida Asif M.D. on 04/19/2017 at 7:43 CXR 04/20: Improved pneumothorax, no obvious pneumothorax. Cardiac Echo Impressions . Echocardiogram Report Interpretation Summary: The left ventricle is normal in size. Left ventricular systolic function is severely reduced. The ejection fraction is estimated to be 20-25%. LVEF has reduced significantly since prior study. Proximal LV is the only area of LV myocardium that has normal contractility. The mid LV segments are hypokinetic and distal LV segments are essentially akinetic. Findings are suspicious for stress induced cardiomyopathy but cannot exclude acute coronary syndrome. Clinical correlation is recommended. Assessment of diastolic parameters indicates a restrictive filling pattern of the left ventricle consistent with significantly elevated filling pressures. Borderline right ventricular enlargement. There are regional wall motion abnormalities. The right ventricular systolic pressure is estimated at 52 mmHg assuming a right atrial pressure of 15 mm Hg. The left atrial size is normal. Right atrial size is normal. There is no significant valvular heart disease. Assessment & Plan Patient is a 61-year-old female ex-smoker with a severe centrilobular emphysema , and COPD presented with left lung pneumothorax and acute heart failure also have pneumonia. Likely, patient had viral upper respiratory tract infection followed by bacterial pneumonia,COPD exacerbation, subsequently developed left lung pneumothorax, and in the process had stress-induced cardiomyopathy. He is currently off of pressors, extubated, on ceftriaxone for H. influenzae pneumonia. Chest tube still in place The patient's sister Zhanna and qkuugzdy-[id number]-Plh Dolores are both nurses with a high degree of medical literacy, thus Zhanna should be the first point of contact for any acute changes or decision making, followed by Dolores who will relay information to the patient's son Som. Acute hypoxic respiratory failure -Cause multifactorial: bacterial pneumonia, pneumothorax, COPD exacerbation -Intubated for 5 days, extubated on 04/22/2017 -Continue respiratory support, oximetry mass maintain pulse oximetry above 90% -Incentive spirometry when able Acute on chronic COPD -Likely viral infection predisposing patient to bacterial pneumonia -DuoNeb q.4.h -Medrol 60 mg IV push every 12h Pneumonia -H.flu on sputum culture -"diffuse interstitial thickening" with mild "tread and bud" patterning on CT, suggestive of atypical pna -MRSA screening negative -Currently on ceftriaxone, will continue for the next 5-6 days. De-escalate meropenem and vancomycin. Pneumothorax, present on admission, active and improving. -Patient with left pneumothorax on arrival to the ED. -Chest tube in place since 04/18/2017 to be manage by surgery, waterseal today after extubation -likely caused by blebs Likely Stress induced cardiomyopathy -Echo showed EF 20-25% with apical ballooning. -Will likely slowly wean this patient off the vent so as to reduce cardiac strain -will need to repeat echocardiogram down the line QTC prolongation, present on admission, active and improving. -Initial EKG on presentation to the ED showed a QTC of 542. Repeat EKG now reveals a QTC of 691. -Close monitoring on telemetry. -Avoid QT prolonging medications. -current QTC 422 (04/22/2017) Chronic/Resolved medical condition Diabetes mellitus type II non-insulin using, present on admission, active and stable. -A1c 6.2 -held home Metformin -Low-dose correctional scale with NPH. GERD, present on admission, chronic. -held home pantoprazole 40 mg, switched to Famotidine due to prolonged QT Sepsis shock, resolved -Met SIRS criteria initial evaluation, source pneumonia -Initial lactic acid 3.9, fluid resuscitation initiated and deescalated after 6 hours when lactic acid normalized, -Norepinephrine and vasopressin was later added for pressor support now DC'd -Right spectrum empirical antibiotics: Meropenem, levofloxacin, vancomycin -Sepsis resolved 04/22/2017, D/C pressors Elevated liver enzymes, active and stable. -likely 2nd to sepsis shock -CT abdomen and pelvis revealed findings suggestive of hepatitis or other hepatocellular process. -Tylenol level and hepatitis panel negative Non Ion gap metabolic and respiratory acidosis, POA. Improving -Upon arrival patient had an ABG consistent with non compensated respiratory acidosis -Repeat ABG showed improvement of the respiratory component of her acidosis but a decline in BiCarb resulting in a virtually unchanged pH since admission -Etiology uncertain at this time, could be consistent with Sepsis though active severe infection is questionable at this juncture -There is no report of active GI volume loss -Patient is not on a diuretic as an outpatient -Will continue Serial ABGs and track until resolution Elevated troponin return to stress cardiomyopathy, present on admission, active and stable. -Initial troponin was 0.014 some T-wave abnormalities in the lateral leads. Initially this was attributed to patient's hypotension. Second troponin was significantly elevated and repeat EKG was obtained. Some changes were noted and due to this treatment for NSTEMI was initiated. Patient never complained of chest pain per EMS and when she arrived she was already intubated and sedated. Risk factors include significant smoking history, family history of premature heart disease, and current critical condition. - Heparin drip transitioned to SubQ as this appears likely secondary to stress cardiomyopathy as above - Initial troponin 0.041. Second troponin 0.322. Troponin now trending down - Lipid panel pending. - Supplemental oxygen as needed. - Aspirin 81 mg initially received and continued daily. - Beta oziel, AMOS inhibitor, and clopidogrel unable to be given due to intubated and hypotensive patient. CODE STATUS full code DVT prophylaxis heparin Disposition: Likely transition to [facility] status tomorrow, will need PT, possibly short-term rehabilitation facility. GI Prophylaxis: Proton Pump Inhibitor VTE Prophylaxis: Sub-Q Heparin (Unfractionated) VTE Mechanical Devices: Intermittant Pneumatic CD Resuscitation Status: CPR: Attempt Resuscitation Attending Statement The patient was seen and examined together with on July 22 and I agree with the history, exam findings, and plan as outlined in the note above. I did participate in all aspects of the services provided today, including documentation and the plan of care. The patient will be extubated today. She continues to require chest tube for decompression pneumothorax. She is otherwise generally improving and showing good cognition. We will continue work in conjunction with the ICU team. Galen Trujillo DO Apr 22, 2017 13:14 Ap Roberts MD Apr 23, 2017 08:23
[2017-04-22] MEDS ORDERED: Furosemide 10 mg/mL 2 mL Inj IVPUSH ONE (16:00)
--- NOTE | 2017-04-22 16:56 | NUR ---
Evaluation completed. Please go to "Notes" then click on "Assessments and Notes" (bottom left corner of screen). Then select appropriate discipline tab on top of screen.
--- NOTE | 2017-04-22 17:42 | NUR ---
Extubation / Cough/Swallow: Pt extubated @1040 10 minutes after Fentanyl and Versed gtt were turned off per Dr Avalos. Precidex gtt was weaned off this afternoon. Pt has a non-productive, spontaneous, harsh, bronchospastic cough. MD notified. Continued Albuterol Nebs Q4 hours as scheduled and Dr. Avalos added Albuterol Neb Q2 hours PRN. Second dose Lasix 20mg IVP administered at 1600 as ordered and pt had 1550 in 1 hours (total shift urine output = 3400). Maintaining SpO2: low to mid 90s on 3L NC. Voice is soft, but is able to communicate needs. L chest tube to water seal since 1200, 40cc serous drainage this shift. OG and tube feed DCd at extubation. Pt anxious and stating she was very hungry and thirsty. Swallow evaluation was completed and patient is to remain strict NPO. May have damp oral swabs, must expectorate any extra moisture after swab per ST. Pt verbalizes understanding. Patient remains on continuous pulse ox to monitor SpO2. Patient uses call light appropriately. Frequent rounding in place.
[2017-04-22] MEDS: Albuterol-Ipratropium 3 mL Inhalation Solution NEB PRN (21:14)
[2017-04-22] MEDS: Acetaminophen IV 1,000 MG in IV Premix 1 EACH IV PRN (21:51)
[2017-04-23] VITALS (15 sets, daily range): BP systolic 97–151; BP diastolic 66–95; PULSE 81–126; RESP 13–24; O2SAT 95–99
[2017-04-23] MEDS: Heparin 5,000 Unit/mL Inj SUBQ SCH ×4 (01:25→23:35)
[2017-04-23] MEDS: Insulin Human REGular 300 Unit/3 mL Inj SUBQ SCH ×4 (02:30→20:30)
[2017-04-23] MEDS: Albuterol-Ipratropium 3 mL Inhalation Solution NEB PRN ×2 (02:59→21:17)
--- NOTE | 2017-04-23 04:04 | NUR ---
Nebs Pt required quite a few PRN Duonebs throughout shift in addition to her Q4H scheduled doses. She remains tight with squeaks in the right lung. I consulted the night resident about her steroid doses this admission compared to her past visit and he elected not to make any changes at this time. Pt is on 3L OM. Rivera draining adequate urine. No BM this shift. Labs this shift appear stable more will be drawn shortly. Remains on NS TKO. Will continue to monitor. See flow sheet for further details.
[2017-04-23] MEDS: Albuterol-Ipratropium 3 mL Inhalation Solution NEB SCH ×5 (05:13→19:34)
[2017-04-23 06:12] LABS: EOSINOPHILS % (AUTO) 0 % (0-5); Mean Corpuscular Hemoglobin 29.3 pg (27.0-35.0); Mean Corpuscular Volume 88.5 fL (81-100); Platelet Count 197 bil/L (150-400)
[2017-04-23 06:38] LABS: Magnesium 2.1 mg/dL (1.6-2.6)
--- NOTE | 2017-04-23 07:05 | PCM.PNMED ---
Subjective Date of Service Apr 23, 2017 Subjective Pulmonary Critical Care Progress Note 61 yo smoker with moderately severe COPD by most recent PFTs but increasingly severe functional limitation over the preceding several months. She had acute worsening of SOB several days ago and eventually began using her noninvasive home ventilator continuously. A friend called 911 when the patient was difficult to arouse and she had a respiratory arrest shortly after first responders arrived. She was intubated on the scene. Upon arrival in the [facility] ED she was found to have a large Lt sided pneumothorax without evidence for mediastinal shift. A chest tube was placed and she was admitted to the ICU. Since admission, a limited bedside echo suggested and EF of 20-25% and Takotsubo 's syndrome which was confirmed by formal echo later on 04/19. Interval History Patient extubated yesterday morning after 4 days of intubation. Overnight patient requiring frequent Duonebs in addition to her Q4H scheduled doses. Considerably anxious as well. Respiratory PCR positive for Rhinovirus and ET aspirate growing likely H. Flu. Day #3 ceftriaxone after 2 days meropenem Chest tube placed on water seal since yesterday at 1200. No recurrence of pneumothorax. Exam Vital Signs Vital Sign - Last Date Time Temp Pulse Resp B/P Pulse Ox O2 Delivery O2 Flow Rate FiO2 04/23/17 05:13 82 16 96 OxyMask 3.00 04/23/17 04:30 36.8 127/75 04/22/17 10:40 30 Intake and Output 04/22/17 04/22/17 04/23/17 Cumulative From/Thru 15:00 23:00 07:00 04/18/17 20:00 - 04/23/17 05:59 Intake Total 573 ml 277 ml 07430 ml Output Total 3440 ml 2100 ml 9725 ml Balance -2867 ml -1823 ml 6874 ml Intake Oral 0 ml 0 ml IV Total 322 ml 277 ml 87441 ml Tube Feeding 211 ml 991 ml Tube Irrigant 40 ml 725 ml Output Urine Total 3400 ml 2100 ml 9025 ml Gastric Drainage Total 400 ml Chest Tube Drainage Total 40 ml 300 ml # Bowel Movements 0 0 Exam General: Frail, thin woman with oxygen mask in place. Appropriately interactive although anxious. HEENT: Normocephalic, atraumatic. Pupils equal, round, and reactive to light and accommodation. Anicteric sclerae, moist conjunctivae, and no lid lag. Neck: Supple with full range of motion. No jugular venous distension. Cardiovascular: Regular rate and rhythm with no murmurs, rubs, or gallops appreciated Pulmonary: Decreased breath sounds with minimal crackles over left lung. No wheezing. No accessory muscle use. Abdomen: Bowel tones present. Soft, nontender, nondistended. No hepatosplenomegaly or masses appreciated. Extremities: Warm, pulses 2 out of 4 bilaterally in the radial and posterior tibialis. No lower extremity edema. Sacral edema noted. Neurological: Cranial nerves grossly intact. Psychiatric: Anxious. Alert and oriented to person, place, and time. Lines: Right subclavian Right peripheral IV Left chest tube Rivera catheter Lab and Diagnostics Result Diagram: 04/22/17 0310 04/23/17 0545 Microbiology Sputum culture - Haemophilus Influenzae Resp PCR - Rhinovirus/Enterovirus Urine culture - Streptococcus Pneumoniae Blood cultures - no growth at 2 days MRSA swab - negative X-Rays, CTs and MRIs X-RAY CHEST ONE VIEW, PORTABLE IMPRESSION: Status post placement of left chest tube with residual small left apical pneumothorax. Status post placement of right central venous catheter. No pneumothorax. Dictated by: Rasta Malik M.D. on 04/18/2017 CT ANGIO CHEST PULMONARY EMBOLISM IMPRESSION: 1. No evidence for central pulmonary emboli. 2. Trace left apical pneumothorax. There is a chest tube on the left with associated subcutaneous air. 3. Moderate to severe emphysema. 4. Diffuse interstitial thickening and distended to pulmonary edema or interstitial pneumonia. Mild nodular infiltrates with "tree in bud" configuration could be secondary to atypical infection. 5. Bibasilar atelectasis. Dictated by: Frida Asif M.D. on 04/19/2017 CT ABDOMEN AND PELVIS WITH CONTRAST IMPRESSION: 1. Periportal edema liver consistent with hepatitis. Recommend clinical correlation. 2. A small amount of pericholecystic fluid. No gallstones or gallbladder wall thickening. 3. Nephrolithiasis in right kidney. No evidence for renal obstruction. 4. Atherosclerosis. Dictated by: Frida Asif M.D. on 04/19/2017 at 7:43 X-RAY CHEST ONE VIEW, PORTABLE IMPRESSION: 1. No definite residual left pneumothorax identified. 2. Persistent mild pulmonary edema. 3. Nasogastric tube tip demonstrated at the gastroesophageal junction with side port in the distal esophagus. Recommend further advancement into the stomach. Dictated by: Neymar Nixon M.D. on 04/21/2017 at 11:25 Approved by: Neymar Nixon M.D. on 04/21/2017 at 11:27 Cardiac Echo Impressions Echocardiogram Report Interpretation Summary: The left ventricle is normal in size. Left ventricular systolic function is severely reduced. The ejection fraction is estimated to be 20-25%. LVEF has reduced significantly since prior study. Proximal LV is the only area of LV myocardium that has normal contractility. The mid LV segments are hypokinetic and distal LV segments are essentially akinetic. Findings are suspicious for stress induced cardiomyopathy but cannot exclude acute coronary syndrome. Clinical correlation is recommended. Assessment of diastolic parameters indicates a restrictive filling pattern of the left ventricle consistent with significantly elevated filling pressures. Borderline right ventricular enlargement. There are regional wall motion abnormalities. The right ventricular systolic pressure is estimated at 52 mmHg assuming a right atrial pressure of 15 mm Hg. The left atrial size is normal. Right atrial size is normal. There is no significant valvular heart disease. Assessment & Plan Lily Astudillo is a 61-year-old female with past medical history significant for COPD / centrilobular emphysema and asthma on chronic oxygen therapy who presents to the ED after intubation by EMS for respiratory arrest / acute hypoxic respiratory failure. Upon arrival in the ED she was found to have a large Lt sided pneumothorax necessitating chest tube placement. She was hypotensive initially and a rapid limited echocardiogram demonstrated an EF of 20-25% with apical akinesis. Patient extubated 04/22/2017 after 4 days of intubation. Off all pressors and sedation since evening of 04/21/2017. Chest tube still in place on waterseal since 04/22/2017 at 1200. Acute on chronic hypoxemic respiratory failure secondary to acute COPD exacerbation complicated by spontaneous pneumothorax. - Intubated for 4 days, extubated on 04/22/2017. - Chest tube on water seal since 04/22/2017 at 1200. No recurrence of pneumothorax. Chest tube to be removed today. - DuoNebs PRN and scheduled Q4H - Solu-Medrol 60 mg IV push every 12h Anxiety likely secondary to air hunger. - Anxiety appears to be largely contributing to her frequent use of DuoNebs. - [facility] in [place] confirms the use of trazodone but not venlafaxine. - Trial of nebulized morphine today. VBG prior to initiation. - Trazodone 25 mg HS to start tonight. - Close monitoring of sedating effect and repeat ABG if concerns. Haemophilus influenza pneumonia - Likely viral infection predisposing patient to bacterial pneumonia. - H.flu on sputum culture and Rhinovirus on respiratory PCR. - MRSA screening negative. - Day 3 of ceftriaxone. Meropenem and vancomycin d/c after 2 days. Acute systolic cardiomyopathy likely Takotsubo's - Echo showed EF 20-25% with apical ballooning. - IV Furosemide 40 mg received yesterday. Down 4L in the last 36 hours. - Repeat Echo in the coming days to reevaluate now that patient is off pressors and extubated. The patient's sister Zhanna and [id number] Dolores are both nurses with a high degree of medical literacy, thus Zhanna should be the first point of contact for any acute changes or decision making, followed by Dolores who will relay information to the patient's son Som. CODE STATUS full code GI prophylaxis famotidine DVT prophylaxis heparin Time Spent: 60 minutes Pain Evaluation: Adequate Pain Control GI Prophylaxis: H2 oziel VTE Prophylaxis: Sub-Q Heparin (Unfractionated) VTE Mechanical Devices: Intermittant Pneumatic CD Resuscitation Status: CPR: Attempt Resuscitation JESSICA GAINES DO Apr 23, 2017 07:05 Fortunately her air leak has stopped and she is easy to ventilate. With only rhinovirus and H. flu on her cultures I will de-escalate her abx to ceftriaxone. She appears ready for liberation from ventilation this morning Acute systolic cardiomyopathy. Troponin peaked and she has remained in NSR. Pressors have been weaned and hemodynamics are stable. The appearance on echo is c/w Takotsubo's and family has confirmed that she has been under significant emotional and physical stress over the preceding months. An ischemic event may have contributed. She is significantly volume overloaded since admission REC Continue ceftriaxone x 7 days Steroids, bronchodilators Diurese Extubation trial Wean sedation as tolerates once extubated Chest tube to water seal x 24 hours after extubation, then DC if no recurrence of PTX or air leak. Hold enteral feedings today in anticipation of vent liberation Serial labs Methylprednisolone 60 mg every 12 Ceftriaxone Duonebs Melatonin Received a total of 40 mg furosemide yesterday CODE STATUS full code GI prophylaxis famotidine DVT prophylaxis heparin GI Prophylaxis: Proton Pump Inhibitor VTE Prophylaxis: Sub-Q Heparin (Unfractionated) VTE Mechanical Devices: Intermittant Pneumatic CD Resuscitation Status: CPR: Attempt Resuscitation JESSICA GAINES DO Apr 23, 2017 07:05 VTE Prophylaxis: Sub-Q Heparin (Unfractionated) VTE Mechanical Devices: Intermittant Pneumatic CD Resuscitation Status: CPR: Attempt Resuscitation JESSICA GAINES DO Apr 23, 2017 07:05 Received a total of 40 mg furosemide yesterday CODE STATUS full code GI prophylaxis famotidine DVT prophylaxis heparin GI Prophylaxis: Proton Pump Inhibitor VTE Prophylaxis: Sub-Q Heparin (Unfractionated) VTE Mechanical Devices: Intermittant Pneumatic CD Resuscitation Status: CPR: Attempt Resuscitation JESSICA GAINES DO Apr 23, 2017 07:05 intubated and hypotensive patient. Disposition: Likely transition to [facility] status tomorrow, will need PT, possibly short-term rehabilitation facility. Lily Astudillo is a 61-year-old female with past medical history significant for COPD / centrilobular emphysema and asthma on chronic oxygen therapy who presents to the ED after intubation by EMS for respiratory arrest / acute hypoxic respiratory failure. Upon arrival in the ED she was found to have a large Lt sided pneumothorax necessitating chest tube placement. She was hypotensive initially and a rapid limited echocardiogram demonstrated an EF of 20-25% with apical akinesis The patient's sister Zhanna and [id number] Dolores are both nurses with a high degree of medical literacy, thus Zhanna should be the first point of contact for any acute changes or decision making, followed by Dolores who will relay information to the patient's son Som. IMP Acute on chronic hypoxemic respiratory failure. Likely due to an acute exacerbation of her COPD ultimately complicated by a spontaneous pneumothorax. Fortunately her air leak has stopped and she is easy to ventilate. With only rhinovirus and H. flu on her cultures I will de-escalate her abx to ceftriaxone. She appears ready for liberation from ventilation this morning Acute systolic cardiomyopathy. Troponin peaked and she has remained in NSR. Pressors have been weaned and hemodynamics are stable. The appearance on echo is c/w Takotsubo's and family has confirmed that she has been under significant emotional and physical stress over the preceding months. An ischemic event may have contributed. She is significantly volume overloaded since admission REC Continue ceftriaxone x 7 days Steroids, bronchodilators Diurese Extubation trial Wean sedation as tolerates once extubated Chest tube to water seal x 24 hours after extubation, then DC if no recurrence of PTX or air leak. Hold enteral feedings today in anticipation of vent liberation Serial labs Routine ICU prophylaxis Methylprednisolone 60 mg every 12 Ceftriaxone Duonebs Melatonin Received a total of 40 mg furosemide yesterday CODE STATUS full code GI prophylaxis famotidine DVT prophylaxis heparin GI Prophylaxis: Proton Pump Inhibitor VTE Prophylaxis: Sub-Q Heparin (Unfractionated) VTE Mechanical Devices: Intermittant Pneumatic CD Resuscitation Status: CPR: Attempt Resuscitation JESSICA GAINES DO Apr 23, 2017 07:05
[2017-04-23 07:39] LABS: BASOPHILS % (AUTO) 0 % (0-3); MONOCYTES % (AUTO) 6 % (4-12); NEUTROPHILS % (AUTO) 81 % (40-74)
--- NOTE | 2017-04-23 08:16 | DRSVH ---
PROCEDURE: X-RAY CHEST ONE VIEW, PORTABLE ([id number]) INDICATIONS: resp failure, CHEST TUBE TECHNIQUE: One view of the chest was acquired. COMPARISON: [facility], CR, XR CHEST 1VW (PORTABLE), 04/21/2017, 5:09. FINDINGS: Surgical changes and devices: ET and enteric tubes have been removed. Right-sided central venous cath eter tip in the mid SVC. Left chest tube. Lungs and pleura: Stable right pleural effusion. Mild progression of left pleural effusion. Interstit ial pulmonary opacities throughout both lungs most consistent with fluid imbalance.. Mediastinum: Mediastinal contours appear normal. Heart size is normal. Bones and chest wall: No suspicious bony lesions. Overlying soft tissues appear unremarkable. IMPRESSION: 1. Persistent pulmonary edema with mild left pleural effusion and stable right pleural effusion. 2. Left chest tube with no pneumothorax. 3. ET and enteric tube have been removed. Dictated by: Jorje Fong M.D. on 04/23/2017 at 8:12 Approved by: Jorje Fong M.D. on 04/23/2017 at 8:14
--- NOTE | 2017-04-23 08:19 | PROG NOTE ---
[address] [address] PROGRESS NOTE PATIENT: SHANNON ROBERSON : 1955 MR#: [id number] ADMIT: 04/18/2017 JOB ID: [id number] DATE: 04/23/2017 REASON FOR FOLLOW UP: Respiratory viral infection complicated by H flu pneumonia, and also complicated by pneumothorax, respiratory failure and reduced ejection fraction. INTERVAL HISTORY: Over the past 48 hours since I have last seen the patient, she has been successfully extubated. This morning, she has some pain in her chest tube site, but otherwise states she feels improved. She has no significant fevers, chills or sweats. She is somewhat short of breath and, of course, still requiring face mask oxygen, but she says her breathing is not especially difficult and she has minimal if any cough. There was some pain at the chest tube site as was mentioned. She has no nausea and vomiting. In fact, complains of being extremely hungry. PHYSICAL EXAMINATION: Reveals an afebrile woman. Temp 36.8, blood pressure 127/75, pulse is 82, respiratory rate 13. She is saturating reasonably well on face mask oxygen. She is in no acute distress and is alert this morning. Eyes without conjunctivitis. Oral cavity negative. Lungs: Decreased breath sounds and a few wheezes bilaterally. Chest tube present on the left, is nearly out. The abdomen is soft and nontender. No skin rash. LABORATORY STUDIES: Include white count which is bouncing around, 15,000. It has gone 15,000, 20,000, 19,000, 11,000, and today, 17,000. I discern no trend and not concerned about that. Creatinine 0.35. AST 55, ALT 166. Microbiology studies, the sputum on admission grew H flu which was beta lactamase negative. The respiratory viral PCR on admission positive for enterovirus, rhinovirus. IMAGING: Includes a chest x-ray today which I compared to yesterday. It appears there are still some perhaps mild pulmonary edema. The possibility of a small left pleural effusion but difficult to tell. This is my reading. It has not been officially read by Radiology. IMPRESSION: This patient overall appears to be improving. She has been successfully extubated, and it looks like her chest tube is ready to come out one way or another, as her pneumothorax has almost completely resolved. It would appear that she had a viral process which was followed by the H flu pneumonia. At this point, we are five days into her hospital stay and I think we can start to think about concluding antibiotics in the next two days or so. Ordinarily, we would switch to ampicillin at this point, but in view of her PENICILLIN allergy and the fact she is tolerating ceftriaxone, will just continue with that. RECOMMENDATIONS: 1. Ceftriaxone through April 25, and discontinue unless there are significant changes in her care. 2. Will continue droplet isolation at least for a couple more days because of the evidence of enterovirus. 3. Will continue to closely follow this patient with you.
[2017-04-23] MEDS: Famotidine Inj 20 MG in IV Premix 1 EACH IV SCH ×2 (09:03→20:19)
[2017-04-23] MEDS: MethylprednisoLONE Sodium Succinate 40 mg/mL Inj IVPUSH SCH ×2 (09:04→20:19)
[2017-04-23] MEDS: cefTRIAXone Inj 2,000 MG in Dextrose 5% Minibag Plus 50 ML IV SCH (09:06)
--- NOTE | 2017-04-23 10:08 | ABG ---
DateTimeAnalyzed 10:00:00 -_ pH ____7.468 - 7.320 7.420 pCO2 ___44.8__ -mmHg 41.0 51.0 pO2 ___32.5__ -mmHg 24.0 40.0 HCO3- ___32.0__ -mmol/L ABE ____7.7__ -mmol/L tHb ___11.9__ -g/dL 12.0 18.0 O2Hb ___60.0__ -% COHb ____1.2__ -% 0.0 1.5 MetHb ____1.1__ -% 0.4 1.5 sO2 ___61.4__ -% FIO2 ___32.0__ -% Drawn By jmw - Date/Time Notified____ 10:07:00 -_ Liter_Flow ____3.0__ -L/min Oxygen Device 1 __CANNULA - Notified By JMW - Notified Whom DR LIANA - B 755 -mmHg tO2 ___10.0__ -Vol% Ap test N/A -
--- NOTE | 2017-04-23 10:50 | NUR ---
NUTRITION FOLLOW UP: ASSESS: 61 YO F admitted to CCU following acute hypoxic respiratory failure with intubation in the field. Pt with left pneumothorax requiring chest tube placement. Pt with COPD exacerbation and pneumonia. Pt extubated 04/22; tube feedings discontinued. Pt NPO per speech therapy recommendations. PMHX: COPD with centrilobular emphysema and asthma, seasonal allergies, endometriosis, nephrolithiasis, cervical spondylosis, chronic cervical and low back pain, GERD, insomnia, left renal cyst, adenomatous colonic polyps DIET: NPO. LABS: Reviewed. Na 145, Cr 0.35, Glu 147, Ca 7.9, AST 55, ALT 166, Alb 2.9 MEDICATIONS: Reviewed. Colace, Solu-medrol GI: No BM noted. SKIN: Per Butter Grader, there are no pressure injuries at this time. ANTHROPOMETRICS: Current Wt: 57.1 kg, BMI 20.3 kg/m2. Admit weight: 53.5 kg, IBW: 59.1 kg (90.5% IBW). No recent weight loss noted. ESTIMATED NEEDS (COPD): Calories: 0617-7136 kcal/day (30-35 kcal/kg BW) Protein: 69-86 g/day (1.2-1.5 g/kg BW) Fluid: Approx. 1873 mL (35 mL/kg BW) NUTRITION DIAGNOSIS: 1) Inadequate oral intake related to inability to consume sufficient energy, as evidenced by NPO status - PERSISTS. 2) Increased nutrient needs related to COPD with centrilobular emphysema and asthma, as evidenced by underweight status - PERSISTS. INTERVENTION: 1) Diet advancement per speech therapy. If diet unable to advance in the next 24 hours, recommend resuming enteral nutrition. Recommend Pulmocare starting at 25 ml/hr, once tolerance established advance 10 ml q 4 hr to goal rate of 55 ml/hr. At goal TF will provide 1815 kcal, 76 g protein; meeting 100% calorie/protein needs. MONITOR/EVALUATE: NPO status, diet advance vs nutrition support, labs, weight, nutrition status. Follow per high nutrition risk guidelines.
[2017-04-23] MEDS ORDERED: MeTOProlol 1 mg/mL 5 mL Inj IVPUSH ONE (17:50)
--- NOTE | 2017-04-23 18:37 | NUR ---
Anxiety/aflutter Pt continues to be anxious and state she cannot breathe very well throughout AM shift. Desats with movement but remains stable on 3-5L oxymask sats in the mid 90s. tried morphine nebs and IV ativan with little effect. Notified MD, started on BIPAP which appears to be very effective for anxiety as well as helping patient breathe effectively and comfortably. Noticied pt started having runs of a-flutter in mid afternoon, notified MD, obtained ECG and gave 5mg IV metoprolol. Pt able to turn independently in bed when asked, and lift hips on bedpan. Sister at bedside most of shift.
--- NOTE | 2017-04-23 20:43 | PCM.PNMED ---
Subjective Date of Service Apr 23, 2017 Subjective pt reports feeling anxious today and short of breath no events overnight Pt denies lightheadedness, headache, swelling in extremeties, diarrhea, constipation, fever, chills. Exam Vital Signs Vital Sign - Last Date Time Temp Pulse Resp B/P Pulse Ox O2 Delivery O2 Flow Rate FiO2 04/23/17 20:17 36.8 87 14 104/84 99 OxyMask 04/23/17 19:40 30 04/23/17 17:30 3.00 Intake and Output 04/22/17 04/22/17 04/23/17 Cumulative From/Thru 15:00 23:00 07:00 04/18/17 20:00 - 04/23/17 05:59 Intake Total 573 ml 277 ml 17005 ml Output Total 3440 ml 2100 ml 9725 ml Balance -2867 ml -1823 ml 6874 ml Intake Oral 0 ml 0 ml IV Total 322 ml 277 ml 48603 ml Tube Feeding 211 ml 991 ml Tube Irrigant 40 ml 725 ml Output Urine Total 3400 ml 2100 ml 9025 ml Gastric Drainage Total 400 ml Chest Tube Drainage Total 40 ml 300 ml # Bowel Movements 0 0 Exam General: Mild distress,lightly sedated HEENT: Normocephalic, atraumatic. PERRLA, Neck: No JVD, No bruits. No lymphadenopathy or thyromegaly. Cardiovascular: Regular rate and rhythm with no murmurs, rubs, or gallops appreciated Pulmonary:Pt saturating well on nasal canula, coarse breaths diffusely, no wheezes noted Abdomen: +Bowel sound, Soft, nontender, nondistended. Extremities: No clubbing or cyanosis, no lymphedema, no b/l lower leg edema Skin: Normal temperature, turgor, and texture; no rash. No visualized skin ulcer. Neurological: CN II-XII grossly intact, A&O IVs and Medications IV Fluids 500 ml NS delivered with IV meds Medications Reviewed: Medications were reviewed in detail Medications High risk meds include: Ativan Morphine Lab and Diagnostics Result Diagram: 04/23/17 0545 04/23/17 0545 Microbiology Sputum culture - Haemophilus Influenzae Resp PCR - Rhinovirus/Enterovirus Urine culture - Streptococcus Pneumoniae Blood cultures - no growth at 2 days MRSA swab - negative X-Rays, CTs and MRIs X-RAY CHEST ONE VIEW, PORTABLE IMPRESSION: Status post placement of left chest tube with residual small left apical pneumothorax. Status post placement of right central venous catheter. No pneumothorax. Dictated by: Rasta Malik M.D. on 04/18/2017 CT ANGIO CHEST PULMONARY EMBOLISM IMPRESSION: 1. No evidence for central pulmonary emboli. 2. Trace left apical pneumothorax. There is a chest tube on the left with associated subcutaneous air. 3. Moderate to severe emphysema. 4. Diffuse interstitial thickening and distended to pulmonary edema or interstitial pneumonia. Mild nodular infiltrates with "tree in bud" configuration could be secondary to atypical infection. 5. Bibasilar atelectasis. Dictated by: Frida Asif M.D. on 04/19/2017 CT ABDOMEN AND PELVIS WITH CONTRAST IMPRESSION: 1. Periportal edema liver consistent with hepatitis. Recommend clinical correlation. 2. A small amount of pericholecystic fluid. No gallstones or gallbladder wall thickening. 3. Nephrolithiasis in right kidney. No evidence for renal obstruction. 4. Atherosclerosis. Dictated by: Frida Asif M.D. on 04/19/2017 at 7:43 X-RAY CHEST ONE VIEW, PORTABLE IMPRESSION: 1. No definite residual left pneumothorax identified. 2. Persistent mild pulmonary edema. 3. Nasogastric tube tip demonstrated at the gastroesophageal junction with side port in the distal esophagus. Recommend further advancement into the stomach. Dictated by: Neymar Nixon M.D. on 04/21/2017 at 11:25 Approved by: Neymar Nixon M.D. on 04/21/2017 at 11:27 Cardiac Echo Impressions Echocardiogram Report Interpretation Summary: The left ventricle is normal in size. Left ventricular systolic function is severely reduced. The ejection fraction is estimated to be 20-25%. LVEF has reduced significantly since prior study. Proximal LV is the only area of LV myocardium that has normal contractility. The mid LV segments are hypokinetic and distal LV segments are essentially akinetic. Findings are suspicious for stress induced cardiomyopathy but cannot exclude acute coronary syndrome. Clinical correlation is recommended. Assessment of diastolic parameters indicates a restrictive filling pattern of the left ventricle consistent with significantly elevated filling pressures. Borderline right ventricular enlargement. There are regional wall motion abnormalities. The right ventricular systolic pressure is estimated at 52 mmHg assuming a right atrial pressure of 15 mm Hg. The left atrial size is normal. Right atrial size is normal. There is no significant valvular heart disease. Assessment & Plan Patient is a 61-year-old female ex-smoker with a severe centrilobular emphysema , and COPD presented with left lung pneumothorax and acute heart failure also have pneumonia. Likely, patient had viral upper respiratory tract infection followed by bacterial pneumonia,COPD exacerbation, subsequently developed left lung pneumothorax, and in the process had stress-induced cardiomyopathy. She is currently off of pressors, extubated, on ceftriaxone for H. influenzae pneumonia. Chest tube removed on 04/23 Of note: The patient's sister Zhanna and [id number] Dolores are both nurses with a high degree of medical literacy, thus Zhanna should be the first point of contact for any acute changes or decision making, followed by Dolores who will relay information to the patient's son Som. Acute hypoxic respiratory failure, POA, active -Cause multifactorial: bacterial pneumonia, pneumothorax, COPD exacerbation -Intubated for 5 days, extubated on 04/22/2017 -Continue respiratory support, maintain pulse oximetry above 90% -Incentive spirometry when able Acute on chronic COPD, POA, Active -Continue DuoNeb q.4.h -Medrol 60 mg IV push every 12h Pneumonia -H.flu on sputum culture -"diffuse interstitial thickening" with mild "tread and bud" patterning on CT, suggestive of atypical pna -MRSA screening negative -Continue ceftriaxone Pneumothorax, present on admission, active and improving. -Patient with left pneumothorax on arrival to the ED. -Chest tube in place since 04/18/2017 to be manage by surgery, waterseal on 04/22 , scheduled to be removed on 04/23 -Initial insult likely caused by blebs Likely Stress induced cardiomyopathy -Echo showed EF 20-25% with apical ballooning. -Will likely slowly wean this patient off the vent so as to reduce cardiac strain -Consider repeat echocardiogram at future date QTC prolongation, present on admission, active and improving. -Initial EKG on presentation to the ED showed a QTC of 542. Repeat EKG now reveals a QTC of 691. -Close monitoring on telemetry. -Avoid QT prolonging medications. -current QTC 422 (04/22/2017) Chronic/Resolved medical condition Diabetes mellitus type II non-insulin using, present on admission, active and stable. -A1c 6.2 -held home Metformin -Low-dose correctional scale with NPH. GERD, present on admission, chronic. -held home pantoprazole 40 mg, switched to Famotidine due to prolonged QT Sepsis shock, resolved -Met SIRS criteria initial evaluation, source pneumonia -Initial lactic acid 3.9, fluid resuscitation initiated and deescalated after 6 hours when lactic acid normalized, -Norepinephrine and vasopressin was later added for pressor support now DC'd -Sepsis resolved 04/22/2017, D/C pressors Elevated liver enzymes, active and stable. -likely 2nd to sepsis shock -CT abdomen and pelvis revealed findings suggestive of hepatitis or other hepatocellular process. -Tylenol level and hepatitis panel negative Non Ion gap metabolic and respiratory acidosis, POA. Improving -Upon arrival patient had an ABG consistent with non compensated respiratory acidosis -Repeat ABG showed improvement of the respiratory component of her acidosis but a decline in BiCarb resulting in a virtually unchanged pH since admission -Etiology uncertain at this time, could be consistent with Sepsis though active severe infection is questionable at this juncture -There is no report of active GI volume loss -Patient is not on a diuretic as an outpatient Elevated troponin return to stress cardiomyopathy, present on admission, active and stable. -Initial troponin was 0.014 some T-wave abnormalities in the lateral leads. Initially this was attributed to patient's hypotension. Second troponin was significantly elevated and repeat EKG was obtained. Some changes were noted and due to this treatment for NSTEMI was initiated. Patient never complained of chest pain per EMS and when she arrived she was already intubated and sedated. Risk factors include significant smoking history, family history of premature heart disease, and current critical condition. - Heparin drip transitioned to SubQ as this appears likely secondary to stress cardiomyopathy as above - Initial troponin 0.041. Second troponin 0.322. Troponin now trending down - Lipid panel pending. - Supplemental oxygen as needed. - Aspirin 81 mg initially received and continued daily. - Beta oziel, AMOS inhibitor, and clopidogrel unable to be given due to hypotensive patient. GI Prophylaxis: H2 oziel VTE Prophylaxis: Sub-Q Heparin (Unfractionated) VTE Mechanical Devices: Intermittant Pneumatic CD Resuscitation Status: CPR: Attempt Resuscitation Attending Statement The patient was seen and examined together with Dr. Young on 04/23/17 and I have added additional information to the note above. Rk Young DO Apr 23, 2017 20:43 Isabell Morrissey DO Apr 27, 2017 15:25
[2017-04-23] MEDS: Acetaminophen IV 1,000 MG in IV Premix 1 EACH IV PRN (22:04)
[2017-04-24] VITALS (12 sets, daily range): BP systolic 107–124; BP diastolic 75–92; PULSE 14–94; RESP 11–17; O2SAT 93–99
[2017-04-24] MEDS: Insulin Human REGular 300 Unit/3 mL Inj SUBQ SCH ×4 (02:30→20:30)
[2017-04-24] MEDS: Albuterol-Ipratropium 3 mL Inhalation Solution NEB SCH ×6 (02:38→20:01)
[2017-04-24 03:35] LABS: BASOPHILS % (AUTO) 0.2 % (0-3); EOSINOPHILS % (AUTO) 0 % (0-5); MONOCYTES % (AUTO) 3.5 % (4-12); Mean Corpuscular Hemoglobin 29.8 pg (27.0-35.0); Mean Corpuscular Volume 87.8 fL (81-100); NEUTROPHILS % (AUTO) 86.6 % (40-74); Platelet Count 195 bil/L (150-400)
[2017-04-24] MEDS: Acetaminophen IV 1,000 MG in IV Premix 1 EACH IV PRN (04:16)
[2017-04-24 04:21] LABS: Phosphorus 2.9 mg/dL (2.5-4.9)
--- NOTE | 2017-04-24 04:29 | NUR ---
Resp / Cardiac Patient on bipap, 10/5, 30%, did not feel as comfortable initially when it was set at 12/5, requested less pressure and has tolerated it well since. SpO2 upper 90s. Scheduled nebs plus patient requested PRN. CT to waterseal. Dressing reinforced. Tele SR, PACs and rare PVC. Patient had one short run of what appeared to be a fib, less than 10 beats.
--- NOTE | 2017-04-24 06:01 | NUR ---
Resp Patient on high flow, 100%, 60L, SpO2 mostly in the 90s but falls to 80s and takes a few minutes to recover, MD aware, ABGs drawn. Initially MD ordered bipap but after discussion with RT he decided to keep with high flow. SpO2 maintains mostly in the low 90s, AM ABG is worse, bipap placed just after 0600. MD in to assess. No further orders.
--- NOTE | 2017-04-24 06:01 | ABG ---
DateTimeAnalyzed 05:53:00 -_ pH ____7.449 - 7.350 7.450 pCO2 ___44.5__ -mmHg 35.0 45.0 pO2 ___36.1__ -mmHg 69.0 116 HCO3- ___30.4__ -mmol/L 22.0 26.0 ABE ____6.1__ -mmol/L -2.0 2.0 tHb ___11.9__ -g/dL 12.0 18.0 O2Hb ___66.2__ -% COHb ____1.1__ -% 0.0 1.5 MetHb ____1.1__ -% 0.4 1.5 sO2 ___67.7__ -% FIO2 ___30.0__ -% CPAP ___10.0__ -cmH2O PEEP ____5.0__ -cmH2O Set_RR ___12.0__ -b/min Drawn By ks - Date/Time Notified____ 06:01:00 -_ Oxygen Device 1 ____BIPAP - Notified By TLA - Notified Whom Avani S.- RN - B 756 -mmHg tO2 ___11.1__ -Vol% Ap test N/A -
[2017-04-24] MEDS: Heparin 5,000 Unit/mL Inj SUBQ SCH ×2 (08:13→16:50)
[2017-04-24] MEDS: Famotidine Inj 20 MG in IV Premix 1 EACH IV SCH ×2 (08:15→20:33)
[2017-04-24] MEDS: MethylprednisoLONE Sodium Succinate 40 mg/mL Inj IVPUSH SCH ×2 (08:16→20:34)
--- NOTE | 2017-04-24 08:18 | PROG NOTE ---
[address] [address] PROGRESS NOTE PATIENT: SHANNON ROBERSON : 1955 MR#: [id number] ADMIT: 04/18/2017 JOB ID: [id number] DATE: 04/24/2017 REASON FOR FOLLOW UP: Intraviral respiratory tract infection complicated by H flu pneumonia, pneumothorax and respiratory failure. INTERVAL HISTORY: Overnight, the patient has improved considerably. She is now breathing comfortably on 4 L nasal oxygen, and there are plans to reduce that somewhat. Note that she is constantly on 2 L at home as her baseline, so this is really not bad. She has no fevers, no chills. Very minimal sputum production. She has a bit of a dry brassy type cough, and has considerable pain at the site of her left chest tube insertion site. She has no GI symptoms and, in fact, is "starving," as she has been unable to take food orally because of questionable swallowing study done earlier in her hospital stay. PHYSICAL EXAMINATION: Reveals an afebrile woman sitting up and smiling today. Temp 36.8, she has been afebrile. Pulse 90, respiratory rate 17, blood pressure 114/92. She is saturating well on 4 L. Mental status is clear. Oral cavity without thrush or pharyngitis. Lungs with a few wheezes at the left base. Otherwise clear. Cardiac tones distant but regular. Abdomen soft, nontender. Chest tube insertion site appears uninfected but is quite painful. This is on the left side of the chest. LABORATORIES: Include white count stable at 17,000. Creatinine 0.4. LFTs normal except for ALT which is bouncing and right now at 121. BNP 7523. Procalcitonin less than 0.1. Hep C antibody negative. Urine Legionella and pneumococcal antigens negative in the urine. Blood cultures negative, but sputum did grow H flu and respiratory viral PCR positive for enterovirus. Today's chest x-ray shows what appears to be resolving pulmonary edema and overall improving chest x-ray, though it is certainly compatible with COPD at baseline. IMPRESSION: This patient is much improved now over the past couple of days. It would appear she had a enteroviral respiratory tract infection followed by H flu pneumonia, pneumothorax and respiratory failure. This is all now turned the corner and she is improving. RECOMMENDATIONS: 1. Ceftriaxone through tomorrow morning, and I have written a stop order for that. 2. I would continue droplet isolation through, at a minimum, April 25, but I think starting on April 26 we might reasonably go ahead and discontinue respiratory isolation if the patient remains here in the hospital. 3. Will continue to follow this patient with you.
--- NOTE | 2017-04-24 08:55 | DRSVH ---
PROCEDURE: X-RAY CHEST ONE VIEW, PORTABLE ([id number]) INDICATIONS: respiratory failure TECHNIQUE: One view of the chest was acquired. COMPARISON: [facility], CR, XR CHEST 1VW (PORTABLE), 04/23/2017, 5:37. FINDINGS: Surgical changes and devices: Right-sided central venous catheter is stable. Left-sided chest tube is stable. Lungs and pleura: No pleural effusions or pneumothorax. Lungs are clear. Mediastinum: Mediastinal contours appear normal. Heart size is normal. Bones and chest wall: No suspicious bony lesions. Overlying soft tissues appear unremarkable. IMPRESSION: No acute cardiopulmonary disease process. No pneumothorax. Dictated by: Esme Mccracken MD, PhD on 04/24/2017 at 8:53 Approved by: Esme Mccracken MD, PhD on 04/24/2017 at 8:54
[2017-04-24] MEDS: cefTRIAXone Inj 2,000 MG in Dextrose 5% Minibag Plus 50 ML IV SCH (10:16)
--- NOTE | 2017-04-24 13:05 | PROG NOTE ---
[address] [address] PROGRESS NOTE PATIENT: SHANNON ROBERSON : 1955 MR#: [id number] ADMIT: 04/18/2017 JOB ID: [id number] DATE: 04/24/2017 PULMONARY CRITICAL CARE FOLLOWUP NOTE: PROBLEM LIST: 1. COPD, severe. 2. Secondary pneumothorax. 3. Haemophilus influenzae respiratory tract infection. 4. Rhinovirus respiratory tract infection. 5. Takotsubo cardiomyopathy. SUBJECTIVE: Feeling quite a bit better this morning. Was able to sleep last night. Yesterday was a rather difficult time, with it increasing shortness of breath, probable elements of superimposed anxiety, difficulty with high-flow oxygen, and some pain at the chest tube site. Had episodes of atrial fib/flutter for which she was given one dose of IV metoprolol. However, she was started on BiPAP with improvement in her oxygenation and ventilation. Became less tachycardic, converted to sinus rhythm, and had a relatively restful night. Coughing up some yellowish phlegm this morning. Not particularly thick. Having some pain at the chest tube site. Quite hungry and would like to eat. OBJECTIVE: Temperature 36.8, pulse 80-90 with monitor showing normal sinus rhythm. Respiratory rate 17 on nasal cannula at 4 L a minute. O2 saturation 99%. I and O yesterday shows 0.4 L in, 4.6 L out. The patient has been 6.4 L negative over the past 36 hours. General Appearance: Comfortable. Speaking easily. Lying in bed, assuming the sitting position relatively easily. Chest: Fair breath sounds bilaterally. Maybe somewhat diminished at the right lower lung field. Maybe a few crackles, but variable. No use of accessory muscles. Heart: Regular rhythm. Heart tones normal. Abdomen: Soft. Bowel tones present. Extremities: No cyanosis or pretibial edema. LABORATORY STUDIES: White count is 17,300 with a moderate neutrophilia. Hemoglobin stable at 11.9. Platelet count stable at 195,000. Sodium 141, potassium 4.5, chloride 100, CO2 is 26, BUN 21, creatinine 0.4. Calcium 7.9 with albumin of 2.9. Phosphorus normal at 2.9. Magnesium normal at 2. Total bilirubin 0.5. AST normal at 28. Alkaline phosphatase moderately elevated 121 though decreasing. Alkaline phos normal at 130. Venous blood gases show a pCO2 of 44, pH 7.44. Mixed venous O2 sat of 66%. Chest tube shows fluctuation in the tube. No air leak noted. ASSESSMENT: 1. Secondary pneumothorax. Will likely have to use her Trilogy for a few hours during the day and again at night. For the moment therefore will leave the chest tube in place as she is likely at somewhat high risk for re-rupture of the bleb given her cough with some mucoid secretions along with the use of the positive pressure noninvasive ventilation. Pressures are low with inspiratory pressure of 10-12, expiratory pressure of about 5. The delivered tidal volume is reported to be about 370. 2. Chronic obstructive pulmonary disease (COPD). Significantly better today. Would like to decrease the methylprednisolone. Currently receiving 60 mg q.12. May want to cut that down to 60 daily. In meantime continue nebulized DuoNeb. 3. Anxiety. Significantly improved. Received trazodone 25 mg last night with good effect along with Tylenol. 4. Dysphagia. Not passing swallowing eval. All medications being given intravenously. Will repeat the swallow eval today. Hopefully get some nutrition on board and switch her medications from IV to p.o. today. 5. Weakness. Involve physical therapy. 6. Paroxysmal atrial fibrillation/flutter. Had some elements of atrial fib/flutter intermittently yesterday, probably lasting over a few hours. With the one dose of a beta oziel along with institution of her noninvasive positive pressure ventilation this has resolved and has not recurred. I think we need to continue the beta blockers at this point but rather follow her condition as the atrial fibrillation likely emanates from her underlying lung disease. PLAN: 1. Decrease Solu-Medrol to 60 mg IV push daily. 2. Continue nebulized bronchodilators. 3. Keep chest tube in place for the moment. 4. Noninvasive positive pressure ventilation intermittently during the day and at night. 5. Repeat swallow eval for ability to take orals. 6. Antibiotics as per ID. TIME: Time spent in critical care 35 minutes.
--- NOTE | 2017-04-24 13:24 | DRSVH ---
CORRECTED PATIENT MR# ON 04/24/17 PROCEDURE: X-RAY CHEST ONE VIEW, PORTABLE ([id number]) INDICATIONS: SHORT OF BREATH TECHNIQUE: One view of the chest was acquired. COMPARISON: None. FINDINGS: Lungs and pleura: Large left pneumothorax. The lung bases are excluded from the study. Diffuse scarri ng/atelectasis in the right lung. Endotracheal tube is present with the tip approximately 6 cm above the brien. Mediastinum: Mediastinal contours appear normal. Heart size is normal. Bones and chest wall: No suspicious bony lesions. Overlying soft tissues appear unremarkable. IMPRESSION: Large left pneumothorax. Findings discussed with Dr. Martinez in the emergency department at the time of study interpretation 2022 hrs. 04/18/17 Dictated by: Rasta Malik M.D. on 04/18/2017 at 20:19 Approved by: Rasta Malik M.D. on 04/18/2017 at 20:23
--- NOTE | 2017-04-24 15:07 | PCM.PNMED ---
Subjective Date of Service Apr 24, 2017 Subjective Subjective: Patient remains anxious and short of breath. Patient is anxious to have the chest tube removed. Events Overnight: No acute events overnight. ROS: Anxious, short of breath, chest pain Denies fever/chills, nausea/vomiting, headache, weakness, abdominal pain, increased swelling in hands or feet. Exam Vital Signs Vital Sign - Last Date Time Temp Pulse Resp B/P Pulse Ox O2 Delivery O2 Flow Rate FiO2 04/24/17 12:32 85 17 96 Aerosol Mask 04/24/17 08:18 36.8 107/77 04/24/17 03:11 30 04/23/17 17:30 3.00 Intake and Output 04/23/17 04/23/17 04/24/17 Cumulative From/Thru 15:00 23:00 07:00 04/18/17 20:00 - 04/24/17 06:28 Intake Total 212 ml 363 ml 31087 ml Output Total 2500 ml 1050 ml 55777 ml Balance -2288 ml -687 ml 3899 ml Intake Oral 0 ml IV Total 212 ml 363 ml 23714 ml Tube Feeding 991 ml Tube Irrigant 725 ml Output Urine Total 2500 ml 1000 ml 70971 ml Gastric Drainage Total 400 ml Chest Tube Drainage Total 50 ml 350 ml # Bowel Movements 1 1 Exam General: Mild distress, lightly sedated HEENT: Normocephalic, atraumatic. PERRLA, Neck: No JVD, No bruits. No lymphadenopathy or thyromegaly. Cardiovascular: Regular rate and rhythm with no murmurs, rubs, or gallops appreciated Pulmonary:Pt saturating well on nasal canula, coarse breaths diffusely, no wheezes noted Abdomen: +Bowel sound, Soft, nontender, nondistended. Extremities: No clubbing or cyanosis, no lymphedema, no b/l lower leg edema Skin: Normal temperature, turgor, and texture; no rash. No visualized skin ulcer. Neurological: CN II-VII grossly intact, A&O IVs and Medications IV Fluids 360 mL normal saline delivered with IV medications. Medications Reviewed: Medications were reviewed in detail Medications High risk medications include: Ativan Lab and Diagnostics Result Diagram: 04/24/17 0320 04/24/17 0320 Microbiology Sputum culture - Haemophilus Influenzae Resp PCR - Rhinovirus/Enterovirus Urine culture - Streptococcus Pneumoniae Blood cultures - no growth at 2 days MRSA swab - negative X-Rays, CTs and MRIs X-RAY CHEST ONE VIEW, PORTABLE IMPRESSION: Status post placement of left chest tube with residual small left apical pneumothorax. Status post placement of right central venous catheter. No pneumothorax. Dictated by: Rasta Malik M.D. on 04/18/2017 CT ANGIO CHEST PULMONARY EMBOLISM IMPRESSION: 1. No evidence for central pulmonary emboli. 2. Trace left apical pneumothorax. There is a chest tube on the left with associated subcutaneous air. 3. Moderate to severe emphysema. 4. Diffuse interstitial thickening and distended to pulmonary edema or interstitial pneumonia. Mild nodular infiltrates with "tree in bud" configuration could be secondary to atypical infection. 5. Bibasilar atelectasis. Dictated by: Frida Asif M.D. on 04/19/2017 CT ABDOMEN AND PELVIS WITH CONTRAST IMPRESSION: 1. Periportal edema liver consistent with hepatitis. Recommend clinical correlation. 2. A small amount of pericholecystic fluid. No gallstones or gallbladder wall thickening. 3. Nephrolithiasis in right kidney. No evidence for renal obstruction. 4. Atherosclerosis. Dictated by: Frida Asif M.D. on 04/19/2017 at 7:43 X-RAY CHEST ONE VIEW, PORTABLE IMPRESSION: 1. No definite residual left pneumothorax identified. 2. Persistent mild pulmonary edema. 3. Nasogastric tube tip demonstrated at the gastroesophageal junction with side port in the distal esophagus. Recommend further advancement into the stomach. Dictated by: Neymar Nixon M.D. on 04/21/2017 at 11:25 Approved by: Neymar Nixon M.D. on 04/21/2017 at 11:27 Cardiac Echo Impressions Echocardiogram Report Interpretation Summary: The left ventricle is normal in size. Left ventricular systolic function is severely reduced. The ejection fraction is estimated to be 20-25%. LVEF has reduced significantly since prior study. Proximal LV is the only area of LV myocardium that has normal contractility. The mid LV segments are hypokinetic and distal LV segments are essentially akinetic. Findings are suspicious for stress induced cardiomyopathy but cannot exclude acute coronary syndrome. Clinical correlation is recommended. Assessment of diastolic parameters indicates a restrictive filling pattern of the left ventricle consistent with significantly elevated filling pressures. Borderline right ventricular enlargement. There are regional wall motion abnormalities. The right ventricular systolic pressure is estimated at 52 mmHg assuming a right atrial pressure of 15 mm Hg. The left atrial size is normal. Right atrial size is normal. There is no significant valvular heart disease. Assessment & Plan Patient is a 61-year-old female ex-smoker with a severe centrilobular emphysema , and COPD presented with left lung pneumothorax and acute heart failure also have pneumonia. Likely, patient had viral upper respiratory tract infection followed by bacterial pneumonia,COPD exacerbation, subsequently developed left lung pneumothorax, and in the process had stress-induced cardiomyopathy. She is currently off of pressors, extubated, on ceftriaxone for H. influenzae pneumonia. Of note: The patient's sister Zhanna and ktirmdur-av-Amy Dolores are both nurses with a high degree of medical literacy, thus Zhanna should be the first point of contact for any acute changes or decision making, followed by Dolores who will relay information to the patient's son Som. Acute hypoxic respiratory failure, POA, active -Cause multifactorial: bacterial pneumonia, pneumothorax, COPD exacerbation -Intubated for 5 days, extubated on 04/22/2017 - Patient currently saturating well with assistance from BiPAP or aerosol mask as needed. - Patient previously requiring 2-3 L of 02 at home -Continue respiratory support, maintain pulse oximetry above 90% -Solu-Medrol 60 mg IV Q12 -Incentive spirometry when able - Pulmonology consulted, following Acute on chronic COPD, POA, Active -Continue DuoNeb q.4.h -Solu-Medrol 60 mg IV push every 12h Pneumonia -H.flu on sputum culture -CT, suggestive of atypical pna -MRSA screening negative -Continue ceftriaxone - ID consulted, following Pneumothorax, present on admission, active and improving. -Patient with left pneumothorax on arrival to the ED. -Chest tube in place since 04/18/2017 to be manage by surgery, watersjewel on 04/22, -Chest tube removal planned for 04/23 however this was not attempted due to tenuous respiration status -Pulmonology suggest keeping the chest tube in place at this time. -Initial insult likely caused by blebs Stress induced cardiomyopathy, present on admission, active -Echo showed EF 20-25% with apical ballooning. -Consider repeat echocardiogram once respiratory failure resolves QTC prolongation, present on admission, active and improving. -Initial EKG on presentation to the ED showed a QTC of 542. Repeat EKG now reveals a QTC of 691. -Close monitoring on telemetry. -Avoid QT prolonging medications. -QTC 422 (04/22/2017) Chronic/Resolved medical condition Diabetes mellitus type II non-insulin using, present on admission, active and stable. -A1c 6.2 -held home Metformin -Low-dose correctional scale with NPH. GERD, present on admission, chronic. -held home pantoprazole 40 mg, switched to Famotidine due to prolonged QT Sepsis shock, resolved -Met SIRS criteria initial evaluation, source pneumonia -Initial lactic acid 3.9, fluid resuscitation initiated and deescalated after 6 hours when lactic acid normalized, -Norepinephrine and vasopressin was later added for pressor support now DC'd -Sepsis resolved 04/22/2017, D/C pressors Elevated liver enzymes, active and stable. -likely 2nd to septic shock -CT abdomen and pelvis revealed findings suggestive of hepatitis or other hepatocellular process. -Tylenol level and hepatitis panel negative Non Ion gap metabolic and respiratory acidosis, POA. Improving -Upon arrival patient had an ABG consistent with non compensated respiratory acidosis -Repeat ABG showed improvement of the respiratory component of her acidosis but a decline in BiCarb resulting in a virtually unchanged pH since admission -Etiology uncertain at this time, could be consistent with Sepsis though active severe infection is questionable at this juncture -There is no report of active GI volume loss -Patient is not on a diuretic as an outpatient Elevated troponin return to stress cardiomyopathy, present on admission, active and stable. -Initial troponin was 0.014 some T-wave abnormalities in the lateral leads. Initially this was attributed to patient's hypotension. Second troponin was significantly elevated and repeat EKG was obtained. Some changes were noted and due to this treatment for NSTEMI was initiated. Patient never complained of chest pain per EMS and when she arrived she was already intubated and sedated. Risk factors include significant smoking history, family history of premature heart disease, and current critical condition. - Heparin drip transitioned to SubQ as this appears likely secondary to stress cardiomyopathy as above - Initial troponin 0.041. Second troponin 0.322. Troponin now trending down - Lipid panel within normal limits - Supplemental oxygen as needed. - Aspirin 81 mg initially received and continued daily. - Beta oziel, AMOS inhibitor, and clopidogrel unable to be given due to recent intubation, Bipap use, and hypotensive patient. Patient is now extubated and will start to reintroduce medications gradually as BP increases. Disposition: Patient likely to require 3-4 more days of inpatient management prior to discharge home. GI Prophylaxis: H2 oziel VTE Prophylaxis: Sub-Q Heparin (Unfractionated) VTE Mechanical Devices: Intermittant Pneumatic CD Resuscitation Status: CPR: Attempt Resuscitation Attending Statement The patient was seen and examined together with Dr. Young on 04/24/17 and I have added additional information to the note above. Rk Young DO Apr 24, 2017 15:07 Isabell Morrissey DO Apr 25, 2017 07:23
--- NOTE | 2017-04-24 17:11 | NUR ---
Social Work: Continued Discharge Planning/Multidisciplinary Rounds D: Pt discussed in multidisciplinary rounds; the patient is not medically stable for discharge. Pt remains in CCU. Pt was Intubated for 5 days, extubated on 04/22/2017. Pt currently on high flow 02. Patient's chest tubes may be d/c'd today. Discharge needs are undetermined at this time and team is awaiting pt's clinical course to improve. Anticipate another 3-4 more days of hospitalization before discharge home. A: Pt who remains in CCU; previously living at home iwth family in [place] and [place] at baseline. P: Evolving; [employer] to continue to follow pt's clinical status closely to determine discharge needs. ELINOR Romo
--- NOTE | 2017-04-24 17:56 | NUR ---
Up with PT today, ambulated in halls a short distance. Fatigues easily but determined to try. Maintaining sats 92-94% on 3L/NC. Adequate UOP via boss cath, BM X1 today. 40mls/12 hrs serous drainage from chest tube. Denies nausea, Tylenol helpful for c/o left chest discomfort/site of chest tube insertion. Taking diet per speech therapy with good appetite. Sinus rhythm on tele, no ectopy noted. In good spirits this evening, family visiting.
[2017-04-25] VITALS (11 sets, daily range): BP systolic 116–129; BP diastolic 64–86; PULSE 73–103; RESP 11–22; O2SAT 90–97
[2017-04-25] MEDS: Albuterol-Ipratropium 3 mL Inhalation Solution NEB SCH ×5 (00:12→21:06)
[2017-04-25] MEDS: Heparin 5,000 Unit/mL Inj SUBQ SCH ×3 (00:13→18:18)
[2017-04-25] MEDS: Insulin Human REGular 300 Unit/3 mL Inj SUBQ SCH ×2 (00:17→08:30)
--- NOTE | 2017-04-25 05:58 | NUR ---
Trilogy Pt used her home Trilogy unit tonight. Pt's SpO2 maintained WNL. Pt stated that even with the Tylenol and Restoril, she was only able to sleep for about 4 hours last night.
[2017-04-25 06:22] LABS: BASOPHILS % (AUTO) 0.1 % (0-3); EOSINOPHILS % (AUTO) 0 % (0-5); MONOCYTES % (AUTO) 3.4 % (4-12); Mean Corpuscular Hemoglobin 29.9 pg (27.0-35.0); Mean Corpuscular Volume 87.8 fL (81-100); NEUTROPHILS % (AUTO) 86.9 % (40-74); Platelet Count 199 bil/L (150-400)
[2017-04-25 07:03] LABS: Magnesium 1.9 mg/dL (1.6-2.6)
[2017-04-25] MEDS ORDERED: Glucose 40% Oral Gel 15 Gm Tube PO PRN (08:15)
[2017-04-25] MEDS: MethylprednisoLONE Sodium Succinate 40 mg/mL Inj IVPUSH SCH ×2 (08:49→21:27)
[2017-04-25] MEDS: Lidocaine Topical 5% Patch TOPICAL SCH (08:49)
[2017-04-25] MEDS: Famotidine Inj 20 MG in IV Premix 1 EACH IV SCH ×2 (08:49→21:26)
--- NOTE | 2017-04-25 10:01 | PCM.PNMED ---
Subjective Date of Service Apr 25, 2017 Subjective Pulmonology Progress Note 61 yo smoker with moderately severe COPD by most recent PFTs but increasingly severe functional limitation over the preceding several months. She had acute worsening of SOB several days ago and eventually began using her noninvasive home ventilator continuously. A friend called 911 when the patient was difficult to arouse and she had a respiratory arrest shortly after first responders arrived. She was intubated on the scene. Upon arrival in the [facility] ED she was found to have a large Lt sided pneumothorax without evidence for mediastinal shift. A chest tube was placed and she was admitted to the ICU. Since admission, a limited bedside echo suggested and EF of 20-25% and Takotsubo 's syndrome which was confirmed by formal echo later on 04/19. Interval History Patient did well overnight on her home Trilogy. Currently maintain oxygen sats of 88-92% on room air. Patient was up with physical therapy without any major desaturations yesterday. Patient complained of some pain associated with chest tube. Lidocaine patch and oral pain medications ordered specifically for use prior to physical therapy. Chest tube placed on water seal again this morning. Exam Vital Signs Vital Sign - Last Date Time Temp Pulse Resp B/P Pulse Ox O2 Delivery O2 Flow Rate FiO2 04/25/17 07:00 CPAP/BIPAP 04/25/17 07:00 80 04/25/17 07:00 36.9 12 122/64 90 04/25/17 05:40 2.00 04/24/17 03:11 30 Intake and Output 04/24/17 04/24/17 04/25/17 Cumulative From/Thru 15:00 23:00 07:00 04/18/17 20:00 - 04/25/17 05:04 Intake Total 520 ml 176 ml 79148 ml Output Total 865 ml 1050 ml 66036 ml Balance -345 ml -874 ml 2680 ml Intake Oral 360 ml 360 ml IV Total 160 ml 176 ml 80247 ml Tube Feeding 991 ml Tube Irrigant 725 ml Output Urine Total 825 ml 1050 ml 94128 ml Gastric Drainage Total 400 ml Chest Tube Drainage Total 40 ml 390 ml # Bowel Movements 1 2 Exam General: Frail, thin woman. In no acute distress. Appropriately interactive. HEENT: Normocephalic, atraumatic. Pupils equal, round, and reactive to light and accommodation. Anicteric sclerae, moist conjunctivae, and no lid lag. Neck: Supple with full range of motion. No jugular venous distension. Cardiovascular: Regular rate and rhythm with no murmurs, rubs, or gallops appreciated Pulmonary: Decreased breath sounds but no crackles or wheezes. No accessory muscle use. Abdomen: Bowel tones present. Soft, nontender, nondistended. No hepatosplenomegaly or masses appreciated. Extremities: Warm, pulses 2 out of 4 bilaterally in the radial and posterior tibialis. No lower extremity edema. Neurological: Cranial nerves grossly intact. Psychiatric: Alert and oriented to person, place, and time. Right subclavian Right peripheral IV Left chest tube turned to water seal Rivera catheter Lab and Diagnostics Result Diagram: 04/25/17 0604/25/17 06 Microbiology Sputum culture - Haemophilus Influenzae Resp PCR - Rhinovirus/Enterovirus Blood cultures - no growth MRSA swab - negative X-Rays, CTs and MRIs X-RAY CHEST ONE VIEW, PORTABLE IMPRESSION: Status post placement of left chest tube with residual small left apical pneumothorax. Status post placement of right central venous catheter. No pneumothorax. Dictated by: Rasta Malik M.D. on 04/18/2017 CT ANGIO CHEST PULMONARY EMBOLISM IMPRESSION: 1. No evidence for central pulmonary emboli. 2. Trace left apical pneumothorax. There is a chest tube on the left with associated subcutaneous air. 3. Moderate to severe emphysema. 4. Diffuse interstitial thickening and distended to pulmonary edema or interstitial pneumonia. Mild nodular infiltrates with "tree in bud" configuration could be secondary to atypical infection. 5. Bibasilar atelectasis. Dictated by: Frida Asif M.D. on 04/19/2017 CT ABDOMEN AND PELVIS WITH CONTRAST IMPRESSION: 1. Periportal edema liver consistent with hepatitis. Recommend clinical correlation. 2. A small amount of pericholecystic fluid. No gallstones or gallbladder wall thickening. 3. Nephrolithiasis in right kidney. No evidence for renal obstruction. 4. Atherosclerosis. Dictated by: Frida Asif M.D. on 04/19/2017 at 7:43 X-RAY CHEST ONE VIEW, PORTABLE IMPRESSION: 1. No definite residual left pneumothorax identified. 2. Persistent mild pulmonary edema. 3. Nasogastric tube tip demonstrated at the gastroesophageal junction with side port in the distal esophagus. Recommend further advancement into the stomach. Dictated by: Neymar Nixon M.D. on 04/21/2017 at 11:25 Approved by: Neymar Nixon M.D. on 04/21/2017 at 11:27 Cardiac Echo Impressions Echocardiogram Report Interpretation Summary: The left ventricle is normal in size. Left ventricular systolic function is severely reduced. The ejection fraction is estimated to be 20-25%. LVEF has reduced significantly since prior study. Proximal LV is the only area of LV myocardium that has normal contractility. The mid LV segments are hypokinetic and distal LV segments are essentially akinetic. Findings are suspicious for stress induced cardiomyopathy but cannot exclude acute coronary syndrome. Clinical correlation is recommended. Assessment of diastolic parameters indicates a restrictive filling pattern of the left ventricle consistent with significantly elevated filling pressures. Borderline right ventricular enlargement. There are regional wall motion abnormalities. The right ventricular systolic pressure is estimated at 52 mmHg assuming a right atrial pressure of 15 mm Hg. The left atrial size is normal. Right atrial size is normal. There is no significant valvular heart disease. Assessment & Plan Lily Astudillo is a 61-year-old female with past medical history significant for COPD / centrilobular emphysema and asthma on chronic oxygen therapy who presents to the ED after intubation by EMS for respiratory arrest / acute hypoxic respiratory failure. Upon arrival in the ED she was found to have a large Lt sided pneumothorax necessitating chest tube placement. She was hypotensive initially and a rapid limited echocardiogram demonstrated an EF of 20-25% with apical akinesis. Patient extubated 04/22/2017 after 4 days of intubation. Off all pressors and sedation since evening of 04/21/2017. Acute on chronic hypoxemic respiratory failure secondary to acute COPD exacerbation complicated by spontaneous pneumothorax. - Intubated for 4 days, extubated on 04/22/2017. Currently maintaining oxygen saturations between 88 and 92% on room air and Trilogy at night. - Chest tube on water seal starting 04/22/2017. This morning appears to have been placed back on suction. No apparent reason. No air leak seen at this time and therefore placed back to water seal. - DuoNebs PRN and scheduled Q4H - Solu-Medrol 60 mg IV push every 12h Anxiety likely secondary to air hunger. - Anxiety much improved as patient's work of breathing has decreased. - Trazodone 25 mg HS. Haemophilus influenza pneumonia - Likely viral infection predisposing patient to bacterial pneumonia. - H.flu on sputum culture and Rhinovirus on respiratory PCR. - MRSA screening negative. - Day 5 and final day of ceftriaxone. Meropenem and vancomycin d/c after 2 days. Acute systolic cardiomyopathy likely Takotsubo's - Echo showed EF 20-25% with apical ballooning. - Patient is off pressors, diuresis prior to extubation tolerated well, and blood pressure has continued to remain stable. - We will need follow-up after discharge. CODE STATUS full code GI prophylaxis famotidine DVT prophylaxis heparin GI Prophylaxis: H2 oziel VTE Prophylaxis: Sub-Q Heparin (Unfractionated) VTE Mechanical Devices: Intermittant Pneumatic CD Resuscitation Status: CPR: Attempt Resuscitation JESSICA GAINES DO Apr 25, 2017 10:01 GI Prophylaxis: H2 oziel VTE Prophylaxis: Sub-Q Heparin (Unfractionated) VTE Mechanical Devices: Intermittant Pneumatic CD Resuscitation Status: CPR: Attempt Resuscitation JESSICA GAINES DO Apr 25, 2017 10:01
--- NOTE | 2017-04-25 10:08 | PCM.PNMED ---
Subjective Date of Service Apr 25, 2017 Subjective pt states that she is feeling much better today although continues to have pain at the site of the chest tube. No events overnight ROS: Anxious, short of breath, chest pain Denies fever/chills, nausea/vomiting, headache, weakness, abdominal pain, increased swelling in hands or feet. Exam Vital Signs Vital Sign - Last Date Time Temp Pulse Resp B/P Pulse Ox O2 Delivery O2 Flow Rate FiO2 04/25/17 07:00 CPAP/BIPAP 04/25/17 07:00 80 04/25/17 07:00 36.9 12 122/64 90 04/25/17 05:40 2.00 04/24/17 03:11 30 Intake and Output 04/24/17 04/24/17 04/25/17 Cumulative From/Thru 15:00 23:00 07:00 04/18/17 20:00 - 04/25/17 05:04 Intake Total 520 ml 176 ml 25728 ml Output Total 865 ml 1050 ml 71939 ml Balance -345 ml -874 ml 2680 ml Intake Oral 360 ml 360 ml IV Total 160 ml 176 ml 07858 ml Tube Feeding 991 ml Tube Irrigant 725 ml Output Urine Total 825 ml 1050 ml 43220 ml Gastric Drainage Total 400 ml Chest Tube Drainage Total 40 ml 390 ml # Bowel Movements 1 2 Exam General: no acute distress, well-develped, energetic, smiling HEENT: Normocephalic, atraumatic. PERRLA, Neck: No JVD, No bruits. No lymphadenopathy or thyromegaly. Cardiovascular: Regular rate and rhythm with no murmurs, rubs, or gallops appreciated Pulmonary:Pt saturating well on room air, no wheezes, rales, rhonchi noted tenderness at the chest tube site, lidocaine patch in place Abdomen: +Bowel sound, Soft, nontender, nondistended. Extremities: No clubbing or cyanosis, no lymphedema, no b/l lower leg edema Skin: Normal temperature, turgor, and texture; no rash. No visualized skin ulcer. Neurological: CN II-VII grossly intact, A&O IVs and Medications IV Fluids 180 ml NS delivered with IV medications Medications Reviewed: Medications were reviewed in detail Lab and Diagnostics Result Diagram: 04/25/17 0600 04/25/17 0600 Microbiology Sputum culture - Haemophilus Influenzae Resp PCR - Rhinovirus/Enterovirus Urine culture - Streptococcus Pneumoniae Blood cultures - no growth at 2 days MRSA swab - negative X-Rays, CTs and MRIs X-RAY CHEST ONE VIEW, PORTABLE IMPRESSION: Status post placement of left chest tube with residual small left apical pneumothorax. Status post placement of right central venous catheter. No pneumothorax. Dictated by: Rasta Malik M.D. on 04/18/2017 CT ANGIO CHEST PULMONARY EMBOLISM IMPRESSION: 1. No evidence for central pulmonary emboli. 2. Trace left apical pneumothorax. There is a chest tube on the left with associated subcutaneous air. 3. Moderate to severe emphysema. 4. Diffuse interstitial thickening and distended to pulmonary edema or interstitial pneumonia. Mild nodular infiltrates with "tree in bud" configuration could be secondary to atypical infection. 5. Bibasilar atelectasis. Dictated by: Frida Asif M.D. on 04/19/2017 CT ABDOMEN AND PELVIS WITH CONTRAST IMPRESSION: 1. Periportal edema liver consistent with hepatitis. Recommend clinical correlation. 2. A small amount of pericholecystic fluid. No gallstones or gallbladder wall thickening. 3. Nephrolithiasis in right kidney. No evidence for renal obstruction. 4. Atherosclerosis. Dictated by: Frida Asif M.D. on 04/19/2017 at 7:43 X-RAY CHEST ONE VIEW, PORTABLE IMPRESSION: 1. No definite residual left pneumothorax identified. 2. Persistent mild pulmonary edema. 3. Nasogastric tube tip demonstrated at the gastroesophageal junction with side port in the distal esophagus. Recommend further advancement into the stomach. Dictated by: Neymar Nixon M.D. on 04/21/2017 at 11:25 Approved by: Neymar Nixon M.D. on 04/21/2017 at 11:27 Cardiac Echo Impressions Echocardiogram Report Interpretation Summary: The left ventricle is normal in size. Left ventricular systolic function is severely reduced. The ejection fraction is estimated to be 20-25%. LVEF has reduced significantly since prior study. Proximal LV is the only area of LV myocardium that has normal contractility. The mid LV segments are hypokinetic and distal LV segments are essentially akinetic. Findings are suspicious for stress induced cardiomyopathy but cannot exclude acute coronary syndrome. Clinical correlation is recommended. Assessment of diastolic parameters indicates a restrictive filling pattern of the left ventricle consistent with significantly elevated filling pressures. Borderline right ventricular enlargement. There are regional wall motion abnormalities. The right ventricular systolic pressure is estimated at 52 mmHg assuming a right atrial pressure of 15 mm Hg. The left atrial size is normal. Right atrial size is normal. There is no significant valvular heart disease. Assessment & Plan Patient is a 61-year-old female ex-smoker with a severe centrilobular emphysema , and COPD presented with left lung pneumothorax and acute heart failure also have pneumonia. Likely, patient had viral upper respiratory tract infection followed by bacterial pneumonia,COPD exacerbation, subsequently developed left lung pneumothorax, and in the process had stress-induced cardiomyopathy. She is currently off of pressors, extubated, on ceftriaxone for H. influenzae pneumonia. Of note: The patient's sister Zhanna and bwlbydns-yt-Hcz Dolores are both nurses with a high degree of medical literacy, thus Zhanna should be the first point of contact for any acute changes or decision making, followed by Dolores who will relay information to the patient's son Som. Acute hypoxic respiratory failure, POA, active -Cause multifactorial: bacterial pneumonia, pneumothorax, COPD exacerbation - Intubated for 5 days, extubated on 04/22/2017 - Patient currently saturating well with assistance from BiPAP or aerosol mask as needed. - Patient previously requiring 2-3 L of 02 at home -Continue respiratory support, maintain pulse oximetry above 90% -Solu-Medrol 60 mg IV Q12 - Incentive spirometry when able - Pulmonology consulted, following Acute on chronic COPD, POA, Active -Continue DuoNeb q.4.h -Solu-Medrol 60 mg IV push every 12h Pneumonia -H.flu on sputum culture -CT, suggestive of atypical pna -MRSA screening negative -Continue ceftriaxone - ID consulted, following Pneumothorax, present on admission, active and improving. -Patient with left pneumothorax on arrival to the ED likely caused by pulmonic blebbing -Chest tube in place since 04/18/2017 to be manage by pulmonology -Set to Waterseal on 04/22, set to suction on 04/24, set back to waterseal 04/25 -Chest tube removal planned for 04/26 - Lidocaine patch adjacent to chest tube for pain control. Stress induced cardiomyopathy, present on admission, active -Echo showed EF 20-25% with apical ballooning. -Consider repeat echocardiogram with resolution of respiratory distress QTC prolongation, present on admission, active and improving. -Initial EKG on presentation to the ED showed a QTC of 542. Repeat EKG now reveals a QTC of 691. -Close monitoring on telemetry. -Avoid QT prolonging medications. -QTC 422 (04/22/2017) Chronic/Resolved medical condition Diabetes mellitus type II non-insulin using, present on admission, active and stable. -A1c 6.2 -held home Metformin -Low-dose correctional scale with NPH. GERD, present on admission, chronic. -held home pantoprazole 40 mg, switched to Famotidine due to prolonged QT Sepsis shock, resolved -Met SIRS criteria initial evaluation, source pneumonia -Initial lactic acid 3.9, fluid resuscitation initiated and deescalated after 6 hours when lactic acid normalized, -Norepinephrine and vasopressin was later added for pressor support now DC'd -Sepsis resolved 04/22/2017, D/C pressors Elevated liver enzymes, active and stable. -likely 2nd to septic shock -CT abdomen and pelvis revealed findings suggestive of hepatitis or other hepatocellular process. -Tylenol level and hepatitis panel negative Non Ion gap metabolic and respiratory acidosis, POA. Improving -Upon arrival patient had an ABG consistent with non compensated respiratory acidosis -Repeat ABG showed improvement of the respiratory component of her acidosis but a decline in BiCarb resulting in a virtually unchanged pH since admission -Etiology uncertain at this time, could be consistent with Sepsis though active severe infection is questionable at this juncture -There is no report of active GI volume loss -Patient is not on a diuretic as an outpatient Elevated troponin return to stress cardiomyopathy, present on admission, active and stable. -Initial troponin was 0.014 some T-wave abnormalities in the lateral leads. Initially this was attributed to patient's hypotension. Second troponin was significantly elevated and repeat EKG was obtained. Some changes were noted and due to this treatment for NSTEMI was initiated. Patient never complained of chest pain per EMS and when she arrived she was already intubated and sedated. Risk factors include significant smoking history, family history of premature heart disease, and current critical condition. - Heparin drip transitioned to SubQ as this appears likely secondary to stress cardiomyopathy as above - Initial troponin 0.041. Second troponin 0.322. Troponin now trending down - Lipid panel within normal limits - Supplemental oxygen as needed. - Aspirin 81 mg initially received and continued daily. - Beta oziel, AMOS inhibitor, and clopidogrel unable to be given due to recent intubation, Bipap use, and hypotensive patient. Disposition: Patient likely to require 2-3 more days of inpatient management prior to discharge home. GI Prophylaxis: H2 oziel VTE Prophylaxis: Sub-Q Heparin (Unfractionated) VTE Mechanical Devices: Intermittant Pneumatic CD Resuscitation Status: CPR: Attempt Resuscitation Attending Statement The patient was seen and examined together with Dr. Young on 04/25/17 and I have added additional information to the note above. Rk Young DO Apr 25, 2017 10:08 Isabell Morrissey DO Apr 26, 2017 13:46
[2017-04-25] MEDS: cefTRIAXone Inj 2,000 MG in Dextrose 5% Minibag Plus 50 ML IV SCH (10:09)
[2017-04-25] MEDS: Insulin LISPRO 300 Unit/3 mL Inj SUBQ SCH ×3 (12:00→21:30)
--- NOTE | 2017-04-25 16:17 | NUR ---
Transfer to [facility] Pt transferred to [facility] room 2029. Report received from Emma Hamilton RN. Pt family notified of change of room. Belongings transferred with pt. Pt able to move from CCU bed to new bed with minimal assist. Pt became dyspnic with exertion and dropped her sats to high 70s. Pt was placed on NC 3L until she recovered to 92%. Per report pt sats to be 87-90% on RA.
--- NOTE | 2017-04-25 16:20 | PROG NOTE ---
[address] [address] PROGRESS NOTE PATIENT: SHANNON ROBERSON : 1955 MR#: [id number] ADMIT: 04/18/2017 JOB ID: [id number] DATE: 04/25/2017 INFECTIOUS DISEASE FOLLOWUP NOTE: REASON FOR FOLLOWUP: Enteroviral respiratory tract infection followed by H. flu pneumonia in a patient with underlying cardiac and pulmonary disease. INTERVAL HISTORY: Overnight the patient has continued to have pain at the site of her left-sided chest tube. She has really no cough at this point, however. No fevers, no chills. She notes that her respiratory status, she thinks, is about back to her baseline. PHYSICAL EXAMINATION: Reveals a reasonably comfortable and gradually more cheerful woman. Temperature 36.7, pulse 94, respiratory rate 16, blood pressure 126/82, saturating well on room air. She is in no distress at all today, breathing with just 1 or 2 L nasal prongs and doing very well. Oral cavity negative. Lungs: Decreased breath sounds at the left base. Right chest tube is present. Cardiac tones without change. No skin rash. LABORATORIES: Include WBC stable at 18,000 in this woman on steroids. Creatinine is 0.41. LFTs normal except alk phos is gradually falling, now 103. Procalcitonin is negative x2. Micro studies were positive for the respiratory viral PCR positive for enterovirus as well as sputum for H. flu. IMAGING: Includes a chest radiograph done yesterday, but not today. Yesterday's chest x-ray showed the chest tube but no pneumothorax and no infiltrate. IMPRESSION: This patient seems to have recovered quite well from both her H. flu pneumonia as well as her enteroviral URI. At this point I think we can discontinue all antibiotics. RECOMMENDATIONS: 1. Full week. No additional antibiotics are indicated at this time. Note that the ceftriaxone added just this morning. 2. ID will go ahead and sign off at this time, but do not hesitate to call me if there are additional questions or issues regarding this patient. Thank you very much. SHELLY
[2017-04-25] MEDS ORDERED: Ondansetron 2 mg/mL 2 mL Inj IVPUSH PRN (21:05)
[2017-04-26] VITALS (12 sets, daily range): BP systolic 102–130; BP diastolic 66–88; PULSE 78–106; RESP 16–22; O2SAT 91–96
[2017-04-26] MEDS: Heparin 5,000 Unit/mL Inj SUBQ SCH ×3 (00:10→18:49)
[2017-04-26] MEDS: Albuterol-Ipratropium 3 mL Inhalation Solution NEB SCH ×6 (00:30→20:43)
--- NOTE | 2017-04-26 06:18 | NUR ---
Pain/Respiratory Pt c/o pain in left chest area where chest tube is 6-8/10. Administered 5mg Oxycodone x2 this shift and effective for a short period at decreasing the pain. Pt has acapella at bedside and is using as directed. Pt has barking cough and lung sounds are decreased. Pt SpO2 88-92% on RA and pt using home trilogy machine while asleep. VSS and Tele 80-90's
[2017-04-26] MEDS: Famotidine Inj 20 MG in IV Premix 1 EACH IV SCH ×2 (07:50→21:15)
[2017-04-26] MEDS: Lidocaine Topical 5% Patch TOPICAL SCH (07:50)
[2017-04-26] MEDS: Insulin LISPRO 300 Unit/3 mL Inj SUBQ SCH ×4 (08:00→21:20)
[2017-04-26] MEDS: predniSONE 20 mg Tablet PO SCH (08:07)
--- NOTE | 2017-04-26 11:32 | PCM.PNMED ---
Subjective Date of Service Apr 26, 2017 Subjective Pulmonology Progress Note 61 yo smoker with moderately severe COPD by most recent PFTs but increasingly severe functional limitation over the preceding several months. She had acute worsening of SOB several days ago and eventually began using her noninvasive home ventilator continuously. A friend called 911 when the patient was difficult to arouse and she had a respiratory arrest shortly after first responders arrived. She was intubated on the scene. Upon arrival in the [facility] ED she was found to have a large Lt sided pneumothorax without evidence for mediastinal shift. A chest tube was placed and she was admitted to the ICU. Since admission, a limited bedside echo suggested and EF of 20-25% and Takotsubo 's syndrome which was confirmed by formal echo later on 04/19. Interval History Patient did well overnight on her home Trilogy. Currently maintain oxygen sats of 88-92% on room air. Patient continues to make improvements with physical therapy. Patient is having increasing pain at site of chest tube. Chest tube has been on waterseal for 24 hours. Plan to remove chest tube this afternoon. Patient has continued to have some swallowing difficulties and there is a plan by primary team to obtain a barium swallow this afternoon to further investigate this issue. Exam Vital Signs Vital Sign - Last Date Time Temp Pulse Resp B/P Pulse Ox O2 Delivery O2 Flow Rate FiO2 04/26/17 08:31 81 16 91 Room Air 04/26/17 07:45 36.6 120/80 04/25/17 16:13 2.00 04/24/17 03:11 30 Intake and Output 04/25/17 04/25/17 04/26/17 Cumulative From/Thru 15:00 23:00 07:00 04/18/17 20:00 - 04/26/17 06:09 Intake Total 171 ml 873 ml 155 ml 70290 ml Output Total 900 ml 90 ml 01485 ml Balance 171 ml -27 ml 65 ml 2889 ml Intake Oral 820 ml 1180 ml IV Total 171 ml 53 ml 155 ml 21477 ml Tube Feeding 991 ml Tube Irrigant 725 ml Output Urine Total 900 ml 25004 ml Gastric Drainage Total 400 ml Chest Tube Drainage Total 90 ml 480 ml # Bowel Movements 0 2 Exam General: Frail, thin woman. In no acute distress. Appropriately interactive. HEENT: Normocephalic, atraumatic. Pupils equal, round, and reactive to light and accommodation. Anicteric sclerae, moist conjunctivae, and no lid lag. Neck: Supple with full range of motion. No jugular venous distension. Cardiovascular: Regular rate and rhythm with no murmurs, rubs, or gallops appreciated Pulmonary: Decreased breath sounds but no crackles or wheezes. No accessory muscle use. Abdomen: Bowel tones present. Soft, nontender, nondistended. No hepatosplenomegaly or masses appreciated. Extremities: Warm, pulses 2 out of 4 bilaterally in the radial and posterior tibialis. No lower extremity edema. Neurological: Cranial nerves grossly intact. Psychiatric: Alert and oriented to person, place, and time. Right subclavian Right peripheral IV Left chest tube turned to water seal Rivera catheter Lab and Diagnostics Result Diagram: 04/25/17 0600 04/25/17 0600 Microbiology Sputum culture - Haemophilus Influenzae Resp PCR - Rhinovirus/Enterovirus Blood cultures - no growth MRSA swab - negative X-Rays, CTs and MRIs X-RAY CHEST ONE VIEW, PORTABLE IMPRESSION: Status post placement of left chest tube with residual small left apical pneumothorax. Status post placement of right central venous catheter. No pneumothorax. Dictated by: Rasta Malik M.D. on 04/18/2017 CT ANGIO CHEST PULMONARY EMBOLISM IMPRESSION: 1. No evidence for central pulmonary emboli. 2. Trace left apical pneumothorax. There is a chest tube on the left with associated subcutaneous air. 3. Moderate to severe emphysema. 4. Diffuse interstitial thickening and distended to pulmonary edema or interstitial pneumonia. Mild nodular infiltrates with "tree in bud" configuration could be secondary to atypical infection. 5. Bibasilar atelectasis. Dictated by: Frida Asif M.D. on 04/19/2017 CT ABDOMEN AND PELVIS WITH CONTRAST IMPRESSION: 1. Periportal edema liver consistent with hepatitis. Recommend clinical correlation. 2. A small amount of pericholecystic fluid. No gallstones or gallbladder wall thickening. 3. Nephrolithiasis in right kidney. No evidence for renal obstruction. 4. Atherosclerosis. Dictated by: Frida Asif M.D. on 04/19/2017 at 7:43 X-RAY CHEST ONE VIEW, PORTABLE IMPRESSION: 1. No definite residual left pneumothorax identified. 2. Persistent mild pulmonary edema. 3. Nasogastric tube tip demonstrated at the gastroesophageal junction with side port in the distal esophagus. Recommend further advancement into the stomach. Dictated by: Neymar Nixon M.D. on 04/21/2017 at 11:25 Approved by: Neymar Nixon M.D. on 04/21/2017 at 11:27 Cardiac Echo Impressions Echocardiogram Report Interpretation Summary: The left ventricle is normal in size. Left ventricular systolic function is severely reduced. The ejection fraction is estimated to be 20-25%. LVEF has reduced significantly since prior study. Proximal LV is the only area of LV myocardium that has normal contractility. The mid LV segments are hypokinetic and distal LV segments are essentially akinetic. Findings are suspicious for stress induced cardiomyopathy but cannot exclude acute coronary syndrome. Clinical correlation is recommended. Assessment of diastolic parameters indicates a restrictive filling pattern of the left ventricle consistent with significantly elevated filling pressures. Borderline right ventricular enlargement. There are regional wall motion abnormalities. The right ventricular systolic pressure is estimated at 52 mmHg assuming a right atrial pressure of 15 mm Hg. The left atrial size is normal. Right atrial size is normal. There is no significant valvular heart disease. Assessment & Plan Lily Astudillo is a 61-year-old female with past medical history significant for COPD / centrilobular emphysema and asthma on chronic oxygen therapy who presents to the ED after intubation by EMS for respiratory arrest / acute hypoxic respiratory failure. Upon arrival in the ED she was found to have a large Lt sided pneumothorax necessitating chest tube placement. She was hypotensive initially and a rapid limited echocardiogram demonstrated an EF of 20-25% with apical akinesis. Patient extubated 04/22/2017 after 4 days of intubation. Off all pressors and sedation since evening of 04/21/2017. Acute on chronic hypoxemic respiratory failure secondary to acute COPD exacerbation complicated by spontaneous pneumothorax. - Intubated for 4 days, extubated on 04/22/2017. Currently maintaining oxygen saturations between 88 and 92% on room air and Trilogy at night. - Chest tube on water seal starting 04/22/2017. Chest tube placed back on suction likely accidental as no apparent reason can be found. Chest tube has now been back on water seal for 24 hours. Patient is having increasing pain at the site of chest tube. Plan to remove chest tube this afternoon. - DuoNebs PRN and scheduled Q4H - Prednisone 60 mg daily for 2-3 days and then decrease to 40 mg daily. - Patient to use Acapella. Anxiety likely secondary to air hunger. - Anxiety much improved as patient's work of breathing has decreased. - Trazodone 25 mg HS. Haemophilus influenza pneumonia - Likely viral infection predisposing patient to bacterial pneumonia. - H.flu on sputum culture and Rhinovirus on respiratory PCR. - MRSA screening negative. - Completed course of ceftriaxone. Meropenem and vancomycin d/c after 2 days. Acute systolic cardiomyopathy likely Takotsubo's - Echo showed EF 20-25% with apical ballooning. - Patient is off pressors, diuresis prior to extubation tolerated well, and blood pressure has continued to remain stable. - We will need follow-up after discharge. CODE STATUS full code GI prophylaxis famotidine DVT prophylaxis heparin GI Prophylaxis: H2 oziel VTE Prophylaxis: Sub-Q Heparin (Unfractionated) VTE Mechanical Devices: Intermittant Pneumatic CD Resuscitation Status: CPR: Attempt Resuscitation JESSICA GAINES DO Apr 26, 2017 11:32
--- NOTE | 2017-04-26 12:32 | DRSVH ---
PROCEDURE: X-RAY CHEST ONE VIEW, PORTABLE ([id number]) INDICATIONS: 61 year-old female with COPD and pneumonia. TECHNIQUE: One view of the chest was acquired. COMPARISON: [facility], CR, XR CHEST 1VW (PORTABLE), 04/24/2017, 4:35. [facility], CR, XR CHEST 1VW (PORTABLE), 04/23/2017, 5:37. [facility], CR, XR CHEST 1VW (TONY BLE), 04/21/2017, 5:09. FINDINGS: Surgical changes and devices: Right subclavian central venous catheter is again noted, as well as lef t pleural drain. Lungs and pleura: There is new small dependent right pleural effusion. No pneumothorax. No acute airs pace opacities. Lung volumes are prominent as before. Mediastinum: Mediastinal contours appear normal. Heart size is normal. Bones and chest wall: No suspicious bony lesions. Overlying soft tissues appear unremarkable. IMPRESSION: 1. New small basal right pleural effusion is of uncertain etiology. 2. Prominent lung volumes raise the question of chronic obstructive pulmonary disease. Dictated by: Bakari Lei M.D. on 04/26/2017 at 12:28 Approved by: Bakari Lei M.D. on 04/26/2017 at 12:30
[2017-04-26 14:07] LABS: BASOPHILS % (AUTO) 0.1 % (0-3); EOSINOPHILS % (AUTO) 0 % (0-5); MONOCYTES % (AUTO) 1.8 % (4-12); Mean Corpuscular Hemoglobin 29.9 pg (27.0-35.0); Mean Corpuscular Volume 87.1 fL (81-100); NEUTROPHILS % (AUTO) 93.4 % (40-74); Platelet Count 211 bil/L (150-400)
[2017-04-26] MEDS ORDERED: fentaNYL-PF 50 mCg/mL 2 mL Inj IVPUSH ONE ×2 (14:10→15:40)
--- NOTE | 2017-04-26 15:45 | DRSVH ---
PROCEDURE: X-RAY BARIUM SWALLOW WITH FOOD & VIDEOGRAPHY ([id number]) INDICATIONS: 61 year-old female with dysphagia. TECHNIQUE: Examination was conducted in conjunction with speech pathology per standard protocol. In the lateral projection, filming was performed of the patient swallowing. COMPARISON: None. FINDINGS: Function: The oral preparatory phase appears normal, with proper containment. The subsequent oral pr opulsive phase, pharyngeal phase, and esophageal phase of swallowing also appear normal with all prof fered substances. No laryngotracheal penetration or aspiration. No pathologic vallecular pooling. T here is prompt passage of a calibrated barium tablet through the pharynx. Morphology: No cricopharyngeal bar is identified. No cervical esophageal webs. No Zenker's diverti culum. No strictures. IMPRESSION: Normal modified barium swallow. No laryngotracheal penetration or aspiration. Dictated by: Bakari Lei M.D. on 04/26/2017 at 15:42 Approved by: Bakari Lei M.D. on 04/26/2017 at 15:44
--- NOTE | 2017-04-26 16:44 | NUR ---
NUTRITION FOLLOW UP: ASSESS: 61 YO F admitted to CCU following acute hypoxic respiratory failure with intubation in the field. Pt with left pneumothorax requiring chest tube placement. Pt with COPD exacerbation and pneumonia. Pt extubated 04/22; tube feedings discontinued. Pt diet advanced to diabetic nectar thick liquids per ST. PO 50% x 1meal. Pt c/o pain at site of chest tube, MD notes indicate attempt to remove chest tube this afternoon. Possible MBS with pt swallowing dififculty. PMHX: COPD with centrilobular emphysema and asthma, seasonal allergies, endometriosis, nephrolithiasis, cervical spondylosis, chronic cervical and low back pain, GERD, insomnia, left renal cyst, adenomatous colonic polyps DIET: Diabetic [place] thick liquids. PO 50% x 1 meal LABS: Reviewed. Glu 146, Alb 3.5A1c 6.2 MEDICATIONS: Reviewed. Colace, Solu-medrol GI: 1 BM 04/24 SKIN: Per [facility] Representative, there are no pressure injuries at this time. ANTHROPOMETRICS: Current Wt: 52.2 kg, BMI 18.6 kg/m2. Admit weight: 53.5 kg, IBW: 59.1 kg (90.5% IBW). No recent weight loss noted. ESTIMATED NEEDS (COPD): Calories: 6738-0941 kcal/day (30-35 kcal/kg BW) Protein: 69-86 g/day (1.2-1.5 g/kg BW) Fluid: Approx. 1873 mL (35 mL/kg BW) NUTRITION DIAGNOSIS: 1) Inadequate oral intake related to inability to consume sufficient energy, as evidenced by 50% po intake x 1 meal, underweight status--MILDLY IMPROVED. 2) Increased nutrient needs related to COPD with centrilobular emphysema and asthma, as evidenced by underweight status - PERSISTS. INTERVENTION: 1) Diet advancement per speech therapy. Supplements added to all meal trays. MONITOR/EVALUATE: Texture tolerance, po intake labs, weight, nutrition status. Follow per moderate nutrition risk guidelines. Addendum: 04/29/17 at [address] High kcal/pro diet education provided 04/29. Pt requested prescription to get ensure at [facility]. paged regarding pt request.
--- NOTE | 2017-04-26 17:40 | PCM.PNMED ---
Subjective Date of Service Apr 26, 2017 Subjective Subjective: Patient complains of increased pain at the site of the chest tube despite increased pain medications. Events Overnight: No acute events overnight. ROS: Denies fever/chills, nausea/vomiting, headache, weakness, abdominal pain, chest pain, shortness of breath, increased swelling in hands or feet. Exam Vital Signs Vital Sign - Last Date Time Temp Pulse Resp B/P Pulse Ox O2 Delivery O2 Flow Rate FiO2 04/26/17 16:45 89 16 91 Room Air 04/26/17 16:10 36.5 119/72 04/25/17 16:13 2.00 04/24/17 03:11 30 Intake and Output 04/25/17 04/25/17 04/26/17 Cumulative From/Thru 15:00 23:00 07:00 04/18/17 20:00 - 04/26/17 06:09 Intake Total 171 ml 873 ml 155 ml 99547 ml Output Total 900 ml 90 ml 65522 ml Balance 171 ml -27 ml 65 ml 2889 ml Intake Oral 820 ml 1180 ml IV Total 171 ml 53 ml 155 ml 83724 ml Tube Feeding 991 ml Tube Irrigant 725 ml Output Urine Total 900 ml 60256 ml Gastric Drainage Total 400 ml Chest Tube Drainage Total 90 ml 480 ml # Bowel Movements 0 2 Exam General: no acute distress, well-develped, energetic, smiling HEENT: Normocephalic, atraumatic. PERRLA, Neck: No JVD, No bruits. No lymphadenopathy or thyromegaly. Cardiovascular: Regular rate and rhythm with no murmurs, rubs, or gallops appreciated Pulmonary:Pt saturating well on room air, no wheezes, rales, rhonchi noted tenderness at the chest tube site, lidocaine patch in place Abdomen: +Bowel sound, Soft, nontender, nondistended. Extremities: No clubbing or cyanosis, no lymphedema, no b/l lower leg edema Skin: Normal temperature, turgor, and texture; no rash. No visualized skin ulcer. Neurological: CN II-XII grossly intact, A&O IVs and Medications IV Fluids 200 mL normal saline delivered with IV medication. Medications Reviewed: Medications were reviewed in detail Medications High-risk medications include: Oxycodone Lab and Diagnostics Result Diagram: 04/26/17 1358 04/26/17 1358 Microbiology Sputum culture - Haemophilus Influenzae Resp PCR - Rhinovirus/Enterovirus Blood cultures - no growth MRSA swab - negative X-Rays, CTs and MRIs X-RAY CHEST ONE VIEW, PORTABLE IMPRESSION: Status post placement of left chest tube with residual small left apical pneumothorax. Status post placement of right central venous catheter. No pneumothorax. Dictated by: Rasta Malik M.D. on 04/18/2017 CT ANGIO CHEST PULMONARY EMBOLISM IMPRESSION: 1. No evidence for central pulmonary emboli. 2. Trace left apical pneumothorax. There is a chest tube on the left with associated subcutaneous air. 3. Moderate to severe emphysema. 4. Diffuse interstitial thickening and distended to pulmonary edema or interstitial pneumonia. Mild nodular infiltrates with "tree in bud" configuration could be secondary to atypical infection. 5. Bibasilar atelectasis. Dictated by: Frida Asif M.D. on 04/19/2017 CT ABDOMEN AND PELVIS WITH CONTRAST IMPRESSION: 1. Periportal edema liver consistent with hepatitis. Recommend clinical correlation. 2. A small amount of pericholecystic fluid. No gallstones or gallbladder wall thickening. 3. Nephrolithiasis in right kidney. No evidence for renal obstruction. 4. Atherosclerosis. Dictated by: Frida Asif M.D. on 04/19/2017 at 7:43 X-RAY CHEST ONE VIEW, PORTABLE IMPRESSION: 1. No definite residual left pneumothorax identified. 2. Persistent mild pulmonary edema. 3. Nasogastric tube tip demonstrated at the gastroesophageal junction with side port in the distal esophagus. Recommend further advancement into the stomach. Dictated by: Neymar Nixon M.D. on 04/21/2017 at 11:25 Approved by: Neymar Nixon M.D. on 04/21/2017 at 11:27 Cardiac Echo Impressions Echocardiogram Report Interpretation Summary: The left ventricle is normal in size. Left ventricular systolic function is severely reduced. The ejection fraction is estimated to be 20-25%. LVEF has reduced significantly since prior study. Proximal LV is the only area of LV myocardium that has normal contractility. The mid LV segments are hypokinetic and distal LV segments are essentially akinetic. Findings are suspicious for stress induced cardiomyopathy but cannot exclude acute coronary syndrome. Clinical correlation is recommended. Assessment of diastolic parameters indicates a restrictive filling pattern of the left ventricle consistent with significantly elevated filling pressures. Borderline right ventricular enlargement. There are regional wall motion abnormalities. The right ventricular systolic pressure is estimated at 52 mmHg assuming a right atrial pressure of 15 mm Hg. The left atrial size is normal. Right atrial size is normal. There is no significant valvular heart disease. Assessment & Plan Patient is a 61-year-old female ex-smoker with a severe centrilobular emphysema , and COPD presented with left lung pneumothorax and acute heart failure also have pneumonia. Likely, patient had viral upper respiratory tract infection followed by bacterial pneumonia,COPD exacerbation, subsequently developed left lung pneumothorax, and in the process had stress-induced cardiomyopathy. She is currently off of pressors, extubated, on ceftriaxone for H. influenzae pneumonia. Of note: The patient's sister Zhanna and [id number] Dolores are both nurses with a high degree of medical literacy, thus Zhanna should be the first point of contact for any acute changes or decision making, followed by Dolores who will relay information to the patient's son Som. Acute hypoxic respiratory failure, POA, active -Cause multifactorial: bacterial pneumonia, pneumothorax, COPD exacerbation - Intubated for 5 days, extubated on 04/22/2017 - Patient currently saturating well with assistance from BiPAP or aerosol mask as needed. - Patient previously requiring 2-3 L of 02 at home - Continue respiratory support, maintain pulse oximetry above 90% - Prednisone 60 mg by mouth daily - Incentive spirometry when able - Pulmonology consulted, following Acute on chronic COPD, POA, Active - Continue DuoNeb q.4.h - Prednisone 60 mg by mouth daily Pneumothorax, present on admission, stable - Patient with left pneumothorax on arrival to the ED likely caused by pulmonic blebbing - Chest tube in place since 04/18/2017 DC'd on 04/26 - Lidocaine patch adjacent to chest tube for pain control. - Continue monitor for 48 hours prior to discharge home. - Repeat chest x-ray before discharge home Stress induced cardiomyopathy, present on admission, active -Echo showed EF 20-25% with apical ballooning. -Consider repeat echocardiogram with resolution of respiratory distress QTC prolongation, present on admission, active and improving. -Initial EKG on presentation to the ED showed a QTC of 542. Repeat EKG now reveals a QTC of 691. -Close monitoring on telemetry. -Avoid QT prolonging medications. -QTC 422 (04/22/2017) Pneumonia, present on arrival, resolved - H.flu on sputum culture - CT, suggestive of atypical pna - MRSA screening negative - Ceftriaxone discontinued - ID consulted, following Chronic/Resolved medical condition Diabetes mellitus type II non-insulin using, present on admission, active and stable. -A1c 6.2 -Held home Metformin -Low-dose correctional scale with NPH. GERD, present on admission, chronic. -held home pantoprazole 40 mg, switched to Famotidine due to prolonged QT Sepsis shock, resolved -Met SIRS criteria initial evaluation, source pneumonia -Initial lactic acid 3.9, fluid resuscitation initiated and deescalated after 6 hours when lactic acid normalized, -Norepinephrine and vasopressin was later added for pressor support now DC'd -Sepsis resolved 04/22/2017, D/C pressors Elevated liver enzymes, active and stable. -likely 2nd to septic shock -CT abdomen and pelvis revealed findings suggestive of hepatitis or other hepatocellular process. -Tylenol level and hepatitis panel negative Non Ion gap metabolic and respiratory acidosis, POA. Improving -Upon arrival patient had an ABG consistent with non compensated respiratory acidosis -Repeat ABG showed improvement of the respiratory component of her acidosis but a decline in BiCarb resulting in a virtually unchanged pH since admission -Etiology uncertain at this time, could be consistent with Sepsis though active severe infection is questionable at this juncture -There is no report of active GI volume loss -Patient is not on a diuretic as an outpatient Elevated troponin return to stress cardiomyopathy, present on admission, active and stable. -Initial troponin was 0.014 some T-wave abnormalities in the lateral leads. Initially this was attributed to patient's hypotension. Second troponin was significantly elevated and repeat EKG was obtained. Some changes were noted and due to this treatment for NSTEMI was initiated. Patient never complained of chest pain per EMS and when she arrived she was already intubated and sedated. Risk factors include significant smoking history, family history of premature heart disease, and current critical condition. - Heparin drip transitioned to SubQ as this appears likely secondary to stress cardiomyopathy as above - Initial troponin 0.041. Second troponin 0.322. Troponin now trending down - Lipid panel within normal limits - Supplemental oxygen as needed. - Aspirin 81 mg initially received and continued daily. - Beta oziel, AMOS inhibitor, and clopidogrel unable to be given due to recent intubation, Bipap use, and hypotensive patient. Disposition: Patient likely to require 2-3 more days of inpatient management prior to discharge home. GI Prophylaxis: H2 oziel VTE Prophylaxis: Sub-Q Heparin (Unfractionated) VTE Mechanical Devices: Intermittant Pneumatic CD Resuscitation Status: CPR: Attempt Resuscitation Attending Statement The patient was seen and examined together with Dr. Young on 04/26/17 and I have added additional information to the note above. Rk Young DO Apr 26, 2017 17:40 Isabell Morrissey DO Apr 27, 2017 15:16
--- NOTE | 2017-04-26 19:55 | NUR ---
Chest Tube Removal/Boss/Activity Pt chest tube removed. Pt premedicated with 25mcg of Fentynl. Pt tolerated initial examination by MD but requested additional pain medication for the final removal of the chest tube. Pt was administered an additional 25mcg of Fentynl for procedure with a result of tolerating procedure with no significant pain. After procedure pt stated that she felt as if her voice were louder and she could breath deeper. She stated her pain level as minimal. Pt's boss catheter was removed after procedure. Pt instructed to notify nursing staff when she felt like voiding. Pt voided spontaneously during safety check with incoming material handler 2nd shift RN. Pt unable to work with PT today due to conflict with other procedures. She was encouraged to get up and walk with evening staff. Pt agreeable to the exercise. material handler 2nd shift RN notified of plan.
[2017-04-27] VITALS (12 sets, daily range): BP systolic 102–127; BP diastolic 63–81; PULSE 66–95; RESP 16–20; O2SAT 93–97
[2017-04-27] MEDS: Heparin 5,000 Unit/mL Inj SUBQ SCH ×4 (00:01→23:52)
[2017-04-27 05:25] LABS: BASOPHILS % (AUTO) 0.1 % (0-3); EOSINOPHILS % (AUTO) 0.5 % (0-5); MONOCYTES % (AUTO) 5.6 % (4-12); Mean Corpuscular Hemoglobin 29.8 pg (27.0-35.0); Mean Corpuscular Volume 88.1 fL (81-100); Platelet Count 203 bil/L (150-400)
--- NOTE | 2017-04-27 06:36 | DRSVH ---
PROCEDURE: X-RAY CHEST ONE VIEW, PORTABLE ([id number]) INDICATIONS: 61 year-old female with chest tube removal. TECHNIQUE: One view of the chest was acquired. COMPARISON: [facility], CR, XR CHEST 1VW (PORTABLE), 04/26/2017, 11:43. [facility], CR, XR CHEST 1VW (PORTABLE), 04/24/2017, 4:35. [facility], CR, XR CHEST 1VW (PORT ABLE), 04/23/2017, 5:37. FINDINGS: Surgical changes and devices: Left pleural drain has been removed. Right internal jugular central jaxson ous catheter is again noted. Lungs and pleura: There is tiny left apical pneumothorax. There is persistent trace right basal pleur al effusion. Lungs are clear. Lung volumes remain prominent. Mediastinum: Mediastinal contours appear normal. Heart size is normal. Bones and chest wall: No suspicious bony lesions. Overlying soft tissues appear unremarkable. IMPRESSION: 1. Trace residual left apical pneumothorax is apparent status post interval removal of left chest tub e. 2. Trace basal right pleural effusion is unchanged, of uncertain etiology. 3. Prominent lung volumes raise the question of chronic obstructive pulmonary disease. Dictated by: Bakari Lei M.D. on 04/27/2017 at 6:31 Approved by: Bakari Lei M.D. on 04/27/2017 at 6:34
--- NOTE | 2017-04-27 06:41 | NUR ---
Pain/Ambulation Pt reported 6/10 R chest incisional pain, Oxycodone given x1, effective. Pt walking in hallway with FWW and SBA on RA, sats in high 80's to low 90's during most of ambulation, however when pt tried to walk and talk at the same time sats decreased to low 80's. Pt was instructed to safe her energy and not talk during ambulation.
[2017-04-27] MEDS: Insulin LISPRO 300 Unit/3 mL Inj SUBQ SCH ×4 (08:00→22:00)
[2017-04-27] MEDS ORDERED: KCl 40 mEq/100 mL (CENTRAL) 40 MEQ in IV Premix 1 EACH IV ONE (08:05)
[2017-04-27] MEDS: Famotidine Inj 20 MG in IV Premix 1 EACH IV SCH ×2 (08:40→21:09)
[2017-04-27] MEDS: Albuterol-Ipratropium 3 mL Inhalation Solution NEB SCH ×4 (09:48→20:40)
[2017-04-27] MEDS: predniSONE 20 mg Tablet PO SCH (10:28)
[2017-04-27] MEDS: Lidocaine Topical 5% Patch TOPICAL SCH (10:28)
--- NOTE | 2017-04-27 12:49 | PCM.PNMED ---
Subjective Date of Service Apr 27, 2017 Subjective Pulmonology Progress Note 61 yo smoker with moderately severe COPD by most recent PFTs but increasingly severe functional limitation over the preceding several months. She had acute worsening of SOB several days ago and eventually began using her noninvasive home ventilator continuously. A friend called 911 when the patient was difficult to arouse and she had a respiratory arrest shortly after first responders arrived. She was intubated on the scene. Upon arrival in the [facility] ED she was found to have a large Lt sided pneumothorax without evidence for mediastinal shift. A chest tube was placed and she was admitted to the ICU. Since admission, a limited bedside echo suggested and EF of 20-25% and Takotsubo 's syndrome which was confirmed by formal echo later on 04/19. Interval History Patient did well overnight on her home Trilogy. Currently maintaining oxygen sats of 88-92% on room air. Patient continues to make improvements with physical therapy and has been able to walk around the unit without issue. Patient has some mild pain associated with site of chest tube. Pain is much improved now that chest tube has been removed. Exam Vital Signs Vital Sign - Last Date Time Temp Pulse Resp B/P Pulse Ox O2 Delivery O2 Flow Rate FiO2 04/27/17 09:30 85 18 94 Room Air 04/27/17 08:50 37.0 123/79 04/25/17 16:13 2.00 04/24/17 03:11 30 Intake and Output 04/26/17 04/26/17 04/27/17 Cumulative From/Thru 15:00 23:00 07:00 04/18/17 20:00 - 04/27/17 05:36 Intake Total 0 ml 0 ml 350 ml 73798 ml Output Total 850 ml 1050 ml 300 ml 80597 ml Balance -850 ml -1050 ml 50 ml 1039 ml Intake Oral 0 ml 0 ml 350 ml 1530 ml IV Total 68701 ml Tube Feeding 991 ml Tube Irrigant 725 ml Output Urine Total 850 ml 1050 ml 300 ml 91969 ml Gastric Drainage Total 400 ml Chest Tube Drainage Total 480 ml # Voids 1 1 # Bowel Movements 0 0 2 Exam General: Frail, thin woman. In no acute distress. Appropriately interactive. HEENT: Normocephalic, atraumatic. Pupils equal, round, and reactive to light and accommodation. Anicteric sclerae, moist conjunctivae, and no lid lag. Neck: Supple with full range of motion. No jugular venous distension. Cardiovascular: Regular rate and rhythm with no murmurs, rubs, or gallops appreciated Pulmonary: Decreased breath sounds but no crackles or wheezes. No accessory muscle use. Chest: Dressing over left chest wall where chest tube was removed. Clean dry and intact with no surrounding erythema at this time. Abdomen: Bowel tones present. Soft, nontender, nondistended. No hepatosplenomegaly or masses appreciated. Extremities: Warm, pulses 2 out of 4 bilaterally in the radial and posterior tibialis. No lower extremity edema. Neurological: Cranial nerves grossly intact. Psychiatric: Alert and oriented to person, place, and time. Right subclavian Right peripheral IV Rivera catheter Lab and Diagnostics Result Diagram: 04/27/17 0505 04/27/17 0505 Microbiology Sputum culture - Haemophilus Influenzae Resp PCR - Rhinovirus/Enterovirus Blood cultures - no growth MRSA swab - negative X-Rays, CTs and MRIs X-RAY CHEST ONE VIEW, PORTABLE IMPRESSION: Status post placement of left chest tube with residual small left apical pneumothorax. Status post placement of right central venous catheter. No pneumothorax. Dictated by: Rasta Malik M.D. on 04/18/2017 CT ANGIO CHEST PULMONARY EMBOLISM IMPRESSION: 1. No evidence for central pulmonary emboli. 2. Trace left apical pneumothorax. There is a chest tube on the left with associated subcutaneous air. 3. Moderate to severe emphysema. 4. Diffuse interstitial thickening and distended to pulmonary edema or interstitial pneumonia. Mild nodular infiltrates with "tree in bud" configuration could be secondary to atypical infection. 5. Bibasilar atelectasis. Dictated by: Frida Asif M.D. on 04/19/2017 CT ABDOMEN AND PELVIS WITH CONTRAST IMPRESSION: 1. Periportal edema liver consistent with hepatitis. Recommend clinical correlation. 2. A small amount of pericholecystic fluid. No gallstones or gallbladder wall thickening. 3. Nephrolithiasis in right kidney. No evidence for renal obstruction. 4. Atherosclerosis. Dictated by: Frida Asif M.D. on 04/19/2017 at 7:43 X-RAY CHEST ONE VIEW, PORTABLE IMPRESSION: 1. No definite residual left pneumothorax identified. 2. Persistent mild pulmonary edema. 3. Nasogastric tube tip demonstrated at the gastroesophageal junction with side port in the distal esophagus. Recommend further advancement into the stomach. Dictated by: Neymar Nixon M.D. on 04/21/2017 at 11:25 Approved by: Neymar Nixon M.D. on 04/21/2017 at 11:27 X-RAY CHEST ONE VIEW, PORTABLE IMPRESSION: 1. Trace residual left apical pneumothorax is apparent status post interval removal of left chest tube. 2. Trace basal right pleural effusion is unchanged, of uncertain etiology. 3. Prominent lung volumes raise the question of chronic obstructive pulmonary disease. Dictated by: Bakari Lei M.D. on 04/27/2017 at 6:31 Approved by: Bakari Lei M.D. on 04/27/2017 at 6:34 Cardiac Echo Impressions Echocardiogram Report Interpretation Summary: The left ventricle is normal in size. Left ventricular systolic function is severely reduced. The ejection fraction is estimated to be 20-25%. LVEF has reduced significantly since prior study. Proximal LV is the only area of LV myocardium that has normal contractility. The mid LV segments are hypokinetic and distal LV segments are essentially akinetic. Findings are suspicious for stress induced cardiomyopathy but cannot exclude acute coronary syndrome. Clinical correlation is recommended. Assessment of diastolic parameters indicates a restrictive filling pattern of the left ventricle consistent with significantly elevated filling pressures. Borderline right ventricular enlargement. There are regional wall motion abnormalities. The right ventricular systolic pressure is estimated at 52 mmHg assuming a right atrial pressure of 15 mm Hg. The left atrial size is normal. Right atrial size is normal. There is no significant valvular heart disease. Assessment & Plan Lily Astudillo is a 61-year-old female with past medical history significant for COPD / centrilobular emphysema and asthma on chronic oxygen therapy who presents to the ED after intubation by EMS for respiratory arrest / acute hypoxic respiratory failure. Upon arrival in the ED she was found to have a large Lt sided pneumothorax necessitating chest tube placement. She was hypotensive initially and a rapid limited echocardiogram demonstrated an EF of 20-25% with apical akinesis. Patient extubated 04/22/2017 after 4 days of intubation. Off all pressors and sedation since evening of 04/21/2017. Acute on chronic hypoxemic respiratory failure secondary to acute COPD exacerbation complicated by spontaneous pneumothorax. - Intubated for 4 days, extubated on 04/22/2017. Currently maintaining oxygen saturations between 88 and 92% on room air and Trilogy at night. - DuoNebs PRN and scheduled Q4H - Prednisone 60 mg daily for 1-2 more days and then decrease to 40 mg daily. - Patient may benefit from saline nebulizers to help thin mucus so she is able to cough it up easily without excessive strain which could cause recurrence of her pneumothorax. Spontaneous pneumothorax. - Chest tube removed 04/26/2017. Patient should avoid excessive coughing and deep breaths along with continued for the next week to prevent recurrence of pneumothorax. - Upon discharge patient should have site of chest tube insertion examined for any ongoing signs of infection. She states she has an appointment with her PCP , Dr. Velasco, on 05/06/2017. Anxiety likely secondary to air hunger. - Anxiety well-controlled. - Trazodone 25 mg HS. Haemophilus influenza pneumonia - Likely viral infection predisposing patient to bacterial pneumonia. - H.flu on sputum culture and Rhinovirus on respiratory PCR. - MRSA screening negative. - Completed course of ceftriaxone. Meropenem and vancomycin d/c after 2 days. Acute systolic cardiomyopathy likely Takotsubo's - Echo showed EF 20-25% with apical ballooning. - Patient is off pressors, diuresis prior to extubation tolerated well, and blood pressure has continued to remain stable. - We will need follow-up after discharge. CODE STATUS full code GI prophylaxis famotidine DVT prophylaxis heparin GI Prophylaxis: H2 oziel VTE Prophylaxis: Sub-Q Heparin (Unfractionated) VTE Mechanical Devices: Intermittant Pneumatic CD Resuscitation Status: CPR: Attempt Resuscitation JESSICA GAINES DO Apr 27, 2017 12:49
--- NOTE | 2017-04-27 14:20 | PCM.PNMED ---
Subjective Date of Service Apr 27, 2017 Subjective Subjective: Patient states she is feeling considerably better today, however continues to have moderate congestive cough, unable to produce mucus. Events Overnight: No acute events overnight. ROS: Denies fever/chills, nausea/vomiting, headache, weakness, abdominal pain, chest pain, shortness of breath, increased swelling in hands or feet. Exam Vital Signs Vital Sign - Last Date Time Temp Pulse Resp B/P Pulse Ox O2 Delivery O2 Flow Rate FiO2 04/27/17 09:30 85 18 94 Room Air 04/27/17 08:50 37.0 123/79 04/25/17 16:13 2.00 04/24/17 03:11 30 Intake and Output 04/26/17 04/26/17 04/27/17 Cumulative From/Thru 15:00 23:00 07:00 04/18/17 20:00 - 04/27/17 05:36 Intake Total 0 ml 0 ml 350 ml 55910 ml Output Total 850 ml 1050 ml 300 ml 33198 ml Balance -850 ml -1050 ml 50 ml 1039 ml Intake Oral 0 ml 0 ml 350 ml 1530 ml IV Total 80551 ml Tube Feeding 991 ml Tube Irrigant 725 ml Output Urine Total 850 ml 1050 ml 300 ml 84809 ml Gastric Drainage Total 400 ml Chest Tube Drainage Total 480 ml # Voids 1 1 # Bowel Movements 0 0 2 Exam General: No acute distress, well-developed, well-nourished Head: Normocephalic, atraumatic. External ears without defect. Eyes: Pupils equal, round, and reactive to light and accommodation. Anicteric sclerae, moist conjunctivae. Neck: Normal range of motion, no lymphadenopathy noted Cardiovascular: Regular rate and rhythm with no murmurs, rubs, or gallops appreciated Pulmonary: Clear to auscultation bilaterally with the exception of moderate rhonchi. no crackles, wheezes. Lidocaine patch on the left chest Abdomen: Bowel tones present. Soft, nontender, nondistended. Extremities: No clubbing, cyanosis, edema Skin: Normal temperature, turgor, and texture; no rash, ulcers, or subcutaneous nodules appreciated. Neurological: Cranial nerves grossly intact. Reflexes, coordination, and sensory function within normal limits. Normal muscle strength, tone, and bulk. Psychiatric: Normal mood and affect. Alert and oriented to person, place, and time IVs and Medications Medications Reviewed: Medications were reviewed in detail Lab and Diagnostics Result Diagram: 04/27/17 0505 04/27/17 0505 Microbiology Sputum culture - Haemophilus Influenzae Resp PCR - Rhinovirus/Enterovirus Blood cultures - no growth MRSA swab - negative X-Rays, CTs and MRIs X-RAY CHEST ONE VIEW, PORTABLE IMPRESSION: Status post placement of left chest tube with residual small left apical pneumothorax. Status post placement of right central venous catheter. No pneumothorax. Dictated by: Rasta Malik M.D. on 04/18/2017 CT ANGIO CHEST PULMONARY EMBOLISM IMPRESSION: 1. No evidence for central pulmonary emboli. 2. Trace left apical pneumothorax. There is a chest tube on the left with associated subcutaneous air. 3. Moderate to severe emphysema. 4. Diffuse interstitial thickening and distended to pulmonary edema or interstitial pneumonia. Mild nodular infiltrates with "tree in bud" configuration could be secondary to atypical infection. 5. Bibasilar atelectasis. Dictated by: Frida Asif M.D. on 04/19/2017 CT ABDOMEN AND PELVIS WITH CONTRAST IMPRESSION: 1. Periportal edema liver consistent with hepatitis. Recommend clinical correlation. 2. A small amount of pericholecystic fluid. No gallstones or gallbladder wall thickening. 3. Nephrolithiasis in right kidney. No evidence for renal obstruction. 4. Atherosclerosis. Dictated by: Frida Asif M.D. on 04/19/2017 at 7:43 X-RAY CHEST ONE VIEW, PORTABLE IMPRESSION: 1. No definite residual left pneumothorax identified. 2. Persistent mild pulmonary edema. 3. Nasogastric tube tip demonstrated at the gastroesophageal junction with side port in the distal esophagus. Recommend further advancement into the stomach. Dictated by: Neymar Nixon M.D. on 04/21/2017 at 11:25 Approved by: Neymar Nixon M.D. on 04/21/2017 at 11:27 Cardiac Echo Impressions Echocardiogram Report Interpretation Summary: The left ventricle is normal in size. Left ventricular systolic function is severely reduced. The ejection fraction is estimated to be 20-25%. LVEF has reduced significantly since prior study. Proximal LV is the only area of LV myocardium that has normal contractility. The mid LV segments are hypokinetic and distal LV segments are essentially akinetic. Findings are suspicious for stress induced cardiomyopathy but cannot exclude acute coronary syndrome. Clinical correlation is recommended. Assessment of diastolic parameters indicates a restrictive filling pattern of the left ventricle consistent with significantly elevated filling pressures. Borderline right ventricular enlargement. There are regional wall motion abnormalities. The right ventricular systolic pressure is estimated at 52 mmHg assuming a right atrial pressure of 15 mm Hg. The left atrial size is normal. Right atrial size is normal. There is no significant valvular heart disease. Assessment & Plan Patient is a 61-year-old female ex-smoker with a severe centrilobular emphysema , and COPD presented with left lung pneumothorax and acute heart failure also have pneumonia. Likely, patient had viral upper respiratory tract infection followed by bacterial pneumonia,COPD exacerbation, subsequently developed left lung pneumothorax, and in the process had stress-induced cardiomyopathy. She is currently off of pressors, extubated, on ceftriaxone for H. influenzae pneumonia. Of note: The patient's sister Zhanna and [id number] Dolores are both nurses with a high degree of medical literacy, thus Zhanna should be the first point of contact for any acute changes or decision making, followed by Dolores who will relay information to the patient's son Som. Acute hypoxic respiratory failure, POA, active -Cause multifactorial: bacterial pneumonia, pneumothorax, COPD exacerbation - Intubated for 5 days, extubated on 04/22/2017 - Patient currently saturating well on room air with Trilogy mask at night - Patient previously requiring 2-3 L of 02 at home - Continue respiratory support, maintain pulse oximetry above 90% - Prednisone 60 mg by mouth daily, decrease to 40 starting 04/28 - Incentive spirometry when able - Pulmonology consulted, following Acute on chronic COPD, POA, Active - Continue DuoNeb q.4.h - Prednisone 60 mg by mouth daily Pneumothorax, present on admission, stable - Patient with left pneumothorax on arrival to the ED likely caused by pulmonic blebbing - Chest tube in place since 04/18/2017 DC'd on 04/26 - Lidocaine patch adjacent to chest tube for pain control. - Continue monitor for 48 hours prior to discharge home. - Repeat chest x-ray before discharge home Stress induced cardiomyopathy, present on admission, active -Echo showed EF 20-25% with apical ballooning. -Consider repeat echocardiogram as an outpatient Pneumonia, present on arrival, resolved - H.flu on sputum culture - CT, suggestive of atypical pna - MRSA screening negative - Ceftriaxone discontinued - ID consulted, signed off Chronic/Resolved medical condition Diabetes mellitus type II non-insulin using, present on admission, active and stable. -A1c 6.2 -Held home Metformin -Low-dose correctional scale with NPH. GERD, present on admission, chronic. -held home pantoprazole 40 mg, switched to Famotidine due to prolonged QT Sepsis shock, resolved -Met SIRS criteria initial evaluation, source pneumonia -Initial lactic acid 3.9, fluid resuscitation initiated and deescalated after 6 hours when lactic acid normalized, -Norepinephrine and vasopressin was later added for pressor support now DC'd -Sepsis resolved 04/22/2017, D/C pressors Elevated liver enzymes, active and stable. -likely 2nd to septic shock -CT abdomen and pelvis revealed findings suggestive of hepatitis or other hepatocellular process. -Tylenol level and hepatitis panel negative Non Ion gap metabolic and respiratory acidosis, POA. Improving -Upon arrival patient had an ABG consistent with non compensated respiratory acidosis -Repeat ABG showed improvement of the respiratory component of her acidosis but a decline in BiCarb resulting in a virtually unchanged pH since admission -Etiology uncertain at this time, could be consistent with Sepsis though active severe infection is questionable at this juncture -There is no report of active GI volume loss -Patient is not on a diuretic as an outpatient Elevated troponin return to stress cardiomyopathy, present on admission, active and stable. -Initial troponin was 0.014 some T-wave abnormalities in the lateral leads. Initially this was attributed to patient's hypotension. Second troponin was significantly elevated and repeat EKG was obtained. Some changes were noted and due to this treatment for NSTEMI was initiated. Patient never complained of chest pain per EMS and when she arrived she was already intubated and sedated. Risk factors include significant smoking history, family history of premature heart disease, and current critical condition. - Heparin drip transitioned to SubQ as this appears likely secondary to stress cardiomyopathy as above - Initial troponin 0.041. Second troponin 0.322. Troponin now trending down - Lipid panel within normal limits - Supplemental oxygen as needed. - Aspirin 81 mg initially received and continued daily. - Beta oziel, AMOS inhibitor, and clopidogrel unable to be given due to recent intubation, Bipap use, and hypotensive patient. Disposition: Approximately 24 hours of inpatient monitoring required prior to discharge home. GI Prophylaxis: H2 oziel VTE Prophylaxis: Sub-Q Heparin (Unfractionated) VTE Mechanical Devices: Intermittant Pneumatic CD Resuscitation Status: CPR: Attempt Resuscitation Attending Statement The patient was seen and examined together with Dr. Young on 04/27/17 and I agree with the history, exam and plan as outlined in the note above. Rk Young DO Apr 27, 2017 11:49 Isabell Morrissey DO Apr 27, 2017 15:12
--- NOTE | 2017-04-27 17:07 | NUR ---
D/C PT: Pt is safe amb w/nsg using FWW SBA, monitor o2, minimize talking while amb.
--- NOTE | 2017-04-27 18:31 | NUR ---
Pain/Activity Pt requested pain medication for pain at site of chest tube (which was d/c'd yesterday) x1 today. She reported 10mg of oxycodone was effective in relieving her pain. For most of the day she reported she felt "comfortable". She reported a muscle spasm in her R leg after walking and requested a muscle relaxer. Methocarbamol given x1 with good results. Pt ambulating in her room as a SBA, gait is steady. Pt ambulated in the hallway with PT today and was able to do so without supplemental oxygen.
[2017-04-27] MEDS: guaiFENesin 600 mg ER12 Tablet PO SCH (21:09)
[2017-04-28] VITALS (13 sets, daily range): BP systolic 89–115; BP diastolic 50–81; PULSE 72–99; RESP 16–18; O2SAT 91–96
[2017-04-28 05:26] LABS: Mean Corpuscular Hemoglobin 30.2 pg (27.0-35.0); Mean Corpuscular Volume 86.5 fL (81-100)
--- NOTE | 2017-04-28 05:28 | NUR ---
Pain/Activity Patient reports low level of pain at rest, declines offer of medication. Up to ambulate in the salas with standby assist and FWW; ambulates one lab of salas with mild dyspnea after completing full lap. Reports some increase in soreness and leg spasms after ambulation. Oxycodone and methocarbomol given with good result.
[2017-04-28] MEDS: Insulin LISPRO 300 Unit/3 mL Inj SUBQ SCH ×4 (08:00→21:57)
[2017-04-28] MEDS: Albuterol-Ipratropium 3 mL Inhalation Solution NEB SCH ×4 (08:43→20:16)
[2017-04-28] MEDS: Famotidine Inj 20 MG in IV Premix 1 EACH IV SCH ×2 (09:09→20:08)
[2017-04-28] MEDS: predniSONE 20 mg Tablet PO SCH (09:12)
[2017-04-28] MEDS: guaiFENesin 600 mg ER12 Tablet PO SCH ×2 (09:12→20:08)
[2017-04-28] MEDS: Heparin 5,000 Unit/mL Inj SUBQ SCH ×2 (09:13→17:41)
[2017-04-28] MEDS: Lidocaine Topical 5% Patch TOPICAL SCH (09:13)
--- NOTE | 2017-04-28 09:55 | DRSVH ---
PROCEDURE: X-RAY CHEST ONE VIEW, PORTABLE ([id number]) INDICATIONS: recent removal of chest tube TECHNIQUE: One view of the chest was acquired. COMPARISON: None. FINDINGS: Surgical changes and devices: Right internal jugular central line appears appropriate in position and ends at the level of the right hilum. lumber marker leads are seen over the chest. Recent removal of left chest tube. Lungs and pleura: No pleural effusions or pneumothorax. Lungs are clear no pneumothorax or air-flui d level is seen. There is a very small right and possibly miniscule left effusion compared to older f ilms. Mediastinum: Mediastinal contours appear normal. Heart size is normal. Bones and chest wall: No suspicious bony lesions. Overlying soft tissues appear unremarkable. IMPRESSION: No pneumothorax is seen. Miniscule pleural effusions are thought to be present but unchan ged since the previous day film.. Dictated by: Jigar Mckinnon M.D. on 04/28/2017 at 9:51 Approved by: Jigar Mckinnon M.D. on 04/28/2017 at 9:53
--- NOTE | 2017-04-28 15:45 | NUR ---
Social Work Note: Continued Discharge Planning Data& Assessment: Per MD in multidisciplinary rounds, pt is getting closer to being medically ready for discharge. Per MD order, 2ND PRESSMAN met with pt at bedside to discuss discharge planning and home health. Pt was able to ambulate 400 ft with PT, however, pt confirms she will remain homebound and MD requesting RN follow up for vitals and medication management. Home Health list provided for preferences, pt has had [facility] in the past and is agreeable to their services. 2ND PRESSMAN spoke with Mejia who explained that pt insurance requires prior authorization which will not be able to be completed until tomorrow morning. Lori from [facility] confirmed they do not accept pt insurance at all. Pt to discharge to her friends home in [facility] for extra support as she recovers from this hospitalization. Pt expressed a lot of anxiety surrounding discharging because she feels weak. 2ND PRESSMAN and pt reflected on how a persons baseline may evolve over time and if she is not as strong as she was 6 months ago, that might not be a bad thing, it may just be a different baseline for her as her body progresses over time. Pt highlighted she sometime will overdue it in terms of physical exertion because she thinks about what her body was able to achieve in past. Pt ambulating with RN in the halls. Pt denies any needs at this time. 2ND PRESSMAN to follow up with [facility] tomorrow morning regarding prior authorization for services. Plan: Anticipated discharge home with friend in [facility] via POV with [facility] RN and PT for extra strengthening pending insurance authorization. 2ND PRESSMAN to follow up with [facility] tomorrow morning regarding prior authorization for services. ELINOR Musa
--- NOTE | 2017-04-28 16:24 | NUR ---
pain/activity pt reported muscle ache, prn methocarbinol given per md order. effective results. pt up ambulating in halls with 4wheel walker, brought from home. pt with steady gait. noted moderate sob upon return to room. recovered well. will continue to monitor.
--- NOTE | 2017-04-28 21:29 | PCM.PNMED ---
Subjective Date of Service Apr 28, 2017 Subjective Overnight: No acute events Today: The patient states that she will be going to her friends in [place] to rehabilitate after this hospitalization however her friend works during the day so she will be alone for approximately 9 hours a day. The patient has 3 steps to navigate at the front without a railing to assist her. The patient states that she is used to giving herself prednisone I would be comfortable with dosing 10 and 5 mg tabs up to 40 mg daily, with plans to taper her dose every three days. Exam Vital Signs Vital Sign - Last Date Time Temp Pulse Resp B/P Pulse Ox O2 Delivery O2 Flow Rate FiO2 04/28/17 20:17 88 18 96 Room Air 04/28/17 20:00 36.6 114/81 04/25/17 16:13 2.00 04/24/17 03:11 30 Intake and Output 04/27/17 04/27/17 04/28/17 Cumulative From/Thru 15:00 23:00 07:00 04/18/17 20:00 - 04/28/17 05:27 Intake Total 659 ml 350 ml 54741 ml Output Total 800 ml 1700 ml 91037 ml Balance -141 ml -1350 ml -452 ml Intake Oral 480 ml 300 ml 2310 ml IV Total 179 ml 50 ml 40618 ml Tube Feeding 991 ml Tube Irrigant 725 ml Output Urine Total 800 ml 1700 ml 19750 ml Gastric Drainage Total 400 ml Chest Tube Drainage Total 480 ml # Voids 1 # Bowel Movements 0 2 Exam General: Thin woman lying comfortably in bed in no acute distress Eyes: Pupils equal round reactive to light, anicteric sclera, noninjected conjunctiva HEENT: Normocephalic, atraumatic. Moist mucous membranes without central cyanosis, oropharynx clear Neck: Supple with full range of motion. No jugular venous distension. Cardiovascular: Regular rate and rhythm with no murmurs, rubs, or gallops appreciated Pulmonary: Decreased breath sounds but no crackles or wheezes. No accessory muscle use. Chest: Dressing over left chest wall where chest tube was removed, no signs of erythema or fluctuance. Abdomen: Bowel tones present. Soft, nontender, nondistended. No organomegaly Extremities: pulses 2 out of 4 bilaterally in the radial and posterior tibialis. No lower extremity edema. Skin: Warm and dry : No Rivera catheter in place Neurological: Nonfocal neurologic exam, able to move all extremities spontaneously Psychiatric: Alert and oriented to person, place, and time. Lab and Diagnostics Result Diagram: 04/28/1751904/28/17519 Microbiology Sputum culture - Haemophilus Influenzae Resp PCR - Rhinovirus/Enterovirus Blood cultures - no growth MRSA swab - negative X-Rays, CTs and MRIs X-RAY CHEST ONE VIEW, PORTABLE IMPRESSION: Status post placement of left chest tube with residual small left apical pneumothorax. Status post placement of right central venous catheter. No pneumothorax. Dictated by: Rasta Malik M.D. on 04/18/2017 CT ANGIO CHEST PULMONARY EMBOLISM IMPRESSION: 1. No evidence for central pulmonary emboli. 2. Trace left apical pneumothorax. There is a chest tube on the left with associated subcutaneous air. 3. Moderate to severe emphysema. 4. Diffuse interstitial thickening and distended to pulmonary edema or interstitial pneumonia. Mild nodular infiltrates with "tree in bud" configuration could be secondary to atypical infection. 5. Bibasilar atelectasis. Dictated by: Frida Asif M.D. on 04/19/2017 CT ABDOMEN AND PELVIS WITH CONTRAST IMPRESSION: 1. Periportal edema liver consistent with hepatitis. Recommend clinical correlation. 2. A small amount of pericholecystic fluid. No gallstones or gallbladder wall thickening. 3. Nephrolithiasis in right kidney. No evidence for renal obstruction. 4. Atherosclerosis. Dictated by: Frida Asif M.D. on 04/19/2017 at 7:43 X-RAY CHEST ONE VIEW, PORTABLE IMPRESSION: 1. No definite residual left pneumothorax identified. 2. Persistent mild pulmonary edema. 3. Nasogastric tube tip demonstrated at the gastroesophageal junction with side port in the distal esophagus. Recommend further advancement into the stomach. Dictated by: Neymar Nixon M.D. on 04/21/2017 at 11:25 Approved by: Neymar Nixon M.D. on 04/21/2017 at 11:27 Cardiac Echo Impressions Echocardiogram Report Interpretation Summary: The left ventricle is normal in size. Left ventricular systolic function is severely reduced. The ejection fraction is estimated to be 20-25%. LVEF has reduced significantly since prior study. Proximal LV is the only area of LV myocardium that has normal contractility. The mid LV segments are hypokinetic and distal LV segments are essentially akinetic. Findings are suspicious for stress induced cardiomyopathy but cannot exclude acute coronary syndrome. Clinical correlation is recommended. Assessment of diastolic parameters indicates a restrictive filling pattern of the left ventricle consistent with significantly elevated filling pressures. Borderline right ventricular enlargement. There are regional wall motion abnormalities. The right ventricular systolic pressure is estimated at 52 mmHg assuming a right atrial pressure of 15 mm Hg. The left atrial size is normal. Right atrial size is normal. There is no significant valvular heart disease. Assessment & Plan Patient is a 61-year-old female ex-smoker with a severe centrilobular emphysema , and COPD presented with left lung pneumothorax and acute heart failure also have pneumonia. Likely, patient had viral upper respiratory tract infection followed by bacterial pneumonia,COPD exacerbation, subsequently developed left lung pneumothorax, and in the process had stress-induced cardiomyopathy. She is currently off of pressors, extubated, on ceftriaxone for H. influenzae pneumonia. Chest tube removed on 04/23 Of note: The patient's sister Zhanna and [id number] Dolores are both nurses with a high degree of medical literacy, thus Zhanna should be the first point of contact for any acute changes or decision making, followed by Dolores who will relay information to the patient's son Som. Acute hypoxic respiratory failure, POA, improved -Cause multifactorial: bacterial pneumonia, pneumothorax, COPD exacerbation -Intubated for 5 days, extubated on 04/22/2017 -Continue respiratory support, maintain pulse oximetry above 90% -Incentive spirometry when able Acute exacerbation of chronic obstructive pulmonary disease, POA, treated -Continue DuoNeb q.4.h - Prednisone 60 mg today to be converted to 40 mg daily starting 04/29 - To be discharged on prolonged prednisone taper per pulmonary recommendations - Patient had pulmonary function testing scheduled at for 05/08 the patient has been directed to reschedule this - Patient will follow up with her PCP on 05/06/2017 Acute Pneumonia, present on admission, resolved -H.flu on sputum culture -"diffuse interstitial thickening" with mild "tread and bud" patterning on CT, suggestive of atypical pna -MRSA screening negative - ceftriaxone IV continued for 3 days from 04/20-04/25 Pneumothorax, present on admission, active and improving. -Patient with left pneumothorax on arrival to the ED. -Chest tube in place since 04/18/2017 to be manage by surgery, waterseal on 04/22 , removed on 04/26/2017 with no recurrence on chest x-ray on 04/28/2070 -Initial insult likely caused by blebs Likely Stress induced cardiomyopathy -Echo showed EF 20-25% with apical ballooning. -Will likely slowly wean this patient off the vent so as to reduce cardiac strain -Consider repeat echocardiogram as an outpatient QTC prolongation, present on admission, active and improving. -Initial EKG on presentation to the ED showed a QTC of 542. Repeat EKG now reveals a QTC of 691. -Close monitoring on telemetry. -Avoid QT prolonging medications. -current QTC 422 (04/22/2017) Chronic/Resolved medical condition Diabetes mellitus type II non-insulin using, present on admission, active and stable. -A1c 6.2 -held home Metformin -Low-dose correctional scale Gastroesophageal reflux disease, present on admission, chronic. -held home pantoprazole 40 mg, switched to Famotidine due to prolonged QT Sepsis shock, resolved -Met SIRS criteria initial evaluation, source pneumonia -Initial lactic acid 3.9, fluid resuscitation initiated and deescalated after 6 hours when lactic acid normalized, -Norepinephrine and vasopressin was later added for pressor support now DC'd -Sepsis resolved 04/22/2017, D/C pressors Elevated liver enzymes, active and stable. -likely 2nd to sepsis shock -CT abdomen and pelvis revealed findings suggestive of hepatitis or other hepatocellular process. -Tylenol level and hepatitis panel negative Non Ion gap metabolic and respiratory acidosis, POA. Improving -Upon arrival patient had an ABG consistent with non compensated respiratory acidosis -Repeat ABG showed improvement of the respiratory component of her acidosis but a decline in BiCarb resulting in a virtually unchanged pH since admission -Etiology uncertain at this time, could be consistent with Sepsis though active severe infection is questionable at this juncture -There is no report of active GI volume loss -Patient is not on a diuretic as an outpatient Elevated troponin return to stress cardiomyopathy, present on admission, active and stable. -Initial troponin was 0.014 some T-wave abnormalities in the lateral leads. Initially this was attributed to patient's hypotension. Second troponin was significantly elevated and repeat EKG was obtained. Some changes were noted and due to this treatment for NSTEMI was initiated. Patient never complained of chest pain per EMS and when she arrived she was already intubated and sedated. Risk factors include significant smoking history, family history of premature heart disease, and current critical condition. - Heparin drip transitioned to SubQ as this appears likely secondary to stress cardiomyopathy as above - Initial troponin 0.041. Second troponin 0.322. Troponin now trending down - Lipid panel pending. - Supplemental oxygen as needed. - Aspirin 81 mg initially received and continued daily. - Beta oziel, AMOS inhibitor, and clopidogrel unable to be given due to hypotensive patient. The patient will likely be discharged on 04/29 to home with possible home health following depending on insurance qualifications. GI Prophylaxis: H2 oziel VTE Prophylaxis: Sub-Q Heparin (Unfractionated) VTE Mechanical Devices: Intermittant Pneumatic CD Resuscitation Status: CPR: Attempt Resuscitation Attending Statement The patient was seen and examined together with Dr. Vidales on 04/28/17 and I agree with the history, exam and plan as outlined in the note above. Van Vidales DO Apr 28, 2017 21:29 Isabell Morrissey DO May 06, 2017 07:49
[2017-04-29] VITALS (7 sets, daily range): BP systolic 83–107; BP diastolic 62–63; PULSE 73–89; RESP 18–20; O2SAT 91–97
[2017-04-29] MEDS: Heparin 5,000 Unit/mL Inj SUBQ SCH ×2 (00:38→08:01)
--- NOTE | 2017-04-29 06:34 | NUR ---
Activity Patient up to ambulate in halls independently with her four wheeled walker. Good tolerance of activity, reports feeling well after walking around the unit. Standby assist for shower; patient states she feels much better after bathing. Patient is animated and talkative for most of shift and reports feeling very excited at the prospect of going home. Discussed patient's plans with her and encouraged her to continue with her plans to achieve improved activity tolerance and healthy weight gain.
[2017-04-29] MEDS: Insulin LISPRO 300 Unit/3 mL Inj SUBQ SCH ×2 (07:53→13:12)
[2017-04-29] MEDS: guaiFENesin 600 mg ER12 Tablet PO SCH (07:54)
[2017-04-29] MEDS: Famotidine Inj 20 MG in IV Premix 1 EACH IV SCH (07:54)
[2017-04-29] MEDS: Lidocaine Topical 5% Patch TOPICAL SCH (08:01)
--- NOTE | 2017-04-29 08:02 | NUR ---
Lidocaine Patch withheld Pt has rash around chest tube incision where lidocaine patch should be placed.
[2017-04-29] MEDS: Albuterol-Ipratropium 3 mL Inhalation Solution NEB SCH ×3 (08:12→16:27)
[2017-04-29] MEDS ORDERED: predniSONE 20 mg Tablet PO SCH (08:30)
[2017-04-29] MEDS ORDERED: OXYC-530 PO (10:17)
[2017-04-29] MEDS ORDERED: TEMA7.5C PO (10:17)
[2017-04-29] MEDS ORDERED: TRAZ-115 PO (10:17)
--- NOTE | 2017-04-29 10:30 | NUR ---
Social Work: Readiness for Discharge/Multidisciplinary Rounds D: The patient discussed in multidisciplinary rounds; the patient is medically stable for discharge home today. Providers are requesting update about pt's home health availability. BIN OPERATOR spoke with Mejia Cerna with [employer] he states that they are still working on the pre-authorization but will contact BIN OPERATOR as soon as they hear anything. They need the address for where the patient will be staying. BIN OPERATOR met with the patient at bedside to discuss discharge plan and assess for unmet needs. The patient confirms she is going to stay with her friend up in [facility]. She does not know the address of her friends but has texted her requesting this. She has had [employer] in the past and would like to use this company again. She is aware that the authorization is not yet finalized. Pt states that her only other discharge request is for Meals on Wheels. Patient states that she will be alone during the day and would like assistance with meals while her friend is working. BIN OPERATOR informed patient that provider would need to place an order for BIN OPERATOR to arrange for this and that BIN OPERATOR would ask. Pt appreciative of this this. Pt states her boyfriend will be transporting her to her friends and assisting. Provider paged requesting MOW order. A: Pt who is ambulating 400 feet with the use of a FWW. P: Anticipate pt to discharge home with her friend in [facility]. [employer] is coordinating with pt's insurance to determine if they can accept her on service. BIN OPERATOR awaiting MOW order to coordinate this service, per pt request. ELINOR Romo Addendum: 04/29/17 at 1319 by HECTOR [employer] Pt provided updated address of [facility], [facility]. BIN OPERATOR received notification from Mejia Cerna with [employer]. He states that they have received authorization from pt's insurance and can accept her on service.
[2017-04-29] MEDS ORDERED: PRED-508 PO (13:56)
--- NOTE | 2017-04-29 14:27 | DRSVH ---
PROCEDURE: X-RAY CHEST ONE VIEW, PORTABLE ([id number]) INDICATIONS: recent removal of chest tube TECHNIQUE: One view of the chest was acquired. COMPARISON: [facility], CR, XR CHEST 1VW (PORTABLE), 04/27/2017, 5:23. [facility], CR, XR CHEST 1VW (PORTABLE), 04/24/2017, 4:35. [facility], CR, XR CHEST 1VW (TONY BLE), 04/23/2017, 5:37. [facility], CR, XR CHEST 1VW (PORTABLE), 04/20/2017, 5:22. [facility], CR, XR CHEST 1VW (PORTABLE), 04/26/2017, 11:43. [facility], CR, XR CHES T 1VW (PORTABLE), 04/28/2017, 5:33. FINDINGS: Surgical changes and devices: Stable positioning of right IJ CVL. Lungs and pleura: No pneumothorax. Lung volumes are increased with flattening of the hemidiaphragms s uggesting COPD, otherwise lungs are clear. Small basilar pleural effusions. Mediastinum: Mediastinal contours appear normal. Heart size is normal. Bones and chest wall: No suspicious bony lesions. Overlying soft tissues appear unremarkable. IMPRESSION: 1. Large lung volumes suggesting COPD. 2. Trace pleural effusions. 3. No definite left pneumothorax. Dictated by: Stan WANGA Interpreted: Anika Mishra MD on 04/29/2017 at 9:51 Approved by: Anika Mishra M.D. on 04/29/2017 at 14:25
[2017-04-29] MEDS ORDERED: [UNRECOGNIZED DRUG - CODE] PO (15:16)
[2017-04-29] MEDS ORDERED: OXYC1TAB24 PO (15:16)
--- NOTE | 2017-04-29 15:25 | PCM.DIMED ---
Rk Young DO 04/29/17 1525: Discharge Instructions Date of Service Apr 29, 2017 Dates of Hospitalization Apr 18, 2017 at 21:30 Discharge Diagnosis Discharge Diagnosis Acute hypoxic respiratory failure Acute on chronic COPD Pneumothorax Stress induced cardiomyopathy QTC prolongation Pneumonia Diabetes mellitus type II non-insulin using GERD, present on admission, chronic. Sepsis shock Elevated liver enzymes Non Ion gap metabolic and respiratory acidosis Elevated troponin return to stress cardiomyopathy Medication Instructions Additional med instructions Please continue to take all medications as previously prescribed except for the following changes: You may use oxycodone 2.5-5 mg every 6 hours as needed for pain You may also use Temazepam 7.5 mg as needed for sleep Please take prednisone 40 mg per day for 3 days, followed by 20 mg per day for 3 days, followed by 10 mg per day until seen by your primary care doctor We have also prescribed ensure Enlive which we would like you to take 3 times a day with meals. We have decreased your dose of trazodone from 50-100 mg down to 25 mg nightly as needed for sleep Test Results Test Results Multiple x-rays completed here in the hospital showed pneumothorax initially as well as COPD and pleural effusions. Over the course of ER stay pneumothorax was resolved, along with pleural effusions. COPD remains constant. Diet Discharge Diet: No restrictions Activity Discharge Activity: No restrictions Call your provider Call your provider for: Fever or Chills, Shortness of breath, Bleeding, Chest pain, Vomitting, Excessive diarrhea, Weakness (unilateral) Patient Instructions Patient Instructions Please follow-up closely with Dr. Scott. We would like you to continue watching your blood sugars showing that they remain at an appropriate level. Continue to check blood sugars as an outpatient and contact your primary care doctor if your blood sugars are consistently above 350. Please return to the emergency department as soon as possible if he develops symptoms similar to those with which she presented initially. Follow-up plan Follow-up closely with Dr. Scott, also please follow up closely with your senior grants officer in [place] for further recommendations concerning lung reduction surgery. Follow-up Provider: Mason Velasco MD Follow-up with PCP in: 1 week Patrick Hunter MD 04/30/17 1406: Discharge Instructions Attending's Statement The patient was seen and examined together with Dr. Young on 04/29/2017 and I agree with the history, exam and plan as outlined in the note above. . Rk Young DO Apr 29, 2017 15:25 Patrick Hunter MD Apr 30, 2017 14:06
[2017-04-29] MEDS ORDERED: GUAI120013 PO (16:16)
--- NOTE | 2017-04-29 16:28 | PCM.DC.MED ---
Discharge Summary Date of Service Apr 29, 2017 Dates of Hospitalization Date of Hospital Admission Apr 18, 2017 at 21:30 Date of Discharge: Apr 29, 2017 Providers: Admitting Physician: Bassem Vieira MD Primary Care Physician: Mason Velasco MD Attending Physician: Patrick Hunter MD Diagnosis at Time of Discharge Diagnosis at Time of Discharge Acute hypoxic respiratory failure Acute on chronic COPD Pneumothorax Stress induced cardiomyopathy QTC prolongation Pneumonia Diabetes mellitus type II non-insulin using GERD, present on admission, chronic. Sepsis shock Elevated liver enzymes Non Ion gap metabolic and respiratory acidosis Elevated troponin return to stress cardiomyopathy Consultations Pulmonology: Dr. Luna ID: Dr. Greenfield Procedures XRay, CTs & MRIs X-RAY CHEST ONE VIEW, PORTABLE IMPRESSION: Status post placement of left chest tube with residual small left apical pneumothorax. Status post placement of right central venous catheter. No pneumothorax. Dictated by: Rasta Malik M.D. on 04/18/2017 CT ANGIO CHEST PULMONARY EMBOLISM IMPRESSION: 1. No evidence for central pulmonary emboli. 2. Trace left apical pneumothorax. There is a chest tube on the left with associated subcutaneous air. 3. Moderate to severe emphysema. 4. Diffuse interstitial thickening and distended to pulmonary edema or interstitial pneumonia. Mild nodular infiltrates with "tree in bud" configuration could be secondary to atypical infection. 5. Bibasilar atelectasis. Dictated by: Frida Asif M.D. on 04/19/2017 CT ABDOMEN AND PELVIS WITH CONTRAST IMPRESSION: 1. Periportal edema liver consistent with hepatitis. Recommend clinical correlation. 2. A small amount of pericholecystic fluid. No gallstones or gallbladder wall thickening. 3. Nephrolithiasis in right kidney. No evidence for renal obstruction. 4. Atherosclerosis. Dictated by: Frida Asif M.D. on 04/19/2017 at 7:43 X-RAY CHEST ONE VIEW, PORTABLE IMPRESSION: 1. No definite residual left pneumothorax identified. 2. Persistent mild pulmonary edema. 3. Nasogastric tube tip demonstrated at the gastroesophageal junction with side port in the distal esophagus. Recommend further advancement into the stomach. Dictated by: Neymar Nixon M.D. on 04/21/2017 at 11:25 Approved by: Neymar Nixon M.D. on 04/21/2017 at 11:27 X-RAY CHEST ONE VIEW, PORTABLE IMPRESSION: 1. Persistent pulmonary edema with mild left pleural effusion and stable right pleural effusion. 2. Left chest tube with no pneumothorax. 3. ET and enteric tube have been removed. Dictated by: Jorje Fong M.D. on 04/23/2017 at 8:12 Approved by: Jorje Fong M.D. on 04/23/2017 at 8:14 X-RAY CHEST ONE VIEW, PORTABLE IMPRESSION: No acute cardiopulmonary disease process. No pneumothorax. Dictated by: Esme Mccracken MD, PhD on 04/24/2017 at 8:53 Approved by: Esme Mcrcacken MD, PhD on 04/24/2017 at 8:54 X-RAY BARIUM SWALLOW WITH FOOD & VIDEOGRAPHY IMPRESSION: Normal modified barium swallow. No laryngotracheal penetration or aspiration. Dictated by: Bakari Lei M.D. on 04/26/2017 at 15:42 Approved by: Bakari Lei M.D. on 04/26/2017 at 15:44 X-RAY CHEST ONE VIEW, PORTABLE IMPRESSION: 1. New small basal right pleural effusion is of uncertain etiology. 2. Prominent lung volumes raise the question of chronic obstructive pulmonary disease. Dictated by: Bakari Lei M.D. on 04/26/2017 at 12:28 Approved by: Bakari Lei M.D. on 04/26/2017 at 12:30 X-RAY CHEST ONE VIEW, PORTABLE IMPRESSION: 1. Trace residual left apical pneumothorax is apparent status post interval removal of left chest tube. 2. Trace basal right pleural effusion is unchanged, of uncertain etiology. 3. Prominent lung volumes raise the question of chronic obstructive pulmonary disease. Dictated by: Bakari Lei M.D. on 04/27/2017 at 6:31 Approved by: Bakari Lei M.D. on 04/27/2017 at 6:34 X-RAY CHEST ONE VIEW, PORTABLE IMPRESSION: No pneumothorax is seen. Miniscule pleural effusions are thought to be present but unchanged since the previous day film.. Dictated by: Jigar Mckinnon M.D. on 04/28/2017 at 9:51 Approved by: Jigar Mckinnon M.D. on 04/28/2017 at 9:53 X-RAY CHEST ONE VIEW, PORTABLE IMPRESSION: 1. Large lung volumes suggesting COPD. 2. Trace pleural effusions. 3. No definite left pneumothorax. Dictated by: Stan Camarena [facility] Interpreted: Anika Mishra MD on 04/29/2017 at 9:51 Approved by: Anika Mishra M.D. on 04/29/2017 at 14:25 Cardiac Echo Impression Echocardiogram Report Interpretation Summary: The left ventricle is normal in size. Left ventricular systolic function is severely reduced. The ejection fraction is estimated to be 20-25%. LVEF has reduced significantly since prior study. Proximal LV is the only area of LV myocardium that has normal contractility. The mid LV segments are hypokinetic and distal LV segments are essentially akinetic. Findings are suspicious for stress induced cardiomyopathy but cannot exclude acute coronary syndrome. Clinical correlation is recommended. Assessment of diastolic parameters indicates a restrictive filling pattern of the left ventricle consistent with significantly elevated filling pressures. Borderline right ventricular enlargement. There are regional wall motion abnormalities. The right ventricular systolic pressure is estimated at 52 mmHg assuming a right atrial pressure of 15 mm Hg. The left atrial size is normal. Right atrial size is normal. There is no significant valvular heart disease. Brief History Is taken from H&P completed by Dr. Redman: Lily Astudillo is a 61-year-old female with past medical history significant for COPD with centrilobular emphysema and asthma on chronic oxygen therapy who presents to the ED via EMS after intubation for acute hypoxic respiratory failure. Patient's sister was at the bedside and history was obtained from her. She states that the patient began feeling increasingly short of breath on Saturday , 04/15/2017, after attending a concert with her boyfriend. The sister states that she was not coughing or complaining of fever, chills, night sweats. Her boyfriend at this time was sick with an upper respiratory cold. She called her PCP, Dr. Velasco, who started her on a prednisone taper for presumed COPD exacerbation. The patient continued to feel significantly short of breath even with steroids and began using her Trilogy machine around the clock versus just at night. On the afternoon of 04/18/2017 her shortness of breath worsened and when her friend arrived at her house she immediately called EMS. When EMS arrived on-site patient was alert and oriented but kept repeating that she was going to pass out. Patient then became unresponsive and was intubated en route to the ED. After ETT placement EMS could not appreciate lung sounds on the left side. On arrival to the ED chest x-ray revealed a left-sided tension pneumothorax and a chest tube was placed. Patient became hypotensive and aggressive fluid resuscitation was started along with the central line placement and initiation of norepinephrine and eventually vasopressin as well. Of note patient was recently hospitalized from 10/02/2016 to 10/16/2016 for acute respiratory failure secondary to COPD exacerbation. At this time there was initial suspicion for possible valley fever in the extremely thorough workup was completed and patient was treated although no serologic evidence of valley fever was present. She was discharged on Trilogy, prednisone taper, along with physical therapy. Outpatient pulmonology: PFTs completed 08/27/2016: Pre-bronchodilators FVC actual 2.88, pred 3.60; FEV1 actual 1.31, pred 2.77; FEV1/FVC % actual 45, pred 77. Post-bronchodilators FVC actual 3.08 85% pred; FEV1 1.26 45% pred; FEV/FVC actual 41, 53% pred. Initial labs revealed a white blood cell count of 10.5 with a neutrophilic predominance, lactic acid of 3.9, elevated liver enzymes and a hepatocellular pattern, troponin 0.041, d-dimer 0.60, and procalcitonin 0.03. CTA of chest revealed advanced emphysema, bronchiolitis and/or atypical pneumonia, and remained left-sided small pneumothorax with pleural chest tube in place but no PE. CT of abdomen and pelvis showed morphology of the liver consistent with hepatitis or other hepatocellular process and nonobstructive right nephrolithiasis. Patient was transferred to the CCU intubated and sedated at which time vitals were temperature 36.7, pulse 80, blood pressure 113/76, saturating 94% on 60% FiO2. Hospital Course Patient is a 61-year-old female ex-smoker with a severe centrilobular emphysema , and COPD presented with left lung pneumothorax and acute heart failure also have pneumonia. Likely, patient had viral upper respiratory tract infection followed by bacterial pneumonia,COPD exacerbation, subsequently developed left lung pneumothorax, and in the process had stress-induced cardiomyopathy. She is currently off of pressors, extubated. Chest tube removed on 04/26. Patient monitored for 48 hours post chest tube removal. Patient maintained on steroids until seen by PCP. Diabetes managed with insulin while in the hospital, patient to begin taking metformin at home as well as continuing diet management. Patient instructed to continue taking blood sugars regularly. Patient to report to PCP with elevations in blood sugars consistently above 350. Due to the patient's limited mobilization, and great difficulty with transferring travel, we recommend going home with home health assist for nursing as well as physical therapy. We suggest 2-3 days per week of nursing and physical therapy to ensure the patient is a branch medications as directed and is progressing from a rehabilitation standpoint. Acute hypoxic respiratory failure, POA, improved -Cause multifactorial: bacterial pneumonia, pneumothorax, COPD exacerbation -Intubated for 5 days, extubated on 04/22/2017 -Continue respiratory support, maintain pulse oximetry above 90% -Incentive spirometry when able Acute exacerbation of chronic obstructive pulmonary disease, POA, treated -Continue DuoNeb q.4.h - Prednisone 60 mg today to be converted to 40 mg daily starting 04/29 - To be discharged on prolonged prednisone taper per pulmonary recommendations - Patient had pulmonary function testing scheduled at for 05/08 the patient has been directed to reschedule this - Patient will follow up with her PCP on 05/06/2017 Acute Pneumonia, present on admission, resolved -H.flu on sputum culture -"diffuse interstitial thickening" with mild "tread and bud" patterning on CT, suggestive of atypical pna -MRSA screening negative - ceftriaxone IV continued for 3 days from 04/20-04/25 Pneumothorax, present on admission, active and improving. -Patient with left pneumothorax on arrival to the ED. -Chest tube in place since 04/18/2017 to be manage by surgery, waterseal on 04/22 , removed on 04/26/2017 with no recurrence on chest x-ray on 04/28/2070 -Initial insult likely caused by blebs Likely Stress induced cardiomyopathy -Echo showed EF 20-25% with apical ballooning. -Will likely slowly wean this patient off the vent so as to reduce cardiac strain -Consider repeat echocardiogram as an outpatient QTC prolongation, present on admission, active and improving. -Initial EKG on presentation to the ED showed a QTC of 542. Repeat EKG now reveals a QTC of 691. -Close monitoring on telemetry. -Avoid QT prolonging medications. -current QTC 422 (04/22/2017) Chronic/Resolved medical condition Diabetes mellitus type II non-insulin using, present on admission, active and stable. -A1c 6.2 -held home Metformin -Low-dose correctional scale Gastroesophageal reflux disease, present on admission, chronic. -held home pantoprazole 40 mg, switched to Famotidine due to prolonged QT Sepsis shock, resolved -Met SIRS criteria initial evaluation, source pneumonia -Initial lactic acid 3.9, fluid resuscitation initiated and deescalated after 6 hours when lactic acid normalized, -Norepinephrine and vasopressin was later added for pressor support now DC'd -Sepsis resolved 04/22/2017, D/C pressors Elevated liver enzymes, active and stable. -likely 2nd to sepsis shock -CT abdomen and pelvis revealed findings suggestive of hepatitis or other hepatocellular process. -Tylenol level and hepatitis panel negative Non Ion gap metabolic and respiratory acidosis, POA. Improving -Upon arrival patient had an ABG consistent with non compensated respiratory acidosis -Repeat ABG showed improvement of the respiratory component of her acidosis but a decline in BiCarb resulting in a virtually unchanged pH since admission -Etiology uncertain at this time, could be consistent with Sepsis though active severe infection is questionable at this juncture -There is no report of active GI volume loss -Patient is not on a diuretic as an outpatient Elevated troponin return to stress cardiomyopathy, present on admission, active and stable. -Initial troponin was 0.014 some T-wave abnormalities in the lateral leads. Initially this was attributed to patient's hypotension. Second troponin was significantly elevated and repeat EKG was obtained. Some changes were noted and due to this treatment for NSTEMI was initiated. Patient never complained of chest pain per EMS and when she arrived she was already intubated and sedated. Risk factors include significant smoking history, family history of premature heart disease, and current critical condition. - Heparin drip transitioned to SubQ as this appears likely secondary to stress cardiomyopathy as above - Initial troponin 0.041. Second troponin 0.322. Troponin now trending down - Lipid panel pending. - Supplemental oxygen as needed. - Aspirin 81 mg initially received and continued daily. - Beta oziel, AMOS inhibitor, and clopidogrel unable to be given due to hypotensive patient. Exam Vital Signs (Last) Date Time Temp Pulse Resp B/P Pulse Ox O2 Delivery O2 Flow Rate FiO2 04/29/17 15:29 36.6 89 83/62 97 Room Air 04/29/17 12:16 18 04/25/17 16:13 2.00 04/24/17 03:11 30 Exam General: No acute distress, well-developed, well-nourished Head: Normocephalic, atraumatic. External ears without defect. Eyes: Pupils equal, round, and reactive to light and accommodation. Anicteric sclerae, moist conjunctivae. Neck: Normal range of motion, no lymphadenopathy noted Cardiovascular: Regular rate and rhythm with no murmurs, rubs, or gallops appreciated Pulmonary: Clear to auscultation bilaterally with the exception of moderate rhonchi. no crackles, wheezes. Lidocaine patch on the left chest Abdomen: Bowel tones present. Soft, nontender, nondistended. Extremities: No clubbing, cyanosis, edema Skin: Normal temperature, turgor, and texture; no rash, ulcers, or subcutaneous nodules appreciated. Neurological: Cranial nerves grossly intact. Reflexes, coordination, and sensory function within normal limits. Normal muscle strength, tone, and bulk. Psychiatric: Normal mood and affect. Alert and oriented to person, place, and time Test 04/18/17 19:50 04/18/17 23:53 04/19/17 00:02 04/19/17 00:20 Activated Partial Thromboplast Time 21.9sec (22.8-33.0) D-Dimer 0.60mg/L FEU (<0.50) Hemoglobin A1c 6.2% (4.8-5.6) Lactic Acid Level 1.3mmol/L (0.4-2.0) Lipase 17U/L (13-60) Acetaminophen Level < 15.0ug/mL Rx (10-25) Hepatitis A IgM Antibody Negative (Negative) Hepatitis B Surface Antigen Negative (Negative) Hepatitis B Core IgM Antibody Negative (Negative) Hepatitis C Antibody <0.1s/co ratio (0.0-0.9) Hepatitis C Comment Comment (.) Urine Legionella pneumophilia Ag Negative (Negative) Urine Color Yellow (YELLOW) Urine Appearance Clear (CLEAR,HAZY) Urine pH 6.0 (5.0-8.0) Urine Specific [place] 1.025 (1.003-1.035) Urine Protein 100mg/dL (NEG,TRACE) Urine Glucose (UA) 250mg/dL (NEGATIVE) Urine Ketones Negativemg/dL (NEGATIVE) Urine Occult Blood Small (NEGATIVE) Urine Nitrite Negative (NEGATIVE) Urine Bilirubin Negative (NEGATIVE) Urine Urobilinogen 1.0mg/dL (NORMAL) Urine Leukocyte Esterase Negative (NEGATIVE) Urine RBC 0-2/hpf (0-2) Urine WBC 0-5/hpf (0-5) Urine Epithelial Cells Few/hpf (NONE-MOD) Urine Crystals None seen (NONE SEEN) Urine Bacteria Moderate/hpf (NONE-FEW) Urine Hyaline Casts 5/20/lpf (NONE) Urine Granular Casts 5-20 (NONE SEEN) Urine Waxy Casts None seen (NONE SEEN) Urine Red Blood Cell Casts None seen (NONE SEEN) Urine White Blood Cell Casts None seen (NONE SEEN) Urine Mucus None seen (None Seen) Urine Trichomonas None seen (NONE SEEN) Urine Yeast None (NONE SEEN) Urinalysis Comment None Urine Culture Reflexed Indicated Test 04/19/17 06:05 04/19/17 11:18 04/20/17 11:25 04/22/17 03:10 Prothrombin Time 11.1sec (8.1-12.5) Prothromb Time International Ratio 1.04ratio Triglycerides Level 63mg/dL (0-149) Cholesterol Level 104mg/dL (100-199) LDL Cholesterol, Calculated 56.400mg/dL (0-99) VLDL Cholesterol 12.600mg/dL HDL Cholesterol 35mg/dL (>39) Cholesterol/HDL Ratio 2.97 (0.0-4.4) Hold Glass Top Tube Received (Received) Troponin T 0.157ug/L (0.0-0.011) Vancomycin Level Trough < 2.3mcg/mL Prealbumin 16mg/dL (20-40) Test 04/23/17 05:45 04/25/17 06:00 04/27/17 05:05 04/28/17 05:20 Band Neutrophils % 3% (1-5) Pro-B-Type Natriuretic Peptide 7523pg/mL (0-287) Phosphorus Level 4.0mg/dL (2.5-4.9) Magnesium Level 1.9mg/dL (1.6-2.6) Procalcitonin 0.07ng/mL (0.00-0.08) Neutrophils (%) (Auto) 76.0% (40-74) Lymphocytes (%) (Auto) 16.7% (14-46) Monocytes (%) (Auto) 5.6% (4-12) Eosinophils (%) (Auto) 0.5% (0-5) Basophils (%) (Auto) 0.1% (0-3) White Blood Count 15.9th/mm3 (3.8-10.1) Red Blood Count 4.07mil/mm3 (3.90-5.20) Hemoglobin 12.3g/dL (12.0-15.6) Hematocrit 35.2% (35.0-46.0) Mean Corpuscular Volume 86.5fL (81-100) Mean Corpuscular Hemoglobin 30.2pg (27.0-35.0) Mean Corpuscular Hemoglobin Concent 34.9% (32.0-37.0) Red Cell Distribution Width 14.3% (12.3-15.4) Platelet Count 221bil/L (150-400) Sodium Level 142mEq/L (134-144) Potassium Level 4.2mEq/L (3.5-5.2) Chloride Level 105mEq/L (97-108) Carbon Dioxide Level 26mmol/L (18-29) Blood Urea Nitrogen 20mg/dL (8-27) Creatinine 0.48mg/dL (0.57-1.00) Estimat Glomerular Filtration Rate 187mL/min (>59) Glucose Level 95mg/dL (60-99) Calcium Level 8.4mg/dL (8.5-10.1) Total Bilirubin 0.5mg/dL (0.0-1.2) Aspartate Amino Transf (AST/SGOT) 29U/L (0-50) Alanine Aminotransferase (ALT/SGPT) 105U/L (0-32) Alkaline Phosphatase 134U/L (25-165) Total Protein 5.0g/dL (6.4-8.4) Albumin 3.3g/dL (3.4-5.0) Microbiology Results Sputum culture - Haemophilus Influenzae Resp PCR - Rhinovirus/Enterovirus Blood cultures - no growth MRSA swab - negative Discharge Medications Discharge Medications Biotin (Biotin) 5 Mg Tablet 5 MG PO QAM (Reported) Calcium Carbonate/Vitamin D3 (Calcium 600 + Vit D3 400 Tab) 600 Mg-400 Tablet 1 EACH PO QAM (Reported) Fexofenadine (Fexofenadine) 180 Mg Tablet 180 MG PO QAM (Reported) Formoterol Fumarate (Perforomist) 20 Mcg/2 Ml Vial.neb 20 MCG IH BID (Reported) Metformin (Glucophage) 1,000 Mg Tablet 1,000 MG PO BIDWM (Reported) Montelukast (Montelukast) 10 Mg Tablet 10 MG ORAL HS (Reported) Multivitamin (Once Daily) 1 Each Tablet 1 EACH PO DAILY (Reported) Nut.tx.impaired Digest Fxn (Ensure Enlive) 198 Ml Liquid 198 ML PO TID Prescribed by: MACY JJ DO Pantoprazole DR (Pantoprazole DR) 40 Mg Tablet.dr 40 MG PO QAM (Reported) Prednisone (Deltasone) 20 Mg Tablet 40 MG PO DAILY 40mg daily for 3 days 20mg daily for 3 days 10mg daily until seen by PCP Prescribed by: MACY JJ DO Tiotropium [place] (Spiriva) 18 Mcg Cap.w.dev 18 MCG IH DAILY (Reported) Venlafaxine (Venlafaxine) 75 Mg Tablet 75 MG PO TIDWM (Reported) Vit C/Hellen AC/Lut/Copper/Znox (Preservision Lutein Softgel) 1 Each Capsule 1 CAPSULE PO DAILY (Reported) As needed Albuterol Neb Soln (Albuterol Neb Soln) 2.5 Mg/3 Ml Vial.neb 2.5 MG INHALATION Q6H PRN PRN For Shortness of Breath (Reported) Albuterol Sulfate (Ventolin HFA Inhaler) 200 Puff/18 Gm Inhaler 2 PUFFS INH Q4H PRN PRN For Shortness of Breath (Reported) Guaifenesin (Mucinex) 1,200 Mg Tbmp.12hr 1,200 MG PO BID PRN PRN For Congestion Prescribed by: MACY JJ DO Levalbuterol Tartrate (Levalbuterol Tartrate Hfa) 45 Mcg/Actuation Hfa.aer.ad 2 PUFFS INHALATION Q4H PRN PRN For Shortness of Breath (Reported) Methocarbamol (Methocarbamol) 750 Mg Tablet 750 MG PO HS PRN PRN For Spasm ( Reported) Temazepam (Restoril) 7.5 Mg Capsule 7.5 MG PO HS PRN PRN Insomnia Prescribed by: MACY JJ DO Tramadol (Tramadol) 50 Mg Tablet 50 MG PO q6 hours PRN PRN For Pain (Reported) Trazodone (Trazodone) 50 Mg Tablet 25 MG PO HS PRN PRN For Sleep Prescribed by: MACY JJ DO oxyCODONE-Acetaminophen 5-325 mg (oxyCODONE-Acetaminophen 5-325 mg) 1 Each Tablet 2.5-5 MG PO Q6H PRN PRN For Pain Prescribed by: MACY JJ DO Additional med instructions Please continue to take all medications as previously prescribed except for the following changes: You may use oxycodone 2.5-5 mg every 6 hours as needed for pain You may also use Temazepam 7.5 mg as needed for sleep Please take prednisone 40 mg per day for 3 days, followed by 20 mg per day for 3 days, followed by 10 mg per day until seen by your primary care doctor We have also prescribed ensure Enlive which we would like you to take 3 times a day with meals. We have decreased your dose of trazodone from 50-100 mg down to 25 mg nightly as needed for sleep Followup Plan Disposition: Home Follow-up plan Follow-up closely with Dr. Scott, also please follow up closely with your printing sales representative in [place] for further recommendations concerning lung reduction surgery. Discharge Diet: No restrictions Discharge Activity: No restrictions Patient Instructions Please follow-up closely with Dr. Scott. We would like you to continue watching your blood sugars showing that they remain at an appropriate level. Continue to check blood sugars as an outpatient and contact your primary care doctor if your blood sugars are consistently above 350. Please return to the emergency department as soon as possible if he develops symptoms similar to those with which she presented initially. Follow-up Provider: Mason Velasco MD Follow-up with PCP in: 1 week Time spent Greater than 30 minutes was spent in preparation of discharge with greater than 50% of that time dedicated to patient counseling and coordination of care. . Attending Statement The patient was seen and examined together with Dr. Jj on 04/29/2017 and I agree with the history, exam and plan as outlined in the note above. . copies to: Mason Velasco MD, Adam J DO Apr 29, 2017 16:28 Patrick Hunter MD Apr 30, 2017 14:11
--- NOTE | 2017-04-29 18:17 | NUR ---
Discharge Pt discharged to her friend's home with transportation by her boyfriend. IJ was dc'd intact by IV therapy. Telemetry was removed and tech notified. Pt's discharge instructions, follow up appointments and new medications were reviewed. All questions were answered and pt voiced understanding. Pt's belongings including her Trilogy machine were gathered for transportation home with pt. Pt was escorted to her boyfriend's vehicle by [employer] SALES REPRESENTATIVE.
== END 2017-04-29 16:58 | disposition home health service (06) | DRG 121 ==
LOC: SED 19:35 → EDBD 19:35 → EDUNIT# 19:35 → UNDOADMIN 21:30 → PCC 21:30 → CCU 21:30 → PCC 04-25 08:09
PROVIDERS: ADMIT Hospitalist; ATTEND Hospitalist
PROC: 5A1955Z Respiratory Ventilation, Greater than 96 Consecutive Hours (ICD-10-PCS; principal; 2017-04-18)
PROC: 0B9L30Z Drainage of Left Lung with Drainage Device, Percutaneous Approach (ICD-10-PCS; 2017-04-18)
PROC: 02HV33Z Insertion of Infusion Device into Superior Vena Cava, Percutaneous Approach (ICD-10-PCS; 2017-04-18)
PROC: 4A033R1 Measurement of Arterial Saturation, Peripheral, Percutaneous Approach (ICD-10-PCS; 2017-04-18)
DX: J96.21 Acute and chronic respiratory failure with hypoxia (principal); A41.9 Sepsis, unspecified organism; R65.21 Severe sepsis with septic shock; J14 Pneumonia due to Hemophilus influenzae; J44.1 Chronic obstructive pulmonary disease with (acute) exacerbation; J93.0 Spontaneous tension pneumothorax; E87.4 Mixed disorder of acid-base balance; Z99.81 Dependence on supplemental oxygen; I48.0 Paroxysmal atrial fibrillation; I51.81 Takotsubo syndrome; I45.81 Long QT syndrome; E11.9 Type 2 diabetes mellitus without complications; K21.9 Gastro-esophageal reflux disease without esophagitis; J43.2 Centrilobular emphysema; F41.8 Other specified anxiety disorders; B97.89 Other viral agents as the cause of diseases classified elsewhere; J06.9 Acute upper respiratory infection, unspecified; Z87.891 Personal history of nicotine dependence